=== PATIENT | female | born 1965 | race Caucasian/White ===

== ENCOUNTER 2018-02-13 22:59 | Emergency (ER) | payer OTHER, SELFPAY ==
[2018-02-13 23:09] VITALS: BP 143/90; PULSE 88; RESP 16; TEMP 36.6; O2SAT 98; BMI 32.5
--- NOTE | 2018-02-13 23:45 | ED.GENADULT ---
HPI - General Adult General Chief complaint: Diabetic Problem Stated complaint: thinks her blood sugar is to low Time Seen by Provider: 02/13/18 23:04 Source: patient Mode of arrival: ambulatory Limitations: no limitations History of Present Illness HPI narrative: 52-year-old female here for concerns of low blood sugar. Patient states that she takes 56 units of her long-acting insulin in the mornings and then 5 units of her short-acting insulin prior to each meal. She states that she has had concerns about low blood sugar. She states that earlier today she was at cardiac rehab where she ???zoned out??? and she states that they took her blood sugar there and it was in the mid 60s. She has not spoken with her primary doctor about this. Related Data Home Medications Medication Instructions Recorded Confirmed acetaminophen 650 mg PO Q4HP PRN #0 04/07/17 amiodarone 400 mg PO QDAY #0 11/15/17 aspirin 81 mg PO QDAY #0 11/15/17 atorvastatin [Lipitor] 10 mg PO HS #0 11/15/17 bisacodyl [Fleet Laxative] 5 mg PO QDAYP PRN #0 11/15/17 carvedilol [Coreg] 6.25 mg PO BID #0 11/15/17 furosemide 20 mg PO QDAY #0 11/15/17 insulin aspart U-100 [Novolog 5 unit SQ TIDAC #0 11/15/17 Flexpen U-100 Insulin] insulin glargine [Lantus Solostar 80 unit SQ QDAY #0 11/15/17 U-100 Insulin] lisinopril 10 mg PO BID #0 11/15/17 metformin [Glucophage] 250 mg PO BID #0 11/15/17 potassium chloride 2 cap PO QDAY #0 11/15/17 rosuvastatin 10 mg PO HS #0 11/15/17 spironolactone 12.5 mg PO QDAY #0 11/15/17 Review of Systems Constitutional Denies chills, Denies fever(s), Denies lethargy and Denies weakness Cardiovascular Denies chest pain, Denies irregular heart rhythm, Denies lightheadedness, Denies palpitations, Denies dyspnea, Denies dyspnea on exertion and Denies orthopnea Respiratory Denies cough, Denies dyspnea, Denies dyspnea on exertion and Denies wheezing Gastrointestinal Gastrointestinal: Denies abdominal pain, Denies change in bowel habits, Denies diarrhea, Denies nausea and Denies vomiting Genitourinary Denies dysuria Integumentary/Breasts Denies pruritus, Denies erythema, Denies rash and Denies wounds Neurologic Denies weakness Endocrine Denies palpitations Comments: Concern for low blood sugar Hematologic/Lymphatic Denies easy bruising Allergic/Immunologic Denies wheezing [facility] Social History Smoking Status: Never smoker Exam Initial Vital Signs Initial Vital Signs: Vital Signs Temperature 98 F 02/13/18 23:09 Pulse Rate 88 02/13/18 23:09 Respiratory Rate 16 02/13/18 23:09 Blood Pressure 143/90 H 02/13/18 23:09 Pulse Oximetry 98 02/13/18 23:09 Resp Effort & Inspection: normal respiratory effort and no respiratory distress Cardio Rate: regular rate Rhythm: regular rhythm Skin General: no rashes or lesions noted, No jaundice and No petechiae Neuro General: alert, oriented x3, gait normal and no focal motor deficits Speech: speech normal Motor: muscle tone normal throughout Sensory Exam: no sensory deficits noted Extrem General: full ROM, no clubbing, cyanosis or edema, no pedal edema and no calf tenderness Course Vital Signs - 8 hr 02/13/18 23:09 Temperature 98 F Pulse Rate 88 Respiratory Rate 16 Blood Pressure 143/90 H Pulse Oximetry 98 Medical Decision Making MDM Narrative Medical decision making narrative: Patient with normal blood sugar here in the emergency department. She has good records of her blood sugars over the past month. In general her blood sugars have been the lowest in the morning and the highest prior to her noon meal. On average all of her blood sugars throughout the day have been in the 90s and low 100s. She does have occasional morning blood sugars in the 60s and 70s but this is few and far between. Her blood sugars over the past month and general have been lower than they were last month. I feel after reviewing her daily blood sugars that she has not been hypoglycemic on a regular basis. Unsure as to the etiology of her low blood sugar at cardiac rehab earlier today. We did discuss her blood sugars and the fact that as time goes on there are may need to be changes and that a standard dose of the short-acting before her meals may need to be switched to a sliding scale. We did discuss that in the short term higher blood sugars are better than low blood sugars however good control of her blood sugar over long-term is better. She expressed understanding of this. Will hold on further workup for now. She was given return precautions. She was instructed that she needed to contact her primary doctor to discuss implementing a sliding scale for her meals. She expressed understanding and agreement with plan. Lab Data Lab results reviewed: Yes I reviewed the patient's lab results. Discharge Plan Departure Patient Disposition: Home, Self-Care Clinical Impression: Diabetes mellitus Discharge Date/Time: 02/13/18 23:55 Interventions: ED Discharge Assessment Last Done: 02/14/18 00:00 Instructions: The Importance of Counting Carbs If You Have Diabetes Activity Restrictions/Additional Instructions: Recommend that you make the adjustments to your insulin likely discussed. Keep your long acting insulin the way that it is. You can adjust her short-acting insulin to 3 units before each meal or keep it the way it is. Recommend that you talk with your primary doctor regarding this to discuss a sliding scale. Return to the emergency department for any new or worsening symptoms Prescriptions: No Action acetaminophen 325 MG tablet 650 mg PO Q4HP PRNQty: 0 RF: 0 lisinopril 10 MG tablet 10 mg PO BID Qty: 0 RF: 0 amiodarone 200 MG tablet 400 mg PO QDAY Qty: 0 RF: 0 rosuvastatin 10 MG tablet 10 mg PO HS Qty: 0 RF: 0 atorvastatin [Lipitor] 10 MG tablet 10 mg PO HS Qty: 0 RF: 0 spironolactone 25 MG tablet 12.5 mg PO QDAY Qty: 0 RF: 0 metformin [Glucophage] 500 MG tablet 250 mg PO BID Qty: 0 RF: 0 bisacodyl [Fleet Laxative] 5 MG tablet,delayed release (DR/EC) 5 mg PO QDAYP PRNQty: 0 RF: 0 carvedilol [Coreg] 6.25 MG tablet 6.25 mg PO BID Qty: 0 RF: 0 aspirin 81 MG tablet,chewable 81 mg PO QDAY Qty: 0 RF: 0 insulin aspart U-100 [Novolog Flexpen U-100 Insulin] 100 UNIT/1 ML insulin pen 5 unit SQ TIDAC Qty: 0 RF: 0 furosemide 20 MG tablet 20 mg PO QDAY Qty: 0 RF: 0 insulin glargine [Lantus Solostar U-100 Insulin] 100 UNIT/1 ML insulin pen 80 unit SQ QDAY Qty: 0 RF: 0 potassium chloride 10 MEQ capsule, extended release 2 cap PO QDAY Qty: 0 RF: 0
== END 2018-02-13 23:55 | disposition home or self-care (01) ==
PROVIDERS: Emergency Provider Emergency Medicine; Family Provider Family Medicine; PCP Family Medicine
DX: E11.9 Type 2 diabetes mellitus without complications (principal)
CPT/HCPCS: 82962; 99282

== ENCOUNTER 2020-04-25 19:42 | Emergency (ER) | payer SELFPAY ==
[2020-04-25 20:25] VITALS: BP 160/91; PULSE 78; RESP 18; TEMP 36.9; O2SAT 95; BMI 33.8
--- NOTE | 2020-04-25 20:36 | DI.RAD.S_ITS ---
PROCEDURE: XR TOE LT MIN 2V INDICATIONS: L 2nd toe ulcer r/o osteomyelitis TECHNIQUE: 3 views of the left 2nd toe(s) acquired. COMPARISON: None. FINDINGS: No destructive osseous lesion or periosteal reaction of the 2nd digit. No soft tissue gas. IMPRESSION: No plain radiographic evidence of osteomyelitis involving the 2nd digit. Dictated by: Iggy Rossi M.D. on 04/25/2020 at 20:58 Approved by: Iggy Rossi M.D. on 04/25/2020 at 20:59
[2020-04-25 21:27] LABS: RBC Urine None Seen (0-5/HPF)
--- NOTE | 2020-04-25 21:36 | ED.WOUNDLAC ---
HPI - Wound/Laceration General Chief Complaint: Wound/Laceration Stated Complaint: 2nd toe right foot sore that is getting bigger Time Seen by Provider: 04/25/20 20:20 Source: patient Mode of arrival: Ambulatory Limitations: no limitations History of Present Illness HPI narrative: 54-year-old female nonsmoker with history of hyperlipidemia, hypertension and diabetic neuropathy presents with her in the chief complaint of a small wound on the plantar surface of a toe on her left foot with some redness of her toe, worsening over the past few days if not weeks. She denies any significant pain or known injury. She denies any history of the same. She denies any fever or chills. She denies runny nose, sore throat or cough. She has no chest pain or shortness of breath. Additionally, she complains of some redness and irritated skin underneath her pannus which has been getting worse despite the use of a triple action antibiotic cream. Onset (ago): week(s) Extremity Location: Left: foot Related Data Home Medications Medication Instructions Recorded Confirmed acetaminophen 650 mg PO Q4HP PRN #0 04/07/17 amiodarone 400 mg PO QDAY #0 11/15/17 aspirin 81 mg PO QDAY #0 11/15/17 atorvastatin [Lipitor] 10 mg PO HS #0 11/15/17 bisacodyl [Fleet Laxative 5 mg PO QDAYP PRN #0 11/15/17 (bisacodyl)] carvedilol [Coreg] 6.25 mg PO BID #0 11/15/17 furosemide 20 mg PO QDAY #0 11/15/17 insulin aspart U-100 [Novolog 5 unit SQ TIDAC #0 11/15/17 Flexpen U-100 Insulin] insulin glargine [Lantus Solostar 80 unit SQ QDAY #0 11/15/17 U-100 Insulin] lisinopril 10 mg PO BID #0 11/15/17 metformin [Glucophage] 250 mg PO BID #0 11/15/17 potassium chloride 2 cap PO QDAY #0 11/15/17 rosuvastatin 10 mg PO HS #0 11/15/17 spironolactone 12.5 mg PO QDAY #0 11/15/17 Previous Rx's Medication Instructions Recorded amoxicillin-pot clavulanate 1 tab PO BID #20 tab 04/25/20 [Augmentin] ciprofloxacin HCl 500 mg PO Q12H #20 tab 04/25/20 nystatin 1 applictn TOP BID 10 Days #30 gram 04/25/20 sulfamethoxazole-trimethoprim 1 tab PO Q12H #20 tab 04/25/20 [Bactrim DS] Allergies Allergy/AdvReac Type Severity Reaction Status Date / Time No Known Drug Allergies Allergy Verified 04/25/20 20:30 Review of Systems Constitutional Constitutional: Denies chills, Denies fatigue, Denies fever(s), Denies frequent falls, Denies lethargy and Denies weakness Eyes Eyes: Denies change in vision, Denies eye discharge, Denies irritation and Denies loss of vision ENT Ears, Nose, Mouth, and Throat: Denies change in voice, Denies dizziness, Denies neck pain, Denies sore throat and Denies throat swelling Cardiovascular Cardiovascular: Denies chest pain, Denies irregular heart rhythm, Denies lightheadedness, Denies palpitations, Denies dyspnea, Denies dyspnea on exertion and Denies orthopnea Respiratory Respiratory: Denies cough, Denies dyspnea, Denies dyspnea on exertion and Denies wheezing Gastrointestinal Gastrointestinal: Denies abdominal pain, Denies change in bowel habits, Denies diarrhea, Denies nausea and Denies vomiting Musculoskeletal Musculoskeletal: Denies neck pain and Denies numbness Integumentary/Breasts Skin/Breast: Denies pruritus, Reports erythema, Denies rash, Reports skin pain, Reports skin swelling, Reports skin ulcer and Denies wounds Neurologic Neurologic: Denies behavioral changes, Denies confusion, Denies dizziness, Denies frequent falls, Denies loss of vision, Denies numbness and Denies weakness Psychiatric Psychiatric: Denies anxiety, Denies behavioral changes, Denies confusion, Denies depression, Denies homicidal ideation and Denies suicidal ideation Endocrine Endocrine: Denies fatigue, Denies flushing and Denies palpitations Hematologic/Lymphatic Hematologic/Lymphatic: Denies easy bruising Allergic/Immunologic Allergic/Immunologic: Denies urticaria, Denies throat swelling and Denies wheezing Patient History Social History Smoking Status: Never smoker Smoking Status: Never smoker alcohol intake frequency: 0-2 drinks per day Substance Use Type: does not use Exam Narrative Exam Narrative: GENERAL: [54] year old patient appears stated age. Morbidly obese Well-nourished, well-developed patient, in mild distress. HEAD: Atraumatic. Normocephalic. EYES: Pupils equal round and reactive. Extraocular motions intact. No scleral icterus. No injection or drainage. ENT: Nose without bleeding, purulent drainage. Throat without erythema, tonsillar hypertrophy or exudate. Airway patent. NECK: Trachea midline. Non tender CARDIOVASCULAR: Regular rate and rhythm without murmurs, gallops, or rubs. RESPIRATORY: Clear to auscultation. Breath sounds equal bilaterally. No wheezes, rales, or rhonchi. GASTROINTESTINAL: Abdomen soft, non-tender, nondistended. Pannus lifted and large area of of red, beefy and well demarcated skin irritation consistent with candidal infection. EXTREMITIES: No edema or joint tenderness. Small scabbed insensate ulcer on the plantar surface of 2nd toe of left foot. NO active drainage. No exposure of subq fat, muscle, tendon or bone. Toe is largely erythematous. No involvement of foot BACK: Nontender without deformity or crepitance. No flank tenderness. NEURO: AOx3. SKIN: Otherwise. No rash or erythema of visible areas Initial Vital Signs Initial Vital Signs: Vital Signs Temperature 98.4 F 04/25/20 20:25 Pulse Rate 78 04/25/20 20:25 Respiratory Rate 18 04/25/20 20:25 Blood Pressure 160/91 H 04/25/20 20:25 Pulse Oximetry 95 04/25/20 20:25 Course Orders Ordered: ED Orders 04/25/20 22:42 Blood Culture Stat 04/25/20 23:38 Wound Culture and Gram Stain Stat Wound Culture and Gram Stain Stat Discontinued Medications Nystatin (Nystatin) 1 applic TOP NOW ONE Stop: 04/25/20 23:22 Last Admin: 04/25/20 23:54 Dose: Not Given Documented by: CASEY Vital Signs Vital signs: Vital Signs - 8 hr 04/25/20 23:41 Pulse Rate 68 Blood Pressure 138/78 Pulse Oximetry 98 MDM - Wound/Laceration Lab Data Result diagrams: 04/25/20 20:15 Labs: Lab Results 04/25/20 04/25/20 04/25/20 Range/Units 20:15 20:15 20:15 WBC 6.7 (4.5-11.0) X10^3/uL RBC 4.93 (4.0-5.2) X10^6/uL Hgb 14.4 (12.0-16.0) g/dL Hct 44.0 (36-46) % MCV 89.3 (80-100) fL MCH 29.1 (26-34) PG MCHC 32.6 (30-36) % RDW 13.2 (11.6-14.8) % Plt Count 218 (150-400) X10^3/uL Neut % (Auto) 68.4 (50-75) % Lymph % (Auto) 20.2 L (25-40) % [place] % (Auto) 8.6 (3-14) % Eos % (Auto) 1.9 L (2-4) % Baso % (Auto) 0.9 (0-2) % Neut # (Auto) 4600 (4086-9957) /uL Lymph # (Auto) 1400 (8228-3481) /uL [place] # (Auto) 600 (0-900) /uL Eos # (Auto) 100 (0-450) /uL Baso # (Auto) 100 (0-100) /uL ESR 25 H (0-20) MM/HR Lactate 1.0 (0.7-2.1) mmol/L C-Reactive Protein 2.2 H (<1.0) mg/dL NT-Pro-B Natriuret Pep 406 H (<125) pg/mL Urine RBC (0-5/HPF) Urine WBC (0-5/HPF) Ur Squamous Epith Cells (0-5/HPF) Urine Bacteria (None) Ur Culture Indicated? 04/25/20 Range/Units 21:26 WBC (4.5-11.0) X10^3/uL RBC (4.0-5.2) X10^6/uL Hgb (12.0-16.0) g/dL Hct (36-46) % MCV (80-100) fL MCH (26-34) PG MCHC (30-36) % RDW (11.6-14.8) % Plt Count (150-400) X10^3/uL Neut % (Auto) (50-75) % Lymph % (Auto) (25-40) % [place] % (Auto) (3-14) % Eos % (Auto) (2-4) % Baso % (Auto) (0-2) % Neut # (Auto) (7183-6023) /uL Lymph # (Auto) (0608-0593) /uL [place] # (Auto) (0-900) /uL Eos # (Auto) (0-450) /uL Baso # (Auto) (0-100) /uL ESR (0-20) MM/HR Lactate (0.7-2.1) mmol/L C-Reactive Protein (<1.0) mg/dL NT-Pro-B Natriuret Pep (<125) pg/mL Urine RBC None seen (0-5/HPF) Urine WBC 5-10/hpf H (0-5/HPF) Ur Squamous Epith Cells 0-1 /hpf (0-5/HPF) Urine Bacteria Many (>30) H (None) Ur Culture Indicated? Specimen cultured Imaging Data Extremity x-ray #1: Radiologist's Impression: [address] [address] XRay Report Signed Patient: Kimmy Gray [facility]#: [id number] : 1965Acct:[id number] Age/Sex: 54 / FDate of Service: 04/25/20 Loc: ED Accession Number: [id number] Procedure: XR toe LT min 2V Ordering Provider: Vidhya Moraes PROCEDURE: XR TOE LT MIN 2V INDICATIONS: L 2nd toe ulcer r/o osteomyelitis TECHNIQUE: 3 views of the left 2nd toe(s) acquired. COMPARISON: None. FINDINGS: No destructive osseous lesion or periosteal reaction of the 2nd digit. No soft tissue gas. IMPRESSION: No plain radiographic evidence of osteomyelitis involving the 2nd digit. Dictated by: Iggy Rossi M.D. on 04/25/2020 at 20:58 Approved by: Iggy Rossi M.D. on 04/25/2020 at 20:59 MDM Narrative Medical decision making narrative: Patient shows no signs of sepsis and is very unlikely Discharge Plan Departure Patient Disposition: Home Clinical Impression: Candidal dermatitis Diabetic ulcer of toe Qualifiers: Diabetes mellitus type: type 2 Laterality: left Non-pressure ulcer stage: limited to breakdown of skin Qualified Code(s): E11.621 - Type 2 diabetes mellitus with foot ulcer Discharge Date/Time: 04/25/20 23:56 Instructions: Diabetic Foot Ulcer, Yeast Infection-Skin Activity Restrictions/Additional Instructions: *You have been diagnosed with [ diabetic foot ulcer, candidal infection ] *What to do: *Take medications as directed *Follow up with your primary care provider in 2-3 days, call for an appointment. Let them know you were seen in the Emergency Department and that we ask that you be seen in follow up *Return to ER if you should have any new, worsening or concerning symptoms Prescriptions: New amoxicillin-pot clavulanate [Augmentin] 875-125 mg tablet 1 tab PO BID Qty: 20 RF: 0 ciprofloxacin HCl 500 mg tablet 500 mg PO Q12H Qty: 20 RF: 0 sulfamethoxazole-trimethoprim [Bactrim DS] 800-160 mg tablet 1 tab PO Q12H Qty: 20 RF: 0 nystatin 100,000 unit/gram cream 1 applictn TOP BID 10 Days Qty: 30 RF: 0 No Action acetaminophen 325 MG tablet 650 mg PO Q4HP PRNQty: 0 RF: 0 lisinopril 10 MG tablet 10 mg PO BID Qty: 0 RF: 0 amiodarone 200 MG tablet 400 mg PO QDAY Qty: 0 RF: 0 rosuvastatin 10 MG tablet 10 mg PO HS Qty: 0 RF: 0 atorvastatin [Lipitor] 10 MG tablet 10 mg PO HS Qty: 0 RF: 0 spironolactone 25 MG tablet 12.5 mg PO QDAY Qty: 0 RF: 0 metformin [Glucophage] 500 MG tablet 250 mg PO BID Qty: 0 RF: 0 bisacodyl [Fleet Laxative (bisacodyl)] 5 MG tablet,delayed release (DR/EC) 5 mg PO QDAYP PRNQty: 0 RF: 0 carvedilol [Coreg] 6.25 MG tablet 6.25 mg PO BID Qty: 0 RF: 0 aspirin 81 MG tablet,chewable 81 mg PO QDAY Qty: 0 RF: 0 insulin aspart U-100 [Novolog Flexpen U-100 Insulin] 100 UNIT/1 ML insulin pen 5 unit SQ TIDAC Qty: 0 RF: 0 furosemide 20 MG tablet 20 mg PO QDAY Qty: 0 RF: 0 insulin glargine [Lantus Solostar U-100 Insulin] 100 UNIT/1 ML insulin pen 80 unit SQ QDAY Qty: 0 RF: 0 potassium chloride 10 MEQ capsule, extended release 2 cap PO QDAY Qty: 0 RF: 0 Referrals: Kevin Leon MD [Primary Care Provider] -
[2020-04-25 21:38] LABS: Squamous Epithelial Cell Urine 0-1 /HPF (0-5/HPF); WBC Urine 5-10/HPF (0-5/HPF)
[2020-04-25 21:39] LABS: Bacteria Urine Many (>30); Culture Indicated Urine Specimen Cultured
--- NOTE | 2020-04-25 22:21 | PC.NURSE ---
reports her daughter noticed her second toe on left foot had a wound on the bottom. Patient does not know how long it has been there. Patient states her diabetes has been uncontrolled for 2 years due to inability to pay for care/medications.
[2020-04-25 22:42] LABS: Add Manual Diff / Slide Review NO; Basophils Absolute Auto 100 /uL (0-100); Basophils Percent Auto 0.9 % (0-2); Eosinophils Absolute Auto 100 /uL (0-450); Eosinophils Percent Auto 1.9 % (2-4); Hemoglobin 14.4 g/dL (12.0-16.0); Lymphocytes Absolute Auto 1400 /uL (1100-4500); Lymphocytes Percent Auto 20.2 % (25-40); Mean Corpuscular HGB Conc 32.6 % (30-36); Mean Corpuscular Hemoglobin 29.1 PG (26-34); Mean Corpuscular Volume 89.3 fL (80-100); Monocytes Absolute Auto 600 /uL (0-900); Monocytes Percent Auto 8.6 % (3-14); Neutrophils Absolute Auto 4600 /uL (1500-7000); Neutrophils Percent Auto 68.4 % (50-75); Platelet Count 218 X10^3/uL (150-400); Red Blood Cell Count 4.93 X10^6/uL (4.0-5.2); Red Cell Distribution Width 13.2 % (11.6-14.8); White Blood Cell Count 6.7 X10^3/uL (4.5-11.0)
[2020-04-25 23:11] LABS: C-Reactive Protein Quant 2.2 mg/dL (<1.0); Erythrocyte Sedimentation Rate 25 MM/HR (0-20)
[2020-04-25 23:18] LABS: NT-proBNP (BNP-Adult 18+) 406 pg/mL (<125)
[2020-04-25 23:41] VITALS: BP 138/78; PULSE 68; O2SAT 98
== END 2020-04-25 23:56 | disposition home or self-care (01) ==
PROVIDERS: Emergency Provider Emergency Medicine; Family Provider Family Medicine; PCP Family Medicine
DX: E11.621 Type 2 diabetes mellitus with foot ulcer (principal); B37.2 Candidiasis of skin and nail; E78.5 Hyperlipidemia, unspecified; I10 Essential (primary) hypertension; E66.01 Morbid (severe) obesity due to excess calories
CPT/HCPCS: 36415; 73660; 81003; 81015; 82962; 83605; 83880; 85025; 85651; 86140; 87040; 87070; 87075; 87077; 87086; 87147; 87186; 87205; 99282; 99284

== ENCOUNTER 2020-07-20 23:02 | Emergency (ER) | payer SELFPAY ==
[2020-07-20 23:09] VITALS: BP 136/89; PULSE 123; RESP 15; TEMP 37; O2SAT 97; BMI 30.5
[2020-07-21] VITALS (32 sets, daily range): BP systolic 108–168; BP diastolic 62–94; PULSE 91–114; RESP 14–23; O2SAT 89–95
--- NOTE | 2020-07-21 00:31 | PC.NURSE ---
Pt's states that pt is forgetting basic things such as her pin number, bringing him cold cups of coffee, and sitting by the bathtub waiting for cold water when she knows their cold water doesn't work on their bathtub. Pt is A&Ox4 and speaking in full clear sentences. Pt also has a small round wound to the underside of her L 2nd toe.
--- NOTE | 2020-07-21 01:29 | DI.RAD.S_ITS ---
PROCEDURE: XR CHEST 1V INDICATIONS: dyspnea TECHNIQUE: One view of the chest was acquired. COMPARISON: [facility], , CHEST 1 VIEW, 11/10/2017, 19:30. FINDINGS: Surgical changes and devices: AICD is stable. Stable cholecystectomy clips. Lungs and pleura: Slight prominence of the interstitium. No pleural effusions or pneumothorax. Mediastinum: Mediastinal contours appear normal. Heart size is normal. Bones and chest wall: No suspicious bony lesions. Overlying soft tissues appear unremarkable. IMPRESSION: Slight prominence of the interstitium which could be due to pulmonary edema or atypical pneumonia. Dictated by: Emily Ramirez MD, PhD on 07/21/2020 at 8:13 Approved by: Emily Ramirez MD, PhD on 07/21/2020 at 8:14
--- NOTE | 2020-07-21 01:30 | ED_ITS ---
HPI - Altered Mental Status General Chief Complaint: Altered Mental Status Stated Complaint: shortness of breath, forgetfulness/left foot ulcer Time Seen by Provider: 07/21/20 00:47 Source: patient Mode of arrival: Ambulatory Limitations: no limitations History of Present Illness HPI narrative: About 3:00 p.m. today, the patient developed dyspnea. She was at home, walking. She was not exerting herself significantly. Her describes her as panting. Symptoms for events resolved, she is unsure how long time. Was involved. She has no chest discomfort, palpitations or dyspnea at this time. She has no recent orthopnea, she has no lower extremity edema. She denies headache or sore throat. She has no chest pain. She has no fever. She has a pacer in. She had no palpitations. She has been well recently, until this afternoon. Her added that she has moments of confusion. The patient kind last set office and she has been that way for years. She has no current visual changes or headache. She has no peripheral weakness or numbness. She does not use alcohol or drugs. The patient has been noncompliant with all medications due to the expense. I discussed the case with Dr. Horn, cardiology at [facility]. She provided added detail. The patient is previously arrived there following cardiac arrest. Evaluation revealed severe ischemic cardiomyopathy, with multiple vessel CAD. She was treated for an EF of approximately 15%. She is asymptomatic on arrival but has CAD with tachycardia implying noncompliance of the medications. She has hyperglycemia. CHF was treated Lasix. The patient remains clinically stable. Dr. Horn concurred the increased troponin does not necessarily indicate a non-STEMI. Given her history LV strain is likely. Transfer to [facility] was recommended. There are no beds available at this time, but multiple discharges are anticipated. Dr. Horn has asked that she be held here until a bed is available at [facility]. Related Data Home Medications Medication Instructions Recorded Confirmed acetaminophen 650 mg PO Q4HP PRN #0 04/07/17 amiodarone 400 mg PO QDAY #0 11/15/17 aspirin 81 mg PO QDAY #0 11/15/17 atorvastatin [Lipitor] 10 mg PO HS #0 11/15/17 bisacodyl [Fleet Laxative 5 mg PO QDAYP PRN #0 11/15/17 (bisacodyl)] carvedilol [Coreg] 6.25 mg PO BID #0 11/15/17 furosemide 20 mg PO QDAY #0 11/15/17 insulin aspart U-100 [Novolog 5 unit SQ TIDAC #0 11/15/17 Flexpen U-100 Insulin] insulin glargine [Lantus Solostar 80 unit SQ QDAY #0 11/15/17 U-100 Insulin] lisinopril 10 mg PO BID #0 11/15/17 metformin [Glucophage] 250 mg PO BID #0 11/15/17 potassium chloride 2 cap PO QDAY #0 11/15/17 rosuvastatin 10 mg PO HS #0 11/15/17 spironolactone 12.5 mg PO QDAY #0 11/15/17 Previous Rx's Medication Instructions Recorded amoxicillin-pot clavulanate 1 tab PO BID #20 tab 04/25/20 [Augmentin] ciprofloxacin HCl 500 mg PO Q12H #20 tab 04/25/20 sulfamethoxazole-trimethoprim 1 tab PO Q12H #20 tab 04/25/20 [Bactrim DS] Allergies Allergy/AdvReac Type Severity Reaction Status Date / Time No Known Drug Allergies Allergy Verified 04/25/20 20:30 Review of Systems Constitutional Constitutional: Denies chills, Denies fever(s), Reports lethargy and Denies weakness Eyes Eyes: Denies change in vision ENT Ears, Nose, Mouth, and Throat: Denies change in voice, Denies dizziness, Denies neck pain and Denies sore throat Cardiovascular Cardiovascular: Denies chest pain, Denies irregular heart rhythm, Denies lightheadedness, Denies palpitations and Reports dyspnea on exertion Respiratory Respiratory: Denies cough, Reports dyspnea on exertion and Denies wheezing Gastrointestinal Gastrointestinal: Denies abdominal pain, Reports change in bowel habits, Denies diarrhea, Denies nausea and Denies vomiting Musculoskeletal Musculoskeletal: Denies back pain and Denies neck pain Integumentary/Breasts Skin/Breast: Reports erythema (Ulcers on left 1st and 2nd toes.) and Denies rash Neurologic Neurologic: Denies dizziness and Denies weakness Endocrine Endocrine: Denies palpitations Allergic/Immunologic Allergic/Immunologic: Denies wheezing Patient History Medical History (Updated 07/21/20 @ 06:28 by Kevin Barry MD) Diabetes mellitus (Acute) 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 (Acute) Pacemaker (Acute) Social History Smoking Status: Never smoker Smoking Status: Never smoker alcohol intake frequency: 0-2 drinks per day Substance Use Type: does not use Exam Initial Vital Signs Initial Vital Signs: Vital Signs Temperature 98.6 F 07/20/20 23:09 Pulse Rate 123 H 07/20/20 23:09 Respiratory Rate 15 07/20/20 23:09 Blood Pressure 136/89 07/20/20 23:09 Pulse Oximetry 97 07/20/20 23:09 Const General: cooperative and well developed Nutritional Appearance: well nourished HENAL Head: normocephalic and atraumatic Mouth: oral mucosae normal Throat: posterior oropharynx normal Eyes General: appearance normal, both eyes and all related structures Eyelids: eyelids normal Conjunctivae: conjunctivae normal Sclera: sclerae normal Pupils: PERRL EOM: EOM intact bilaterally Neck Neck: No JVD Resp Effort & Inspection: normal respiratory effort and able to speak in complete sentences Auscultation: clear to auscultation bilaterally, no rales, no rhonchi and no wheezes Cardio Rate: regular rate Rhythm: regular rhythm Heart Sounds: no click, no gallops, no murmurs and no rubs Pulses: normal peripheral pulses GI Inspection: non-distended Palpation: soft, no hepatosplenomegaly, No guarding, No pulsatile mass and No tender Auscultation: normal bowel sounds Back/Spine/Pelvis Back: No back tenderness Skin General: no rashes or lesions noted, No jaundice and No petechiae Neuro General: patient alert, patient oriented x3, gait normal and no focal motor deficits Speech: speech normal Extrem General: full ROM, no clubbing, cyanosis or edema, no pedal edema and no calf tenderness Psych Mental Status: mental status grossly normal Speech and Movement: speech and movement normal Course Course Course Narrative: The severity of the patient's cardiac problems was revealed after consultation with Cardiology, Dr. Horn. Portion of patient's clinically stable, but she has been without her medications. Concern is with her cardiomyopathy has significant worsened, revealed by the tachycardia in the CHF. There are no beds currently available [facility], but I was reassured she would have beds at change of shift. Consultation will be sought with the incoming hospitalist on the next shift. Dr. Horn highly enco uraged patient awaiting a bed at [facility] versus transfer elsewhere. Orders Ordered: ED Orders 07/21/20 01:22 Acetaminophen Stat Complete Blood Count AUTO DIFF Stat Comprehensive Metabolic Panel Stat Ethanol (ETOH) Stat Lactate (Lactic Acid) Stat NT-proBNP (BNP-Adult 18+) Stat Partial Thromboplastin Time Stat Prothrombin Time INR Stat Salicylate Stat Thyroid Stimulating Hormone Stat Troponin & CK Cardiac Panel Stat 07/21/20 01:29 XR chest 1V Stat EKG-12 Lead Stat 07/21/20 01:36 Ammonia (NH3) Stat Blood Culture Stat 07/21/20 03:10 Urinalysis and Microscopic Stat Urine Culture Stat Urine Drug Screen, Rapid Stat 07/21/20 03:32 Troponin & CK Cardiac Panel Stat Discontinued Medications Aspirin (Aspirin Chew) 324 mg PO NOW ONE Stop: 07/21/20 02:26 Last Admin: 07/21/20 02:29 Dose: 324 mg Documented by: KATHRINE Furosemide (Lasix) 40 mg IV NOW ONE Stop: 07/21/20 03:27 Last Admin: 07/21/20 03:36 Dose: 40 mg Documented by: KATHRINE Sodium Chloride (Normal Saline 0.9%) 1,000 mls @ 150 mls/hr IV CONT ERIKA Last Infusion: 07/21/20 05:22 Dose: 0 mls/hr Documented by: Admin: 07/21/20 01:32 Dose: 150 mls/hr Documented by: KATHRINE Vital Signs Vital signs: Vital Signs - 8 hr 07/21/20 00:21 07/21/20 00:30 07/21/20 01:30 Pulse Rate 109 H 105 H 106 H Respiratory Rate 16 Blood Pressure 136/81 135/83 Pulse Oximetry 95 93 94 07/21/20 02:00 07/21/20 02:30 07/21/20 02:38 Pulse Rate 96 H 97 H 102 H Respiratory Rate 18 16 Blood Pressure 143/84 H 140/79 Pulse Oximetry 93 94 92 07/21/20 03:00 07/21/20 03:22 07/21/20 03:30 Pulse Rate 95 H 91 H 91 H Respiratory Rate Blood Pressure 123/77 119/74 124/74 Pulse Oximetry 92 93 94 07/21/20 04:00 07/21/20 04:30 07/21/20 05:00 Pulse Rate 92 H 99 H 98 H Respiratory Rate 20 Blood Pressure 148/80 H 108/68 121/71 Pulse Oximetry 94 92 92 07/21/20 05:25 07/21/20 05:30 07/21/20 06:00 Pulse Rate 107 H 97 H 92 H Respiratory Rate 18 16 14 Blood Pressure 134/80 114/62 115/73 Pulse Oximetry 94 92 92 07/21/20 06:30 07/21/20 07:00 Pulse Rate 94 H 96 H Respiratory Rate 18 21 Blood Pressure 117/75 118/76 Pulse Oximetry 91 93 MDM - Altered Mental Status Lab Data Result diagrams: 07/21/20 01:22 07/21/20 01:22 Labs: Lab Results 07/21/20 07/21/20 07/21/20 Range/Units 01:22 01:22 01:22 WBC 10.5 (4.5-11.0) X10^3/uL RBC 4.91 (4.0-5.2) X10^6/uL Hgb 14.3 (12.0-16.0) g/dL Hct 43.7 (36-46) % MCV 88.9 (80-100) fL MCH 29.1 (26-34) PG MCHC 32.7 (30-36) % RDW 12.9 (11.6-14.8) % Plt Count 214 (150-400) X10^3/uL Neut % (Auto) 78.9 H (50-75) % Lymph % (Auto) 11.7 L (25-40) % [place] % (Auto) 8.1 (3-14) % Eos % (Auto) 0.4 L (2-4) % Baso % (Auto) 0.9 (0-2) % Neut # (Auto) 8300 H (3721-2903) /uL Lymph # (Auto) 1200 (2000-7285) /uL [place] # (Auto) 800 (0-900) /uL Eos # (Auto) 0 (0-450) /uL Baso # (Auto) 100 (0-100) /uL PT 12.1 (10.1-12.7) SECONDS INR 1.0 (0.9-1.3) APTT 31 (26.4-36.2) SECONDS Sodium 138 (137-145) mmol/L Potassium 3.8 (3.4-5.1) mmol/L Chloride 102 (98-107) mmol/L Carbon Dioxide 27 (22-32) mmol/L BUN 18 H (7-17) mg/dL Creatinine 0.60 (0.52-1.04) mg/dL Estimated GFR > 60.0 (>60) mL/min BUN/Creatinine Ratio 30.0 H (6-22) Glucose 394 H (70-100) mg/dL Lactate (0.7-2.1) mmol/L Calcium 9.9 (8.4-10.2) mg/dL Total Bilirubin 0.7 (0.2-1.3) mg/dL AST 19 (14-36) IU/L ALT 20 (<35) IU/L Alkaline Phosphatase 163 H (38-126) U/L Ammonia (9-30) umol/L Total Creatine Kinase (30-135) U/L CK-MB (CK-2) CK-MB (CK-2) Rel Index Troponin I (0.01-0.034) ng/mL NT-Pro-B Natriuret Pep (<125) pg/mL Total Protein 8.0 (6.3-8.2) g/dL Albumin 4.1 (3.5-5.0) g/dL Globulin 3.9 (1.7-4.1) g/dL Albumin/Globulin Ratio 1.1 (1.0-2.8) TSH (0.47-4.68) uIU/mL Urine Color Urine Appearance Urine pH (4.5-8.0) Ur Specific [place] (1.000-1.035) Urine Protein (Negative) Urine Glucose (UA) (Negative) g/dL Urine Ketones (NEGATIVE) Urine Occult Blood (Negative) Urine Nitrate (Negative) Urine Bilirubin (NEGATIVE) Urine Urobilinogen (0.2) E.U./dL Ur Leukocyte Esterase (NEGATIVE) Urine RBC (0-5/HPF) Urine WBC (0-5/HPF) Ur Squamous Epith Cells (0-5/HPF) Urine Bacteria (None) Urine Yeast (None) Ur Culture Indicated? Salicylates < 1.0 (<20) mg/dL U Opiates 300ng/mL cut (Negative) Ur Oxycodone Screen (Negative) Urine Methadone Screen (Negative) Acetaminophen < 10 L (10-30) ug/mL Ur Barbiturates Screen (Negative) U Tricyclic Antidepress (Negative) Ur Phencyclidine Scrn (Negative) Ur Amphetamines Screen (Negative) U Methamphetamines Scrn (Negative) Ur MDMA Scrn (Ecstasy) (Negative) U Benzodiazepines Scrn (Negative) Urine Cocaine Screen (Negative) U Marijuana (THC) Screen (Negative) Ethyl Alcohol < 10 ( - 10) mg/dL 07/21/20 07/21/20 07/21/20 Range/Units 01:22 01:22 01:22 WBC (4.5-11.0) X10^3/uL RBC (4.0-5.2) X10^6/uL Hgb (12.0-16.0) g/dL Hct (36-46) % MCV (80-100) fL MCH (26-34) PG MCHC (30-36) % RDW (11.6-14.8) % Plt Count (150-400) X10^3/uL Neut % (Auto) (50-75) % Lymph % (Auto) (25-40) % [place] % (Auto) (3-14) % Eos % (Auto) (2-4) % Baso % (Auto) (0-2) % Neut # (Auto) (3401-5371) /uL Lymph # (Auto) (7248-5871) /uL [place] # (Auto) (0-900) /uL Eos # (Auto) (0-450) /uL Baso # (Auto) (0-100) /uL PT (10.1-12.7) SECONDS INR (0.9-1.3) APTT (26.4-36.2) SECONDS Sodium (137-145) mmol/L Potassium (3.4-5.1) mmol/L Chloride (98-107) mmol/L Carbon Dioxide (22-32) mmol/L BUN (7-17) mg/dL Creatinine (0.52-1.04) mg/dL Estimated GFR (>60) mL/min BUN/Creatinine Ratio (6-22) Glucose (70-100) mg/dL Lactate 1.4 (0.7-2.1) mmol/L Calcium (8.4-10.2) mg/dL Total Bilirubin (0.2-1.3) mg/dL AST (14-36) IU/L ALT (<35) IU/L Alkaline Phosphatase (38-126) U/L Ammonia (9-30) umol/L Total Creatine Kinase 40 (30-135) U/L CK-MB (CK-2) TNP CK-MB (CK-2) Rel Index TNP Troponin I 0.179 H* (0.01-0.034) ng/mL NT-Pro-B Natriuret Pep 1330 H (<125) pg/mL Total Protein (6.3-8.2) g/dL Albumin (3.5-5.0) g/dL Globulin (1.7-4.1) g/dL Albumin/Globulin Ratio (1.0-2.8) TSH 1.50 (0.47-4.68) uIU/mL Urine Color Urine Appearance Urine pH (4.5-8.0) Ur Specific [place] (1.000-1.035) Urine Protein (Negative) Urine Glucose (UA) (Negative) g/dL Urine Ketones (NEGATIVE) Urine Occult Blood (Negative) Urine Nitrate (Negative) Urine Bilirubin (NEGATIVE) Urine Urobilinogen (0.2) E.U./dL Ur Leukocyte Esterase (NEGATIVE) Urine RBC (0-5/HPF) Urine WBC (0-5/HPF) Ur Squamous Epith Cells (0-5/HPF) Urine Bacteria (None) Urine Yeast (None) Ur Culture Indicated? Salicylates (<20) mg/dL U Opiates 300ng/mL cut (Negative) Ur Oxycodone Screen (Negative) Urine Methadone Screen (Negative) Acetaminophen (10-30) ug/mL Ur Barbiturates Screen (Negative) U Tricyclic Antidepress (Negative) Ur Phencyclidine Scrn (Negative) Ur Amphetamines Screen (Negative) U Methamphetamines Scrn (Negative) Ur MDMA Scrn (Ecstasy) (Negative) U Benzodiazepines Scrn (Negative) Urine Cocaine Screen (Negative) U Marijuana (THC) Screen (Negative) Ethyl Alcohol ( - 10) mg/dL 07/21/20 07/21/20 07/21/20 Range/Units 01:36 03:10 03:10 WBC (4.5-11.0) X10^3/uL RBC (4.0-5.2) X10^6/uL Hgb (12.0-16.0) g/dL Hct (36-46) % MCV (80-100) fL MCH (26-34) PG MCHC (30-36) % RDW (11.6-14.8) % Plt Count (150-400) X10^3/uL Neut % (Auto) (50-75) % Lymph % (Auto) (25-40) % [place] % (Auto) (3-14) % Eos % (Auto) (2-4) % Baso % (Auto) (0-2) % Neut # (Auto) (2391-0697) /uL Lymph # (Auto) (4641-3428) /uL [place] # (Auto) (0-900) /uL Eos # (Auto) (0-450) /uL Baso # (Auto) (0-100) /uL PT (10.1-12.7) SECONDS INR (0.9-1.3) APTT (26.4-36.2) SECONDS Sodium (137-145) mmol/L Potassium (3.4-5.1) mmol/L Chloride (98-107) mmol/L Carbon Dioxide (22-32) mmol/L BUN (7-17) mg/dL Creatinine (0.52-1.04) mg/dL Estimated GFR (>60) mL/min BUN/Creatinine Ratio (6-22) Glucose (70-100) mg/dL Lactate (0.7-2.1) mmol/L Calcium (8.4-10.2) mg/dL Total Bilirubin (0.2-1.3) mg/dL AST (14-36) IU/L ALT (<35) IU/L Alkaline Phosphatase (38-126) U/L Ammonia < 9 L (9-30) umol/L Total Creatine Kinase (30-135) U/L CK-MB (CK-2) CK-MB (CK-2) Rel Index Troponin I (0.01-0.034) ng/mL NT-Pro-B Natriuret Pep (<125) pg/mL Total Protein (6.3-8.2) g/dL Albumin (3.5-5.0) g/dL Globulin (1.7-4.1) g/dL Albumin/Globulin Ratio (1.0-2.8) TSH (0.47-4.68) uIU/mL Urine Color Yellow Urine Appearance Clear Urine pH 5.0 (4.5-8.0) Ur Specific [place] 1.015 (1.000-1.035) Urine Protein Negative (Negative) Urine Glucose (UA) 2+ H (Negative) g/dL Urine Ketones 3+ H (NEGATIVE) Urine Occult Blood 1+ H (Negative) Urine Nitrate Positive H (Negative) Urine Bilirubin Negative (NEGATIVE) Urine Urobilinogen 0.2 (0.2) E.U./dL Ur Leukocyte Esterase Negative (NEGATIVE) Urine RBC 0-1/hpf (0-5/HPF) Urine WBC 5-10/hpf H (0-5/HPF) Ur Squamous Epith Cells 0-1 /hpf (0-5/HPF) Urine Bacteria Moderate (10-30) H (None) Urine Yeast 0-1/hpf (None) Ur Culture Indicated? Specimen cultured Salicylates (<20) mg/dL U Opiates 300ng/mL cut Negative (Negative) Ur Oxycodone Screen Negative (Negative) Urine Methadone Screen Negative (Negative) Acetaminophen (10-30) ug/mL Ur Barbiturates Screen Negative (Negative) U Tricyclic Antidepress Negative (Negative) Ur Phencyclidine Scrn Negative (Negative) Ur Amphetamines Screen Negative (Negative) U Methamphetamines Scrn Negative (Negative) Ur MDMA Scrn (Ecstasy) Negative (Negative) U Benzodiazepines Scrn Negative (Negative) Urine Cocaine Screen Negative (Negative) U Marijuana (THC) Screen Negative (Negative) Ethyl Alcohol ( - 10) mg/dL 07/21/20 Range/Units 03:32 WBC (4.5-11.0) X10^3/uL RBC (4.0-5.2) X10^6/uL Hgb (12.0-16.0) g/dL Hct (36-46) % MCV (80-100) fL MCH (26-34) PG MCHC (30-36) % RDW (11.6-14.8) % Plt Count (150-400) X10^3/uL Neut % (Auto) (50-75) % Lymph % (Auto) (25-40) % [place] % (Auto) (3-14) % Eos % (Auto) (2-4) % Baso % (Auto) (0-2) % Neut # (Auto) (2955-5432) /uL Lymph # (Auto) (5461-0492) /uL [place] # (Auto) (0-900) /uL Eos # (Auto) (0-450) /uL Baso # (Auto) (0-100) /uL PT (10.1-12.7) SECONDS INR (0.9-1.3) APTT (26.4-36.2) SECONDS Sodium (137-145) mmol/L Potassium (3.4-5.1) mmol/L Chloride (98-107) mmol/L Carbon Dioxide (22-32) mmol/L BUN (7-17) mg/dL Creatinine (0.52-1.04) mg/dL Estimated GFR (>60) mL/min BUN/Creatinine Ratio (6-22) Glucose (70-100) mg/dL Lactate (0.7-2.1) mmol/L Calcium (8.4-10.2) mg/dL Total Bilirubin (0.2-1.3) mg/dL AST (14-36) IU/L ALT (<35) IU/L Alkaline Phosphatase (38-126) U/L Ammonia (9-30) umol/L Total Creatine Kinase 40 (30-135) U/L CK-MB (CK-2) TNP CK-MB (CK-2) Rel Index TNP Troponin I 0.175 H* (0.01-0.034) ng/mL NT-Pro-B Natriuret Pep (<125) pg/mL Total Protein (6.3-8.2) g/dL Albumin (3.5-5.0) g/dL Globulin (1.7-4.1) g/dL Albumin/Globulin Ratio (1.0-2.8) TSH (0.47-4.68) uIU/mL Urine Color Urine Appearance Urine pH (4.5-8.0) Ur Specific [place] (1.000-1.035) Urine Protein (Negative) Urine Glucose (UA) (Negative) g/dL Urine Ketones (NEGATIVE) Urine Occult Blood (Negative) Urine Nitrate (Negative) Urine Bilirubin (NEGATIVE) Urine Urobilinogen (0.2) E.U./dL Ur Leukocyte Esterase (NEGATIVE) Urine RBC (0-5/HPF) Urine WBC (0-5/HPF) Ur Squamous Epith Cells (0-5/HPF) Urine Bacteria (None) Urine Yeast (None) Ur Culture Indicated? Salicylates (<20) mg/dL U Opiates 300ng/mL cut (Negative) Ur Oxycodone Screen (Negative) Urine Methadone Screen (Negative) Acetaminophen (10-30) ug/mL Ur Barbiturates Screen (Negative) U Tricyclic Antidepress (Negative) Ur Phencyclidine Scrn (Negative) Ur Amphetamines Screen (Negative) U Methamphetamines Scrn (Negative) Ur MDMA Scrn (Ecstasy) (Negative) U Benzodiazepines Scrn (Negative) Urine Cocaine Screen (Negative) U Marijuana (THC) Screen (Negative) Ethyl Alcohol ( - 10) mg/dL Imaging Data Chest x-ray: Radiologist's Impression: Radiology interpreted the x-ray findings consistent with interstitial pneumonia. Clinically, the patient has CHF ECG Data Attestation: I personally reviewed and interpreted this ECG as follows: (Sinus bradycardia rate 102 beats per minute. LBBB. No acute ST T wave changes. No ectopy.) Critical Care Time Critical Care Time Critical Care Time: Yes Total Critical Care Time: 70 Attestation: Care includes the initial evaluation the patient, review of medical records. Review of EKG, radiology and lab data. Clinical findings were discussed with the patient. Multiple phone calls occurred from myself in the consulting telecommunication lines repairer. The patient was then she accepted by the hospitalist at the receiving facility. Discharge Plan Departure Patient Disposition: [facility] Clinical Impression: Ischemic cardiomyopathy, Non-compliance Congestive heart failure Qualifiers: Heart failure type: unspecified Heart failure chronicity: acute on chronic Qualified Code(s): I50.9 - Heart failure, unspecified Diabetes mellitus with hyperglycemia Qualifiers: Diabetes mellitus type: type 2 Diabetes mellitus prison insulin use: unspecified adjunct faculty for medical terminology insulin use status Qualified Code(s): E11.65 - Type 2 diabetes mellitus with hyperglycemia Prescriptions: No Action acetaminophen 325 MG tablet 650 mg PO Q4HP PRNQty: 0 RF: 0 lisinopril 10 MG tablet 10 mg PO BID Qty: 0 RF: 0 amiodarone 200 MG tablet 400 mg PO QDAY Qty: 0 RF: 0 rosuvastatin 10 MG tablet 10 mg PO HS Qty: 0 RF: 0 atorvastatin [Lipitor] 10 MG tablet 10 mg PO HS Qty: 0 RF: 0 spironolactone 25 MG tablet 12.5 mg PO QDAY Qty: 0 RF: 0 metformin [Glucophage] 500 MG tablet 250 mg PO BID Qty: 0 RF: 0 bisacodyl [Fleet Laxative (bisacodyl)] 5 MG tablet,delayed release (DR/EC) 5 mg PO QDAYP PRNQty: 0 RF: 0 carvedilol [Coreg] 6.25 MG tablet 6.25 mg PO BID Qty: 0 RF: 0 aspirin 81 MG tablet,chewable 81 mg PO QDAY Qty: 0 RF: 0 insulin aspart U-100 [Novolog Flexpen U-100 Insulin] 100 UNIT/1 ML insulin pen 5 unit SQ TIDAC Qty: 0 RF: 0 furosemide 20 MG tablet 20 mg PO QDAY Qty: 0 RF: 0 insulin glargine [Lantus Solostar U-100 Insulin] 100 UNIT/1 ML insulin pen 80 unit SQ QDAY Qty: 0 RF: 0 potassium chloride 10 MEQ capsule, extended release 2 cap PO QDAY Qty: 0 RF: 0 amoxicillin-pot clavulanate [Augmentin] 875-125 mg tablet 1 tab PO BID Qty: 20 RF: 0 ciprofloxacin HCl 500 mg tablet 500 mg PO Q12H Qty: 20 RF: 0 sulfamethoxazole-trimethoprim [Bactrim DS] 800-160 mg tablet 1 tab PO Q12H Qty: 20 RF: 0 Referrals: Kevin Leon MD [Primary Care Provider] -
[2020-07-21] MEDS: SODIUM CHLORIDE 0.9% 1,000 ML 150 ML IV (01:32)
[2020-07-21 01:38] LABS: Add Manual Diff / Slide Review NO; Basophils Absolute Auto 100 /uL (0-100); Basophils Percent Auto 0.9 % (0-2); Eosinophils Absolute Auto 0 /uL (0-450); Eosinophils Percent Auto 0.4 % (2-4); Hematocrit 43.7 % (36-46); Hemoglobin 14.3 g/dL (12.0-16.0); Lymphocytes Absolute Auto 1200 /uL (1100-4500); Lymphocytes Percent Auto 11.7 % (25-40); Mean Corpuscular HGB Conc 32.7 % (30-36); Mean Corpuscular Hemoglobin 29.1 PG (26-34); Mean Corpuscular Volume 88.9 fL (80-100); Monocytes Absolute Auto 800 /uL (0-900); Monocytes Percent Auto 8.1 % (3-14); Neutrophils Absolute Auto 8300 /uL (1500-7000); Neutrophils Percent Auto 78.9 % (50-75); Platelet Count 214 X10^3/uL (150-400); Red Blood Cell Count 4.91 X10^6/uL (4.0-5.2); Red Cell Distribution Width 12.9 % (11.6-14.8); White Blood Cell Count 10.5 X10^3/uL (4.5-11.0)
[2020-07-21 01:40] LABS: Prothrombin Time 12.1 SECONDS (10.1-12.7)
[2020-07-21 01:43] LABS: PTT Partial Thromboplastin Tim 31 SECONDS (26.4-36.2)
[2020-07-21 01:47] LABS: Creatine Kinase 40 U/L (30-135)
[2020-07-21 01:49] LABS: Acetaminophen < 10 ug/mL (10-30); Alanine Aminotransferase 20 IU/L (<35); Albumin 4.1 g/dL (3.5-5.0); Albumin Globulin Ratio 1.1 (1.0-2.8); Alkaline Phosphatase 163 U/L (38-126); Aspartate Aminotransferase 19 IU/L (14-36); Bilirubin Total 0.7 mg/dL (0.2-1.3); Blood Urea Nitrogen 18 mg/dL (7-17); Calcium 9.9 mg/dL (8.4-10.2); Carbon Dioxide 27 mmol/L (22-32); Chloride 102 mmol/L (98-107); Estimated Glomerular Filt Rate > 60.0 mL/min (>60); Ethanol (ETOH) < 10 mg/dL; Globulin 3.9 g/dL (1.7-4.1); Glucose 394 mg/dL (70-100); HEMOLYSIS < 15 (0-50); Lactate (Lactic Acid) 1.4 mmol/L (0.7-2.1); Potassium 3.8 mmol/L (3.4-5.1); Salicylate < 1.0 mg/dL (<20); Sodium 138 mmol/L (137-145)
[2020-07-21 01:56] LABS: Ammonia (NH3) < 9 umol/L (9-30)
[2020-07-21 02:00] LABS: NT-proBNP (BNP-Adult 18+) 1330 pg/mL (<125)
[2020-07-21 02:22] LABS: Troponin I 0.179 ng/mL (0.01-0.034)
[2020-07-21] MEDS: ASPIRIN 81 MG CHEW TAB 324 MG PO (02:29)
[2020-07-21 03:28] LABS: Appearance Urine UA CLEAR; Bilirubin Urine UA NEGATIVE (NEGATIVE); Color Urine UA YELLOW; Glucose Urine UA 2+ g/dL (Negative); Ketones Urine UA 3+ (NEGATIVE); Leukocyte Esterase Urine UA NEGATIVE (NEGATIVE); Nitrite Urine UA POSITIVE (Negative); Occult Blood Urine UA 1+ (Negative); Protein Urine UA NEGATIVE (Negative); Specific Gravity Urine UA 1.015 (1.000-1.035); Urobilinogen Urine UA 0.2 E.U./dL (0.2)
[2020-07-21 03:29] LABS: Squamous Epithelial Cell Urine 0-1 /HPF (0-5/HPF); WBC Urine 5-10/HPF (0-5/HPF)
[2020-07-21 03:30] LABS: Bacteria Urine Moderate (10-30); Culture Indicated Urine Specimen Cultured; RBC Urine 0-1/HPF (0-5/HPF)
[2020-07-21 03:32] LABS: UR Morphine/Opiate cutoff 300 Negative (Negative); Ur Creatinine Normal (Normal); Ur Specific Gravity Normal (Normal); Urine Amphetamines Negative (Negative); Urine Barbiturates Negative (Negative); Urine Benzodiazepines Negative (Negative); Urine Cocaine Negative (Negative); Urine MDMA Negative (Negative); Urine Methadone Negative (Negative); Urine Methamphetamines Negative (Negative); Urine Oxycodone Negative (Negative); Urine Phencyclidine Negative (Negative); Urine Tetrahydrocannabinol Negative (Negative); Urine Tricyclic Antidepressant Negative (Negative); Urine pH Normal (Normal)
[2020-07-21] MEDS: FUROSEMIDE 40 MG/4 ML VIAL IV (03:36)
[2020-07-21 03:52] LABS: Creatine Kinase 40 U/L (30-135)
[2020-07-21 04:06] LABS: Troponin I 0.175 ng/mL (0.01-0.034)
--- NOTE | 2020-07-21 06:26 | PC.NURSE ---
pt would desat to 86% while sleeping. Pt placed on 2l via NC while sleeping
--- NOTE | 2020-07-21 08:09 | PC.NURSE ---
Per Nabila RN, patient is on 2LO2 NC while sleeping due to possible undiagnosed sleep apnea.
--- NOTE | 2020-07-21 10:52 | PC.NURSE ---
Patient given clothing.
[2020-07-21] MEDS: NYSTATIN CREAM 30 GM 1 APPLIC TOP (11:43)
[2020-07-21 11:56] LABS: COVID19 -Nasal RAPID Negative (Negative)
== END 2020-07-21 14:53 | disposition short-term general hospital (02) ==
PROVIDERS: Emergency Medicine; Emergency Provider Emergency Medicine; Family Provider Family Medicine; PCP Family Medicine
DX: I25.5 Ischemic cardiomyopathy (principal); R00.0 Tachycardia, unspecified; I50.9 Heart failure, unspecified; E11.65 Type 2 diabetes mellitus with hyperglycemia; Z95.0 Presence of cardiac pacemaker; E11.22 Type 2 diabetes mellitus with diabetic chronic kidney disease
CPT/HCPCS: 36415; 71045; 80053; 80305; 80320; 80329; 81001; 82140; 82550; 83605; 83880; 84443; 84484; 85025; 85610; 85730; 87040; 87077; 87086; 87186; 87635; 93005; 96361; 96374; 99285; G0480; J1940

== ENCOUNTER 2020-08-02 08:59 | Emergency (ER) | payer SELFPAY ==
[2020-08-02] VITALS (18 sets, daily range): BP systolic 128–145; BP diastolic 70–82; PULSE 67–80; TEMP 36.5; O2SAT 94–97; BMI 31.7
--- NOTE | 2020-08-02 09:41 | PC.NURSE ---
RECONCILER consult placed to facilitate assistance in obtaining medications due to noncompliance for insurance and financial reasons.
--- NOTE | 2020-08-02 10:26 | ED.LOWEXIN ---
HPI - Extremity Injury (Lower) General Chief Complaint: Extremity Injury, Lower Stated Complaint: hole in left foot big toe, bleeding Time Seen by Provider: 08/02/20 10:21 Source: patient and family Mode of arrival: Wheelchair Limitations: no limitations History of Present Illness HPI Narrative: This is a 54-year-old female who comes emergency department with a hole in her left big toe. Patient was transferred to [facility] for heart failure and cardiomyopathy on 07/21/2020. While there it was noted that she had a dark spot that was possibly necrotic on her toe and she was seen by Podiatry. Sounds like they did an incision and drainage of bedside and felt it was an infected blister. They are unclear if patient has any osteomyelitis. Patient was discharged home on several cardiac medications as well as an antifungal which they have not been able to fill. She has ischemic cardiomyopathy multi-vessel CAD as well as insulin-dependent diabetes. Patient and family state that her [id number] was caring for her and assisting her with her foot care but is not currently. She has not had any fevers, no chills, no chest pain or shortness of breath. She states she has not had any nausea or vomiting. No other GI or urinary symptoms. She noted her great toe is swollen she cannot tell me exactly how long it has been swollen for but it is larger than when she was discharged from the hospital and she has noted some redness of the toe which she feels is not streaking upper extremity or into her foot. She does have some neuropathy but does have moderate sensation. She does not improve she ate any increased pain at this time. Related Data Home Medications Medication Instructions Recorded Confirmed acetaminophen 650 mg PO Q4HP PRN #0 04/07/17 amiodarone 400 mg PO QDAY #0 11/15/17 aspirin 81 mg PO QDAY #0 11/15/17 atorvastatin [Lipitor] 10 mg PO HS #0 11/15/17 bisacodyl [Fleet Laxative 5 mg PO QDAYP PRN #0 11/15/17 (bisacodyl)] carvedilol [Coreg] 6.25 mg PO BID #0 11/15/17 furosemide 20 mg PO QDAY #0 11/15/17 insulin aspart U-100 [Novolog 5 unit SQ TIDAC #0 11/15/17 Flexpen U-100 Insulin] insulin glargine [Lantus Solostar 80 unit SQ QDAY #0 11/15/17 U-100 Insulin] lisinopril 10 mg PO BID #0 11/15/17 metformin [Glucophage] 250 mg PO BID #0 11/15/17 potassium chloride 2 cap PO QDAY #0 11/15/17 rosuvastatin 10 mg PO HS #0 11/15/17 spironolactone 12.5 mg PO QDAY #0 11/15/17 Previous Rx's Medication Instructions Recorded amoxicillin-pot clavulanate 1 tab PO BID #20 tab 04/25/20 [Augmentin] ciprofloxacin HCl 500 mg PO Q12H #20 tab 04/25/20 sulfamethoxazole-trimethoprim 1 tab PO Q12H #20 tab 04/25/20 [Bactrim DS] amoxicillin-pot clavulanate 1 tab PO Q12H #90 tab 08/02/20 [Augmentin] Allergies Allergy/AdvReac Type Severity Reaction Status Date / Time No Known Drug Allergies Allergy Verified 04/25/20 20:30 Review of Systems Review of Systems ROS Unobtainable: All systems reviewed & are unremarkable except as noted in HPI and below Patient History Medical History (Updated 08/02/20 @ 12:58 by Inga Kumari DO) Diabetes mellitus 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 Pacemaker Surgical History (Updated 08/02/20 @ 15:09 by Rajat Cruz DO) History of permanent cardiac pacemaker placement Family History (Updated 08/02/20 @ 15:10 by Rajat Cruz DO) Mother MRSA (methicillin resistant Staphylococcus aureus) Social History Smoking Status: Never smoker Smoking Status: Never smoker alcohol intake frequency: 0-2 drinks per day Substance Use Type: does not use Exam Narrative Exam Narrative: GENERAL: Alert and oriented x three, well-nourished female in mild distress. HEENT: Head normocephalic, atraumatic, EOMI, pupils reactive, face symmetric, moist mucous membranes NECK: Supple, full range of motion CARDIOVASCULAR: Regular rate and rhythm without murmurs, rubs or gallops. No swelling bilateral lower extremities. RESPIRATORY: Breath sounds equal bilaterally, no wheezes rales or rhonchi. ABDOMEN: Soft, nontender. Normoactive bowel sounds all 4 quadrants. No guarding or rebound, rigidity, no mass EXTREMITIES: Normal range of motion, no clubbing or edema. Neurovascularly intact NEUROLOGICAL: Cranial nerves II through XII grossly intact. Moving all extremities SKIN: Warm, dry, no petechiae, patient's left great toe has a ulceration in the center of the pad, there is small amount of bloody drainage. There is no foul odor or purulent discharge. The toe itself does appear more swollen in comparison to the right great toe. It is nontender to palpation. There is some very mild warmth. I do not appreciate any significant heat. And there is some erythema in comparison to the other foot. The other toes themselves do not appear to be involved nor does the foot. Cap refill is less than 2 seconds. Initial Vital Signs Initial Vital Signs: Vital Signs Pulse Rate 77 08/02/20 09:10 Blood Pressure 139/78 08/02/20 09:10 Pulse Oximetry 94 08/02/20 09:10 Course Orders Ordered: ED Orders 08/02/20 09:37 Consult to INDUSTRIAL ECONOMICS TEACHER - Product Manager Medical Device Stat 08/02/20 10:46 XR toe LT min 2V Stat 08/02/20 12:50 C-Reactive Protein Quant Stat Complete Blood Count AUTO DIFF Stat Comprehensive Metabolic Panel Stat Erythrocyte Sedimentation Rate Stat 08/02/20 13:08 Wound Culture and Gram Stain Stat 08/02/20 14:17 COVID19 Stat Discontinued Medications Vancomycin HCl/Dextrose (Vancomycin) 2,000 mg in 400 mls @ 200 mls/hr IV NOW ONE Stop: 08/02/20 14:56 Last Admin: 08/02/20 14:40 Dose: 200 mls/hr Documented by: EMELY Reevaluation(s) Time: 12:57 Vital Signs Vital signs: Vital Signs - 8 hr 08/02/20 09:10 08/02/20 09:20 08/02/20 09:30 Temperature 97.7 F Pulse Rate 77 72 Blood Pressure 139/78 135/77 Pulse Oximetry 94 95 08/02/20 10:00 08/02/20 10:30 08/02/20 11:00 Temperature Pulse Rate 67 73 73 Blood Pressure 128/70 145/82 H 132/78 Pulse Oximetry 94 97 94 08/02/20 11:30 08/02/20 12:00 08/02/20 12:30 Temperature Pulse Rate 67 79 73 Blood Pressure 134/75 136/81 Pulse Oximetry 94 94 95 08/02/20 12:37 08/02/20 13:00 08/02/20 13:30 Temperature Pulse Rate 75 80 80 Blood Pressure 142/76 H 134/76 Pulse Oximetry 96 95 95 08/02/20 14:00 Temperature Pulse Rate 75 Blood Pressure Pulse Oximetry 94 MDM - Extremity Injury (Lower) Lab Data Attestation: I reviewed the patient's lab results. Result diagrams: 08/02/20 12:50 08/02/20 12:50 Labs: Lab Results 08/02/20 08/02/20 08/02/20 Range/Units 12:50 12:50 14:17 WBC 10.5 (4.5-11.0) X10^3/uL RBC 5.25 H (4.0-5.2) X10^6/uL Hgb 15.4 (12.0-16.0) g/dL Hct 46.7 H (36-46) % MCV 89.0 (80-100) fL MCH 29.3 (26-34) PG MCHC 33.0 (30-36) % RDW 13.2 (11.6-14.8) % Plt Count 236 (150-400) X10^3/uL Neut % (Auto) 84.4 H (50-75) % Lymph % (Auto) 10.1 L (25-40) % [place] % (Auto) 3.7 (3-14) % Eos % (Auto) 1.0 L (2-4) % Baso % (Auto) 0.8 (0-2) % Neut # (Auto) 8900 H (0420-8598) /uL Lymph # (Auto) 1100 (8043-6802) /uL [place] # (Auto) 400 (0-900) /uL Eos # (Auto) 100 (0-450) /uL Baso # (Auto) 100 (0-100) /uL ESR 36 H (0-20) MM/HR Sodium 139 (137-145) mmol/L Potassium 4.3 (3.4-5.1) mmol/L Chloride 105 (98-107) mmol/L Carbon Dioxide 27 (22-32) mmol/L BUN 23 H (7-17) mg/dL Creatinine 0.56 (0.52-1.04) mg/dL Estimated GFR > 60.0 (>60) mL/min BUN/Creatinine Ratio 41.1 H (6-22) Glucose 307 H (70-100) mg/dL Calcium 9.9 (8.4-10.2) mg/dL Total Bilirubin 0.7 (0.2-1.3) mg/dL AST 25 (14-36) IU/L ALT 40 H (<35) IU/L Alkaline Phosphatase 196 H (38-126) U/L C-Reactive Protein 2.4 H (<1.0) mg/dL Total Protein 9.3 H (6.3-8.2) g/dL Albumin 4.5 (3.5-5.0) g/dL Globulin 4.8 H (1.7-4.1) g/dL Albumin/Globulin Ratio 0.9 L (1.0-2.8) COVID-19 PCR Negative (Negative) Imaging Data toe xray: Radiologist's Impression: [address] [id number] ReportSigned Patient: Kimmy Gray AMR#: [id number]: [id number]:[id number]/Sex: 54 / FDate of Service: 08/02/20Loc: EDAccession Number: [id number] Procedure: XR toe LT min 2V Ordering Provider: Inga Kumari D.O. PROCEDURE: XR TOE LT MIN 2V INDICATIONS: great toe infection vs. osteo TECHNIQUE: 3 views of the left toe(s) acquired. COMPARISON: [facility], CR, XR FOOT 3+ VIEWS LEFT, 07/21/2020, 17:27. [facility], CR, XR TOE LT MIN 2V, 04/25/2020, 20:33. FINDINGS: Bones: There is mild demineralization seen involving the distal aspect of the great toe, which is clearly progressed compared to the 04/25/2020 examination. There is partial visualization of the fracture along the base of the proximal phalanx of the 3rd toe. No additional fractures or dislocations can be seen. Age-appropriate bony degenerative changes are seen. Soft tissues: No suspicious soft tissue densities. IMPRESSION: Demineralization seen of the distal aspect of the distal phalanx of the great toe, which is highly suspicious for osteomyelitis. If it would be helpful for clinical management decision making, please consider a dedicated forefoot MRI (without and with contrast) for further evaluation (assuming that there is no contraindication). Partial visualization of this patient's known 3rd toe fracture again seen. Dictated by: Nacho Jaimes M.D. on 08/02/2020 at 10:03 Approved by: Nacho Jaimes M.D. on 08/02/2020 at 10:[address] [facility] Narrative Medical decision making narrative: Patient comes in with significant cardiac history, she was discharged from [facility] they have not been able to fill her home medications. The states that social Work was involved [facility] and it was felt that he may too much money to qualify for any assistance. Patient does not have a leukocytosis but does have elevated ESR and CRP, glucose is 307 and has new xray findings. Patient chart from [facility] notes that patient did not have any changes on her x-ray imaging while at [facility] and podiatry did see urine did not suspect osteomyelitis at that time. They could not perform an MRI secondary to pacemaker not allowing. Patient did not start oral antibiotics as outpatient. Plan for admission for osteomyelitis and IV antibiotics and further workup. Patient does not currently have insurance and after long discussion with the hospitalist who saw patient in the emergency department it was decided to discharge home secondary to patient's financial concerns. We will cover with augmentin as prescribed by podiatry, social work is involved and patient was set up with free antibiotics, also given options for [facility] which would be more financially helpful and prescription cards and that her regular medications are available at [place] $4 list. We did discuss at length return precautions, signs and symptoms and reasons for return. Discharge Plan Departure Patient Disposition: Home Clinical Impression: Osteomyelitis Instructions: DI for Osteomyelitis Activity Restrictions/Additional Instructions: As per your discussion with Dr. Cruz, continue with oral antibiotics as prescribed. It does appear that you likely have an infection in your toe called osteomyelitis or infection of the bone. Return to the ER for fevers if redness, swelling, increasing pain or worsening signs of infection in the toe is occurring, if you have any redness streaking up the leg, if you are having new chest pain, shortness of breath or other new or concerning symptoms. Prescriptions: New amoxicillin-pot clavulanate [Augmentin] 875-125 mg tablet 1 tab PO Q12H Qty: 90 RF: 0 No Action acetaminophen 325 MG tablet 650 mg PO Q4HP PRNQty: 0 RF: 0 lisinopril 10 MG tablet 10 mg PO BID Qty: 0 RF: 0 amiodarone 200 MG tablet 400 mg PO QDAY Qty: 0 RF: 0 rosuvastatin 10 MG tablet 10 mg PO HS Qty: 0 RF: 0 atorvastatin [Lipitor] 10 MG tablet 10 mg PO HS Qty: 0 RF: 0 spironolactone 25 MG tablet 12.5 mg PO QDAY Qty: 0 RF: 0 metformin [Glucophage] 500 MG tablet 250 mg PO BID Qty: 0 RF: 0 bisacodyl [Fleet Laxative (bisacodyl)] 5 MG tablet,delayed release (DR/EC) 5 mg PO QDAYP PRNQty: 0 RF: 0 carvedilol [Coreg] 6.25 MG tablet 6.25 mg PO BID Qty: 0 RF: 0 aspirin 81 MG tablet,chewable 81 mg PO QDAY Qty: 0 RF: 0 insulin aspart U-100 [Novolog Flexpen U-100 Insulin] 100 UNIT/1 ML insulin pen 5 unit SQ TIDAC Qty: 0 RF: 0 furosemide 20 MG tablet 20 mg PO QDAY Qty: 0 RF: 0 insulin glargine [Lantus Solostar U-100 Insulin] 100 UNIT/1 ML insulin pen 80 unit SQ QDAY Qty: 0 RF: 0 potassium chloride 10 MEQ capsule, extended release 2 cap PO QDAY Qty: 0 RF: 0 amoxicillin-pot clavulanate [Augmentin] 875-125 mg tablet 1 tab PO BID Qty: 20 RF: 0 ciprofloxacin HCl 500 mg tablet 500 mg PO Q12H Qty: 20 RF: 0 sulfamethoxazole-trimethoprim [Bactrim DS] 800-160 mg tablet 1 tab PO Q12H Qty: 20 RF: 0 Referrals: Donna Redman PA-C [Primary Care Provider] -
--- NOTE | 2020-08-02 10:46 | DI.RAD.S_ITS ---
PROCEDURE: XR TOE LT MIN 2V INDICATIONS: great toe infection vs. osteo TECHNIQUE: 3 views of the left toe(s) acquired. COMPARISON: [facility], CR, XR FOOT 3+ VIEWS LEFT, 07/21/2020, 17:27. [facility], CR, XR TOE LT MIN 2V, 04/25/2020, 20:33. FINDINGS: Bones: There is mild demineralization seen involving the distal aspect of the great toe, which is clearly progressed compared to the 04/25/2020 examination. There is partial visualization of the fracture along the base of the proximal phalanx of the 3rd toe. No additional fractures or dislocations can be seen. Age-appropriate bony degenerative changes are seen. Soft tissues: No suspicious soft tissue densities. IMPRESSION: Demineralization seen of the distal aspect of the distal phalanx of the great toe, which is highly suspicious for osteomyelitis. If it would be helpful for clinical management decision making, please consider a dedicated forefoot MRI (without and with contrast) for further evaluation (assuming that there is no contraindication). Partial visualization of this patient's known 3rd toe fracture again seen. Dictated by: Nacho Jaimes M.D. on 08/02/2020 at 10:03 Approved by: Nacho Jaimes M.D. on 08/02/2020 at 10:08
[2020-08-02 13:09] LABS: Add Manual Diff / Slide Review NO; Basophils Absolute Auto 100 /uL (0-100); Basophils Percent Auto 0.8 % (0-2); Eosinophils Absolute Auto 100 /uL (0-450); Hematocrit 46.7 % (36-46); Hemoglobin 15.4 g/dL (12.0-16.0); Lymphocytes Absolute Auto 1100 /uL (1100-4500); Lymphocytes Percent Auto 10.1 % (25-40); Mean Corpuscular Hemoglobin 29.3 PG (26-34); Monocytes Absolute Auto 400 /uL (0-900); Monocytes Percent Auto 3.7 % (3-14); Neutrophils Absolute Auto 8900 /uL (1500-7000); Neutrophils Percent Auto 84.4 % (50-75); Platelet Count 236 X10^3/uL (150-400); Red Blood Cell Count 5.25 X10^6/uL (4.0-5.2); Red Cell Distribution Width 13.2 % (11.6-14.8); White Blood Cell Count 10.5 X10^3/uL (4.5-11.0)
[2020-08-02 13:25] LABS: Alanine Aminotransferase 40 IU/L (<35); Albumin 4.5 g/dL (3.5-5.0); Albumin Globulin Ratio 0.9 (1.0-2.8); Alkaline Phosphatase 196 U/L (38-126); Aspartate Aminotransferase 25 IU/L (14-36); BUN Creatinine Ratio 41.1 (6-22); Bilirubin Total 0.7 mg/dL (0.2-1.3); Blood Urea Nitrogen 23 mg/dL (7-17); C-Reactive Protein Quant 2.4 mg/dL (<1.0); Calcium 9.9 mg/dL (8.4-10.2); Carbon Dioxide 27 mmol/L (22-32); Chloride 105 mmol/L (98-107); Estimated Glomerular Filt Rate > 60.0 mL/min (>60); Globulin 4.8 g/dL (1.7-4.1); Glucose 307 mg/dL (70-100); HEMOLYSIS 27 (0-50); Potassium 4.3 mmol/L (3.4-5.1); Sodium 139 mmol/L (137-145); Total Protein 9.3 g/dL (6.3-8.2)
[2020-08-02 13:32] LABS: Erythrocyte Sedimentation Rate 36 MM/HR (0-20)
[2020-08-02 14:37] LABS: COVID19 -Nasal RAPID Negative (Negative)
[2020-08-02] MEDS: VANCOMYCIN 2,000 MG/400 ML PIGGYBACK 200 MG IV (14:40)
--- NOTE | 2020-08-02 14:41 | PC.NURSE ---
Silvia Domínguez in ED to place midline IV. Completed. Patent. Charu started at this time and Dr Cruz in room for consult.
--- NOTE | 2020-08-02 14:56 | PC.NURSE ---
[place] power midline placed upper lt arm basilic vein. 20g 8cm.
--- NOTE | 2020-08-02 14:58 | P.CONS_ITS ---
History of Present Illness Consult details Date Patient Seen: 08/02/20 Time Patient Seen: 14:58 Chief complaint: hole in left foot big toe, bleeding Reason for consult: non-healing L toe ulceration Requesting provider: Inga Kumari Narrative: Kimmy Gray is a 54-year-old female with a past medical history of ischemic cardiomyopathy, heart failure with reduced ejection fraction, type 2 diabetes, hypertension, chronic atrial fibrillation status post pacemaker who was recently admitted to [facility] for a nonhealing left diabetic foot ulcer. According to the discharge paperwork she was seen by Podiatry who did feel that this was clinically osteomyelitis. She was discharged home with outpatient antibiotics, Augmentin, which the patient nor her did not cigar packer and picker. The patient has been taking care of her wound at home but there was some bleeding noted today for which they decided to seek care in the emergency room. The patient denies systemic symptoms including fever, chills, nausea, vomiting, chest pain, shortness of breath, palpitations. She denies worsening pain of her left foot. In the emergency room, the patient's vital signs were unremarkable, she was afebrile. CBC was unremarkable, ESR was 36, chemistries showed a glucose of 307, mildly elevated alk-phos, a CRP of 2.4, but were otherwise unremarkable. COVID-19 testing was negative. X-ray of her foot showed demineralization, consistent with possible osteomyelitis, however further evaluation with an MRI was recommended. Unfortunately, the patient does not currently have insurance. She was seen by Podiatry at [facility] couple weeks ago and recommended for outpatient Augmentin therapy given wound cultures that grew MSSA which she has not taken up to this time. Ideally, she would get 6 weeks of antibiotic therapy intravenously, however the patient her are currently unable to afford this given the lack of insurance. Risk benefit discussion was made with the patient and her , and they elected for a trial of outpatient oral antibiotic therapy of at least 6 weeks given her lack of systemic findings. She can continue her Augmentin as this will more than adequately cover MSSA. There are centers elsewhere that may be able to perform an MRI given her pacemaker, but this is currently unavailable at [facility]. Meds Home Medications and Allergies Home Medications Medication Instructions Recorded Confirmed Type acetaminophen 650 mg PO Q4HP PRN #0 04/07/17 History amiodarone 400 mg PO QDAY #0 11/15/17 History aspirin 81 mg PO QDAY #0 11/15/17 History atorvastatin [Lipitor] 10 mg PO HS #0 11/15/17 History bisacodyl [Fleet Laxative 5 mg PO QDAYP PRN #0 11/15/17 History (bisacodyl)] carvedilol [Coreg] 6.25 mg PO BID #0 11/15/17 History furosemide 20 mg PO QDAY #0 11/15/17 History insulin aspart U-100 [Novolog 5 unit SQ TIDAC #0 11/15/17 History Flexpen U-100 Insulin] insulin glargine [Lantus Solostar 80 unit SQ QDAY #0 11/15/17 History U-100 Insulin] lisinopril 10 mg PO BID #0 11/15/17 History metformin [Glucophage] 250 mg PO BID #0 11/15/17 History potassium chloride 2 cap PO QDAY #0 11/15/17 History rosuvastatin 10 mg PO HS #0 11/15/17 History spironolactone 12.5 mg PO QDAY #0 11/15/17 History amoxicillin-pot clavulanate 1 tab PO BID #20 tab 04/25/20 Rx [Augmentin] ciprofloxacin HCl 500 mg PO Q12H #20 tab 04/25/20 Rx sulfamethoxazole-trimethoprim 1 tab PO Q12H #20 tab 04/25/20 Rx [Bactrim DS] amoxicillin-pot clavulanate 1 tab PO Q12H #90 tab 08/02/20 Rx [Augmentin] Allergies Allergy/AdvReac Type Severity Reaction Status Date / Time No Known Drug Allergies Allergy Verified 04/25/20 20:30 Review of Systems Review of Systems Narrative: All other systems reviewed with the patient and are negative unless otherwise stated. Exam Vital Signs (past 8 hours): - 08/02/20 09:10 08/02/20 09:20 08/02/20 09:30 Temperature 97.7 F Pulse Rate 77 72 Blood Pressure 139/78 135/77 Pulse Oximetry 94 95 08/02/20 10:00 08/02/20 10:30 08/02/20 11:00 Temperature Pulse Rate 67 73 73 Blood Pressure 128/70 145/82 H 132/78 Pulse Oximetry 94 97 94 08/02/20 11:30 08/02/20 12:00 08/02/20 12:30 Temperature Pulse Rate 67 79 73 Blood Pressure 134/75 136/81 Pulse Oximetry 94 94 95 08/02/20 12:37 08/02/20 13:00 08/02/20 13:30 Temperature Pulse Rate 75 80 80 Blood Pressure 142/76 H 134/76 Pulse Oximetry 96 95 95 08/02/20 14:00 Temperature Pulse Rate 75 Blood Pressure Pulse Oximetry 94 Narrative Exam Narrative: Gen: obese female, BMI 31.7, in no acute distress. Pulm: Lungs CTA b/l CV: Irregularly irregular rhythm, normal rate, no m/r/g Abd: S NT ND Ext: L hallux plantar ulceration penetrating at least to the muscular layer, unable to determine if bone. No surrounding erythema, no tenderness, no evident induration on exam. No edema. Smaller lesion on the medial aspect of the 2nd toe as well. Objective Labs Result Diagrams: 08/02/20 12:50 08/02/20 12:50 Labs: Laboratory Results - last 24 hr 08/02/20 08/02/20 08/02/20 12:50 12:50 14:17 WBC 10.5 RBC 5.25 H Hgb 15.4 Hct 46.7 H MCV 89.0 MCH 29.3 MCHC 33.0 RDW 13.2 Plt Count 236 Neut % (Auto) 84.4 H Lymph % (Auto) 10.1 L [place] % (Auto) 3.7 Eos % (Auto) 1.0 L Baso % (Auto) 0.8 Neut # (Auto) 8900 H Lymph # (Auto) 1100 [place] # (Auto) 400 Eos # (Auto) 100 Baso # (Auto) 100 ESR 36 H Sodium 139 Potassium 4.3 Chloride 105 Carbon Dioxide 27 BUN 23 H Creatinine 0.56 Estimated GFR > 60.0 BUN/Creatinine Ratio 41.1 H Glucose 307 H Calcium 9.9 Total Bilirubin 0.7 AST 25 ALT 40 H Alkaline Phosphatase 196 H C-Reactive Protein 2.4 H Total Protein 9.3 H Albumin 4.5 Globulin 4.8 H Albumin/Globulin Ratio 0.9 L COVID-19 PCR Negative Assessment & Plan Assessment & Plan narrative: Kimmy Gray is a 54-year-old female with a past medical history of ischemic cardiomyopathy, heart failure with reduced ejection fraction, type 2 diabetes, hypertension, chronic atrial fibrillation status post pacemaker who was recently admitted to [facility] for a nonhealing left diabetic foot ulcer. 1. Left hallux and 2nd toe non-healing diabetic foot ulcer, acute. - Unfortunately, the patient does not currently have insurance. She was seen by Podiatry at [facility] couple weeks ago and recommended for outpatient Augmentin therapy given wound cultures that grew MSSA which she has not taken up to this time for unclear reasons. Ideally, she would get 6 weeks of antibiotic therapy intravenously, however the patient her are currently unable to afford this given the lack of insurance. Patient was given a few options for therapy including admission with initiation of IV antibiotics and attempt to set her up for outpatient therapy for presumed osteo, transfer to another facility which has MRI capability given her pacemaker for a more definitive diagnosis, or discharge home for a trial of outpatient antibiotic therapy. - Risk benefit discussion was made with the patient and her , and they e lected for a trial of outpatient oral antibiotic therapy of at least 6 weeks given her lack of systemic findings and concerns about inpatient cost. She can continue her Augmentin as this will more than adequately cover MSSA which was found at [facility]. There are outside facilities that may be able to perform an MRI given her pacemaker, but this is currently unavailable at [facility] which would be the ideal next step for evaluation of her foot, however the patient and did not think they would be able to afford that at this time. 2. DM, type 2, chronic - no medication changes are recommended, appears to have been discharged from [facility] on NPH, which is the cheapest insulin currently. 3. ischemic cardiomyopathy with chronic systolic heart failure - no medication changes are recommended. 4. Medication non-compliance Code: Full, surrogate decision maker is the patient's . Dispo: recommend discharge home with 6 weeks of augmentin with return precautions including fever, purulent drainage.
--- NOTE | 2020-08-02 15:25 | PC.NURSE ---
CHURCH SUPERVISOR followed up with patients financial situation inhibiting her from obtaining her medications. RX was written by Dr Mir for Augmentin and sent to [facility] to be covered under medical anna by the hospital. Pt declining admission due to financial reasons and plan of care discussed together with pt, pt's , dr forrest, and dr mir. Plan to DC home after Vanco infusion on PO ABX. resources including [facility] cards were given for all medications along with booklet with [facility] phone number for discounted follow up care. Pt receptive and agrees with plan of care.
--- NOTE | 2020-08-02 16:03 | CM.SWNOTE ---
PUMP ROOM OPERATOR Note: Reviewed chart. Received referral from ED staff to meet with patient and spouse/Javi re: d/c planning needs. Patient recently hospitalized at [facility] for approximately 1week. D/C instructions from [facility] reviewed. Patient and spouse report that they left [facility] last week and were unable to afford the medications that were prescribed. Patient needs po Augmentin for left foot infection. Patient also diabetic and has not taken insulin for 2+yrs. Patient and spouse report that they have applied for Medicaid but that patient did not qualify. Spouse works full-time at .. Offered patient and spouse community resources for outpatient f/u with medical clinics in [place] Patient and spouse report that they would prefer to come to [place] and see [facility] in agreement to cover cost of Augmentin for home use. Medical Relief Form completed and signed by CM/Switchboard And Control Room Operator Jeanne. DAVEY, ED provider, and hospitalist aware and in agreement that patient okay to return home with spouse. Resources provided and no additional needs identified. P: Home today. Patient instructed to meat pickler prescriptions at [facility] in [place] where they were originally sent by [facility] and po ABX paid for by I.. and with meat pickler at [place] pharmacy. RICHAR Richards
== END 2020-08-02 16:45 | disposition home or self-care (01) ==
PROVIDERS: Emergency Provider Emergency Medicine; Family Provider Family Medicine; PCP Physician Assistant Medical
DX: E11.69 Type 2 diabetes mellitus with other specified complication (principal); M86.9 Osteomyelitis, unspecified; Z95.0 Presence of cardiac pacemaker
CPT/HCPCS: 36415; 73660; 80053; 85025; 85651; 86140; 87070; 87075; 87077; 87147; 87186; 87205; 87635; 96365; 96366; 99282; 99284

== ENCOUNTER 2020-08-22 17:31 | Inpatient (IN) | payer SELFPAY ==
[2020-08-22 18:00] VITALS: BP 157/83; PULSE 83; RESP 18; TEMP 36.6; O2SAT 94; BMI 32.6
--- NOTE | 2020-08-22 18:11 | DI.CT.S_ITS ---
PROCEDURE: CT HEAD/BRAIN WO CON INDICATIONS: left leg weakness unknown time of onset TECHNIQUE: Noncontrast 4.5 mm thick angled axial sections acquired from the foramen magnum to the vertex, with coronal and sagittal reformats. For radiation dose reduction, the following was used: automated exposure control, adjustment of mA and/or kV according to patient size. COMPARISON: Merged With [facility], CT, CT HEAD WITHOUT CONTRAST, 07/26/2020, 9:06. FINDINGS: Image quality: Excellent. CSF spaces: Basal cisterns are patent. No extra-axial fluid collections. The ventricles are symmetric in size and shape. Brain: Old lacunar infarcts in the left basal ganglia and arreola radiata. No intracranial bleeds or masses. There is mild cerebral volume loss for age, with resultant ventricular and sulcal prominence. There are moderate periventricular and deep white matter chronic small vessel ischemic changes. There is intracranial internal carotid artery and vertebral artery atherosclerosis. Skull and face: Calvarium and visualized facial bones appear intact, without suspicious lesions. Sinuses: Visualized sinuses and mastoids are clear. IMPRESSION: 1. No acute intracranial abnormalities. 2. Old lacunar infarcts in the left basal ganglia and arreola radiata. 3. Cerebral volume loss and chronic microvascular ischemic changes. Dictated by: Neema Perez M.D. on 08/22/2020 at 19:25 Approved by: Neema Perez M.D. on 08/22/2020 at 19:28
--- NOTE | 2020-08-22 18:18 | ED.GENADULT ---
HPI - General Adult General Chief complaint: Diabetic Problem Stated complaint: Fuzzy headed/weak poss insulin related Time Seen by Provider: 08/22/20 17:51 Source: patient and family Mode of arrival: Family Vehicle Limitations: no limitations History of Present Illness HPI narrative: Patient is a 54-year-old female history of insulin-dependent diabetes, CHF, probable osteomyelitis tab but diabetic ulcers presenting today with fuzzy headedness. She apparently was admitted at [facility] in July for CHF. She was seen after that admission for osteomyelitis of her left great toe. Presenting today with what she calls fuzzy headedness which she has a difficult time describing. states that they were finally able to get a home glucometer yesterday and sugars have been greater than 500. He states that when she was admitted to [facility] last month that she also had elevated patient is to help get her diabetes more under control. At home today has been thought that she was off balance and he was worried that she may fall. He did not see any facial drooping he was able to understand her but sometime she speaks softly so he asked her to repeat herself but she has always had clear speech. She has no numbness or tingling. On exam she does have a left leg weakness. It is difficult to determine when this started. She states she got up this morning normal had breakfast and went to the bedroom. By lunchtime she said she was not feeling very well her meter a sandwich. Sometime after that she tried to walk to the bathroom and had a difficult time getting to the bathroom and even had some urinary incontinence could she could not get her pants down. She was able to walk back to the couch afterwards she felt like symptoms improved a little bit by 430 she definitely did not feel well and needed assistance getting to the car. She needed a wheelchair getting her in to the hospital. She does complain of some left blurry vision but no blackening or loss of vision. She denies any fever chills she does have a mild cough nonproductive. She is complaining of increased thirst and increased urination but denies any dysuria. Onset (ago): unknown Location: left and lower extremity Related Data Home Medications Medication Instructions Recorded Confirmed acetaminophen 650 mg PO Q4HP PRN #0 04/07/17 amiodarone 400 mg PO QDAY #0 11/15/17 aspirin 81 mg PO QDAY #0 11/15/17 atorvastatin [Lipitor] 10 mg PO HS #0 11/15/17 bisacodyl [Fleet Laxative 5 mg PO QDAYP PRN #0 11/15/17 (bisacodyl)] carvedilol [Coreg] 6.25 mg PO BID #0 11/15/17 furosemide 20 mg PO QDAY #0 11/15/17 insulin aspart U-100 [Novolog 5 unit SQ TIDAC #0 11/15/17 Flexpen U-100 Insulin] insulin glargine [Lantus Solostar 80 unit SQ QDAY #0 11/15/17 U-100 Insulin] lisinopril 10 mg PO BID #0 11/15/17 metformin [Glucophage] 250 mg PO BID #0 11/15/17 potassium chloride 2 cap PO QDAY #0 11/15/17 rosuvastatin 10 mg PO HS #0 11/15/17 spironolactone 12.5 mg PO QDAY #0 11/15/17 Previous Rx's Medication Instructions Recorded amoxicillin-pot clavulanate 1 tab PO BID #20 tab 04/25/20 [Augmentin] ciprofloxacin HCl 500 mg PO Q12H #20 tab 04/25/20 sulfamethoxazole-trimethoprim 1 tab PO Q12H #20 tab 04/25/20 [Bactrim DS] amoxicillin-pot clavulanate 1 tab PO Q12H #90 tab 08/02/20 [Augmentin] Allergies Allergy/AdvReac Type Severity Reaction Status Date / Time No Known Drug Allergies Allergy Verified 08/22/20 18:00 Review of Systems Review of Systems ROS Unobtainable: All systems reviewed & are unremarkable except as noted in HPI and below Constitutional Constitutional: Denies body ache(s), Denies chills, Denies difficulty sleeping, Denies excessive sweating and Denies frequent falls ENT Ears, Nose, Mouth, and Throat: Denies dizziness Cardiovascular Cardiovascular: Denies chest pain, Denies irregular heart rhythm, Denies lightheadedness, Denies palpitations, Denies dyspnea and Denies orthopnea Respiratory Respiratory: Reports cough, Denies pain with cough and Denies dyspnea Gastrointestinal Gastrointestinal: Denies abdominal pain, Denies change in bowel habits, Denies diarrhea, Denies nausea and Denies vomiting Genitourinary Genitourinary: Reports as per HPI Genitourinary: Reports as per HPI Musculoskeletal Musculoskeletal: Denies back pain, Denies myalgias and Denies numbness Integumentary/Breasts Skin/Breast: Reports as per HPI and Reports skin ulcer Neurologic Neurologic: Reports as per HPI, Denies behavioral changes, Denies confusion, Denies dizziness, Denies frequent falls and Denies numbness Psychiatric Psychiatric: Denies behavioral changes and Denies confusion Endocrine Endocrine: Denies excessive sweating and Denies palpitations Patient History Medical History Diabetes mellitus 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 Pacemaker Surgical History History of permanent cardiac pacemaker placement Family History Mother MRSA (methicillin resistant Staphylococcus aureus) Social History Smoking Status: Never smoker Smoking Status: Never smoker alcohol intake frequency: 0-2 drinks per day Substance Use Type: does not use Exam Initial Vital Signs Initial Vital Signs: Vital Signs Temperature 97.9 F 08/22/20 18:00 Pulse Rate 83 08/22/20 18:00 Respiratory Rate 18 08/22/20 18:00 Blood Pressure 157/83 H 08/22/20 18:00 Pulse Oximetry 94 08/22/20 18:00 GENERAL: Weak appearing female and in no acute distress. HEENT: Head atraumatic,EOMI, pupils reactive, face symmetric, moist mucous membranes CARDIOVASCULAR: Regular rate and rhythm without murmurs, rubs or gallops. RESPIRATORY: Breath sounds equal bilaterally, no wheezes rales or rhonchi. ABDOMEN: Soft, nontender. Normoactive bowel sounds all 4 quadrants. No guarding or rebound. EXTREMITIES: Normal range of motion, no clubbing or edema. Neurovascularly intact NEUROLOGICAL: Alert and oriented x4.Normal gait and speech. Unable to lift left leg off the gurney for old left leg sensation in bilateral lower extremities intact SKIN: Left great toe ulcer noted no gross pus drainage or surrounding erythema also on the 2nd toe as well no streaking appreciated Scores NIH Stroke Scale Level of Conciousness: Alert, keenly responsive Ask month/age: Answers one question correctly, intubated follow commands (States does not know age on a daily basis) Open/close eyes, close hand: Performs both tasks correctly Best gaze horizontal: Normal Visual tilley: No visual loss Facial palsy: Normal symetrical movement Left arm drift: No drift for full 10 sec Right arm drift: No drift for full 10 sec Left leg drift: No effort against gravity Right leg drift: No drift for full 5 sec Limb ataxia: Absent Sensory on face/arms/legs: Normal, no sensory loss Best language: No aphasia, normal Dysarthria: Normal Extinction or inattention: No abnormality Total NIH Stroke scale score: 4 Course Orders Ordered: ED Orders 08/22/20 17:53 EKG-12 Lead Stat 08/22/20 18:10 COVID19 Stat Complete Blood Count AUTO DIFF Stat Comprehensive Metabolic Panel Stat NT-proBNP (BNP-Adult 18+) Stat Partial Thromboplastin Time Stat Prothrombin Time INR Stat Troponin & CK Cardiac Panel Stat 08/22/20 18:11 CT head/brain wo con Stat Urine Drug Screen, Rapid Stat 08/22/20 19:37 CT angio head and neck Stat Acetaminophen (Acetaminophen 325 Mg Tablet) 650 mg PO Q6HR PRN PRN Reason: Fever/Mild Pain (1-3) Acetaminophen (Acetaminophen 650 Mg Supp) 650 mg [place] Q6HR PRN PRN Reason: Fever/Mild Pain (1-3) Aspirin (Aspirin Ec 81 Mg Tablet) 81 mg PO DAILY ERIKA Bisacodyl (Bisacodyl 10 Mg Supp) 10 mg [place] DAILY PRN PRN Reason: Constipation Clopidogrel Bisulfate (Clopidogrel 75 Mg Tablet) 75 mg PO DAILY ERIKA Dextrose (Dextrose 50 % In Water 25 Gm/50 Ml Syringe) 25 gm IV PRN PRN; Protocol PRN Reason: Hypoglycemia Enoxaparin Sodium (Enoxaparin 40 Mg/0.4 Ml Syringe) 40 mg SUBCUT DAILY ERIKA Sodium Chloride (Normal Saline 0.9%) 1,000 mls @ 75 mls/hr IV CONT ERIKA Insulin Aspart (Insulin Aspart 100 Unit/Ml Insuln Pen) 0 unit SUBCUT ACHS ERIKA; Protocol Insulin Glargine (Insulin Glargine 100 Unit/Ml 3ml Pen) 40 unit SUBCUT BEDTIME ERIKA Labetalol HCl (Labetalol 20 Mg/4 Ml Syringe) 10 mg IV Q4HR PRN PRN Reason: Hypertension Metoclopramide HCl (Metoclopramide 10 Mg/2 Ml Inj) 10 mg IV Q8HR PRN PRN Reason: Nausea And Vomiting Naloxone HCl (Naloxone 0.4 Mg/Ml Vial) 0.2 mg IV Q2MIN PRN PRN Reason: Opiate Reversal Discontinued Medications Aspirin (Aspirin 81 Mg Chew Tab) 324 mg PO NOW ONE Stop: 08/22/20 19:38 Last Admin: 08/22/20 19:41 Dose: 324 mg Documented by: PIPPA Sodium Chloride (Normal Saline 0.9%) 1,000 mls @ 150 mls/hr IV CONT ERIKA Last Admin: 08/22/20 18:55 Dose: 150 mls/hr Documented by: PIPPA Vital Signs Vital signs: Vital Signs - 8 hr 08/22/20 18:00 08/22/20 19:50 08/22/20 20:57 Temperature 97.9 F Pulse Rate 83 69 66 Respiratory Rate 18 18 14 Blood Pressure 157/83 H 166/82 H 178/91 H Pulse Oximetry 94 100 97 Medical Decision Making Lab Data Lab results reviewed: Yes I reviewed the patient's lab results. Result diagrams: 08/22/20 18:10 08/22/20 18:10 Labs: Lab Results 08/22/20 08/22/20 08/22/20 Range/Units 18:10 18:10 18:10 WBC 6.0 (4.5-11.0) X10^3/uL RBC 4.81 (4.0-5.2) X10^6/uL Hgb 14.1 (12.0-16.0) g/dL Hct 42.5 (36-46) % MCV 88.4 (80-100) fL MCH 29.3 (26-34) PG MCHC 33.1 (30-36) % RDW 13.2 (11.6-14.8) % Plt Count 217 (150-400) X10^3/uL Neut % (Auto) 62.1 (50-75) % Lymph % (Auto) 25.1 (25-40) % [place] % (Auto) 9.3 (3-14) % Eos % (Auto) 2.5 (2-4) % Baso % (Auto) 1.0 (0-2) % Neut # (Auto) 3700 (6111-4095) /uL Lymph # (Auto) 1500 (9260-8126) /uL [place] # (Auto) 600 (0-900) /uL Eos # (Auto) 200 (0-450) /uL Baso # (Auto) 100 (0-100) /uL PT 11.4 (10.1-12.7) SECONDS INR 1.0 (0.9-1.3) APTT 31 (26.4-36.2) SECONDS Sodium 135 L (137-145) mmol/L Potassium 4.1 (3.4-5.1) mmol/L Chloride 100 (98-107) mmol/L Carbon Dioxide 30 (22-32) mmol/L BUN 19 H (7-17) mg/dL Creatinine 0.60 (0.52-1.04) mg/dL Estimated GFR > 60.0 (>60) mL/min BUN/Creatinine Ratio 31.7 H (6-22) Glucose 446 H (70-100) mg/dL Calcium 9.5 (8.4-10.2) mg/dL Magnesium (1.6-2.3) mg/dL Total Bilirubin 0.4 (0.2-1.3) mg/dL AST 26 (14-36) IU/L ALT 28 (<35) IU/L Alkaline Phosphatase 181 H (38-126) U/L Total Creatine Kinase 35 (30-135) U/L CK-MB (CK-2) TNP CK-MB (CK-2) Rel Index TNP Troponin I < 0.012 (0.01-0.034) ng/mL NT-Pro-B Natriuret Pep (<125) pg/mL Total Protein 7.9 (6.3-8.2) g/dL Albumin 4.0 (3.5-5.0) g/dL Globulin 3.9 (1.7-4.1) g/dL Albumin/Globulin Ratio 1.0 (1.0-2.8) U Opiates 300ng/mL cut (Negative) Ur Oxycodone Screen (Negative) Urine Methadone Screen (Negative) Ur Barbiturates Screen (Negative) U Tricyclic Antidepress (Negative) Ur Phencyclidine Scrn (Negative) Ur Amphetamines Screen (Negative) U Methamphetamines Scrn (Negative) Ur MDMA Scrn (Ecstasy) (Negative) U Benzodiazepines Scrn (Negative) Urine Cocaine Screen (Negative) U Marijuana (THC) Screen (Negative) COVID-19 PCR (Negative) 08/22/20 08/22/20 08/22/20 Range/Units 18:10 18:10 18:10 WBC (4.5-11.0) X10^3/uL RBC (4.0-5.2) X10^6/uL Hgb (12.0-16.0) g/dL Hct (36-46) % MCV (80-100) fL MCH (26-34) PG MCHC (30-36) % RDW (11.6-14.8) % Plt Count (150-400) X10^3/uL Neut % (Auto) (50-75) % Lymph % (Auto) (25-40) % [place] % (Auto) (3-14) % Eos % (Auto) (2-4) % Baso % (Auto) (0-2) % Neut # (Auto) (0872-4983) /uL Lymph # (Auto) (5896-7790) /uL [place] # (Auto) (0-900) /uL Eos # (Auto) (0-450) /uL Baso # (Auto) (0-100) /uL PT (10.1-12.7) SECONDS INR (0.9-1.3) APTT (26.4-36.2) SECONDS Sodium (137-145) mmol/L Potassium (3.4-5.1) mmol/L Chloride (98-107) mmol/L Carbon Dioxide (22-32) mmol/L BUN (7-17) mg/dL Creatinine (0.52-1.04) mg/dL Estimated GFR (>60) mL/min BUN/Creatinine Ratio (6-22) Glucose (70-100) mg/dL Calcium (8.4-10.2) mg/dL Magnesium 1.8 (1.6-2.3) mg/dL Total Bilirubin (0.2-1.3) mg/dL AST (14-36) IU/L ALT (<35) IU/L Alkaline Phosphatase (38-126) U/L Total Creatine Kinase (30-135) U/L CK-MB (CK-2) CK-MB (CK-2) Rel Index Troponin I (0.01-0.034) ng/mL NT-Pro-B Natriuret Pep 327 H (<125) pg/mL Total Protein (6.3-8.2) g/dL Albumin (3.5-5.0) g/dL Globulin (1.7-4.1) g/dL Albumin/Globulin Ratio (1.0-2.8) U Opiates 300ng/mL cut (Negative) Ur Oxycodone Screen (Negative) Urine Methadone Screen (Negative) Ur Barbiturates Screen (Negative) U Tricyclic Antidepress (Negative) Ur Phencyclidine Scrn (Negative) Ur Amphetamines Screen (Negative) U Methamphetamines Scrn (Negative) Ur MDMA Scrn (Ecstasy) (Negative) U Benzodiazepines Scrn (Negative) Urine Cocaine Screen (Negative) U Marijuana (THC) Screen (Negative) COVID-19 PCR Negative (Negative) 08/22/20 Range/Units 18:43 WBC (4.5-11.0) X10^3/uL RBC (4.0-5.2) X10^6/uL Hgb (12.0-16.0) g/dL Hct (36-46) % MCV (80-100) fL MCH (26-34) PG MCHC (30-36) % RDW (11.6-14.8) % Plt Count (150-400) X10^3/uL Neut % (Auto) (50-75) % Lymph % (Auto) (25-40) % [place] % (Auto) (3-14) % Eos % (Auto) (2-4) % Baso % (Auto) (0-2) % Neut # (Auto) (5153-5216) /uL Lymph # (Auto) (2536-9290) /uL [place] # (Auto) (0-900) /uL Eos # (Auto) (0-450) /uL Baso # (Auto) (0-100) /uL PT (10.1-12.7) SECONDS INR (0.9-1.3) APTT (26.4-36.2) SECONDS Sodium (137-145) mmol/L Potassium (3.4-5.1) mmol/L Chloride (98-107) mmol/L Carbon Dioxide (22-32) mmol/L BUN (7-17) mg/dL Creatinine (0.52-1.04) mg/dL Estimated GFR (>60) mL/min BUN/Creatinine Ratio (6-22) Glucose (70-100) mg/dL Calcium (8.4-10.2) mg/dL Magnesium (1.6-2.3) mg/dL Total Bilirubin (0.2-1.3) mg/dL AST (14-36) IU/L ALT (<35) IU/L Alkaline Phosphatase (38-126) U/L Total Creatine Kinase (30-135) U/L CK-MB (CK-2) CK-MB (CK-2) Rel Index Troponin I (0.01-0.034) ng/mL NT-Pro-B Natriuret Pep (<125) pg/mL Total Protein (6.3-8.2) g/dL Albumin (3.5-5.0) g/dL Globulin (1.7-4.1) g/dL Albumin/Globulin Ratio (1.0-2.8) U Opiates 300ng/mL cut Negative (Negative) Ur Oxycodone Screen Negative (Negative) Urine Methadone Screen Negative (Negative) Ur Barbiturates Screen Negative (Negative) U Tricyclic Antidepress Negative (Negative) Ur Phencyclidine Scrn Negative (Negative) Ur Amphetamines Screen Negative (Negative) U Methamphetamines Scrn Negative (Negative) Ur MDMA Scrn (Ecstasy) Negative (Negative) U Benzodiazepines Scrn Negative (Negative) Urine Cocaine Screen Negative (Negative) U Marijuana (THC) Screen Negative (Negative) COVID-19 PCR (Negative) Point of Care Testing Glucose POC 289 Urine Dip Bedside Urine Glucose 1000 mg/dl Bedside Urine Bilirubin - Negative Bedside Urine Ketone - Negative Urine Specific [place] 1.005 Bedside Urine Occult Blood - Negative Bedside Urine pH 6.0 Bedside Urine Protein - Negative Bedside Urine Urobilinogen - Negative Bedside Urine Nitrite - Negative Bedside Urine Leukocytes - Negative Esterase Point of care testing: Point of Care Testing Glucose POC 289 Urine Dip Bedside Urine Glucose 1000 mg/dl Bedside Urine Bilirubin - Negative Bedside Urine Ketone - Negative Urine Specific [place] 1.005 Bedside Urine Occult Blood - Negative Bedside Urine pH 6.0 Bedside Urine Protein - Negative Bedside Urine Urobilinogen - Negative Bedside Urine Nitrite - Negative Bedside Urine Leukocytes - Negative Esterase Imaging Data CT scan - head: Radiologist's Impression: PROCEDURE: CT HEAD/BRAIN WO CON INDICATIONS: left leg weakness unknown time of onset TECHNIQUE: Noncontrast 4.5 mm thick angled axial sections acquired from the foramen magnum to the vertex, with coronal and sagittal reformats. For radiation dose reduction, the following was used: automated exposure control, adjustment of mA and/or kV according to patient size. COMPARISON: [facility], CT, CT HEAD WITHOUT CONTRAST, 07/26/2020, 9:06. FINDINGS: Image quality: Excellent. CSF spaces: Basal cisterns are patent. No extra-axial fluid collections. The ventricles are symmetric in size and shape. Brain: Old lacunar infarcts in the left basal ganglia and arreola radiata. No intracranial bleeds or masses. There is mild cerebral volume loss for age, with resultant ventricular and sulcal prominence. There are moderate periventricular and deep white matter chronic small vessel ischemic changes. There is intracranial internal carotid artery and vertebral artery atherosclerosis. Skull and face: Calvarium and visualized facial bones appear intact, without suspicious lesions. Sinuses: Visualized sinuses and mastoids are clear. IMPRESSION: 1. No acute intracranial abnormalities. 2. Old lacunar infarcts in the left basal ganglia and arreola radiata. 3. Cerebral volume loss and chronic microvascular ischemic changes. Dictated by: Neema Perez M.D. on 08/22/2020 at 19:25 Approved by: eNema Perez M.D. on 08/22/2020 at 19:28 CTA - brain/neck: Radiologist's Impression: PROCEDURE: CT ANGIO HEAD AND NECK INDICATIONS: left sided weakness TECHNIQUE: Pre-contrast 4.5 mm thick sections acquired from the foramen magnum to the vertex. After the administration of intravenous contrast, 1 mm thick sections acquired from the aortic arch through the [employer]. Post-contrast 4.5 mm thick sections then re-acquired from the foramen magnum to the vertex. 3-dimensional [id number] (MIP) and/or volume rendering reformats were acquired of the central intracranial vasculature and neck separately. COMPARISON: [facility], CR, XR CHEST 1V, 07/21/2020, 1:35. FINDINGS: Image quality: Excellent. BRAIN: CSF spaces: Ventricles are normal in size and shape. Basal cisterns are patent. No extra-axial fluid collections. Brain: No midline shift. No intracranial bleeds or masses. Rodriguez-white matter interface appears intact. Skull and face: Calvarium and facial bones appear intact, without suspicious lesions. Orbits appear normal. Sinuses: Sinuses and mastoids are clear. HEAD CT ANGIOGRAPHY: Anterior circulation: Intracranial internal carotid arteries are normal in size and flow. The flow within the paired anterior cerebral arteries is normal and symmetric. The flow within the middle cerebral arteries is normal and symmetric. The anterior communicating artery is seen. No aneurysms are seen. Posterior circulation: The right vertebral artery is small in caliber, likely congenital. Visualized portions of the vertebral arteries demonstrate normal caliber, and join to form a normal appearing basilar artery. There is severe calcification in the distal left vertebral artery. Flow within the posterior cerebral arteries is normal and symmetric. No aneurysms are seen. NECK CT ANGIOGRAPHY: Carotid system: The great vessels demonstrate a conventional anatomy as they arise from the aortic arch. The origins of the common carotid arteries appear patent. The common carotid arteries demonstrate normal caliber and courses. The bifurcation regions are both widely patent. The internal carotid arteries demonstrate normal calibers and courses. Posterior circulation: The vertebral arteries are suboptimally visualized because of intense enhancement of venous structures, partially obscure vertebral arteries. The more superior extracranial portions of both vertebral arteries also demonstrate normal courses and calibers. They join to form a normal appearing basilar artery. Soft tissues: Visualized neck soft tissues demonstrate no suspicious abnormalities. Multiple subcentimeter lung nodules are present in right lung. Bones: No suspicious bony lesions. Visualized cervical spine appears normally aligned. IMPRESSION: 1. No acute intracranial abnormalities. 2. No high-grade stenosis or occlusion in anterior circulations. 3. Dominant left vertebral artery with a densely calcified plaque at the skull base. No high-grade stenosis or occlusion in posterior circulations. 4. No high-grade stenosis or occlusion in cervical carotid arteries bilaterally. 5. The cervical vertebral arteries are subacute visualized. If clinically indicated, MRA may be helpful. 6. Multiple subcentimeter right lung nodules. Recommend nonurgent chest CT follow-up. 7. Left side arm injection. There multiple venous collaterals brightly opacified by intravenous contrast in the neck. The findings suggest the possibility of distal venous obstruction at level of superior vena cava. There is a cardiac pacemaker with multiple leads. Any quantitative measurements of stenosis were performed using NASCET criteria. Dictated by: Neema Perez M.D. on 08/22/2020 at 20:27 ECG Data Attestation: I personally reviewed and interpreted this ECG as follows: MDM Narrative Medical decision making narrative: The patient is having all left-sided weakness concerning for CVA. Time of onset is difficult to pinpoint and therefore is not a tPA candidate. She seems mildly confused not knowing her age however she tells me she does not know her age at baseline she got the year wrong as well thinking it was 2020. CTA does not show any large vessel occlusion. She does have a pacemaker not an MRI candidate. She is given aspirin Taras DAN accepts patient Discharge Plan Departure Patient Disposition: Admitted as Observation Clinical Impression: CVA (cerebral vascular accident) Admit Date/Time: 08/22/20 21:05 Admit Provider: Rajat Vargas
[2020-08-22 18:19] LABS: Add Manual Diff / Slide Review NO; Basophils Absolute Auto 100 /uL (0-100); Eosinophils Absolute Auto 200 /uL (0-450); Eosinophils Percent Auto 2.5 % (2-4); Hematocrit 42.5 % (36-46); Hemoglobin 14.1 g/dL (12.0-16.0); Lymphocytes Absolute Auto 1500 /uL (1100-4500); Lymphocytes Percent Auto 25.1 % (25-40); Mean Corpuscular HGB Conc 33.1 % (30-36); Mean Corpuscular Hemoglobin 29.3 PG (26-34); Mean Corpuscular Volume 88.4 fL (80-100); Monocytes Absolute Auto 600 /uL (0-900); Monocytes Percent Auto 9.3 % (3-14); Neutrophils Absolute Auto 3700 /uL (1500-7000); Neutrophils Percent Auto 62.1 % (50-75); Platelet Count 217 X10^3/uL (150-400); Red Blood Cell Count 4.81 X10^6/uL (4.0-5.2); Red Cell Distribution Width 13.2 % (11.6-14.8)
[2020-08-22 18:30] LABS: Prothrombin Time 11.4 SECONDS (10.1-12.7)
[2020-08-22 18:32] LABS: PTT Partial Thromboplastin Tim 31 SECONDS (26.4-36.2)
[2020-08-22 18:33] LABS: Alanine Aminotransferase 28 IU/L (<35); Alkaline Phosphatase 181 U/L (38-126); Aspartate Aminotransferase 26 IU/L (14-36); BUN Creatinine Ratio 31.7 (6-22); Bilirubin Total 0.4 mg/dL (0.2-1.3); Blood Urea Nitrogen 19 mg/dL (7-17); Calcium 9.5 mg/dL (8.4-10.2); Carbon Dioxide 30 mmol/L (22-32); Chloride 100 mmol/L (98-107); Creatine Kinase 35 U/L (30-135); Estimated Glomerular Filt Rate > 60.0 mL/min (>60); Globulin 3.9 g/dL (1.7-4.1); Glucose 446 mg/dL (70-100); HEMOLYSIS < 15 (0-50); Potassium 4.1 mmol/L (3.4-5.1); Sodium 135 mmol/L (137-145); Total Protein 7.9 g/dL (6.3-8.2)
[2020-08-22 18:36] LABS: COVID19 -Nasal RAPID Negative (Negative)
[2020-08-22 18:42] LABS: NT-proBNP (BNP-Adult 18+) 327 pg/mL (<125)
[2020-08-22 18:45] LABS: Troponin I < 0.012 ng/mL (0.01-0.034)
[2020-08-22] MEDS: SODIUM CHLORIDE 0.9% 1,000 ML 150 ML IV (18:55)
--- NOTE | 2020-08-22 19:37 | DI.CT.S_ITS ---
PROCEDURE: CT ANGIO HEAD AND NECK INDICATIONS: left sided weakness TECHNIQUE: Pre-contrast 4.5 mm thick sections acquired from the foramen magnum to the vertex. After the administration of intravenous contrast, 1 mm thick sections acquired from the aortic arch through the [place]. Post-contrast 4.5 mm thick sections then re-acquired from the foramen magnum to the vertex. 3-dimensional ldyazqp-vkuavssfl-zusslhfous (MIP) and/or volume rendering reformats were acquired of the central intracranial vasculature and neck separately. COMPARISON: [facility], CR, XR CHEST 1V, 07/21/2020, 1:35. FINDINGS: Image quality: Excellent. BRAIN: CSF spaces: Ventricles are normal in size and shape. Basal cisterns are patent. No extra-axial fluid collections. Brain: No midline shift. No intracranial bleeds or masses. Rodriguez-white matter interface appears intact. Skull and face: Calvarium and facial bones appear intact, without suspicious lesions. Orbits appear normal. Sinuses: Sinuses and mastoids are clear. HEAD CT ANGIOGRAPHY: Anterior circulation: Intracranial internal carotid arteries are normal in size and flow. The flow within the paired anterior cerebral arteries is normal and symmetric. The flow within the middle cerebral arteries is normal and symmetric. The anterior communicating artery is seen. No aneurysms are seen. Posterior circulation: The right vertebral artery is small in caliber, likely congenital. Visualized portions of the vertebral arteries demonstrate normal caliber, and join to form a normal appearing basilar artery. There is severe calcification in the distal left vertebral artery. Flow within the posterior cerebral arteries is normal and symmetric. No aneurysms are seen. NECK CT ANGIOGRAPHY: Carotid system: The great vessels demonstrate a conventional anatomy as they arise from the aortic arch. The origins of the common carotid arteries appear patent. The common carotid arteries demonstrate normal caliber and courses. The bifurcation regions are both widely patent. The internal carotid arteries demonstrate normal calibers and courses. Posterior circulation: The vertebral arteries are suboptimally visualized because of intense enhancement of venous structures, partially obscure vertebral arteries. The more superior extracranial portions of both vertebral arteries also demonstrate normal courses and calibers. They join to form a normal appearing basilar artery. Soft tissues: Visualized neck soft tissues demonstrate no suspicious abnormalities. Multiple subcentimeter lung nodules are present in right lung. Bones: No suspicious bony lesions. Visualized cervical spine appears normally aligned. IMPRESSION: 1. No acute intracranial abnormalities. 2. No high-grade stenosis or occlusion in anterior circulations. 3. Dominant left vertebral artery with a densely calcified plaque at the skull base. No high-grade stenosis or occlusion in posterior circulations. 4. No high-grade stenosis or occlusion in cervical carotid arteries bilaterally. 5. The cervical vertebral arteries are subacute visualized. If clinically indicated, MRA may be helpful. 6. Multiple subcentimeter right lung nodules. Recommend nonurgent chest CT follow-up. 7. Left side arm injection. There multiple venous collaterals brightly opacified by intravenous contrast in the neck. The findings suggest the possibility of distal venous obstruction at level of superior vena cava. There is a cardiac pacemaker with multiple leads. Any quantitative measurements of stenosis were performed using NASCET criteria. Dictated by: Neema Perez M.D. on 08/22/2020 at 20:27 Approved by: Neema Preez M.D. on 08/22/2020 at 20:44
[2020-08-22] MEDS: ASPIRIN 81 MG CHEW TAB 324 MG PO (19:41)
[2020-08-22 19:50] VITALS: BP 166/82; PULSE 69; RESP 18; O2SAT 100
[2020-08-22 20:57] VITALS: BP 178/91; PULSE 66; RESP 14; O2SAT 97
[2020-08-22 21:09] VITALS: BMI 32.1
--- NOTE | 2020-08-22 21:20 | P.HP_ITS ---
History of Present Illness History of Present Illness Date Patient Seen: 08/22/20 Time Patient Seen: 22:11 Chief complaint: Fuzzy headed/weak poss insulin related Narrative: Ms. Kimmy Gray is a 54-year-old female with a past medical history significant for history of CVA, history of ventricular fibrillation with implanted biventricular ICD, uncontrolled diabetes type 2 with left foot ulcer and neuropathy, hypertension, congestive heart failure and urinary incontinence presents to the ER with left leg weakness. Patient states that she was in her usual state health this morning. She checked her blood sugar between 730 and 8:00 a.m. found to be over 500 and took 10 units of insulin. Per the patient and her 's report she 1st began having left leg weakness approximately 12 to 12:30 p.m.. She recheck to blood sugars at 1:30 p.m. finding blood sugars remaining over 400 and administered another 10 units of insulin. She can checked her blood sugar about 4:30 p.m. blood sugars remaining high and she had an additional 10 units of insulin. At that time the patient attempted to ambulate to the bathroom but was unable to and required assistance due to left leg weakness. The patient denies complaints of headaches but reports feeling somewhat dizzy with a ?fuzzy? feeling in her head. She denies visual changes, difficulty chewing or swallowing. She reports no nausea, vomiting or diaphoresis. She has had no recent illnesses beyond her chronic left foot diabetic ulcer affecting her 2nd great toe with osteomyelitis and recently identified wound of the 1st great toe which underwent podiatry debridement when the patient was admitted at [facility] on 07/28/2020. Patient was subsequently seen at [facility] ER for re- evaluation of the wound and discharged with wound care and medication teaching for outpatient follow-up. The patient states she has been taking Augmentin twice daily. Patient has not not yet been seen for continuing care of the wound. The wound has been soaked with Epson salt daily. The patient denies systemic symptoms of fevers or chills, nasal congestion or sore throat. She denies complaints of chest pain or palpitations. She denies complaints shortness of breath though endorses a dry intermittent nonproductive cough. Denies complaints of epigastric or abdominal pain, nausea vomiting. She reports loose stools but no diarrhea or constipation and no melena or hematochezia. She describes diabetic neuropathy and reports altered sensation distal to the knee of the left leg. Upon arrival to the ER the patient is afebrile with temperature 97.9?, heart rate of 83, blood pressure 157/83, respirations of 18 saturating 96% on air. CT of the brain is obtained which finds of old lacunar infarct in the left basal ganglia and arreola radiata, mild volume loss for age, chronic small-vessel ischemic disease, intracranial and internal carotid atherosclerosis. A CT of the head and brain without contrast reveals no acute intracranial abnormalities and finds old lacunar infarcts in the left basal ganglia and arreola radiata, cerebral volume loss for age and chronic microvascular ischemic changes. CTA reveals no acute intracranial abnormalities, no high-grade stenosis or occlusion of the anterior circulation, dominant left vertebral artery with a densely calcified plaque the skull base, no high-grade stenosis or occlusion of the posterior circulations, no high-grade or occlusion cervical carotid arteries bilaterally. Multiple venous collaterals brightly opacified by intravenous contrast in the neck suggesting possibility of distal venous obstruction of the level of the superior vena cava. On laboratory analysis the patient has white count of 6.0, hemoglobin 14.1, hematocrit 42.5 and platelets of 217. PT is 11.4 with INR of 1.0 and a PTT of 31. Electrolytes are within normal range within BUN of 19 and creatinine 0.6. On liver functions total bilirubin is 0.4, AST 26, ALT 28 with an elevated alkaline phosphatase 181. Albumin is 4.0. Total CK is 35, troponin is less than 0.012. BNP is low at 324. Urinary drug screen is negative for significant findings. In the ER NIH is documented at 5. The patient is admitted to the hospitalist service for CVA. Patient History Medical History (Updated 08/23/20 @ 00:49 by NI Carrillo) 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 CVA (cerebral vascular accident) Diabetes mellitus History of ventricular fibrillation 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 Neuropathy Urinary incontinence Surgical History (Updated 08/23/20 @ 00:49 by NI Carrillo) History of colonoscopy History of permanent cardiac pacemaker placement Family & Social History Family History (Updated 08/23/20 @ 00:50 by NI Carrillo) Mother MRSA (methicillin resistant Staphylococcus aureus) Cardiovascular disease Stroke Myocardial infarction Father Cardiovascular disease Myocardial infarction Safety & Behavioral: Feels Safe in Current Yes Environment Been Physically Hurt or No Threatened By a Person Tobacco & Substance use: Smoking Status Never smoker alcohol intake frequency 0-2 drinks per day Substance Use Type does not use Meds Home Medications and Allergies Home Medications Medication Instructions Recorded Confirmed Type aspirin 81 mg PO QDAY #0 11/15/17 08/22/20 History furosemide 40 mg PO QDAY #0 11/15/17 08/22/20 History insulin aspart U-100 [Novolog 5 unit SQ TIDAC #0 11/15/17 08/22/20 History Flexpen U-100 Insulin] lisinopril 5 mg PO BID #0 11/15/17 08/22/20 History amoxicillin-pot clavulanate 1 tab PO Q12H #90 tab 08/02/20 08/22/20 Rx [Augmentin] metoprolol succinate 25 mg PO DAILY 08/22/20 08/22/20 History Allergies Allergy/AdvReac Type Severity Reaction Status Date / Time No Known Drug Allergies Allergy Verified 08/22/20 18:00 Review of Systems Review of Systems ROS: Yes All systems reviewed with the patient and are negative except as otherwise documented Exam Vital Signs (past 8 hours): - 08/22/20 18:00 08/22/20 19:50 08/22/20 20:57 Temperature 97.9 F Pulse Rate 83 69 66 Respiratory Rate 18 18 14 Blood Pressure 157/83 H 166/82 H 178/91 H Pulse Oximetry 94 100 97 Oxygen Delivery Method Room Air Narrative Exam Narrative: GENERAL APPEARANCE: well developed, well nourished, in no acute distress. HEENT: Slight left facial droop, symmetrical smile, PERRLA, conjunctiva clear, EOMs intact without nystagmus, no sinus tenderness to percussion, no rhinorrhea, mucous membranes are dry and pink without lesions or exudate. NECK/THYROID: neck supple, no JVD, no carotid bruit, no thyromegaly, trachea midline. LYMPH NODES: no cervical or supraclavicular lymphadenopathy. SKIN: [place], warm and dry, red rash bilateral groin under pannus, Y shaped wound plantar surface left great toe dry without drainage with yellowed skin margins, diabetic ulcer 2nd toe nondraining, no evidence of cellulitis HEART: regular rate and rhythm, S1-S2, no murmur, no rubs or gallops, brisk capillary refill, Trace edema LUNGS: clear to auscultation bilaterally, no coarseness crackles or wheezing, no cough present CHEST: Symmetrical movement, no accessory muscle use, good tidal volume. ABDOMEN: Soft, Protuberant with large pannus, no abdominal tenderness, no organomegaly, no flank or suprapubic tenderness, active bowel tones. EXTREMITIES: moves all extremities, strength is 5/5 and symmetrical, no deformities or joint effusions. NEUROLOGIC: AAO to person and place, confused as to date and time, impaired recall, Slight left facial droop, no ptosis drift of left arm, flaccidity left leg ataxia of left arm and left leg and asymmetric diminished sensation left lower leg, hearing grossly normal to speech. PSYCH: cooperative, appropriate with stable behavior Objective Labs Result Diagrams: 08/22/20 18:10 08/22/20 18:10 Labs: Laboratory Results - last 24 hr 08/22/20 08/22/20 08/22/20 18:10 18:10 18:10 WBC 6.0 RBC 4.81 Hgb 14.1 Hct 42.5 MCV 88.4 MCH 29.3 MCHC 33.1 RDW 13.2 Plt Count 217 Neut % (Auto) 62.1 Lymph % (Auto) 25.1 [place] % (Auto) 9.3 Eos % (Auto) 2.5 Baso % (Auto) 1.0 Neut # (Auto) 3700 Lymph # (Auto) 1500 [place] # (Auto) 600 Eos # (Auto) 200 Baso # (Auto) 100 PT 11.4 INR 1.0 APTT 31 Sodium 135 L Potassium 4.1 Chloride 100 Carbon Dioxide 30 BUN 19 H Creatinine 0.60 Estimated GFR > 60.0 BUN/Creatinine Ratio 31.7 H Glucose 446 H Calcium 9.5 Total Bilirubin 0.4 AST 26 ALT 28 Alkaline Phosphatase 181 H Total Creatine Kinase 35 CK-MB (CK-2) TNP CK-MB (CK-2) Rel Index TNP Troponin I < 0.012 NT-Pro-B Natriuret Pep Total Protein 7.9 Albumin 4.0 Globulin 3.9 Albumin/Globulin Ratio 1.0 COVID-19 PCR 08/22/20 08/22/20 18:10 18:10 WBC RBC Hgb Hct MCV MCH MCHC RDW Plt Count Neut % (Auto) Lymph % (Auto) [place] % (Auto) Eos % (Auto) Baso % (Auto) Neut # (Auto) Lymph # (Auto) [place] # (Auto) Eos # (Auto) Baso # (Auto) PT INR APTT Sodium Potassium Chloride Carbon Dioxide BUN Creatinine Estimated GFR BUN/Creatinine Ratio Glucose Calcium Total Bilirubin AST ALT Alkaline Phosphatase Total Creatine Kinase CK-MB (CK-2) CK-MB (CK-2) Rel Index Troponin I NT-Pro-B Natriuret Pep 327 H Total Protein Albumin Globulin Albumin/Globulin Ratio COVID-19 PCR Negative Assessment & Plan Assessment & Plan narrative: This is a 54-year-old female patient with a prior history of CVA, uncontrolled diabetes, hypertension and congestive heart failure who presents to the ER with left leg weakness in the setting of uncontrolled diabetes. 1. Stroke, acute, present on admission, active. -last known well was approximately noon today with the patient again dosing weakness in the left leg that became progressive to the point where she was unable to ambulate to the bathroom by 4:30 p.m. -at the time of evaluation the patient has an NIH score of 8 with subtle left facial droop, drift left arm but not to bed, left leg no movement against gravity, ataxia 2 limbs and diminished sensation left lower leg. -CT finds an old lacunar infarct in left basal ganglia and arreola radiata, CT a finds no acute intracranial abnormalities, no high-grade stenosis or occlusions and anterior circulations, dominant left vertebral artery with densely calcified plaque in the skull base without stenosis in the posterior circulations no high-grade stenosis or occlusion in the cervical carotid arteries. -patient is not a candidate for tPA, spoke with Dr. [facility] patient is not a candidate for interventional procedure. -patient is unable to undergo MRI related to implanted biventricular AICD. -patient has been on aspirin 81 mg daily which is continued, will add Plavix 75 mg daily. -will out permissive hypertension, ordered labetalol 10 mg IV for sustained systolic blood pressure greater than 220 or diastolic greater than 110. -echocardiogram ordered -requested PT OT and ST to consult evaluate and treat. 2. Diabetes type 2, uncontrolled with hyperglycemia, chronic, present on admission, active. -patient reports elevated blood sugars throughout the day waking with a blood sugar over 500 she administered 10 units insulin and recheck at 1:30 p.m., still greater than 400 administered another 10 units of insulin, still elevated at 4:30 p.m. administered another 10 units of insulin. Blood sugars on admission labs show serum glucose of 446 without evidence of acidosis, serum CO is 30 in anion gap is 5. -patient is prescribed prandial NovoLog insulin at 5 units with meals, she has been prescribed Lantus 80 mg daily which she is not taking due to cost. -ordered Lantus 40 mg at bedtime. Will titrate up as indicated. -ordered fingerstick blood sugars every 6 hours while NPO then a.c. and hs with coverage of medium scale correctional insulin. -patient has complications of neuropathy, unknown status of retinopathy, no evidence of nephropathy with a creatinine of 0.6 and EGFR greater than 60. -ADAPTED PHYSICAL EDUCATION SPECIALIST consulted requesting assistance with community resources and medications. 3. Left great toe and 2nd toe non-healing diabetic foot ulcers, chronic, present on admission, stable -diabetic ulcer plantar surface of the great toe debrided by Podiatry during admission to [facility] on 07/28 2020. -chronic diabetic ulcer of the 2nd toe with osteomyelitis of the distal phalanx. -patient reports she has been taking Augmentin twice daily as prescribed for MSSA infection, will continue current dosing. -patient has not been followed for wound care and has been soaking her foot daily with Epson salt. -mild redness extending along the left great toe without swelling or warmth, no pain in the presence of neuropathy. -requested ADAPTED PHYSICAL EDUCATION SPECIALIST consult for community resources, patient is under the care of Donna Redman and will need to establish follow-up and referrals. 4. History of chronic systolic heart failure, stable -patient denies shortness of breath has intermittent nonproductive cough. No complaints of chest pain. -lungs are clear to ox notation and no peripheral edema noted. -will allow for permissive hypertension in setting of acute stroke, will hold Lasix for the next 24 hours. -will monitor electrolytes. -echocardiogram is ordered for evaluation in setting of stroke noted above. 5. Hypertension, chronic, present on admission, stable. -patient with elevated blood pressure 157/83 upon arrival to the ER remaining at elevated at 160/92 on admission to the inpatient unit. -will of for permissive hypertension in the setting of acute stroke and will hold routine antihypertensive medications. -order labetalol 10 mg IV every 4 hours as needed for sustained systolic blood pressure greater than 220 or diastolic blood pressure greater than 110. 6. Medical treatment nonadherence. -patient has not been able to afford medications and as such diabetes is uncontrolled with severely elevated glucose contributing to current stroke. -per patient report she has not received referral for follow-up with her diabetic foot ulcer. -cost issues are a significant barrier to care and management of chronic conditions. -ADAPTED PHYSICAL EDUCATION SPECIALIST consult is requested for assistance with community resources. VTE prophylaxis: Enoxaparin IV fluid: Saline lock Diet: NPO pending speech evaluation Code status: Full Code, surrogate decision maker is the patient's . The patient is admitted to the hospital due to the severity of her presenting s ymptoms and risk for complications and adverse events. The patient is admitted as observation with expected length of stay to be less than 2 midnights.scoric Scores GCS Clifford coma scale eye opening: Spontaneous Oswaldo coma scale verbal response: Confused Oswaldo coma scale motor response: Obey commands Oswaldo coma scale total score: 14 NIHSS Level of Conciousness: Alert, keenly responsive Ask month/age: Answers both questions correctly. Open/close eyes, close hand: Performs both tasks correctly Best gaze horizontal: Normal Visual tilley: No visual loss Facial palsy: Minor paralysis, flattened nasolabial fold, asymmetry on smiling Left arm drift: Drifts down, not to bed Right arm drift: No drift for full 10 sec Left leg drift: No effort against gravity Right leg drift: No drift for full 5 sec Limb ataxia: Present in two limbs Sensory on face/arms/legs: Mild to moderate sensory loss, can tell touch (Diabetic neuropathy asymmetrical paresthesia left leg) Best language: No aphasia, normal Dysarthria: Normal Extinction or inattention: No abnormality Total NIH Stroke scale score: 8
[2020-08-22 21:36] LABS: UR Morphine/Opiate cutoff 300 Negative (Negative); Ur Creatinine 20 (Normal); Ur Specific Gravity 1.015 (Normal); Urine Amphetamines Negative (Negative); Urine Barbiturates Negative (Negative); Urine Benzodiazepines Negative (Negative); Urine Cocaine Negative (Negative); Urine MDMA Negative (Negative); Urine Methadone Negative (Negative); Urine Methamphetamines Negative (Negative); Urine Oxycodone Negative (Negative); Urine Phencyclidine Negative (Negative); Urine Tetrahydrocannabinol Negative (Negative); Urine Tricyclic Antidepressant Negative (Negative); Urine pH 5 (Normal)
[2020-08-22 21:40] VITALS: BP 153/92; PULSE 70; RESP 19; TEMP 36.7; O2SAT 95
[2020-08-22 21:55] VITALS: O2SAT 96
--- NOTE | 2020-08-22 21:56 | DI.ECHO.S_ITS ---
[place] +---------+ Hospital +---------+ : : [address] : : : : [id number] : : : : Phone: [phone] Echocardiogram Report + + :Name: RAMIN LINDSEY Study Date: 08/23/2020 Height: 67 in : :[facility] Weight: 208 lb : : Gender: Female BSA: 2.1 m2 : :: 1965 Age: 54 yrs BP: 152/89 mmHg: :Reason For Study: CVA : :Ordering Physician: KASEY, : :COLTON DAN Performed By: Jenny Melissa : :Referring: COLTON PARKS : + + Interpretation Summary This was a technically difficult study (in terms of ruling out apical thrombus). As a result [place] echocontrast was used. Normal sinus rhythm. The left ventricle is mildly dilated. Left ventricular systolic function is mildly reduced. The ejection fraction is estimated to be 45+/- 5%. Left ventricular systolic function is unchanged from prior study 07/22/2020. There is mild global hypokinesis with a significant dyssynchronous contraction pattern due to the paced rhythm and akinesis and thinning of the distal septum, distal anterior wall and apex. No apical thrombus is present. The left atrium is mildly dilated. Otherwise normal chamber sizes. No evidence of PFO based on agitated saline study. Compared to prior study 07/22/2020 no changes have occurred. No source of embolism found. Procedure: A two-dimensional transthoracic echocardiogram with color flow and Doppler was performed in limited views only. Comparison is made with the echocardiogram of 07/22/2020. A saline contrast injection was performed to assess for cardiac shunting. The injection was performed through an intravenous line in the left arm. A contrast injection of Definity was performed to improve assessment for apical thrombus. Contrast was injected into an intravenous site in the left arm. The patient was in sinus rhythm with heart rates between 75-90 bpm during the exam. Left Ventricle: The left ventricle is mildly dilated. There is mild concentric left ventricular hypertrophy. There is no thrombus. Left ventricular ejection fraction is estimated to be 45 +/- 5%. Right Ventricle: The right ventricle is normal in size and function. Atria: The left atrial size is normal. Right atrial size is normal. Injection of contrast documented no interatrial shunt. There is no Doppler evidence for an interatrial shunt. Pericardium/ Pleura There is no pericardial effusion. There is no pleural effusion. MMode/2D Measurements & Calculations LVIDd: 4.9 cm LA A2 area: 20.7 cm2 LVIDs: 3.8 cm LA A4 area: 18.8 cm2 FS: 22.2 % LA length (vol): 5.0 cm IVSd: 1.2 cm LA vol: 65.7 ml LVPWd: 1.2 cm LA vol index: 31.9 ml/m2 LV ruiz. diameter/BSA (cm/m^2): 2.4 LV sys. diameter/BSA (cm/m^2): 1.9 RA long axis: 4.8 cm RVD1 (basal): 2.8 cm RA area: 12.7 cm2 TAPSE: 1.9 cm RA vol: 28.5 ml RA : 13.9 ml/m2 Electronically signed by: Kisha Horn M.D. on Reading Physician:08/23/2020 04:10 PM
[2020-08-22 22:19] LABS: Magnesium 1.8 mg/dL (1.6-2.3)
[2020-08-22 22:58] LABS: Hemoglobin A1C% w Est Avg Glu 13.7 % (4.0-6.0)
--- NOTE | 2020-08-22 23:53 | PC.NURSE ---
Evening Shift Note- Patient arrived to room via stretcher from ER at. Admission questions done and skin check completed. Oriented patient to bed and bed controls, room, lights, phone, menu, bathroom, and call cameron/tv remote. Javi is in room as patients support person. will be staying the night. Wound noted to left great toe, pictures taken and wopund wrapped with gauze. Yeasty red rash noted to groin. Safety measures in place. Bed alarm activated. Call cameron and phone within reach. Will continue to monitor.
[2020-08-22 23:56] VITALS: BP 160/92; PULSE 71; RESP 16; TEMP 36.1; O2SAT 96
[2020-08-23] VITALS (9 sets, daily range): BP systolic 116–155; BP diastolic 74–98; PULSE 65–109; RESP 16–20; TEMP 36.1–36.6; O2SAT 89–99
[2020-08-23] MEDS: INSULIN GLARGINE 100 UNIT/ML 3ML PEN 40 UNIT SUBCUT ×3 (00:47→20:57)
[2020-08-23] MEDS: AMOXICILLIN/CLAV 875/125 MG 1 TAB PO ×2 (01:07→16:08)
[2020-08-23] MEDS: SODIUM CHLORIDE 0.9% 1,000 ML 150 ML IV ×3 (01:08→12:44)
[2020-08-23] MEDS: NYSTATIN POWDER 15GM 1 APPLIC TOP ×3 (01:08→20:58)
[2020-08-23] MEDS: SODIUM CHLORIDE 0.9% 500 ML 1000 ML IV (01:09)
--- NOTE | 2020-08-23 01:27 | PC.NURSE ---
Addendum entered by Hair Blair R.N. 08/23/20 02:22: Pt reported feeling, fuzzy headed. Reports she felt this way prior to coming to the ED. also reports pt's speech seems a bit slurred. NIH sentences/words done and this RN heard a slight slur in pt's speech. Reported to GLEN Vargas who ordered a repeat CT. Original Note: NIH increased from 5 (in ED) to 10 here on the floor. GLEN Vargas notified, orders for NS bolus received. Increase in L arm and L Leg movement - pt unable to hold leg/arm against gravity, falls to bed immediately, flattened nasal/labial fold
--- NOTE | 2020-08-23 02:05 | DI.CT.S_ITS ---
PROCEDURE: CT HEAD/BRAIN WO CON INDICATIONS: Extending stroke TECHNIQUE: Noncontrast 4.5 mm thick angled axial sections acquired from the foramen magnum to the vertex, with coronal and sagittal reformats. For radiation dose reduction, the following was used: automated exposure control, adjustment of mA and/or kV according to patient size. COMPARISON: [facility], CT, CT HEAD WITHOUT CONTRAST, 07/26/2020, 9:06. FINDINGS: Image quality: Excellent. CSF spaces: Basal cisterns are patent. No extra-axial fluid collections. The ventricles are symmetric in size and shape. Brain: No intracranial bleeds or masses. There is cerebral volume loss for age, with resultant ventricular and sulcal prominence. There are periventricular and deep white matter chronic small vessel ischemic changes. Chronic lacunar infarct involving the left basal ganglia, left caudate body and left arreola radiata is stable. There is intracranial internal carotid artery and vertebral artery atherosclerosis. Skull and face: Calvarium and visualized facial bones appear intact, without suspicious lesions. Sinuses: Visualized sinuses and mastoids are clear. IMPRESSION: No acute intracranial disease process. Dictated by: Emily Ramirez MD, PhD on 08/23/2020 at 7:28 Approved by: Emily Ramirez MD, PhD on 08/23/2020 at 7:30
[2020-08-23 05:38] LABS: Add Manual Diff / Slide Review NO; Basophils Absolute Auto 0 /uL (0-100); Basophils Percent Auto 0.9 % (0-2); Eosinophils Absolute Auto 200 /uL (0-450); Eosinophils Percent Auto 3.8 % (2-4); Hematocrit 40.1 % (36-46); Hemoglobin 13.2 g/dL (12.0-16.0); Lymphocytes Absolute Auto 1300 /uL (1100-4500); Lymphocytes Percent Auto 26.1 % (25-40); Mean Corpuscular Volume 87.8 fL (80-100); Monocytes Absolute Auto 500 /uL (0-900); Neutrophils Absolute Auto 2900 /uL (1500-7000); Neutrophils Percent Auto 59.2 % (50-75); Platelet Count 195 X10^3/uL (150-400); Red Blood Cell Count 4.57 X10^6/uL (4.0-5.2); Red Cell Distribution Width 13.2 % (11.6-14.8)
[2020-08-23 05:56] LABS: Alanine Aminotransferase 24 IU/L (<35); Albumin 3.5 g/dL (3.5-5.0); Albumin Globulin Ratio 0.9 (1.0-2.8); Alkaline Phosphatase 122 U/L (38-126); Aspartate Aminotransferase 23 IU/L (14-36); BUN Creatinine Ratio 30.4 (6-22); Bilirubin Total 0.5 mg/dL (0.2-1.3); Blood Urea Nitrogen 14 mg/dL (7-17); Calcium 8.9 mg/dL (8.4-10.2); Carbon Dioxide 31 mmol/L (22-32); Chloride 105 mmol/L (98-107); Cholesterol 147 mg/dL (140-199); Estimated Glomerular Filt Rate > 60.0 mL/min (>60); Globulin 3.7 g/dL (1.7-4.1); Glucose 256 mg/dL (70-100); HDL Cholesterol 33 mg/dL (40-60); HEMOLYSIS 24 (0-50); LDL Cholesterol Calculated 90 mg/dL (<100); Potassium 3.7 mmol/L (3.4-5.1); Sodium 138 mmol/L (137-145); Total Protein 7.2 g/dL (6.3-8.2); Triglycerides 120 mg/dL (35-150)
[2020-08-23 06:03] LABS: NT-proBNP (BNP-Adult 18+) 568 pg/mL (<125)
[2020-08-23 06:29] LABS: Thyroid Stimulating Hormone 1.43 uIU/mL (0.47-4.68)
[2020-08-23] MEDS: INSULIN ASPART 100 UNIT/ML INSULN PEN SUBCUT ×4 (09:53→20:56)
[2020-08-23] MEDS: CLOPIDOGREL 75 MG TABLET PO (09:54)
[2020-08-23] MEDS: ENOXAPARIN 40 MG/0.4 ML SYRINGE SUBCUT (09:54)
[2020-08-23] MEDS: ASPIRIN 81 MG CHEW TAB PO (09:54)
--- NOTE | 2020-08-23 12:25 | PT.IIE ---
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 Difficulty finding words. Hearing WNL. Mobility and Gait IND for all mobility and gait without AD at baseline. Prior to cadiac arrest 2 years ago, pt was able to amb 1-2 miles. After cardiac arrest, pt was limited to ~100 yds. Activities of Daily Living and IADL's IND for all ADLs and IADLs at baseline. Social History Household Members spouse,children Living Arrangements Mobile home Number of Floors (Floors) One Floor Number of Stairs To Enter/Railing? 3 VERNA with B railing that can be reached at the same time. Home Environment Standard Height Toilet,Tub/ Shower Home Equipment Straight Cane,Shower Seat without Backrest,Hand Held Shower,Lift Recliner,Grab Bars Near Toilet Employment Status Unknown Additional Social History Comment Pt lives with spouse and yougest son who will be available to assist. Spouse works at night from 5pm. Mother and daughter also live closeby who can assist if needed. M2 PT-IP Current Condition Start: 08/23/20 08:44 Freq: NEEDED Status: Active Protocol: Document 08/23/20 12:22 DE (Rec: 08/23/20 13:34 DE [id number]) Physical Therapy Current Condition Current Condition Evaluation Date 08/23/20 Treatment Diagnosis CVA; L side hemiplegia; Difficulty in walking. Onset Date 08/22/20 M3 PT-IP Subjective Start: 08/23/20 08:44 Freq: NEEDED Status: Active Protocol: Document 08/23/20 12:22 DE (Rec: 08/23/20 13:34 DE [id number]) Subjective Physical Therapy Visit Type Type Initial Evaluation Visit Start Time 10:22 Visit Stop Time 11:21 Total Visit Minutes 59 Notes SPT Dandy led session under direct supervision of PT Antonella. Number of SITE PLANNER Visits 0 Physical Therapy Visit Comments Patient Comments Pt is agreeable to do PT. M4 PT-IP Mobility and Gait Start: 08/23/20 08:44 Freq: NEEDED Status: Active Protocol: Document 08/23/20 12:22 DE (Rec: 08/23/20 13:34 DE [id number]) PT-Bed Mobility Assessment Supine to Sit Supine to Sit Total Assistance,2 Person Assistance,Head of Bed Elevated PT-Transfer Assessment Transfers Transfer Destination Chair Transfer Technique Squat Pivot Transfer Ability Level of Assist Total Assistance,2 Person Assistance Comments Mobility Comments Pt was inclined in bed upon arrival. Spouse was at bedside . Pt was unable to move her LUE and LLE. Pt required 2P total assist and elevated HOB to complete supine to sit at R EOB. One person guided the hips and legs while the other person supported the trunk. Pt demonstrated poor sitting balance lean to the L side, requiring 1P max assist from the L side in order to keep pt upright. Pt was also very kyphotic. After participating in assessment, pt requested to transfer to the chair. Pt required 3P total assist squat pivot transfer to the chair that was on the R side of pt. One person supported from the front. Second person supported at the hips. Third person supported from the L side for safety. Pt was reclined in the chair with pillows supporting the back, L side, and R side. Call light placed within reach. Spouse remained in the room. Gait Assessment Comments Gait Comments Not assessed. Stair Climbing Assessment Comments Stair Climbing Comments Not assessed. PT-Balance Assessment Sitting Balance and Reactions Static Sitting Balance Ability Poor Dynamic Sitting Balance Ability Poor M5 PT-IP Objective Assessments Start: 08/23/20 08:44 Freq: NEEDED Status: Active Protocol: Document 08/23/20 12:22 DE (Rec: 08/23/20 13:34 DE [id number]) Orientation Orientation/Cognition Level of Alertness Lethargic Orientation Name,Age,Birthday,Month,Date, Year,Day of Week,Place, Situation Language Function Ability Garbled Speech,Word Finding Difficulties Safety Awareness Understands Safety Issues Memory Description No Deficits Noted Comments Pt also demonstrates slow speech. Gross Range of Motion Upper Extremity ROM Assessment Bilaterally Impaired Impairments R shoulder flexion ~120 deg. Lower Extremity ROM Assessment Bilaterally Impaired Strength Upper Extremity Strength Assessment Bilaterally Impaired Lower Extremity Strength Assessment Bilaterally Impaired Comments Strength Comments Flaccid on LUE and LLE. 4-/5 on RUE and RLE. Coordination Assessment Gross Coordination Gross Coordination WNL Assessment Finger to Nose Test Normal Performance Pronation/Supination Test Normal Performance Heel on Cai Test Moderate Impairment Coordination Comments Heel on cai test likely limited d/t lack of ROM and strength. Pt is unable to perform on L side. Sensation Assessment Sensation Gross Sensation Left UE Impaired,Left LE Impaired Light Touch Absent Comments Sensation Comments Sensation absent on LLE. Some sensation noted on the lateral aspect above the L knee. Muscle Tone Muscle Tone WNL No Comments Muscle Tone Comments Flaccid on LUE and LLE. Other Assessments Other Other Assessments Slight L facial droop. No visual deficits observed. Negative clonus. Negative Tang. M6 PT-IP Treatment Start: 08/23/20 08:44 Freq: NEEDED Status: Active Protocol: Document 08/23/20 12:22 DE (Rec: 08/23/20 13:34 NC [id number]) Physical Therapy Treatment Education Education Provided Safety Other Treatments Other Treatment Performed Provided pt education on protecting the L shoulder by supporting with the RUE, environment setup to facilitate L side movement, safety, plan of care, and role of PT. M7 PT-IP Assessment and Plan Start: 08/23/20 08:44 Freq: NEEDED Status: Active Protocol: Document 08/23/20 12:22 DE (Rec: 08/23/20 13:34 NC [id number]) PT Summary Assessment and Plan Potential Rehabilitation Potential Poor Status of Condition at Evaluation Unstable Summary Impairments Pain,ROM,Strength,Balance, Coordination,Sensation,Tone, Cognition,Bed Mobility, Transfers,Gait,Activity Tolerance Assessment Summary Kimmy is a 54 yo female who was admitted to the hospital for L sided weakness and fuzzy headed symptom with hx of ventricular fib wiht implanted biventricular ICD, uncontrolled DM-2, L foot diabetic ulcer and neuropathy, HTN, CHF, and urinary incontinence. At baseline, pt was IND with all mobility and amb without AD. Prior to cardiac arrest, pt was able to amb 1-2 miles. After cardiac arrest, pt had difficulty amb more than 100 yds. On evaluation, pt is flaccid on LUE and LLE, requiring 1P max assist for sitting balance and 2-3P max assist for supine to sit and squat transfer to chair. Pt is not safe for d/c home at this time. Pt will need 24/7 assistance and subacute therapy. PT recommends SNF or acute rehab. However, d/t her current non- insured circumstance, PT will focus on d/c planning for home including teaching safe bed mobility and transfer techniques, recommending home equipment, and providing CG training. Goals Bed Mobility Goal Minimal Assistance Transfer Goal Minimal Assistance Gait Goal Minimal Assistance Gait Distance 5 Other Goals Pt will perform 3 steps up and down with B railing. Days to Meet Goals 10 Frequency of Treatment Frequency Of Treatment Twice a Day Treatment Plan Physical Therapy Treatment Plan Bed Mobility Training,Transfer Training,Gait Training, Therapeutic Exercise,Balance Retraining,Post Op Education, Discharge Planning,Hot or Cold Pack,Neuromuscular Re-ed, Coordination Retraining Recommendations To Nursing Amount of Assist Needed Mechanical Lift Discharge Recommendations PT Discharge Recommendations Home with 24/7 Assist,Home Health,SNF Rehab,Acute Rehab Other Discharge Recommendations Sitting balance Equipment Needed for Home Before W/C, BSC, hospital bed, bed Discharge rails, slide board, master esthetician, ramp. Transportation Needs at Discharge Wheelchair/Cabulance,Stretcher /Ambulance Treatment was provided by Dandy Goodwin, CHELI and supervised by Antonella Pinzon, PT. I personally reviewed this note and agree with its contents.
--- NOTE | 2020-08-23 12:31 | ST.OPIE ---
Visit Care Team Role Provider Type Donna Redman PA-C Primary Care Provider Non-Staff Specialty: Medical Address: [facility] [address], [place], [address] Email: Kevin Leon MD Family Provider Physician Specialty: Family Practice Address: [address] [place] [address], [facility] [place], [address] Email: [email or web address] Carly Oneal DO Emergency Provider Physician Specialty: Emergency Medicine Address: [address] [place] [address], [id number] Email: [email or web address] [email or web address] Admit Provider Physician Attending Provider Specialty: Internal Medicine Address: [address] [place] [address], [facility] Email: [email or web address] Speech-Language Pathology 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 Kimmy Gray is a 54- year-old female with a past medical history significant for history of CVA , history of ventricular fibrillation with implanted biventricular ICD, uncontrolled diabetes type 2 with left foot ulcer and neuropathy, hypertension, congestive heart failure and urinary incontinence presents to the ER with left leg weakness. CT of the brain noted old lacunar infarct in the left basal ganglia and arreola radiata, mild volume loss for age, chronic small-vessel ischemic disease, intracranial and internal carotid atherosclerosis. Upon admission to acute care, pt reported feeling, fuzzy headed. Reports she felt this way prior to coming to the ED. also reports pt's speech seems a bit slurred. NIH sentences/words done and this RN heard a slight slur in pt's speech. NIH increased from 5 (in ED) to 10 here on the floor. Increase in L arm and L Leg movement - pt unable to hold leg/arm against gravity, falls to bed immediately, flattened nasal/labial fold Subjective Patient Report Pt up in her bed. Pt awake and oriented x4. Mental Status Alert,Responsive,Cooperative Assessment Oral Motor Examination Completed Yes Results left side facial droop left side velum lower than right side mild weakness left side tongue , lips with puffed cheeks diadochokineses slow but accurate missing teeth, denitition adequate but decayed Informal Assessment Receptive Language Normal Yes: appeared to be WFL Expressive Language Normal Yes: appeared to be WFL Pragmatic Language Normal Yes Speech Normal No: Dysarthric Speech Impairment(s) Imprecise articulation,Slow speech rate,Hyponasality Cognition Normal Yes: appeared to be WFL Findings/Results Language Function Within functional limits Cognitive Function Within functional limits Findings pt presented with mild dysarthria secondary to left orofacial weakness. OME indicated structures on the left to be weak. ROM and and accuracy was WFL. Diadochokineses was slow but accurate. Speech is slightly slurred but intelligible. No s/sx aphasia. Cognitive Communication Deficits Self-awareness of Cognitive- Predictive awareness (able to Communication Deficits predict problem; impact of impairments) Impact on Functioning Activity Limits/Particip.Rest. Mild: Interpersonal Interactions Prognosis Prognosis Good Based on Comorbidities Plan of Care Speech-Language Treatment Yes Frequency while inpatient 1x/day; continued ST after d/c Patient/Caregiver Education Described results of evaluation,Patient expressed understanding of evaluation, Patient expressed agreement with goals and treatment plans ,Family/caregivers expressed understanding of evaluation, Family/caregivers expressed agreement with goals and treatment plan Short Term Goals Pt will understand and practice OM exercises for increasing strength of left side facial structures. Discharge Recommendations Outpatient therapy UPHOLSTERY REPAIRER Clinical Swallow Evaluation Start: 08/23/20 10:18 Freq: Status: Active Protocol: Document 08/23/20 11:27 LNK (Rec: 08/23/20 11:34 LNK [email or web address]) Clinical Swallow Evaluation Session Time Visit Start Time 09:10 Visit Stop Time 09:30 Total Visit Minutes 20 Setting Assessment Location Acute Care Visit Type Note Type Initial evaluation Next Note Type Next Note Type Treatment Note Patient Information Identification Type Name,ID Card Reported by Patient Current Diet Nothing by mouth Baseline Feeding Method Needs some assistance Objective Assessment Mental Status Alert,Responsive Oral Integrity WFL Dentition Missing teeth,Decay Lip Function Mild impairment Observation of Lips at Rest Left sided weakness/Drooping Pucker Reduced range of motion, Reduced strength,Left sided weakness/drooping Lip Retraction Reduced range of motion Alternating Pucker/Lip Retraction Reduced range of motion Tongue Function Mild impairment Tongue Protrusion Within normal limits Tongue Retraction Within normal limits Tongue Lateralization Reduced strength Hard/Soft Palate Function Mild impairment Observations of Hard/Soft Palate Lower on the left side Nasality Hyponasal Food and Liquid Trials Position During Assessment Slightly reclined Liquids Trialed Thin Solids Trialed Puree,Mechanical Soft,Regular Administration Type Cup single sip,Self-feeding, Needs some assistance, Dependent feeding Oral Impairment Mildly impaired Pharyngeal Impairment Within normal limits Findings Swallowing Function Oral phase dysphagia Severity of Swallow Impairment Mildly impaired Prognosis Good Based on Cognitive status,Comorbidities Comments RIsk for pocketing left side - > potential aspiration risk Recommendations Instrumental Assessment No Frequency f/u for diet advance as indicated Recommended Solids Mechanical Soft Recommended Liquids Thin Safety Precautions/Swallowing 1 to 1 distant supervision, Recommendations Remain upright (90 degrees) during all oral intake,Upright position at least 30 minutes after meals,Small bites and sips when eating,Strict oral care after intake,Check for pocketing Medication Recommendations As Tolerated Education Patient/Caregiver Education Described results of evaluation,Patient expressed understanding of evaluation, Patient expressed agreement with goals & treatment plans, Family/caregivers expressed understanding of evaluation, Family/caregivers expressed agreement with goals & treatment plans Goals Long-term Goals Pt will safely tolerate the least restrictive diet without s/sx aspiration to meet nutrition and hydration needs.
--- NOTE | 2020-08-23 13:27 | PM.PN.1 ---
Subjective Subjective Date Patient Seen: 08/23/20 Time Patient Seen: 13:28 Interval history: Ms. Kimmy Gray is a 54-year-old female with a past medical history significant for history of CVA, history of ventricular fibrillation with implanted biventricular ICD, uncontrolled diabetes type 2 with left foot ulcer and neuropathy, hypertension, congestive heart failure of unknown type and urinary incontinence who is admitted with an acute CVA. Head CTs have been negative thus far, and we are unable to obtain an MRI given her biventricular ICD however she has almost no motor function on the L arm or leg and sensory deficits as well. She did pass a speech eval, has some L sided weakness of her facial muscles but cleared for mechanical soft diet. Exam Vital Signs (past 8 hours): - 08/23/20 08:30 Temperature 97.8 F Pulse Rate 72 Respiratory Rate 16 Blood Pressure 155/94 H Pulse Oximetry 97 Oxygen Delivery Method Room Air Oxygen Flow Rate 0 Narrative Exam Narrative: GENERAL APPEARANCE: well developed, well nourished, in no acute distress. HEENT: no facial droop, symmetrical smile, PERRLA, conjunctiva clear, EOMs intact without nystagmus, no sinus tenderness to percussion, no rhinorrhea, mucous membranes are dry and pink without lesions or exudate. NECK/THYROID: neck supple, no JVD, no carotid bruit, no thyromegaly, trachea midline. LYMPH NODES: no cervical or supraclavicular lymphadenopathy. SKIN: [place], warm and dry, red rash bilateral groin under pannus, Y shaped wound plantar surface left great toe dry without drainage with yellowed skin margins, diabetic ulcer 2nd toe nondraining, no evidence of cellulitis HEART: regular rate and rhythm, S1-S2, no murmur, no rubs or gallops, brisk capillary refill, Trace edema LUNGS: clear to auscultation bilaterally, no coarseness crackles or wheezing, no cough present CHEST: Symmetrical movement, no accessory muscle use, good tidal volume. ABDOMEN: Soft, Protuberant with large pannus, no abdominal tenderness, no organomegaly, no flank or suprapubic tenderness, active bowel tones. EXTREMITIES: Left hemiparesis. NEUROLOGIC: alert, no facial droop, no ptosis. , Left sided hemiparesis. Diminished sensation left lower leg and left upper extremity, hearing grossly normal to speech. PSYCH: cooperative, appropriate with stable behavior Objective Labs Result Diagrams: 08/23/20 05:05 08/23/20 05:05 Labs: Laboratory Results - last 24 hr 08/22/20 08/22/20 08/22/20 18:10 18:10 18:10 WBC 6.0 RBC 4.81 Hgb 14.1 Hct 42.5 MCV 88.4 MCH 29.3 MCHC 33.1 RDW 13.2 Plt Count 217 Neut % (Auto) 62.1 Lymph % (Auto) 25.1 [place] % (Auto) 9.3 Eos % (Auto) 2.5 Baso % (Auto) 1.0 Neut # (Auto) 3700 Lymph # (Auto) 1500 [place] # (Auto) 600 Eos # (Auto) 200 Baso # (Auto) 100 PT 11.4 INR 1.0 APTT 31 Sodium 135 L Potassium 4.1 Chloride 100 Carbon Dioxide 30 BUN 19 H Creatinine 0.60 Estimated GFR > 60.0 BUN/Creatinine Ratio 31.7 H Glucose 446 H Hemoglobin A1c Calcium 9.5 Magnesium Total Bilirubin 0.4 AST 26 ALT 28 Alkaline Phosphatase 181 H Total Creatine Kinase 35 CK-MB (CK-2) TNP CK-MB (CK-2) Rel Index TNP Troponin I < 0.012 NT-Pro-B Natriuret Pep Total Protein 7.9 Albumin 4.0 Globulin 3.9 Albumin/Globulin Ratio 1.0 Triglycerides Cholesterol LDL Cholesterol, Calc HDL Cholesterol TSH U Opiates 300ng/mL cut Ur Oxycodone Screen Urine Methadone Screen Ur Barbiturates Screen U Tricyclic Antidepress Ur Phencyclidine Scrn Ur Amphetamines Screen U Methamphetamines Scrn Ur MDMA Scrn (Ecstasy) U Benzodiazepines Scrn Urine Cocaine Screen U Marijuana (THC) Screen COVID-19 PCR 08/22/20 08/22/20 08/22/20 18:10 18:10 18:10 WBC RBC Hgb Hct MCV MCH MCHC RDW Plt Count Neut % (Auto) Lymph % (Auto) [place] % (Auto) Eos % (Auto) Baso % (Auto) Neut # (Auto) Lymph # (Auto) [place] # (Auto) Eos # (Auto) Baso # (Auto) PT INR APTT Sodium Potassium Chloride Carbon Dioxide BUN Creatinine Estimated GFR BUN/Creatinine Ratio Glucose Hemoglobin A1c Calcium Magnesium 1.8 Total Bilirubin AST ALT Alkaline Phosphatase Total Creatine Kinase CK-MB (CK-2) CK-MB (CK-2) Rel Index Troponin I NT-Pro-B Natriuret Pep 327 H Total Protein Albumin Globulin Albumin/Globulin Ratio Triglycerides Cholesterol LDL Cholesterol, Calc HDL Cholesterol TSH U Opiates 300ng/mL cut Ur Oxycodone Screen Urine Methadone Screen Ur Barbiturates Screen U Tricyclic Antidepress Ur Phencyclidine Scrn Ur Amphetamines Screen U Methamphetamines Scrn Ur MDMA Scrn (Ecstasy) U Benzodiazepines Scrn Urine Cocaine Screen U Marijuana (THC) Screen COVID-19 PCR Negative 08/22/20 08/22/20 08/23/20 18:10 18:43 05:05 WBC 5.0 RBC 4.57 Hgb 13.2 Hct 40.1 MCV 87.8 MCH 29.0 MCHC 33.0 RDW 13.2 Plt Count 195 Neut % (Auto) 59.2 Lymph % (Auto) 26.1 [place] % (Auto) 10.0 Eos % (Auto) 3.8 Baso % (Auto) 0.9 Neut # (Auto) 2900 Lymph # (Auto) 1300 [place] # (Auto) 500 Eos # (Auto) 200 Baso # (Auto) 0 PT INR APTT Sodium Potassium Chloride Carbon Dioxide BUN Creatinine Estimated GFR BUN/Creatinine Ratio Glucose Hemoglobin A1c 13.7 H Calcium Magnesium Total Bilirubin AST ALT Alkaline Phosphatase Total Creatine Kinase CK-MB (CK-2) CK-MB (CK-2) Rel Index Troponin I NT-Pro-B Natriuret Pep Total Protein Albumin Globulin Albumin/Globulin Ratio Triglycerides Cholesterol LDL Cholesterol, Calc HDL Cholesterol TSH U Opiates 300ng/mL cut Negative Ur Oxycodone Screen Negative Urine Methadone Screen Negative Ur Barbiturates Screen Negative U Tricyclic Antidepress Negative Ur Phencyclidine Scrn Negative Ur Amphetamines Screen Negative U Methamphetamines Scrn Negative Ur MDMA Scrn (Ecstasy) Negative U Benzodiazepines Scrn Negative Urine Cocaine Screen Negative U Marijuana (THC) Screen Negative COVID-19 PCR 08/23/20 08/23/20 05:05 05:05 WBC RBC Hgb Hct MCV MCH MCHC RDW Plt Count Neut % (Auto) Lymph % (Auto) [place] % (Auto) Eos % (Auto) Baso % (Auto) Neut # (Auto) Lymph # (Auto) [place] # (Auto) Eos # (Auto) Baso # (Auto) PT INR APTT Sodium 138 Potassium 3.7 Chloride 105 Carbon Dioxide 31 BUN 14 Creatinine 0.46 L Estimated GFR > 60.0 BUN/Creatinine Ratio 30.4 H Glucose 256 H D Hemoglobin A1c Calcium 8.9 Magnesium Total Bilirubin 0.5 AST 23 ALT 24 Alkaline Phosphatase 122 D Total Creatine Kinase CK-MB (CK-2) CK-MB (CK-2) Rel Index Troponin I NT-Pro-B Natriuret Pep 568 H Total Protein 7.2 Albumin 3.5 Globulin 3.7 Albumin/Globulin Ratio 0.9 L Triglycerides 120 Cholesterol 147 LDL Cholesterol, Calc 90 HDL Cholesterol 33 L TSH 1.43 U Opiates 300ng/mL cut Ur Oxycodone Screen Urine Methadone Screen Ur Barbiturates Screen U Tricyclic Antidepress Ur Phencyclidine Scrn Ur Amphetamines Screen U Methamphetamines Scrn Ur MDMA Scrn (Ecstasy) U Benzodiazepines Scrn Urine Cocaine Screen U Marijuana (THC) Screen COVID-19 PCR PFSH Medical History 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 CVA (cerebral vascular accident) Diabetes mellitus History of ventricular fibrillation 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 Neuropathy Urinary incontinence Surgical History History of colonoscopy History of permanent cardiac pacemaker placement Family History Mother MRSA (methicillin resistant Staphylococcus aureus) Cardiovascular disease Stroke Myocardial infarction Father Cardiovascular disease Myocardial infarction Social History household members: spouse and children Smoking Status: Never smoker alcohol intake: former Assessment & Plan Assessment & Plan narrative: This is a 54-year-old female patient with a prior history of CVA, uncontrolled diabetes, hypertension and congestive heart failure who is admitted with an acute CVA. 1. CVA, acute, present on admission, active. -last known well was approximately noon day of admission with the patient noting weakness in the left leg that became progressive to the point where she was unable to ambulate to the bathroom by 4:30 p.m. -at the time of admission the patient has an NIH score of 8 with subtle left facial droop, drift left arm but not to bed, left leg no movement against gravity, ataxia 2 limbs and diminished sensation left lower leg. Progressed overnight to NIH of 10, now facial droop improved but with L hemiparesis and L sensory deficits. -CT finds an old lacunar infarct in left basal ganglia and arreola radiata, CT a finds no acute intracranial abnormalities, no high-grade stenosis or occlusions and anterior circulations, dominant left vertebral artery with densely calcified plaque in the skull base without stenosis in the posterior circulations no high-grade stenosis or occlusion in the cervical carotid arteries. Repeat CT head no hemorrhagic conversion. -patient is not a candidate for tPA, spoke with Dr. England tele neuro confirming patient is not a candidate for interventional procedure. -patient is unable to undergo MRI related to implanted biventricular AICD. -patient has been on aspirin 81 mg daily which is continued, have added Plavix 75 mg daily which she would ideally take x3 weeks, limited by her lack of insurance. -allow for permissive hypertension, ordered labetalol 10 mg IV for sustained systolic blood pressure greater than 220 or diastolic greater than 110. Will resume home medications starting tonight. -echocardiogram recently done at [facility], awaiting report. Limited study with bubble study pending. -continue PT/OT/speech. 2. Diabetes type 2, uncontrolled with hyperglycemia, chronic, present on admission, active. -patient reports elevated blood sugars throughout the day waking with a blood sugar over 500 she administered 10 units insulin and recheck at 1:30 p.m., still greater than 400 administered another 10 units of insulin, still elevated at 4:30 p.m. administered another 10 units of insulin. Blood sugars on admission labs show serum glucose of 446 without evidence of acidosis, serum CO is 30 in anion gap is 5. -patient is prescribed prandial NovoLog insulin at 5 units with meals, she has been prescribed Lantus 80 mg daily which she was able to obtain from the pharmacy tech customer service. -ordered Lantus 40 mg BID. Will titrate up as indicated. -ordered fingerstick blood sugars every 6 hours while NPO then a.c. and hs with coverage of medium scale correctional insulin. -patient has complications of neuropathy, unknown status of retinopathy, no evidence of nephropathy with a creatinine of 0.6 and EGFR greater than 60. -[employer] consulted requesting assistance with community resources and medications. -A1c is 13.4% 3. Left great toe and 2nd toe non-healing diabetic foot ulcers, chronic, present on admission, stable -diabetic ulcer plantar surface of the great toe debrided by Podiatry during admission to [facility] on 07/28 2020. -chronic diabetic ulcer of the 2nd toe with possible but uncomfirmed osteomyelitis of the distal phalanx. -patient reports she has been taking Augmentin twice daily as prescribed for MSSA infection, will continue current dosing. -patient has not been followed for wound care and has been soaking her foot daily with Epson salt. -mild redness extending along the left great toe without swelling or warmth, no pain in the presence of neuropathy. 4. History of chronic systolic heart failure, stable -patient denies shortness of breath has intermittent nonproductive cough. No complaints of chest pain. -lungs are clear to ox notation and no peripheral edema noted. -will allow for permissive hypertension in setting of acute stroke, will hold Lasix for the next 24 hours. -will monitor electrolytes. -echocardiogram is ordered for evaluation in setting of stroke noted above. 5. Hypertension, chronic, present on admission, stable. -patient with elevated blood pressure 157/83 upon arrival to the ER remaining at elevated at 160/92 on admission to the inpatient unit. -will of for permissive hypertension in the setting of acute stroke and will hold routine antihypertensive medications today and plan to resume dosing tonight with coreg followed by her usual medications starting tomorrow. -order labetalol 10 mg IV every 4 hours as needed for sustained systolic blood pressure greater than 220 or diastolic blood pressure greater than 110. 6. Medical treatment nonadherence. -patient has not been able to afford medications due to lack of insurance and as such diabetes is uncontrolled with severely elevated glucose contributing to current stroke. -cost issues are a significant barrier to care and management of chronic conditions. -[employer] consult is requested for assistance with community resources. Dispo: inpatient status, given lack of insurance likely discharge home tomorrow though once insurance resumes highly recommend rehab services. DVT: Lovenox daily COVID-19 COVID-19 status: Negative Quality VTE Deep Vein Thrombosis/Pulmonary Embolism Present on Admission: No
--- NOTE | 2020-08-23 15:29 | OT.IP.EVAL ---
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 Difficulty finding words. Hearing WNL. Mobility and Gait IND for all mobility and gait without AD at baseline. Prior to cardiac arrest 2 years ago, pt was able to amb 1-2 miles. After cardiac arrest, pt was limited to ~100 yds. Activities of Daily Living and IADL's IND for all ADLs and IADLs at baseline. Pt able to take her medications and pay her bills. Social History Household Members spouse,children Living Arrangements Mobile home Number of Floors (Floors) One Floor Number of Stairs To Enter/Railing? 3 VERNA with B railing that can be reached at the same time. Home Environment Standard Height Toilet,Tub/ Shower Home Equipment Straight Cane,Shower Seat without Backrest,Hand Held Shower,Lift Recliner,Grab Bars Near Toilet Additional Social History Comment Pt lives with spouse and youngest son who will be available to assist. Spouse works at night from 5pm. Mother and daughter also live closeby who can assist if needed. M2 OT-IP Current Condition Start: 08/23/20 16:10 Freq: Status: Active Protocol: Document 08/23/20 14:27 [facility] (Rec: 08/23/20 16:37 [facility] [id number]) Occupational Therapy Current Condition Current Condition Evaluation Date 08/23/20 Treatment Diagnosis CVA, LUE and LLE weakness. Diagnosis Onset Date 08/22/20 M3 OT- IP Subjective and Pain Start: 08/23/20 16:10 Freq: Status: Active Protocol: Document 08/23/20 14:27 [facility] (Rec: 08/23/20 16:37 [facility] [id number]) OT- Subjective Occupational Therapy Visit Type Type Initial Evaluation Visit Start Time 14:27 Visit Stop Time 15:29 Total Visit Minutes 62 Occupational Therapy Visit Comments Patient Comments Pt in bed but agreeable to get up for therapy. PT also present and PT student as pt needing extensive assist for mobility needs. Notified nursing pt would benefit form the [facility] bed to assist to help turn pt and for bed blackmon placement ease and safety. Patient/Caregiver Goals To go better. OT Pain Assessment Pain When Pain Assessed At Rest Pain Present Pain Present Denied Pain M4 OT- IP ADL's Start: 08/23/20 16:10 Freq: Status: Active Protocol: Document 08/23/20 14:27 [facility] (Rec: 08/23/20 16:37 [facility] [id number]) OT [id number] Comments OT Self-Feeding Comments Not at meal time, per ELECTRO MECHANICAL TECHNICIAN pt is on mechanical soft and thin liquid diet. OT ADL-Grooming Comments OT Grooming Comments Not performed at this time. OT ADL-Oral Care Comments Oral Care Comments Not performed at this time. OT ADL-Dressing General Eval Lower Body Dressing Ability Total Assistance OT ADL-Toileting General Evaluation Toileting Ability Total Assistance Areas Needing Assistance Perform Perineal Hygiene Comments OT Toileting Comments Use of bed blackmon at this time. A drop arm commode was suggested for pt at home, however at this time bed blackmon in more appropriate due to decreased static sitting balance. OT ADL-Bathing Comments OT Bathing Comments At this time sponge bath in bed would be more appropriate. Suggested to a tub bench may be helpful at home when pt able to improve with her sitting balance. M5 OT- IP IADL's Start: 08/23/20 16:10 Freq: Status: Active Protocol: Document 08/23/20 14:27 [facility] (Rec: 08/23/20 16:37 [facility] [id number]) OT-Instrumental Activities of Daily Living Deficits IADL Deficits Identified Deficits Home Safety Awareness Ability to Problem Solve Emergency Unable to Problem Solve Situations Home Safety Comments Pt needing increased time and cues to solve safety situations at home. Per agrees that she is not thinking as well as prior to the CVA. Pt's states pt was a [facility] in July on this year and he felt she had a CVA then but the hospital did not think that she did. Since July , pt's states pt is more forgetful, irritable, and more unsteady on her feet. Medication Management Medication Management Comments At this time pt will need assist for all needs. Money Management Money Management Comments At this time pt will need assist for all needs. Meal Preparation Meal Preparation Comments At this time pt will need assist for all needs. Finish Mixer Finish Mixer Comments At this time pt will need assist for all needs. M6 OT- IP Functional Cognition Start: 08/23/20 16:10 Freq: Status: Active Protocol: Document 08/23/20 14:27 [facility] (Rec: 08/23/20 16:37 [facility] [id number]) Cognitive Factors Limiting Selfcare Function Cognitive Ability Level of Alertness Alert Patient Orientation Name Attention Span Ability Capable of Focused Attention, Capable of Sustained Attention Ability to Follow Commands Able to Follow One Step Commands with Increased Time, Able to Follow One Step Commands with Repetition Problem Solving Ability Unable to Identify Errors, Needs Assist to Identify Solutions Cognitive Comments Cognitive Assessment Comments Pt able to follow single step commands. Pt having trouble with problem solving , getting the words out, doing two digit math calculations, and needing increased time to answer questions. OT- Vision and Hearing OT- Hearing Assessment OT- Hearing Assessment WFL OT- Vision Assessment Visual Acuity Glasses All The Time Vision Assessment Comments Pt's states pt wears prescription glasses but does not have them with her. M7 OT- IP Mobility and Balance Start: 08/23/20 16:10 Freq: Status: Active Protocol: Document 08/23/20 14:27 [facility] (Rec: 08/23/20 16:37 [facility] [id number]) OT- Bed Mobility Assessment Rolling Type of Rolling Roll to Right Level of Assistance Total Assistance,2 Person Assistance Supine to Sit Supine to Sit Assist Total Assistance,2 Person Assistance Sit to Supine Sit to Supine Assist Total Assistance,2 Person Assistance Scooting Scooting to Edge of Bed Maximum Assistance,2 Person Assistance OT-Transfer Assessment Comments Mobility Comments Pt able to help move her right leg to the edge of the bed otherwise dependent x2 to help get her from supine to sit. MAX A x1 for sitting balance as pt tends to lean to the left and posterior. Pt needing MAX A x 3 to help scoot up a little higher in the bed. OT- Gait Assessment Comments Gait Ability Comments Not at this time. OT- Balance Assessment Sitting Balance and Reactions Static Sitting Balance Ability Poor Dynamic Sitting Balance Ability Poor M8 OT- IP Objective Assessments Start: 08/23/20 16:10 Freq: Status: Active Protocol: Document 08/23/20 14:27 [facility] (Rec: 08/23/20 16:37 [facility] [id number]) OT Gross Range of Motion Upper Extremity Range of Motion Assessment Left Impaired OT Strength Comments Strength Comments RUE 4/5, LUE 1/5 at shoulder, triceps OT-Muscle Tone Assessment Muscle Tone WNL No Comments Muscle Tone Comments Hypotonicity throughout the arm. However noted as pt yawned, note increased tone throughout her arm. OT Sensation Assessment Comments Summary Comments Decreased sensation through the arm, more so at her elbow as not able to tell light touch there. M9 OT- IP Assessment and Plan Start: 08/23/20 16:10 Freq: Status: Active Protocol: Document 08/23/20 14:27 [facility] (Rec: 08/23/20 16:37 [facility] [id number]) OT Summary Assessment and Plan Potential Rehabilitation Potential Fair Analytic Complexity at Evaluation Moderate Summary OT Impairments Range of Motion,Strength, Balance,Coordination,Sensation ,Tone,Functional Cognition, Functional Mobility,Self- Feeding,Grooming,Dressing, Toileting,Bathing,Toilet Transfers,Shower Transfers, Activity Tolerance Progress Towards Goals Slow Progress due to Medical Issues,Slow Progress due to Activity Tolerance,Slow Progress due to Cognition Assessment Summary Pt MOD complexity. Pt here due to CVA with left sided weakness and needing 3 person assist for bed mobility needs at this time and extensive assist for ADl's. Pt would benefit from skilled rehab however due to pt has lack of insurance, pt's family to take her home. and son to come in for caregiver training tomorrow at 3pm. Pt' s already given a list of possible equipment needs- hospital bed, drop arm bsc, wc with adjustable swing away arms and legs, ramp, bed blackmon,sliding board, tub bench, and darlene lift. Goals Self-Feeding Goal Independent Grooming Goal Independent Dressing Goal Moderate Assistance Toileting Goal Moderate Assistance Bathing Goal Moderate Assistance Toilet Transfer Goal Moderate Assistance Shower Transfer Goal Moderate Assistance Patient/Caregiver Education Goal Caregiver Independent Assisting Patient Days to Meet Goals 15 Frequency of Treatment Frequency Of Treatment Twice a Day Treatment Plan OT Treatment Plan ADL Training,Functional Cognition Training,Functional Mobility,Patient/Family Education,Discharge Planning Other Treatment Recommendations and Next caregiver training with pt's Treatment Focus and son Discharge Recommendations OT Discharge Recommendations Home with 24/ Assist,Home Health,SNF Rehab Other Discharge Recommendations Recommend SNF, however due to current non-insurance, pt's family looking to take her home. Home Equipment Needs Darlene lift, wc with swing away arm and leg rests, bsc with drop arm, bed blackmon, hospital bed, tub bench, sliding board Transportation Needs at Discharge Stretcher/Ambulance
--- NOTE | 2020-08-23 16:06 | CM.DANOTE ---
DCP/Assessment: Reviewed chart. Patient is a 54yr old female admitted to [facility] with CVA. PCP listed is 1)Donna Redman. No payor source indicated at this time. Met with patient and spouse/Javi at bedside explained CM team role. Patient admitted and diagnosed with CVA. Currently patient requiring max assist with left sided deficit. GROUP HOME WORKER spoke with therapy and they are aware that patient without insurance. Therapy plans to do care giving training tomorrow with spouse and son. Spouse provided with places to borrow and rent DME for home use. P: Anticipate home when medically stable. Patient and family will need caregiver training prior to discharge. RICHAR Richards Discharge Planning/Care Management CM Discharge Assessment Start: 08/23/20 15:56 Freq: Status: Active Protocol: Document 08/23/20 15:56 KJS (Rec: 08/23/20 16:05 KJS [id number]) Discharge Planning Assessment Assigned Decal Transferrer RICHAR Richards Contact Information Amaury Gray (spouse) # [phone] Advance Directives? No Advance Directives on File No History Provided By Patient,Significant Other, Medical Record Prior Living Arrangements Mobile home Household Members spouse,children Type of transporation used prior to Relies on Others admit Independent with ADL's Yes: Prior to stroke Is patient alert and oriented? Yes Needs Assistance With Bathing,Eating,Grooming,Meal Prep,Toileting,Managing Medications,Home Chores / Shopping Caregiver for Another No Comment Patient is currently self pay . Barriers to Discharge Yes Discharge Plan Home Transportation Arrangement Family to provide transport. Additional Comment Patient currently self pay' per spouse patient will have insurance on September 17, 2020. Whiteboard Updated in Patient Room with Yes name and ext. # of Decal Transferrer Review Status In Process Next Review Type Continued Stay Review Document 08/23/20 16:06 KJS (Rec: 08/23/20 16:06 KJS [id number]) Discharge Planning Assessment Assigned Decal Transferrer RICHAR Richards Contact Information Amaury Gray (spouse) # Advance Directives? No Advance Directives on File No History Provided By Patient,Significant Other, Medical Record Prior Living Arrangements Mobile home Household Members spouse,children Type of transporation used prior to Relies on Others admit Independent with ADL's Yes: Prior to stroke Is patient alert and oriented? Yes Needs Assistance With Bathing,Eating,Grooming,Meal Prep,Toileting,Managing Medications,Home Chores / Shopping Caregiver for Another No Comment Patient is currently self pay . Barriers to Discharge Yes Discharge Plan Home Transportation Arrangement Family to provide transport. Additional Comment Patient currently self pay' per spouse patient will have insurance on September 17, 2020. Whiteboard Updated in Patient Room with Yes name and ext. # of Decal Transferrer Review Status In Process Next Review Type Continued Stay Review
[2020-08-23] MEDS: FUROSEMIDE 20 MG TABLET 40 MG PO (16:08)
--- NOTE | 2020-08-23 16:29 | PT.IPTN ---
Current Diagnoses Cerebral infarction, unspecified (08/22/20) Physical Therapy Treatment Note M2 PT-IP Current Condition Start: 08/23/20 08:44 Freq: NEEDED Status: Active Protocol: Document 08/23/20 12:22 DE (Rec: 08/23/20 13:34 DE [id number]) Physical Therapy Current Condition Current Condition Evaluation Date 08/23/20 Treatment Diagnosis CVA; L side hemiplegia; Difficulty in walking. Onset Date 08/22/20 M3 PT-IP Subjective Start: 08/23/20 08:44 Freq: NEEDED Status: Active Protocol: Document 08/23/20 16:11 DE (Rec: 08/23/20 16:27 DE [id number]) Subjective Physical Therapy Visit Type Type Treatment Note Visit Start Time 14:22 Visit Stop Time 14:39 Total Visit Minutes 17 Notes PT Antonella, OT Argelia, and SPT Dandy co-tx. Spouse was present at bedside throughout the session. Number of IT SOFTWARE DEVELOPER Visits 0 Physical Therapy Visit Comments Patient Comments Pt is agreeable to do PT. M4 PT-IP Mobility and Gait Start: 08/23/20 08:44 Freq: NEEDED Status: Active Protocol: Document 08/23/20 16:11 DE (Rec: 08/23/20 16:27 DE [id number]) PT-Bed Mobility Assessment Supine to Sit Supine to Sit Total Assistance,2 Person Assistance,Head of Bed Elevated Scooting Scooting Up and Down in Bed Maximum Assistance PT-Transfer Assessment Comments Mobility Comments Pt was asleep in bed upon arrival. Pt required 2P total assist and elevated HOB to complete supine to sit at R EOB. One person guided the hips and legs while the other person supported the trunk. Pt had difficulty with trunk control in sitting. Cues were provided to sit up straight without leaning. One therapist supported her L hand on the bed. Pt then required 2P max assist for scooting up in bed in sitting. Cues were provided to use her R hand on bed rail . Pt then required 2P total assistance to complete sit to supine. OT and spouse remained in the room. Gait Assessment Comments Gait Comments Not assessed. Stair Climbing Assessment Comments Stair Climbing Comments Not assessed. PT-Balance Assessment Sitting Balance and Reactions Static Sitting Balance Ability Poor Dynamic Sitting Balance Ability Poor M5 PT-IP Objective Assessments Start: 08/23/20 08:44 Freq: NEEDED Status: Active Protocol: Document 08/23/20 12:22 DE (Rec: 08/23/20 13:34 DE [id number]) Orientation Orientation/Cognition Level of Alertness Lethargic Orientation Name,Age,Birthday,Month,Date, Year,Day of Week,Place, Situation Language Function Ability Garbled Speech,Word Finding Difficulties Safety Awareness Understands Safety Issues Memory Description No Deficits Noted Comments Pt also demonstrates slow speech. Gross Range of Motion Upper Extremity ROM Assessment Bilaterally Impaired Impairments R shoulder flexion ~120 deg. Lower Extremity ROM Assessment Bilaterally Impaired Strength Upper Extremity Strength Assessment Bilaterally Impaired Lower Extremity Strength Assessment Bilaterally Impaired Comments Strength Comments Flaccid on LUE and LLE. 4-/5 on RUE and RLE. Coordination Assessment Gross Coordination Gross Coordination WNL Assessment Finger to Nose Test Normal Performance Pronation/Supination Test Normal Performance Heel on Cai Test Moderate Impairment Coordination Comments Heel on cai test likely limited d/t lack of ROM and strength. Pt is unable to perform on L side. Sensation Assessment Sensation Gross Sensation Left UE Impaired,Left LE Impaired Light Touch Absent Comments Sensation Comments Sensation absent on LLE. Some sensation noted on the lateral aspect above the L knee. Muscle Tone Muscle Tone WNL No Comments Muscle Tone Comments Flaccid on LUE and LLE. Other Assessments Other Other Assessments Slight L facial droop. No visual deficits observed. Negative clonus. Negative Tang. M6 PT-IP Treatment Start: 08/23/20 08:44 Freq: NEEDED Status: Active Protocol: Document 08/23/20 16:11 DE (Rec: 08/23/20 16:27 IL [id number]) Physical Therapy Treatment Education Education Provided Safety Other Treatments Other Treatment Performed Provided pt education on protecting the L shoulder by supporting with the RUE, environment setup to facilitate L side movement, safety, plan of care, and role of PT. M7 PT-IP Assessment and Plan Start: 08/23/20 08:44 Freq: NEEDED Status: Active Protocol: Document 08/23/20 16:11 DE (Rec: 08/23/20 16:27 IL [id number]) PT Summary Assessment and Plan Potential Rehabilitation Potential Poor Status of Condition at Evaluation Unstable Summary Impairments Pain,ROM,Strength,Balance, Coordination,Sensation,Tone, Cognition,Bed Mobility, Transfers,Gait,Activity Tolerance Assessment Summary Pt was very lethargic as she was asleep upon arrival. At EOB, pt demonstrated improved trunk control in sitting from AM session. Pt still requires 2P total assist for supine <> sit and is unable to attempt standing d/t weakness and fatigue. CG training is scheduled for tomorrow at 1500 with spouse and son. PT will continue to provide treatment and training to plan for d/c home. Goals Bed Mobility Goal Minimal Assistance Transfer Goal Minimal Assistance Gait Goal Minimal Assistance Gait Distance 5 Other Goals Pt will perform 3 steps up and down with B railing. Days to Meet Goals 10 Frequency of Treatment Frequency Of Treatment Twice a Day Treatment Plan Physical Therapy Treatment Plan Bed Mobility Training,Transfer Training,Gait Training, Therapeutic Exercise,Balance Retraining,Post Op Education, Discharge Planning,Hot or Cold Pack,Neuromuscular Re-ed, Coordination Retraining Recommendations To Nursing Amount of Assist Needed Mechanical Lift Discharge Recommendations PT Discharge Recommendations Home with 24/7 Assist,Home Health,SNF Rehab,Acute Rehab Other Discharge Recommendations Sitting balance Equipment Needed for Home Before W/C, BSC, hospital bed, bed Discharge rails, slide board, italian tutor, ramp. Transportation Needs at Discharge Wheelchair/Cabulance,Stretcher /Ambulance Treatment was provided by Dandy Goodwin, SPT and supervised by Antonella Pinzon, PT. I personally reviewed this note and agree with its contents.
[2020-08-23] MEDS: METOPROLOL IR 25 MG TABLET PO (19:32)
[2020-08-23 20:20] LABS: BUN Creatinine Ratio 21.2 (6-22); Blood Urea Nitrogen 11 mg/dL (7-17); Calcium 9.3 mg/dL (8.4-10.2); Carbon Dioxide 30 mmol/L (22-32); Chloride 105 mmol/L (98-107); Estimated Glomerular Filt Rate > 60.0 mL/min (>60); Glucose 269 mg/dL (70-100); HEMOLYSIS 17 (0-50); Magnesium 1.8 mg/dL (1.6-2.3); Potassium 3.5 mmol/L (3.4-5.1); Sodium 140 mmol/L (137-145)
[2020-08-23 20:32] LABS: Troponin I 0.017 ng/mL (0.01-0.034)
[2020-08-23] MEDS: lisinopriL 10 MG TABLET 5 MG PO (20:53)
[2020-08-23] MEDS: ATORVASTATIN 20 MG TABLET 40 MG PO (20:54)
[2020-08-23] MEDS: POTASSIUM CHLORIDE 20 MEQ TAB 40 MEQ PO (21:56)
[2020-08-24] VITALS (9 sets, daily range): BP systolic 83–121; BP diastolic 62–91; PULSE 79–120; RESP 15–20; TEMP 36.2–36.8; O2SAT 93–98
[2020-08-24] MEDS: AMOXICILLIN/CLAV 875/125 MG 1 TAB PO ×2 (00:49→14:17)
--- NOTE | 2020-08-24 02:01 | PC.NURSE ---
Addendum entered by Hair Blair R.N. 08/24/20 06:41: Pt's reported pt seemed disoriented. Assessed pt and found her to be A&Ox4 but very exhausted. Explained to that it is common to be a bit disoriented after waking while in the hospital. Assessed pt again while was not in room, she remains A&Ox4. Told pt that she should be able to get more rest now that she has a Shepard. Addendum entered by Hair Blair R.N. 08/24/20 05:25: Pt was on bedpan frequently most of shift. Only producing small amounts of urine - bladder scan showed a post void residual of 418 mL. Order rec'd from GLEN Grajeda for a Shepard. Addendum entered by Hair Blair R.N. 08/24/20 03:08: lab called to report an erroneous value in critical troponin. Correct value is .062. Info relayed to GLEN Grajeda w/orders to hold ordered heparin drip for now. Heparin drip had not been started. Original Note: Critical Troponin reported at 0.333 Reported to GLEN Grajeda. Stat EKG ordered. Vitals taken
[2020-08-24 03:11] LABS: Troponin I 0.062 ng/mL (0.01-0.034)
[2020-08-24 06:38] LABS: Blood Urea Nitrogen 16 mg/dL (7-17); Calcium 9.7 mg/dL (8.4-10.2); Carbon Dioxide 25 mmol/L (22-32); Chloride 109 mmol/L (98-107); Estimated Glomerular Filt Rate > 60.0 mL/min (>60); Glucose 249 mg/dL (70-100); HEMOLYSIS < 15 (0-50); Potassium 3.9 mmol/L (3.4-5.1); Sodium 140 mmol/L (137-145)
[2020-08-24 06:49] LABS: Troponin I 0.067 ng/mL (0.01-0.034)
[2020-08-24 07:08] LABS: Add Manual Diff / Slide Review NO; Basophils Absolute Auto 100 /uL (0-100); Basophils Percent Auto 0.5 % (0-2); Eosinophils Absolute Auto 100 /uL (0-450); Eosinophils Percent Auto 0.6 % (2-4); Hematocrit 48.3 % (36-46); Hemoglobin 15.9 g/dL (12.0-16.0); Lymphocytes Absolute Auto 1700 /uL (1100-4500); Lymphocytes Percent Auto 16.3 % (25-40); Mean Corpuscular HGB Conc 32.9 % (30-36); Mean Corpuscular Volume 88.2 fL (80-100); Monocytes Absolute Auto 700 /uL (0-900); Monocytes Percent Auto 6.5 % (3-14); Neutrophils Absolute Auto 7700 /uL (1500-7000); Neutrophils Percent Auto 76.1 % (50-75); Platelet Count 264 X10^3/uL (150-400); Red Blood Cell Count 5.48 X10^6/uL (4.0-5.2); Red Cell Distribution Width 13.3 % (11.6-14.8); White Blood Cell Count 10.1 X10^3/uL (4.5-11.0)
[2020-08-24 07:10] LABS: Magnesium 1.8 mg/dL (1.6-2.3)
[2020-08-24] MEDS: METOPROLOL ER 25 MG TABLET PO ×2 (08:20→12:03)
[2020-08-24] MEDS: ENOXAPARIN 40 MG/0.4 ML SYRINGE SUBCUT (08:21)
[2020-08-24] MEDS: ASPIRIN 81 MG CHEW TAB PO (08:21)
[2020-08-24] MEDS: FUROSEMIDE 20 MG TABLET 40 MG PO (08:21)
[2020-08-24] MEDS: lisinopriL 10 MG TABLET 5 MG PO (08:21)
[2020-08-24] MEDS: CLOPIDOGREL 75 MG TABLET PO (08:21)
[2020-08-24] MEDS: NYSTATIN POWDER 15GM 1 APPLIC TOP ×2 (08:22→20:55)
[2020-08-24] MEDS: INSULIN ASPART 100 UNIT/ML INSULN PEN SUBCUT ×4 (08:23→20:55)
[2020-08-24] MEDS: INSULIN GLARGINE 100 UNIT/ML 3ML PEN 40 UNIT SUBCUT ×2 (08:24→20:53)
--- NOTE | 2020-08-24 10:25 | DIET.PN ---
Dietary Progress Note Assessment: 54y F admitted for acute CVA and uncontrolled DM2 secondary to medication non-adherence (non-insured) referred to nutrition for same. Pt has complications r/t her uncontrolled DM2 (A1c 13.7, admit BG 447) including Left great toe and 2nd toe non-healing diabetic foot ulcers not following c Wound Care, neuropathy, HTN. Pt prescribed 5U novoloc c meals and 80U lantus daily but not taking as cannot afford secondary to no insurance. Pt very high risk for worsening of foot ulcers and other complications without adequate BG control without the use of insulin. HT: 170.1cm WT: 93kg BMI: 32.1 Labs: A1c 13.7 H, admit BG 447 H, HDL 33 L Azam: 21 Nutrition Diagnosis: altered nutrition related laboratory values r/t medication non-adherence aeb pt admitted c uncontrolled DM2 stating doesn't take insulin because uninsured, several non-healing diabetic foot ulcers not followed by Wound Care, admit BG 447 H, A1c 13.7 H. Interventions: 1. Recc ONS Akash bid to support foot ulcers. Diet Order: CCD2 EER: Strict 30g CHO per meal
--- NOTE | 2020-08-24 10:48 | PC.NURSE ---
Addendum entered by Maura Arias R.N. 08/24/20 15:13: Patient put out 175cc of urine, passed on to Amber DAVEY, she is going to mention this to . Original Note: Assess- Patient is Alert and orientedx3 but forgetful at times. She has various issues with her skin. She has a ulcer to her l.big toe, dressing in place. She has redness under her folds and nystatin powder is being applied. Patient is unable to lift her left arm or leg leg. When she smiles it is asymmetrical on the left side of her face. She forgets words when speaking and does have some aphagia. Her memory is good but she does have some periods of forgetfulness. Her NIH stroke scale is 13. Patient incontinent of stool in her bed, she has a mustafa catheter that is putting out yellow urine. Patient does forget that she has the catheter in and will call at times to void, gently reminded of catheter. She is sleeping now, blood sugar this morning 208.
--- NOTE | 2020-08-24 11:21 | ST.IPTN ---
Visit Care Team Role Provider Type Donna Redman PA-C Primary Care Provider Non-Staff Address: [address] [place] [address] [address], [place], [address] Kevin Leon MD Family Provider Physician Address: [address] [place] [address], [address], [place], [address] Carly Oneal DO Emergency Provider Physician Address: [address] [place] [address], [address] NI Carrillo Admit Provider Physician Attending Provider Address: [address] [place] [address], [address] ARTS AND HUMANITIES COUNCIL DIRECTOR Treatment Note ARTS AND HUMANITIES COUNCIL DIRECTOR Treatment Note Start: 08/23/20 10:18 Freq: Status: Active Protocol: Document 08/24/20 10:57 SRINIVASAN (Rec: 08/24/20 11:19 SRINIVASAN [id number]) Speech Pathology Treatment Note Session Time Visit Start Time 10:20 Visit Stop Time 10:40 Total Visit Minutes 20 Setting Treatment Setting Acute Care Visit Type Note Type Treatment Note Next Note Type Next Note Type Treatment Note General Information General Information Per MD report: Ms. Kimmy Gray is a 54-year-old female with a past medical history significant for history of CVA, history of ventricular fibrillation with implanted biventricular ICD, uncontrolled diabetes type 2 with left foot ulcer and neuropathy, hypertension, congestive heart failure of unknown type and urinary incontinence who is admitted with an acute CVA. Head CTs have been negative thus far, and we are unable to obtain an MRI given her biventricular ICD however she has almost no motor function on the L arm or leg and sensory deficits as well. She did pass a speech eval, has some L sided weakness of her facial muscles but cleared for mechanical soft diet. Subjective Identification Type Name,ID Card Observations/Patient Presentation The pt was sleeping upon ARTS AND HUMANITIES COUNCIL DIRECTOR arrival, aroused to voice. Upon request she independently raised the HOB to upright position. She was awake and alert but lethargic throughout the session. She reported having oral difficulty eating scrambled eggs for breakfast. No c/o coughing or choking. She felt her speech was okay and stated she felt others understood her sufficiently for her to communicate her wants, needs and questions. Chief Complaint(s) Speech,Swallowing Patient Knowledge/Awareness of ARTS AND HUMANITIES COUNCIL DIRECTOR Role Good in Treatment Objective Short Term Goals Pt will understand and practice OM exercises for increasing stregth of left side facial structures to improve speech articulation and swallow safety. Brake Linings Coater Goals Pt will safely tolerate the least restrictive diet without s/sx aspiration to meet nutrition and hydration needs. Pt will demonstrate speech intelligibility sufficient to express wants/needs and participate in medical decision making. Treatment Activities Dysphagia: The pt attempted to eat a piece of diced honeydew melon that was on her breakfast tray. She reported and exhibited difficulty chewing it. She swallowed piecemeal x3 with coughing present x2. She spat out the rest of the melon from her mouth. She adequately chewed softer diced peaches without difficulty and swallowed without coughing or other overt s/sx of aspiration. She stated chewing the peaches was much easier for her. The pt also consumed dry soda cracker with slowed oral prep and swallow, washing it down with thin liquid. No overt s/sx of coughing observed with cracker or thin liquid, either together or in isolation. With all trials, minimal oral residue and no pocketing was observed. The pt showed good lingual strength and coordination to perform sweep of left buccal cavity to manage residue. Education was provided orally and in writing RE oral and pharyngeal dysphagia; aspiration s/sx, risks and precautions; and training was provided RE head turn to the left, should she experience coughing with intake when she returns home. The pt performed this strategy with thin liquid and verbalized the strategy prior to the ARTS AND HUMANITIES COUNCIL DIRECTOR leaving, demonstrating understanding and recall. Dysarthria: The pt was minimally conversant secondary to lethargy. Speech was 100% intelligible though articulation was mildly imprecise. Language was appropriate in limited conversation, and the pt responded appropriately to all of the clinician's instructions and comments. Education was provided orally and in writing RE dysarthria symptoms and strategies/ exercises for clear speech. The pt verbalized understanding. The pt exhibited increased sleepiness , and the session was discontinued. Assessment Patient Response to Treatment Good Rehab Potential Good Impairments Identified Dysarthria,Dysphagia,Speech Intelligibility Progress Towards Goals Slow Progress Assessment of Overall Progress Unchanged Assessment of Improvement The pt continues with mild oropharyngeal dysphagia and mild dysarthria secondary to weakness of oral musculature. She did exhibit cough x2 with regular texture. Recommend continuing with mechanical soft texture and thin liquids; meds as tolerated. Training of oral motor exercises was not performed today, as the pt was very sleepy. Will continue to follow during hospital stay for such training for home practice. Reviewed with Patient Goals,Progress Being Made,Home Exercise Program Patient/Caregiver Understanding Good Plan Comment 1x/day over hospital stay Therapeutic Contents Client Education, Intelligibility,Swallowing/ Feeding Provided Patient/Caregiver Instruction Home Exercise Program,Plan of Care,Questions/Concerns Therapy Recommendations Continue with Current Program Comment SNF, HH or outpatient therapy after hospital d/c
--- NOTE | 2020-08-24 11:48 | PM.PN.1 ---
Subjective Subjective Date Patient Seen: 08/24/20 Time Patient Seen: 11:49 Interval history: Ms. Kimmy Gray is a 54-year-old female with a past medical history significant for history of CVA, history of ventricular fibrillation with implanted biventricular ICD, uncontrolled diabetes type 2 with left foot ulcer and neuropathy, hypertension, congestive heart failure of unknown type and urinary incontinence who is admitted with an acute CVA. Overnight she had episodes of tachycardia with a rate into the 150s occasionally. Appeared to be a sinus tachycardia. Troponin was checked which was mildly elevated. Cardiology was consulted overnight. The patient feels palpitations but no chest pain or shortness of breath. She denies nausea, vomiting, or diaphoresis as well. The patient reportedly has a known LAD lesion per cardiology which cannot be fixed. If patient develops further chest pain or worsening troponins would start heparin infusion but as of now her slight troponin elevation is likely in the setting of tachycardia and known CAD. Cardiology recommended further continued medical management. Her beta-kevin was increased today from 25 mg to 50 mg a day. Exam Vital Signs (past 8 hours): - 08/24/20 04:00 08/24/20 08:46 08/24/20 08:55 Temperature 97.4 F L 97.2 F L Pulse Rate 105 H 114 H 110 H Respiratory Rate 16 15 16 Blood Pressure 114/91 H 121/81 Pulse Oximetry 95 96 93 Oxygen Delivery Method Room Air Oxygen Flow Rate 0 Narrative Exam Narrative: GENERAL APPEARANCE: well developed, well nourished, in no acute distress. HEENT: no facial droop, symmetrical smile, PERRLA, conjunctiva clear, EOMs intact without nystagmus, no sinus tenderness to percussion, no rhinorrhea, mucous membranes are dry and pink without lesions or exudate. NECK/THYROID: neck supple, no JVD, no carotid bruit, no thyromegaly, trachea midline. LYMPH NODES: no cervical or supraclavicular lymphadenopathy. SKIN: [place], warm and dry, red rash bilateral groin under pannus, Y shaped wound plantar surface left great toe dry without drainage with yellowed skin margins, diabetic ulcer 2nd toe nondraining, no evidence of cellulitis HEART: regular rate and rhythm, S1-S2, no murmur, no rubs or gallops, brisk capillary refill, Trace edema LUNGS: clear to auscultation bilaterally, no coarseness crackles or wheezing, no cough present CHEST: Symmetrical movement, no accessory muscle use, good tidal volume. ABDOMEN: Soft, Protuberant with large pannus, no abdominal tenderness, no organomegaly, no flank or suprapubic tenderness, active bowel tones. EXTREMITIES: Left hemiparesis. NEUROLOGIC: alert, now again with mild facial asymmetry on smiling, no ptosis. , Left sided hemiparesis. Diminished sensation left lower leg and left upper extremity, hearing grossly normal to speech. PSYCH: cooperative, appropriate with stable behavior Objective Labs Result Diagrams: 08/24/20 05:50 08/24/20 05:50 Labs: Laboratory Results - last 24 hr 08/23/20 08/23/20 08/24/20 20:02 20:02 01:15 WBC RBC Hgb Hct MCV MCH MCHC RDW Plt Count Neut % (Auto) Lymph % (Auto) [place] % (Auto) Eos % (Auto) Baso % (Auto) Neut # (Auto) Lymph # (Auto) [place] # (Auto) Eos # (Auto) Baso # (Auto) Sodium 140 Potassium 3.5 Chloride 105 Carbon Dioxide 30 BUN 11 Creatinine 0.52 Estimated GFR > 60.0 BUN/Creatinine Ratio 21.2 Glucose 269 H Calcium 9.3 Magnesium 1.8 Troponin I 0.017 0.062 H 08/24/20 08/24/20 08/24/20 05:50 05:50 05:50 WBC 10.1 D RBC 5.48 H Hgb 15.9 Hct 48.3 H MCV 88.2 MCH 29.0 MCHC 32.9 RDW 13.3 Plt Count 264 Neut % (Auto) 76.1 H Lymph % (Auto) 16.3 L [place] % (Auto) 6.5 Eos % (Auto) 0.6 L Baso % (Auto) 0.5 Neut # (Auto) 7700 H Lymph # (Auto) 1700 [place] # (Auto) 700 Eos # (Auto) 100 Baso # (Auto) 100 Sodium 140 Potassium 3.9 Chloride 109 H Carbon Dioxide 25 BUN 16 Creatinine 0.50 L Estimated GFR > 60.0 BUN/Creatinine Ratio 32.0 H Glucose 249 H Calcium 9.7 Magnesium Troponin I 0.067 H 08/24/20 05:50 WBC RBC Hgb Hct MCV MCH MCHC RDW Plt Count Neut % (Auto) Lymph % (Auto) [place] % (Auto) Eos % (Auto) Baso % (Auto) Neut # (Auto) Lymph # (Auto) [place] # (Auto) Eos # (Auto) Baso # (Auto) Sodium Potassium Chloride Carbon Dioxide BUN Creatinine Estimated GFR BUN/Creatinine Ratio Glucose Calcium Magnesium 1.8 Troponin I [facility] Medical History 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 CVA (cerebral vascular accident) Diabetes mellitus History of ventricular fibrillation 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 Neuropathy Urinary incontinence Surgical History History of colonoscopy History of permanent cardiac pacemaker placement Family History Mother MRSA (methicillin resistant Staphylococcus aureus) Cardiovascular disease Stroke Myocardial infarction Father Cardiovascular disease Myocardial infarction Social History household members: spouse and children Smoking Status: Never smoker alcohol intake: former Assessment & Plan Assessment & Plan narrative: This is a 54-year-old female patient with a prior history of CVA, uncontrolled diabetes, hypertension and congestive heart failure who is admitted with an acute CVA. 1. CVA, acute, present on admission, active. -last known well was approximately noon day of admission with the patient noting weakness in the left leg that became progressive to the point where she was unable to ambulate to the bathroom by 4:30 p.m. -at the time of admission the patient has an NIH score of 8 with subtle left facial droop, drift left arm but not to bed, left leg no movement against gravity, ataxia 2 limbs and diminished sensation left lower leg. Progressed overnight to NIH of 10, now facial droop improved but with L hemiparesis and L sensory deficits. -CT finds an old lacunar infarct in left basal ganglia and arreola radiata, CT a finds no acute intracranial abnormalities, no high-grade stenosis or occlusions and anterior circulations, dominant left vertebral artery with densely calcified plaque in the skull base without stenosis in the posterior circulations no high-grade stenosis or occlusion in the cervical carotid arteries. Repeat CT head no hemorrhagic conversion. -patient is not a candidate for tPA, spoke with Dr. Engalnd tele neuro confirming patient is not a candidate for interventional procedure. -patient is unable to undergo MRI related to implanted biventricular AICD. -patient has been on aspirin 81 mg daily which is continued, have added Plavix 75 mg daily which she would ideally take x3 weeks, limited by her lack of insurance. -allow for permissive hypertension, ordered labetalol 10 mg IV for sustained systolic blood pressure greater than 220 or diastolic greater than 110. Will resume home medications starting tonight. -echocardiogram recently done at [facility], EF 40-45% with no significant valvular pathologies. Limited study again noted EF of 45%, no evidence of PFO. -continue PT/OT/speech. 2. Diabetes type 2, uncontrolled with hyperglycemia, chronic, present on admission, active. -patient reports elevated blood sugars throughout the day waking with a blood sugar over 500 she administered 10 units insulin and recheck at 1:30 p.m., still greater than 400 administered another 10 units of insulin, still elevated at 4:30 p.m. administered another 10 units of insulin. Blood sugars on admission labs show serum glucose of 446 without evidence of acidosis, serum CO is 30 in anion gap is 5. -patient is prescribed prandial NovoLog insulin at 5 units with meals, she has been prescribed Lantus 80 mg daily which she was able to obtain from the residential substance abuse counselor. -ordered Lantus 40 mg BID. Will titrate up as indicated. -ordered fingerstick blood sugars every 6 hours while NPO then a.c. and hs with coverage of medium scale correctional insulin. -patient has complications of neuropathy, unknown status of retinopathy, no evidence of nephropathy with a creatinine of 0.6 and EGFR greater than 60. -PEDIATRIC LPN consulted requesting assistance with community resources and medications. -A1c is 13.4% 3. Left great toe and 2nd toe non-healing diabetic foot ulcers, chronic, present on admission, stable -diabetic ulcer plantar surface of the great toe debrided by Podiatry during admission to [facility] on 07/28 2020. -chronic diabetic ulcer of the 2nd toe with possible but uncomfirmed osteomyelitis of the distal phalanx. -patient reports she has been taking Augmentin twice daily as prescribed for MSSA infection, will continue current dosing. -patient has not been followed for wound care and has been soaking her foot daily with Epson salt. -mild redness extending along the left great toe without swelling or warmth, no pain in the presence of neuropathy. 4. ischemic cardiomyopathy, chronic systolic heart failure, stable -patient denies shortness of breath has intermittent nonproductive cough. No complaints of chest pain but intermittently tachycardic with an SVT. Will increase to 50 mg of metoprolol daily. -will monitor electrolytes. -TTE as noted above. -patient has known LAD lesion which cannot be fixed per cardiology. Continue medial management. 5. Hypertension, chronic, present on admission, stable. -patient with elevated blood pressure 157/83 upon arrival to the ER remaining at elevated at 160/92 on admission to the inpatient unit. -have increased home metoprolol as noted above. 6. Medical treatment nonadherence. -patient has not been able to afford medications due to lack of insurance and as such diabetes is uncontrolled with severely elevated glucose contributing to current stroke. -cost issues are a significant barrier to care and management of chronic conditions. -PEDIATRIC LPN consult is requested for assistance with community resources. 7. Elevated troponin - likely in the setting of tachycardia. Currently 0.067 will continue to follow. Dispo: inpatient status, given lack of insurance likely discharge home tomorrow though once insurance resumes highly recommend rehab services. DVT: Lovenox daily Quality VTE Deep Vein Thrombosis/Pulmonary Embolism Present on Admission: No
--- NOTE | 2020-08-24 12:32 | OT.IP.TRT ---
Current Diagnoses Cerebral infarction, unspecified (08/22/20) Occupational Therapy Treatment Note M2 OT-IP Current Condition Start: 08/23/20 16:10 Freq: Status: Active Protocol: Document 08/23/20 14:27 [facility] (Rec: 08/23/20 16:37 [facility] [id number]) Occupational Therapy Current Condition Current Condition Evaluation Date 08/23/20 Treatment Diagnosis CVA, LUE and LLE weakness. Diagnosis Onset Date 08/22/20 M3 OT- IP Subjective and Pain Start: 08/23/20 16:10 Freq: Status: Active Protocol: Document 08/24/20 14:16 [facility] (Rec: 08/24/20 14:34 [facility] [id number]) OT- Subjective Occupational Therapy Visit Type Type Treatment Note Visit Start Time 11:36 Visit Stop Time 12:32 Total Visit Minutes 51 Notes Pt seen [id number] and 1155- 1232. Occupational Therapy Visit Comments Patient Comments Pt agreed to get up. Patient/Caregiver Goals TO get better. OT Pain Assessment Pain When Pain Assessed At Rest Pain Present Pain Present Denied Pain M4 OT- IP ADL's Start: 08/23/20 16:10 Freq: Status: Active Protocol: Document 08/24/20 14:16 [facility] (Rec: 08/24/20 14:34 [facility] [id number]) OT [id number] General Evaluation Self-Feeding Ability Standby Assistance Areas Needing Assistance Cutting Food,Opening Containers Comments OT Self-Feeding Comments Assist for set-up and assist to have items close to her. Pt able to use right hand to self feed herself. Pt also able to use her tongue to be sure food not pocketing in the left side of her mouth. OT ADL-Grooming General Evaluation Grooming Ability Standby Assistance Areas Needing Assistance Retrieving/Set-up of Grooming Items OT ADL-Oral Care Comments Oral Care Comments Not performed at this time. OT ADL-Dressing General Eval Lower Body Dressing Ability Total Assistance OT ADL-Toileting General Evaluation Toileting Ability Total Assistance Areas Needing Assistance Manage Clothing,Perform Perineal Hygiene Comments OT Toileting Comments Shepard in place, pt needing to be changed as had a bowel movement but did not realize that she had gone and brief needing to be changed. OT ADL-Bathing Comments OT Bathing Comments Sponge bath is more appropriate. M5 OT- IP IADL's Start: 12/07/20 16:10 Freq: Status: Active Protocol: Document 08/23/20 14:27 [facility] (Rec: 08/23/20 16:37 [facility] [id number]) OT-Instrumental Activities of Daily Living Deficits IADL Deficits Identified Deficits Home Safety Awareness Ability to Problem Solve Emergency Unable to Problem Solve Situations Home Safety Comments Pt needing increased time and cues to solve safety situations at home. Per agrees that she is not thinking as well as prior to the CVA. Pt's states pt was a [facility] and he felt she had a CVA then but the hospital did not say so. Since July , pt's states pt is more forgetful, irritable, and more unstady on her feet. Medication Management Medication Management Comments At this time pt will need assist for all needs. Money Management Money Management Comments At this time pt will need assist for all needs. Meal Preparation Meal Preparation Comments At this time pt will need assist for all needs. Sales Audit Clerk Sales Audit Clerk Comments At this time pt will need assist for all needs. M6 OT- IP Functional Cognition Start: 08/23/20 16:10 Freq: Status: Active Protocol: Document 08/24/20 14:16 [facility] (Rec: 08/24/20 14:34 [facility] [id number]) Cognitive Factors Limiting Selfcare Function Cognitive Ability Level of Alertness Alert Patient Orientation Name Attention Span Ability Capable of Focused Attention, Capable of Sustained Attention Ability to Follow Commands Able to Follow One Step Commands with Increased Time, Able to Follow One Step Commands with Repetition Problem Solving Ability Unable to Identify Errors, Needs Assist to Identify Solutions Cognitive Comments Cognitive Assessment Comments Pt not able to tell that she has to be changed after having a bowel movement and decreased awareness of her midline while sitting. Pt able to follow commands for mobility and ADl needs appropriately. M7 OT- IP Mobility and Balance Start: 08/23/20 16:10 Freq: Status: Active Protocol: Document 08/24/20 14:16 [facility] (Rec: 08/24/20 14:34 [facility] [id number]) OT- Bed Mobility Assessment Rolling Level of Assistance Maximum Assistance,Total Assistance,1 Person Assistance ,Bedrails Supine to Sit Supine to Sit Assist Total Assistance,2 Person Assistance OT-Transfer Assessment Transfers Transfer Ability Maximum Assistance,2 Person Assistance Technique Transfer Destination Bed,Chair Transfer Technique Squat Pivot Devices Transfer Assistive Devices Gait Belt Comments Mobility Comments Pt able to assist a little to roll to her left side and then needing total assist to get from sidelying to sitting. MAX A X 2 squat pivot transfer to the right to the recliner. OT- Gait Assessment Comments Gait Ability Comments Not at this time. OT- Balance Assessment Sitting Balance and Reactions Static Sitting Balance Ability Poor Dynamic Sitting Balance Ability Poor Comments Other Balance Tests/Deviations/Treatment Pt heavily leans to the left, : and posterior tilt and poor control on her trunk muscle to assist to sit to midline. Pt trying to use her right hand to help to sit upright. M8 OT- IP Objective Assessments Start: 08/23/20 16:10 Freq: Status: Active Protocol: Document 08/24/20 14:16 [facility] (Rec: 08/24/20 14:34 [facility] [id number]) OT Strength Comments Strength Comments RUE 4/5, LUE 1/5 at shoulder, triceps OT- Coordination Assessment Comments Coordination Comments Assist to help open items on the lunch tray. OT-Muscle Tone Assessment Comments Muscle Tone Comments Hypotonicity throughout left arm. OT Sensation Assessment Comments Summary Comments Today pt not able to tell light touch on the left arm except a little on her shoulder. Edema Edema Comments MOD swelling in left hand. Educated to be sure to have left arm up on pillows. M9 OT- IP Assessment and Plan Start: 08/23/20 16:10 Freq: Status: Active Protocol: Document 08/24/20 14:16 [facility] (Rec: 08/24/20 14:34 [facility] [id number]) OT Summary Assessment and Plan Potential Rehabilitation Potential Poor Analytic Complexity at Evaluation Moderate Summary OT Impairments Range of Motion,Strength, Balance,Coordination,Sensation ,Tone,Functional Cognition, Functional Mobility,Self- Feeding,Grooming,Dressing, Toileting,Bathing,Toilet Transfers,Shower Transfers, Activity Tolerance Progress Towards Goals Slow Progress due to Medical Issues,Slow Progress due to Activity Tolerance,Slow Progress due to Cognition Assessment Summary Pt still needing extensive assist 2-3 persons for transfers at this time. Pt's family to come in this afternoon for caregiver training. Pt would benefit from skilled rehab, home health a t least but due to current lack of insurance , pt 's family looking to take her home. Goals Self-Feeding Goal Independent Grooming Goal Independent Dressing Goal Moderate Assistance Toileting Goal Moderate Assistance Bathing Goal Moderate Assistance Toilet Transfer Goal Moderate Assistance Shower Transfer Goal Moderate Assistance Patient/Caregiver Education Goal Caregiver Independent Assisting Patient Days to Meet Goals 14 Frequency of Treatment Frequency Of Treatment Twice a Day Treatment Plan OT Treatment Plan ADL Training,Functional Cognition Training,Functional Mobility,Patient/Family Education,Discharge Planning Other Treatment Recommendations and Next caregiver training with pt's Treatment Focus and son Discharge Recommendations OT Discharge Recommendations Home with 09/04 Assist,Home Health,SNF Rehab Other Discharge Recommendations Recommend SNF, however due to current non-insurance, pt's family looking to take her home. Home Equipment Needs Radha lift, wc with swing away arm and leg rests, bsc with drop arm, bed blackmon, hospital bed, tub bench, sliding board Transportation Needs at Discharge Stretcher/Ambulance
--- NOTE | 2020-08-24 13:05 | PT.IPTN ---
Current Diagnoses Cerebral infarction, unspecified (08/22/20) Physical Therapy Treatment Note M2 PT-IP Current Condition Start: 08/23/20 08:44 Freq: NEEDED Status: Active Protocol: Document 08/23/20 12:22 DE (Rec: 08/23/20 13:34 DE [id number]) Physical Therapy Current Condition Current Condition Evaluation Date 08/23/20 Treatment Diagnosis CVA; L side hemiplegia; Difficulty in walking. Onset Date 08/22/20 M3 PT-IP Subjective Start: 08/23/20 08:44 Freq: NEEDED Status: Active Protocol: Document 08/24/20 13:04 AW (Rec: 08/24/20 13:16 AW [id number]) Subjective Physical Therapy Visit Type Visit Start Time 10:33 Visit Stop Time 12:24 Total Visit Minutes 51 Notes PT Antonella, OT Argelia, and SPT Dandy co-tx. Number of MANUFACTURING MAINTENANCE MECHANIC Visits 0 Physical Therapy Visit Comments Patient Comments Pt affect is flat at this encounter but she is willing to participate with therapies. M4 PT-IP Mobility and Gait Start: 08/23/20 08:44 Freq: NEEDED Status: Active Protocol: Document 08/24/20 13:04 AW (Rec: 08/24/20 13:16 AW [id number]) PT-Bed Mobility Assessment Rolling Type of Rolling Bilateral Level of Assist Maximal Assistance Supine to Sit Supine to Sit Total Assistance,2 Person Assistance Scooting Scooting to Edge of Bed Dependent PT-Transfer Assessment Transfers Transfer Destination Chair Transfer Technique Squat Pivot Transfer Ability Level of Assist Maximum Assistance,2 Person Assistance Comments Mobility Comments Pt was lying in the bed with fecal incontinence noted as PT and OT arrived. Pt required max assist to roll to her left side and total assist to roll to her right side for pericare and change of briefs. Since family has not yet secured a hospital bed, PT OT and SPT agreed to attempt bed mobility with flat bed. Pt mirian to her left side with mas assist and required max 2PA to sit up on the EOB. Pt continues to exhibit poor trunk control with uncorrected left lateral and posterior lean. Pt is able to hold her head up in response to cues but can not hold position longer than 10 seconds without assist. PT provided max assist for pt to shift toward foot of bed in preparation for transfer to the chair set up at 110 degrees to her right side. PT provided max assist for squat pivot transfer to the chair as SPT pivoted pt's hips and OT supported pt's hemiplegic arm. Pt was positioned with multiple pillows on her left side to counteract leftward lean. Pt required total assist to shift her hips toward the left side of the chair. Pt was upright with lunch tray in front as PT and SPT left the room. OT remained. Gait Assessment Comments Gait Comments Pt unable. Stair Climbing Assessment Comments Stair Climbing Comments Pt unable. PT-Balance Assessment Sitting Balance and Reactions Static Sitting Balance Ability Poor Dynamic Sitting Balance Ability Poor M5 PT-IP Objective Assessments Start: 08/23/20 08:44 Freq: NEEDED Status: Active Protocol: Document 08/23/20 12:22 DE (Rec: 08/23/20 13:34 DE [id number]) Orientation Orientation/Cognition Level of Alertness Lethargic Orientation Name,Age,Birthday,Month,Date, Year,Day of Week,Place, Situation Language Function Ability Garbled Speech,Word Finding Difficulties Safety Awareness Understands Safety Issues Memory Description No Deficits Noted Comments Pt also demonstrates slow speech. Gross Range of Motion Upper Extremity ROM Assessment Bilaterally Impaired Impairments R shoulder flexion ~120 deg. Lower Extremity ROM Assessment Bilaterally Impaired Strength Upper Extremity Strength Assessment Bilaterally Impaired Lower Extremity Strength Assessment Bilaterally Impaired Comments Strength Comments Flaccid on LUE and LLE. 4-/5 on RUE and RLE. Coordination Assessment Gross Coordination Gross Coordination WNL Assessment Finger to Nose Test Normal Performance Pronation/Supination Test Normal Performance Heel on Mckee Test Moderate Impairment Coordination Comments Heel on mckee test likely limited d/t lack of ROM and strength. Pt is unable to perform on L side. Sensation Assessment Sensation Gross Sensation Left UE Impaired,Left LE Impaired Light Touch Absent Comments Sensation Comments Sensation absent on LLE. Some sensation noted on the lateral aspect above the L knee. Muscle Tone Muscle Tone WNL No Comments Muscle Tone Comments Flaccid on LUE and LLE. Other Assessments Other Other Assessments Slight L facial droop. No visual deficits observed. Negative clonus. Negative Tang. M6 PT-IP Treatment Start: 08/23/20 08:44 Freq: NEEDED Status: Active Protocol: Document 08/24/20 13:04 AW (Rec: 08/24/20 13:16 AW [id number]) Physical Therapy Treatment Education Education Provided Safety Other Treatments Other Treatment Performed Continued to discuss equipment needs for home. Pt's spouse and son will be present at PM session for caregiver training . M7 PT-IP Assessment and Plan Start: 08/23/20 08:44 Freq: NEEDED Status: Active Protocol: Document 08/24/20 13:04 AW (Rec: 08/24/20 13:16 AW [id number]) PT Summary Assessment and Plan Potential Rehabilitation Potential Poor Status of Condition at Evaluation Evolving Summary Impairments Pain,ROM,Strength,Balance, Coordination,Sensation,Tone, Cognition,Bed Mobility, Transfers,Gait,Activity Tolerance Progress Towards Goals Slow Progress due to Medical Issues,Slow Progress due to Activity Tolerance,Slow Progress - Other Assessment Summary Pt's affect is more flat at this encounter. She was minimally able to increase her participation in squat pivot transfer to bedside chair. Pt will have major equipment needs at home. PT and OT will meet with family at PM session to review equipment needs and to conduct caregiver training . Goals Bed Mobility Goal Minimal Assistance Transfer Goal Minimal Assistance Gait Goal Minimal Assistance Gait Distance 5 Other Goals Pt will perform 3 steps up and down with B railing. Days to Meet Goals 10 Frequency of Treatment Frequency Of Treatment Twice a Day Treatment Plan Physical Therapy Treatment Plan Bed Mobility Training,Transfer Training,Gait Training, Therapeutic Exercise,Balance Retraining,Post Op Education, Discharge Planning,Hot or Cold Pack,Neuromuscular Re-ed, Coordination Retraining Other Recommendations and Next Treatment CGT Focus Recommendations To Nursing Amount of Assist Needed 2 Person Assist,PT/OT Assist Only Discharge Recommendations PT Discharge Recommendations Home with 24/ Assist,Home Health,SNF Rehab,Acute Rehab Other Discharge Recommendations Sitting balance, transfers, CGT Equipment Needed for Home Before W/C, BSC, hospital bed, bed Discharge rails, slide board, steam plant operator, ramp. Transportation Needs at Discharge Wheelchair/Cabulance,Stretcher /Ambulance
[2020-08-24 14:58] LABS: Troponin I 0.049 ng/mL (0.01-0.034)
--- NOTE | 2020-08-24 16:55 | OT.IP.TRT ---
Current Diagnoses Cerebral infarction, unspecified (08/22/20) Occupational Therapy Treatment Note M2 OT-IP Current Condition Start: 08/23/20 16:10 Freq: Status: Active Protocol: Document 08/23/20 14:27 [facility] (Rec: 08/23/20 16:37 [facility] [id number]) Occupational Therapy Current Condition Current Condition Evaluation Date 08/23/20 Treatment Diagnosis CVA, LUE and LLE weakness. Diagnosis Onset Date 08/22/20 M3 OT- IP Subjective and Pain Start: 08/23/20 16:10 Freq: Status: Active Protocol: Document 08/24/20 16:22 [facility] (Rec: 08/24/20 18:51 [facility] [id number]) OT- Subjective Occupational Therapy Visit Type Type Treatment Note Visit Start Time 16:22 Visit Stop Time 16:55 Total Visit Minutes 33 Occupational Therapy Visit Comments Patient Comments Pt's and son present for caregiver training in addition to PT, PT student and OT. Patient/Caregiver Goals TO get better. OT Pain Assessment Pain When Pain Assessed At Rest Pain Present Pain Present Denied Pain M4 OT- IP ADL's Start: 08/23/20 16:10 Freq: Status: Active Protocol: Document 08/24/20 16:22 [facility] (Rec: 08/24/20 18:51 [facility] [id number]) OT [id number] Comments OT Self-Feeding Comments NOt at meal time. OT ADL-Grooming Comments OT Grooming Comments Not performed at this time. OT ADL-Oral Care Comments Oral Care Comments Not performed at this time. OT ADL-Dressing General Eval Lower Body Dressing Ability Total Assistance OT ADL-Toileting Comments OT Toileting Comments Pt requires total assist x2. OT ADL-Bathing Comments OT Bathing Comments Sponge bath is more appropriate. M6 OT- IP Functional Cognition Start: 08/23/20 16:10 Freq: Status: Active Protocol: Document 08/24/20 16:22 [facility] (Rec: 08/24/20 18:51 [facility] [id number]) Cognitive Factors Limiting Selfcare Function Cognitive Ability Level of Alertness Alert Patient Orientation Name Attention Span Ability Capable of Focused Attention, Capable of Sustained Attention Ability to Follow Commands Able to Follow One Step Commands with Increased Time, Able to Follow One Step Commands with Repetition Cognitive Comments Cognitive Assessment Comments pt appears more animated when her son and were in for caregiver training. M7 OT- IP Mobility and Balance Start: 08/23/20 16:10 Freq: Status: Active Protocol: Document 08/24/20 16:22 [facility] (Rec: 08/24/20 18:51 [facility] [id number]) OT- Bed Mobility Assessment Supine to Sit Supine to Sit Assist Total Assistance,2 Person Assistance OT-Transfer Assessment Transfers Transfer Ability Maximum Assistance,Total Assistance,2 Person Assistance Technique Transfer Destination Bed,Wheelchair Transfer Technique Squat Pivot Devices Transfer Assistive Devices Gait Belt Comments Mobility Comments Pt's and son able to do bed mobility with pt with total assist x2. They were educated on use of green pad to assist and also to be sure to do proper body mechanics while trying to assist the pt. As on now, the family is not able to get a hospital bed and therefore educated at this time will be beneficial to get closer to the pt by getting on the bed or placing a knee on the bed to better assist pt with needs. In addition would be beneficial to get a bed rail for the bed. Pt's and son wanting to observe the transfers today and pt getting tired therefore MAX A X2 to total assist x2 squat pivot. Swing away armrest would be beneficial as pt has a hard time to stand,balance, and heavily leans and is mostly dependent for transfer needs. Pt's family states looking into trying to get a wc, ramp, and darlene lift. OT- Gait Assessment Comments Gait Ability Comments Not at this time. OT- Balance Assessment Sitting Balance and Reactions Static Sitting Balance Ability Poor Dynamic Sitting Balance Ability Poor Comments Other Balance Tests/Deviations/Treatment Pt continues to have decreased : midline and trunk control and needing max a to help sit upright. Pt's family aware if not able to get a hospital bed to be sure to turn pt often side to side and have her right arm and heels of the bed to prevent from skin breakdown. Educated on use of pads, folded sheets to assist to help roll the pt. In addition to be careful of folded sheets,items in the bed to help prevent from skin breakdown. M8 OT- IP Objective Assessments Start: 08/23/20 16:10 Freq: Status: Active Protocol: Document 08/24/20 16:22 [facility] (Rec: 08/24/20 18:51 [facility] [id number]) OT Gross Range of Motion Upper Extremity Range of Motion Assessment Left Impaired OT Strength Comments Strength Comments RUE 4/5, LUE 1/5 at triceps OT-Muscle Tone Assessment Comments Muscle Tone Comments Hypotonicity throughout left arm. M9 OT- IP Assessment and Plan Start: 08/23/20 16:10 Freq: Status: Active Protocol: Document 08/24/20 16:22 [facility] (Rec: 08/24/20 18:51 [facility] [id number]) OT Summary Assessment and Plan Potential Rehabilitation Potential Fair Analytic Complexity at Evaluation Moderate Summary OT Impairments Range of Motion,Strength, Balance,Coordination,Sensation ,Tone,Functional Cognition, Functional Mobility,Self- Feeding,Grooming,Dressing, Toileting,Bathing,Toilet Transfers,Shower Transfers, Activity Tolerance Progress Towards Goals Slow Progress due to Medical Issues,Slow Progress due to Activity Tolerance,Slow Progress due to Cognition Assessment Summary Pt's family in for caregiver training and initiated education of gait belt and bed mobility. Pt too tired and to continue training more tomorrow regarding transfers. Pt's family still looking into getting equipment needs for the pt. Pt would benefit from skilled rehab but pt is without insurance and therefore family looking to take her home. A order for a sling was gotten therefore to help hodl pt;s left arm during mobility needs. Goals Self-Feeding Goal Independent Grooming Goal Independent Dressing Goal Moderate Assistance Toileting Goal Moderate Assistance Bathing Goal Moderate Assistance Toilet Transfer Goal Moderate Assistance Shower Transfer Goal Moderate Assistance Patient/Caregiver Education Goal Caregiver Independent Assisting Patient Days to Meet Goals 13 Frequency of Treatment Frequency Of Treatment Twice a Day Treatment Plan OT Treatment Plan ADL Training,Functional Cognition Training,Functional Mobility,Patient/Family Education,Discharge Planning Other Treatment Recommendations and Next caregiver training with pt's Treatment Focus and son Discharge Recommendations OT Discharge Recommendations Home with 24 Assist,Home Health,SNF Rehab Other Discharge Recommendations Recommend SNF, however due to current non-insurance, pt's family looking to take her home. Home Equipment Needs Darlene lift, wc with swing away arm and leg rests, bsc with drop arm, bed blackmon, hospital bed, tub bench, sliding board Transportation Needs at Discharge Wheelchair/Cabulance,Stretcher /Ambulance
--- NOTE | 2020-08-24 17:18 | PT.IPTN ---
Current Diagnoses Cerebral infarction, unspecified (08/22/20) Physical Therapy Treatment Note M2 PT-IP Current Condition Start: 08/23/20 08:44 Freq: NEEDED Status: Active Protocol: Document 08/23/20 12:22 DE (Rec: 08/23/20 13:34 DE [id number]) Physical Therapy Current Condition Current Condition Evaluation Date 08/23/20 Treatment Diagnosis CVA; L side hemiplegia; Difficulty in walking. Onset Date 08/22/20 M3 PT-IP Subjective Start: 08/23/20 08:44 Freq: NEEDED Status: Active Protocol: Document 08/24/20 17:02 AW (Rec: 08/24/20 17:18 AW [id number]) Subjective Physical Therapy Visit Type Type Treatment Note Visit Start Time 16:22 Visit Stop Time 16:55 Total Visit Minutes 33 Notes PT Antonella, OT Argelia, and SPT Dandy co-tx. Pt's spouse and son participated in caregiver training. Physical Therapy Visit Comments Patient Comments Pt is more animated at this visit with her spouse and son in the room. M4 PT-IP Mobility and Gait Start: 08/23/20 08:44 Freq: NEEDED Status: Active Protocol: Document 08/24/20 17:02 AW (Rec: 08/24/20 17:18 AW [id number]) PT-Bed Mobility Assessment Rolling Type of Rolling Bilateral Level of Assist Maximal Assistance Supine to Sit Supine to Sit Total Assistance,2 Person Assistance Scooting Scooting to Edge of Bed Dependent Scooting Up and Down in Bed Maximum Assistance PT-Transfer Assessment Transfers Transfer Destination Wheelchair Transfer Technique Squat Pivot Transfer Ability Level of Assist Maximum Assistance,2 Person Assistance Comments Mobility Comments Pt lying in the bed visiting with spouse and son as PT OT and SPT arrived. PT and OT demonstrated bed mobility with log roll to the right side and total assist sidelying to sit. Therapy assisted pt back to supine total assist. Pt's family then provided total assist for supine to sit accomplished by using dorothy to pull pt into sitting with the second person supporting the pt from the back. Pt reported feeling secure. PT OT and SPT then set up the wheelchair on pt's right side. She was able to scoot her hips toward the right with max 2PA. PT and OT then provided max assist for squat pivot transfer to the w/ c. Pt reported feeling fatigued and requested PT and OT help her back to bed. Squat pivot transfer required total assist with difficulty clearing the hips over the arm of the w/c (no drop arm chairs were available). Pt required max assist to roll side to side for placement of brief which pt's spouse and son observed. Pt was left with family in the room. Gait Assessment Comments Gait Comments Not at this time. Stair Climbing Assessment Comments Stair Climbing Comments Pt unable. PT-Balance Assessment Sitting Balance and Reactions Static Sitting Balance Ability Poor Dynamic Sitting Balance Ability Poor Standing Balance and Reactions Static Standing Balance Ability Poor M5 PT-IP Objective Assessments Start: 08/23/20 08:44 Freq: NEEDED Status: Active Protocol: Document 08/23/20 12:22 DE (Rec: 08/23/20 13:34 DE [id number]) Orientation Orientation/Cognition Level of Alertness Lethargic Orientation Name,Age,Birthday,Month,Date, Year,Day of Week,Place, Situation Language Function Ability Garbled Speech,Word Finding Difficulties Safety Awareness Understands Safety Issues Memory Description No Deficits Noted Comments Pt also demonstrates slow speech. Gross Range of Motion Upper Extremity ROM Assessment Bilaterally Impaired Impairments R shoulder flexion ~120 deg. Lower Extremity ROM Assessment Bilaterally Impaired Strength Upper Extremity Strength Assessment Bilaterally Impaired Lower Extremity Strength Assessment Bilaterally Impaired Comments Strength Comments Flaccid on LUE and LLE. 4-/5 on RUE and RLE. Coordination Assessment Gross Coordination Gross Coordination WNL Assessment Finger to Nose Test Normal Performance Pronation/Supination Test Normal Performance Heel on Mckee Test Moderate Impairment Coordination Comments Heel on mckee test likely limited d/t lack of ROM and strength. Pt is unable to perform on L side. Sensation Assessment Sensation Gross Sensation Left UE Impaired,Left LE Impaired Light Touch Absent Comments Sensation Comments Sensation absent on LLE. Some sensation noted on the lateral aspect above the L knee. Muscle Tone Muscle Tone WNL No Comments Muscle Tone Comments Flaccid on LUE and LLE. Other Assessments Other Other Assessments Slight L facial droop. No visual deficits observed. Negative clonus. Negative Tang. M6 PT-IP Treatment Start: 08/23/20 08:44 Freq: NEEDED Status: Active Protocol: Document 08/24/20 17:02 AW (Rec: 08/24/20 17:18 AW [id number]) Physical Therapy Treatment Education Education Provided Safety Other Treatments Other Treatment Performed Provided training for pt's spouse and son on bed mobility and transfer techniques. They participated in bed mobility (supine <> sit x 1) and agreed to come back tomorrow at 1400 for further training. M7 PT-IP Assessment and Plan Start: 08/23/20 08:44 Freq: NEEDED Status: Active Protocol: Document 08/24/20 17:02 AW (Rec: 08/24/20 17:18 AW [id number]) PT Summary Assessment and Plan Potential Rehabilitation Potential Poor Status of Condition at Evaluation Evolving Summary Impairments Pain,ROM,Strength,Balance, Coordination,Sensation,Tone, Cognition,Bed Mobility, Transfers,Gait,Activity Tolerance Progress Towards Goals Slow Progress due to Medical Issues,Slow Progress due to Activity Tolerance,Slow Progress - Other Assessment Summary Pt does best with transfers to her right side but continues to require max to total assist x 2 for squat pivot transfers . Pt's family may have located a w/c ramp and bedrails but they are not installed. They have not acquired any other equipment at this time. Spouse and son agree to return tomorrow at 1400 for continued training. Family were attentive to training. Son works in a care facility and is familiar with use of a gait belt and with basic bed mobility. Pt will require 2- person assist for all mobility at home due to poor trunk control and dense left hemiplegia. She would benefit from subacute rehab. Goals Bed Mobility Goal Minimal Assistance Transfer Goal Minimal Assistance Gait Goal Minimal Assistance Gait Distance 5 Other Goals Pt will perform 3 steps up and down with B railing. Days to Meet Goals 10 Frequency of Treatment Frequency Of Treatment Twice a Day Treatment Plan Physical Therapy Treatment Plan Bed Mobility Training,Transfer Training,Gait Training, Therapeutic Exercise,Balance Retraining,Post Op Education, Discharge Planning,Hot or Cold Pack,Neuromuscular Re-ed, Coordination Retraining Other Recommendations and Next Treatment AM transfers and education; PM Focus caregiver training Recommendations To Nursing Amount of Assist Needed Mechanical Lift Discharge Recommendations PT Discharge Recommendations Home with 24/7 Assist,Home Health,SNF Rehab,Acute Rehab Equipment Needed for Home Before W/C, BSC, hospital bed, bed Discharge rails, slide board, construction carpenters helper, ramp. Transportation Needs at Discharge Wheelchair/Cabulance,Stretcher /Ambulance
--- NOTE | 2020-08-24 17:21 | CM.DANOTE ---
DCP continued: Reviewed chart. Met with patient and spouse this AM. Both aware that discharge most likely will be within the next 24-48hrs. Therapy provided spouse with list of DME that would be helpful at home. Spouse encouraged to either go to or call loan closets and obtain equipment. Spouse reports I will. Met alone with patient this afternoon, she reports that she believes that she will have the needed support at home? Patient also report that they have nothing? Patient in agreement for CM team to call painting contractor Zak Falcon, for assistance and available resources in [place] Zak came by at 3:00pm today when caregiver training was supposed to happen and Zak reports that patient's spouse stuck in [facility]? Zak reports he can be available via cell phone tomorrow if needed. CM/Meat Selector Destiny Benedict aware of above. Family will need caregiver training prior to d/c. It would also be helpful for them to borrow needed DME. P: Home when stable. A.P.S. referral might be appropriate, if needed resources are not obtained prior to d/c. RICHAR Richards
[2020-08-24] MEDS: ATORVASTATIN 20 MG TABLET 40 MG PO (20:57)
--- NOTE | 2020-08-24 22:26 | PC.NURSE ---
Addendum entered by Amber Honeycutt R.N. 08/24/20 22:54: low urine output for alvin shift, provider aware Original Note: low urine output. pt had 175cc out for day shift, Dr. Cruz aware. At the end of evening shift she had 150cc out.
[2020-08-25] VITALS: BP 99/66; PULSE 95; RESP 14; TEMP 36.1; O2SAT 95
[2020-08-25] MEDS: AMOXICILLIN/CLAV 875/125 MG 1 TAB PO (00:19)
[2020-08-25 04:00] VITALS: BP 117/80; PULSE 99; RESP 18; TEMP 36.3; O2SAT 95
--- NOTE | 2020-08-25 06:31 | PC.NURSE ---
Urine output from indwelling mustafa catheter is 75mL and tea colored for NOC shift. NI Pittman was notified in person at 0600. No new orders.
[2020-08-25 08:00] VITALS: BP 106/74; PULSE 94; RESP 15; TEMP 36.2; O2SAT 95
[2020-08-25 08:48] LABS: BUN Creatinine Ratio 52.5 (6-22); Blood Urea Nitrogen 31 mg/dL (7-17); Calcium 9.3 mg/dL (8.4-10.2); Carbon Dioxide 24 mmol/L (22-32); Chloride 108 mmol/L (98-107); Estimated Glomerular Filt Rate > 60.0 mL/min (>60); Glucose 253 mg/dL (70-100); HEMOLYSIS 26 (0-50); Magnesium 1.8 mg/dL (1.6-2.3); Potassium 3.7 mmol/L (3.4-5.1); Sodium 139 mmol/L (137-145)
[2020-08-25] MEDS: INSULIN ASPART 100 UNIT/ML INSULN PEN SUBCUT ×2 (08:59→12:47)
[2020-08-25] MEDS: INSULIN GLARGINE 100 UNIT/ML 3ML PEN 40 UNIT SUBCUT (08:59)
[2020-08-25] MEDS: ASPIRIN 81 MG CHEW TAB PO (09:03)
[2020-08-25] MEDS: METOPROLOL ER 25 MG TABLET 50 MG PO (09:03)
[2020-08-25] MEDS: CLOPIDOGREL 75 MG TABLET PO (09:03)
[2020-08-25] MEDS: FUROSEMIDE 20 MG TABLET 40 MG PO (09:03)
[2020-08-25] MEDS: ENOXAPARIN 40 MG/0.4 ML SYRINGE SUBCUT (09:07)
[2020-08-25] MEDS: lisinopriL 10 MG TABLET 5 MG PO (09:07)
[2020-08-25] MEDS: NYSTATIN POWDER 15GM 1 APPLIC TOP (09:07)
[2020-08-25] MEDS: SODIUM CHLORIDE 0.9% FLUSH 10 ML IV (09:08)
[2020-08-25 10:07] LABS: Campylobacter Not Detected (Not Detect)
[2020-08-25 10:08] LABS: Adenovirus F 40/41 Not Detected (Not Detect); Astrovirus Not Detected (Not Detect); Clostridium difficile toxin AB Detected (Not Detect); Cryptosporidium Not Detected (Not Detect); Cyclospora cayetanensis Not Detected (Not Detect); Entamoeba histolytica Not Detected (Not Detect); Enteroaggregative E.coli Not Detected (Not Detect); Enteropathogenic E.coli Not Detected (Not Detect); Enterotoxigenic E.coli It/st Not Detected (Not Detect); Giardia lamblia Not Detected (Not Detect); Norovirus GI/GII Not Detected (Not Detect); Plesiomonsa shigelloides Not Detected (Not Detect); Rotavirus A Not Detected (Not Detect); Salmonella Not Detected (Not Detect); Sapovirus Not Detected (Not Detect); Shiga-like toxin-prod E.coli Not Detected (Not Detect); Shigella/Enteroinvasive E.coli Not Detected (Not Detect); Vibrio Not Detected (Not Detect); Vibrio cholerae Not Detected (Not Detect); Yersinia enterocolitica Not Detected (Not Detect)
[2020-08-25] MEDS: VANCOMYCIN 125 MG CAPSULE PO (10:23)
--- NOTE | 2020-08-25 11:23 | CM.DPNOTE ---
Addendum entered by RICHAR Psoada 08/25/20 15:22: Update: Patient is C diff + although remains medically stable for DC. Dr Cruz has recommended po Vanco, po Flagyl as a b/u plan since it will be less expensive. ROMA Hernandez has assisted and printed Rx discount coupons from [employer] for the following: metronidazole 500 mg 42 tablets for $16.53 at [facility] metronidazole 500 mg 42 tablets for $14.30 at Rx for Flagyl (metronidazole) has been e-faxed to [facility] vancomycin 125mg 40 capsules for $105.10 at vancomycin 125mg 40 capsules for $119.96 at [facility] Out of pocket cost for po vanco is approx $818.16 Discussed Rx out of pocket cost earlier today w/spouse Javi and he responded I have $10 in my pocket. Javi asked about [facility] loan[facility] a w/c out and I will bring it back later learned that was unable to loan wheelchairs. Placed call to talent acquisition manager [facility] [employer] who has provided an emergency w/c to lend to get patient home, needs to be returned to [facility] by [phone], Javi has Zak's number from a prior visit. Javi here now to take patient home. This [employer] MACHINE OPERATOR will review Rx discount cards and provide. Javi can choose po vanco vs flagyl as outpatient po abx course, po flagyl is less expensive. JW Original Note: DCP Cont Reviewed chart. Placed call to spouse Javi this morning, he has the day off today, as does his son. Encouraged Javi to assume patient will be discharged today, as that was the plan set forth yesterday. Javi states he was unable to get to [employer] yesterday before it closed (to obtain DME). Suggested [employer] Sunday or other DME lending closet in [place]. Spouse Javi plans to be here at 1100 w/his son to continue cg training (this began last night per therapy notes). P: Home w/family assist is expected for this 54 yo, who has suffered a CVA, with no insurance which limits available resources Following closely to assist in coordination of this DCP JOCELYNE
--- NOTE | 2020-08-25 11:32 | ST.IPTN ---
Visit Care Team Role Provider Type Donna Redman PA-C Primary Care Provider Non-Staff Address: [address] [place] [address] [address], [place], [address] Kevin Leon MD Family Provider Physician Address: [address] [place] [address], [address], [place], [address] Carly Oneal DO Emergency Provider Physician Address: [address] [place] [address], [address] NI Carrillo Admit Provider Physician Attending Provider Address: [address] [place] [address], [id number] SOURCE INSPECTOR Treatment Note SOURCE INSPECTOR Treatment Note Start: 08/23/20 10:18 Freq: Status: Active Protocol: Document 08/25/20 11:27 LNK (Rec: 08/25/20 11:32 LNK [id number]) Speech Pathology Treatment Note Session Time Visit Start Time 10:40 Visit Stop Time 10:55 Total Visit Minutes 15 Setting Treatment Setting Acute Care Visit Type Note Type Treatment Note Next Note Type Next Note Type Treatment Note General Information General Information Per MD report: Ms. Kimmy Gray is a 54-year-old female with a past medical history significant for history of CVA, history of ventricular fibrillation with implanted biventricular ICD, uncontrolled diabetes type 2 with left foot ulcer and neuropathy, hypertension, congestive heart failure of unknown type and urinary incontinence who is admitted with an acute CVA. Head CTs have been negative thus far, and we are unable to obtain an MRI given her biventricular ICD however she has almost no motor function on the L arm or leg and sensory deficits as well. She did pass a speech eval, has some L sided weakness of her facial muscles but cleared for mechanical soft diet. Subjective Identification Type Name,ID Card Observations/Patient Presentation The pt was sleeping upon SOURCE INSPECTOR arrival, aroused to voice. Chief Complaint(s) Speech,Swallowing Patient Knowledge/Awareness of SOURCE INSPECTOR Role Good in Treatment Objective Short Term Goals Pt will understand and practice OM exercises for increasing stregth of left side facial structures to improve speech articulation and swallow safety. Tool And Production Planner Goals Pt will safely tolerate the least restrictive diet without s/sx aspiration to meet nutrition and hydration needs. Pt will demonstrate speech intelligibility sufficient to express wants/needs and participate in medical decision making. Treatment Activities The pt reported that she was not hungry. Discussion with nursing noted pt currently has c-diff. Pt is reported to safely tolerate current diet. Communication is WFL and pt is able to express her needs. Will discharge at this time. Assessment Patient Response to Treatment Good Rehab Potential Good Impairments Identified Dysarthria,Dysphagia,Speech Intelligibility Progress Towards Goals Slow Progress Assessment of Overall Progress Unchanged Assessment of Improvement The pt continues with mild oropharyngeal dysphagia and mild dysarthria secondary to weakness of oral musculature. Recommend continuing with mechanical soft and thin liquids; meds as tolerated. Training of oral motor exercises was not performed today, as the pt was very sleepy. Reviewed with Patient Goals,Progress Being Made,Home Exercise Program Patient/Caregiver Understanding Good Plan Comment 1x/day over hospital stay Frequency of Treatment No Further Therapy Therapeutic Contents Client Education, Intelligibility,Swallowing/ Feeding Provided Patient/Caregiver Instruction Plan of Care,Questions/ Concerns Therapy Recommendations Discharge from Speech Therapy Comment SNF, or outpatient therapy after hospital d/c
--- NOTE | 2020-08-25 11:39 | PC.NURSE ---
Addendum entered by Maura Arias R.N. 08/25/20 14:56: Patient incontinent of another stool, her r.labia is swollen and bottom red from bowel movements. We applied barrier cream to her bottom and she is now fast asleep. Also, patient started on oral vancomycin. Original Note: Assess: Patient has had no change with her l.arm and l.leg being flaccid, she is unable to lift these extremities up and she cannot grasp items with her l.hand. She is able to use her r.side. She has l.sided facial droop, vision wnl. Patient has some aphagia. Speech therapist just into see patient and she will be on the same diet of dysphagia, ms with thin liquids. Her blood sugar this morning was 214, insulin given. Patient is tired but arouses easily. His family is in the room now and they are doing group care worker training. Patient was incontinent of a soft, watery bowel movement. Sent a sample to lab, they called and patient has c.diff. Placed on enteric precautions. Family is aware to gown up.
[2020-08-25 12:00] VITALS: BP 87/38; PULSE 92; RESP 16; TEMP 36.4; O2SAT 93
--- NOTE | 2020-08-25 12:02 | OT.IP.TRT ---
Current Diagnoses Cerebral infarction, unspecified (08/22/20) Occupational Therapy Treatment Note M2 OT-IP Current Condition Start: 08/23/20 16:10 Freq: Status: Active Protocol: Document 08/23/20 14:27 [facility] (Rec: 08/23/20 16:37 [facility] [id number]) Occupational Therapy Current Condition Current Condition Evaluation Date 08/23/20 Treatment Diagnosis CVA, LUE and LLE weakness. Diagnosis Onset Date 08/22/20 M3 OT- IP Subjective and Pain Start: 08/23/20 16:10 Freq: Status: Active Protocol: Document 08/25/20 11:10 [facility] (Rec: 08/25/20 14:26 [facility] [id number]) OT- Subjective Occupational Therapy Visit Type Type Treatment Note Visit Start Time 11:10 Visit Stop Time 12:03 Total Visit Minutes 53 Occupational Therapy Visit Comments Patient Comments Pt's , son, Pt, PT student and OT all present for caregiver training. Patient/Caregiver Goals To go home. OT Pain Assessment Pain When Pain Assessed At Rest Pain Present Pain Present Denied Pain M4 OT- IP ADL's Start: 08/23/20 16:10 Freq: Status: Active Protocol: Document 08/25/20 11:10 [facility] (Rec: 08/25/20 14:26 [facility] [id number]) OT [id number] Comments OT Self-Feeding Comments NOt at meal time. OT ADL-Grooming Comments OT Grooming Comments Not performed at this time. OT ADL-Dressing General Eval Lower Body Dressing Ability Total Assistance.Family aware best for pt to wear gown and get dressing in bed. OT ADL-Toileting Comments OT Toileting Comments Educated pt's on use of bed blackmon versus just change of brief in bed. Pt's states getting a BSC but unsure if it will be a drop arm one or not. OT ADL-Bathing Comments OT Bathing Comments Sponge bath is more appropriate. M5 OT- IP IADL's Start: 08/23/20 16:10 Freq: Status: Active Protocol: Document 08/23/20 14:27 [facility] (Rec: 08/23/20 16:37 [facility] [id number]) OT-Instrumental Activities of Daily Living Deficits IADL Deficits Identified Deficits Home Safety Awareness Ability to Problem Solve Emergency Unable to Problem Solve Situations Home Safety Comments Pt needing increased time and cues to solve safety situations at home. Per agrees that she is not thinking as well as prior to the CVA. Pt's states pt was a [facility] and he felt she had a CVA then but the hospital did not say so. Since July , pt's states pt is more forgetful, irritable, and more unstady on her feet. Medication Management Medication Management Comments At this time pt will need assist for all needs. Money Management Money Management Comments At this time pt will need assist for all needs. Meal Preparation Meal Preparation Comments At this time pt will need assist for all needs. Mobility Engineer Mobility Engineer Comments At this time pt will need assist for all needs. M6 OT- IP Functional Cognition Start: 08/23/20 16:10 Freq: Status: Active Protocol: Document 08/25/20 11:10 [facility] (Rec: 08/25/20 14:26 [facility] [id number]) Cognitive Factors Limiting Selfcare Function Cognitive Ability Level of Alertness Alert Patient Orientation Name Attention Span Ability Capable of Focused Attention, Capable of Sustained Attention Ability to Follow Commands Able to Follow One Step Commands with Increased Time, Able to Follow One Step Commands with Repetition Cognitive Comments Cognitive Assessment Comments Pt able to follow commands for caregiver training. M7 OT- IP Mobility and Balance Start: 08/23/20 16:10 Freq: Status: Active Protocol: Document 08/25/20 11:10 [facility] (Rec: 08/25/20 14:26 [facility] [id number]) OT- Bed Mobility Assessment Rolling Level of Assistance Total Assistance,2 Person Assistance Supine to Sit Supine to Sit Assist Total Assistance,2 Person Assistance OT-Transfer Assessment Transfers Transfer Ability Maximum Assistance,Total Assistance,2 Person Assistance Technique Transfer Destination Bed,Chair,Wheelchair Transfer Technique Squat Pivot Devices Transfer Assistive Devices Gait Belt Comments Mobility Comments Able to educate pt's son and regarding transfer from bed to wc, and wc to recliner. Educated further on making sure to have appropriate foot placement for right and left foot, educated on how to veena/doff the sling for left arm, positioning for left side of her body in bed, and to try to have proper body mechanics when moving the pt. Educated to have multiple people assist for getting pt into the car and house. Best option at this time is to have the pt sit behind the speedboat driver's seat on the left side and also have someone sit with her in the car. OT- Gait Assessment Comments Gait Ability Comments Not at this time. OT- Balance Assessment Sitting Balance and Reactions Static Sitting Balance Ability Poor Dynamic Sitting Balance Ability Poor Comments Other Balance Tests/Deviations/Treatment Pt continues to have poor : trunk control and family aware that one person always has to be there to assist with her balance. M8 OT- IP Objective Assessments Start: 08/23/20 16:10 Freq: Status: Active Protocol: Document 08/25/20 11:10 [facility] (Rec: 08/25/20 14:26 [facility] [id number]) OT Gross Range of Motion Upper Extremity Range of Motion Assessment Left Impaired OT Strength Comments Strength Comments RUE 4/5, LUE 1/5 at triceps M9 OT- IP Assessment and Plan Start: 08/23/20 16:10 Freq: Status: Active Protocol: Document 08/25/20 11:10 [facility] (Rec: 08/25/20 14:26 [facility] [id number]) OT Summary Assessment and Plan Potential Rehabilitation Potential Fair Analytic Complexity at Evaluation Moderate Summary OT Impairments Range of Motion,Strength, Balance,Coordination,Sensation ,Tone,Functional Cognition, Functional Mobility,Self- Feeding,Grooming,Dressing, Toileting,Bathing,Toilet Transfers,Shower Transfers, Activity Tolerance Progress Towards Goals Progressing Toward Goals,Slow Progress due to Medical Issues ,Slow Progress due to Activity Tolerance,Slow Progress due to Cognition Assessment Summary Pt's and son present for caregiver training . Both states good understand for mobility needs. Pt's able to get BSC, bed rail, pillows and sheets, wedges, and ramp. They states have a wc in line but not certain yet . Goals Self-Feeding Goal Independent Grooming Goal Independent Dressing Goal Moderate Assistance Toileting Goal Moderate Assistance Bathing Goal Moderate Assistance Toilet Transfer Goal Moderate Assistance Shower Transfer Goal Moderate Assistance Patient/Caregiver Education Goal Caregiver Independent Assisting Patient Days to Meet Goals 12 Frequency of Treatment Frequency Of Treatment Twice a Day Treatment Plan OT Treatment Plan ADL Training,Functional Cognition Training,Functional Mobility,Patient/Family Education,Discharge Planning Other Treatment Recommendations and Next caregiver training with pt's Treatment Focus and son Discharge Recommendations OT Discharge Recommendations Home with 24/7 Assist,Home Health,SNF Rehab Other Discharge Recommendations Recommend SNF, however due to current non-insurance, pt's family looking to take her home. Home Equipment Needs Radha lift, wc with swing away arm and leg rests, bsc with drop arm, bed blackmon, hospital bed, tub bench, sliding board Transportation Needs at Discharge Wheelchair/Cabulance,Stretcher /Ambulance
--- NOTE | 2020-08-25 12:51 | PT.IPTN ---
Current Diagnoses Cerebral infarction, unspecified (08/22/20) Physical Therapy Treatment Note M2 PT-IP Current Condition Start: 08/23/20 08:44 Freq: NEEDED Status: Active Protocol: Document 08/23/20 12:22 DE (Rec: 08/23/20 13:34 DE [id number]) Physical Therapy Current Condition Current Condition Evaluation Date 08/23/20 Treatment Diagnosis CVA; L side hemiplegia; Difficulty in walking. Onset Date 08/22/20 M3 PT-IP Subjective Start: 08/23/20 08:44 Freq: NEEDED Status: Active Protocol: Document 08/25/20 12:26 HH (Rec: 08/25/20 12:51 HH [id number]) Subjective Physical Therapy Visit Type Type Treatment Note Visit Start Time 11:16 Visit Stop Time 12:00 Total Visit Minutes 44 Notes PT Rafael Colin, OT Argelia and SPT Dandy Co-tx. Pt's son and spouse attended CG training session Number of ACCOUNTING TECHNICIAN Visits 0 Physical Therapy Visit Comments Patient Comments Pt is agreeable to mobilize with PT and family. M4 PT-IP Mobility and Gait Start: 08/23/20 08:44 Freq: NEEDED Status: Active Protocol: Document 08/25/20 12:26 HH (Rec: 08/25/20 12:51 HH [id number]) PT-Bed Mobility Assessment Rolling Type of Rolling Bilateral Level of Assist Maximal Assistance Supine to Sit Supine to Sit Total Assistance,2 Person Assistance Scooting Scooting to Edge of Bed Dependent Scooting Up and Down in Bed Maximum Assistance PT-Transfer Assessment Transfers Transfer Destination Bed,Chair,Wheelchair Transfer Technique Squat Pivot Transfer Ability Level of Assist Maximum Assistance,2 Person Assistance Comments Mobility Comments Pt lying in the bed visiting with spouse and son as PT OT and SPT arrived. Pt showed no change in muscle tone (flaccid ) for both LLE and LUE. Son and spouse assisted pt to complete log roll to R side with use of bed pad, and pt's trunk (max A x 2), followed by max A x2 from sidelying to sit. Pt needed constant max A for sitting upright. This PT and OT then positioned a WC (L armrest was removed ) on pt' s R side. A max A x 2 squat pivot transfer to R side was demonstrated to family by this PT and OT. (Pt had her arm reached to R W/C armrest during transfer). Positioned her chair on L side of the EOB for 2nd demonstration and same technique and maxA x2 were used. Pt did report fatigue after but willing to do 2 more transfers with family. Handoff pt to family. Son was in front of pt and spouse was at the back. They were able to complete squat pivot transfer to WC on R side safely for pt but did need cues for pt's foot positioning and bodymechanics. They also transferred pt again to chair on pt's R side for 2nd time safely. They both demonstrated adequate strength and good understanding for safe transfer technique. Pt was then rested in chair with legs elevated and pillows underneath both LUE and LLE to prevent pressure injury and maintain proper body alignment . Call light placed within reach. Both son and spouse stay with pt. Gait Assessment Comments Gait Comments Pt unable. Stair Climbing Assessment Comments Stair Climbing Comments Pt unable. PT-Balance Assessment Sitting Balance and Reactions Static Sitting Balance Ability Poor Dynamic Sitting Balance Ability Poor Standing Balance and Reactions Static Standing Balance Ability Poor M5 PT-IP Objective Assessments Start: 08/23/20 08:44 Freq: NEEDED Status: Active Protocol: Document 08/23/20 12:22 DE (Rec: 08/23/20 13:34 DE [id number]) Orientation Orientation/Cognition Level of Alertness Lethargic Orientation Name,Age,Birthday,Month,Date, Year,Day of Week,Place, Situation Language Function Ability Garbled Speech,Word Finding Difficulties Safety Awareness Understands Safety Issues Memory Description No Deficits Noted Comments Pt also demonstrates slow speech. Gross Range of Motion Upper Extremity ROM Assessment Bilaterally Impaired Impairments R shoulder flexion ~120 deg. Lower Extremity ROM Assessment Bilaterally Impaired Strength Upper Extremity Strength Assessment Bilaterally Impaired Lower Extremity Strength Assessment Bilaterally Impaired Comments Strength Comments Flaccid on LUE and LLE. 4-/5 on RUE and RLE. Coordination Assessment Gross Coordination Gross Coordination WNL Assessment Finger to Nose Test Normal Performance Pronation/Supination Test Normal Performance Heel on Mckee Test Moderate Impairment Coordination Comments Heel on mckee test likely limited d/t lack of ROM and strength. Pt is unable to perform on L side. Sensation Assessment Sensation Gross Sensation Left UE Impaired,Left LE Impaired Light Touch Absent Comments Sensation Comments Sensation absent on LLE. Some sensation noted on the lateral aspect above the L knee. Muscle Tone Muscle Tone WNL No Comments Muscle Tone Comments Flaccid on LUE and LLE. Other Assessments Other Other Assessments Slight L facial droop. No visual deficits observed. Negative clonus. Negative Tang. M6 PT-IP Treatment Start: 08/23/20 08:44 Freq: NEEDED Status: Active Protocol: Document 08/24/20 17:02 AW (Rec: 08/24/20 17:18 AW [id number]) Physical Therapy Treatment Education Education Provided Safety Other Treatments Other Treatment Performed Provided training for pt's spouse and son on bed mobility and transfer techniques. They participated in bed mobility (supine <> sit x 1) and agreed to come back tomorrow at 1400 for further training. M7 PT-IP Assessment and Plan Start: 08/23/20 08:44 Freq: NEEDED Status: Active Protocol: Document 08/25/20 12:26 HH (Rec: 08/25/20 12:51 HH [id number]) PT Summary Assessment and Plan Potential Rehabilitation Potential Poor Status of Condition at Evaluation Evolving Summary Impairments Pain,ROM,Strength,Balance, Coordination,Sensation,Tone, Cognition,Bed Mobility, Transfers,Gait,Activity Tolerance Progress Towards Goals Slow Progress due to Medical Issues,Slow Progress due to Activity Tolerance,Slow Progress - Other Assessment Summary pt was dx with c-diff today. Pt cont to show no change in muscle tone ( flaccid) and strength today. She did complete 2 squat pivot transfers with PT and OT for CG training and another 2 times with son and spouse. Pt needed max A x 2 but son and spouse demonstrated good understanding and safe transfer techniques at this point. They have also acquired pillows, bed rail, wedges, BSC, possible ramp and possible W/C. However, d/t her current non-insured circumstance, D/C home is the only option at this point and pt's family demonstrated their ability to provide pt care. Recommended them to acquire drop arm WC, sliding board, hospital bed if possible. Goals Bed Mobility Goal Minimal Assistance Transfer Goal Minimal Assistance Gait Goal Minimal Assistance Gait Distance 5 Other Goals Pt will perform 3 steps up and down with B railing. Days to Meet Goals 10 Frequency of Treatment Frequency Of Treatment Twice a Day Treatment Plan Physical Therapy Treatment Plan Bed Mobility Training,Transfer Training,Gait Training, Therapeutic Exercise,Balance Retraining,Post Op Education, Discharge Planning,Hot or Cold Pack,Neuromuscular Re-ed, Coordination Retraining Other Recommendations and Next Treatment AM transfers and education; PM Focus caregiver training Recommendations To Nursing Amount of Assist Needed Mechanical Lift Discharge Recommendations PT Discharge Recommendations Home with 24/ Assist,Home Health,SNF Rehab,Acute Rehab Equipment Needed for Home Before drop arm W/C, BSC, hospital Discharge bed, bed rails, slide board, automatic teller machine servicer, ramp. Transportation Needs at Discharge Wheelchair/Cabulance,Stretcher /Ambulance
--- NOTE | 2020-08-25 18:29 | PC.NURSE ---
transferred pt to the wheelchair, but pt had another incontinent stool. we put her back to bed and changed her. discharge teaching done. instructions regarding her meds given to spouse. pt's son helped transfer the patient from wheelchair to car. pt was sent with a wheelchair.
--- NOTE | 2020-08-25 18:57 | P.DS_ITS ---
History of Present Illness History of Present Illness Date Patient Seen: 08/25/20 Time Patient Seen: 10:45 Chief complaint: Fuzzy headed/weak poss insulin related Narrative: As per NI Carrillo: Ms. Kimmy Gray is a 54-year-old female with a past medical history significant for history of CVA, history of ventricular fibrillation with implanted biventricular ICD, uncontrolled diabetes type 2 with left foot ulcer and neuropathy, hypertension, congestive heart failure and urinary incontinence presents to the ER with left leg weakness. Patient states that she was in her usual state health this morning. She checked her blood sugar between 730 and 8:00 a.m. found to be over 500 and took 10 units of insulin. Per the patient and her 's report she 1st began having left leg weakness approximately 12 to 12:30 p.m.. She recheck to blood sugars at 1:30 p.m. finding blood sugars remaining over 400 and administered another 10 units of insulin. She can checked her blood sugar about 4:30 p.m. blood sugars remaining high and she had an additional 10 units of insulin. At that time the patient attempted to ambulate to the bathroom but was unable to and required assistance due to left leg weakness. The patient denies complaints of headaches but reports feeling somewhat dizzy with a ?fuzzy? feeling in her head. She denies visual changes, difficulty chewing or swallowing. She reports no nausea, vomiting or diaphoresis. She has had no recent illnesses beyond her chronic left foot diabetic ulcer affecting her 2nd great toe with osteomyelitis and recently identified wound of the 1st great toe which underwent podiatry debridement when the patient was admitted at [facility] on 07/28/2020. Patient was subsequently seen at [facility] ER for re-evaluation of the wound and discharged with wound care and medication teaching for outpatient follow-up. The patient states she has been taking Augmentin twice daily. Patient has not not yet been seen for continuing care of the wound. The wound has been soaked with Epson salt daily. The patient denies systemic symptoms of fevers or chills, nasal congestion or sore throat. She denies complaints of chest pain or palpitations. She denies complaints shortness of breath though endorses a dry intermittent nonproductive cough. Denies complaints of epigastric or abdominal pain, nausea vomiting. She reports loose stools but no diarrhea or constipation and no melena or hematochezia. She describes diabetic neuropathy and reports a ltered sensation distal to the knee of the left leg. Upon arrival to the ER the patient is afebrile with temperature 97.9?, heart rate of 83, blood pressure 157/83, respirations of 18 saturating 96% on air. CT of the brain is obtained which finds of old lacunar infarct in the left basal ganglia and arreola radiata, mild volume loss for age, chronic small-vessel ischemic disease, intracranial and internal carotid atherosclerosis. A CT of the head and brain without contrast reveals no acute intracranial abnormalities and finds old lacunar infarcts in the left basal ganglia and arreola radiata, cerebral volume loss for age and chronic microvascular ischemic changes. CTA reveals no acute intracranial abnormalities, no high-grade stenosis or occlusion of the anterior circulation, dominant left vertebral artery with a densely calcified plaque the skull base, no high-grade stenosis or occlusion of the posterior circulations, no high-grade or occlusion cervical carotid arteries bilaterally. Multiple venous collaterals brightly opacified by intravenous contrast in the neck suggesting possibility of distal venous obstruction of the level of the superior vena cava. On laboratory analysis the patient has white count of 6.0, hemoglobin 14.1, hematocrit 42.5 and platelets of 217. PT is 11.4 with INR of 1.0 and a PTT of 31. Electrolytes are within normal range within BUN of 19 and creatinine 0.6. On liver functions total bilirubin is 0.4, AST 26, ALT 28 with an elevated alkaline phosphatase 181. Albumin is 4.0. Total CK is 35, troponin is less than 0.012. BNP is low at 324. Urinary drug screen is negative for significant findings. In the ER NIH is documented at 5. The patient is admitted to the hospitalist service for CVA. Discharge Providers Provider Date of admission: 08/22/20 21:05 Discharge Date: 08/25/20 Primary care physician: Donna Redman PA-C Consults: 08/22/20 21:53 Consult to Dietitian, Adult Routine Comment: Reason For Exam: Uncontrolled diabetes, CVA Consult to Occupational Therapy Evaluate & Treat Comment: CVA, left leg weakness Physician Instructions: Evaluate and treat 08/22/20 21:54 Consult to Discharge Planning Routine Comment: Consult to Physical Therapy Evaluate & Treat Comment: Physician Instructions: Evaluate and Treat Consult to Speech Therapy Evaluate & Treat Comment: CVA Physician Instructions: Evaluate and treat 08/22/20 23:54 Consult to COMMUNICATION TECHNICIAN - Security Investigator Routine Comment: Needs med resources for uncontrolled diabetes, CVA COMMUNICATION TECHNICIAN Consult: Community Health Res Need 08/24/20 15:07 Consult to Physical Therapy Evaluate & Treat Comment: Please provide with arm sling for L side Physician Instructions: Evaluate and Treat Discharge provider: Rajat Cruz DO Summary Hospital Course Discharge Diagnosis: Please see hospital course by problem Hospital Course: This is a 54-year-old female patient with a prior history of CVA, uncontrolled diabetes, hypertension and congestive heart failure who was admitted with an acute CVA. Her course was complicated by onset of diarrhea secondary to C. difficile. She had been on chronic antibiotic therapy prior to admission with presumed possible osteomyelitis. Unofrtunately, patient was uninsured, pending insurance effective at the beginning of next year, which limited ideal therapies including discharge to half-way or acute rehab after her CVA. 1. CVA, acute, present on admission, active. -last known well was approximately noon day of admission with the patient noting weakness in the left leg that became progressive to the point where she was unable to ambulate to the bathroom by 4:30 p.m.. -at the time of admission the patient has an NIH score of 8 with subtle left facial droop, drift left arm but not to bed, left leg no movement against gravity, ataxia 2 limbs and diminished sensation left lower leg. Progressed overnight to NIH of 10, now facial droop improved but with persistent L hemiparesis and L sensory deficits. -CT finds an old lacunar infarct in left basal ganglia and arreola radiata, CT a finds no acute intracranial abnormalities, no high-grade stenosis or occlusions and anterior circulations, dominant left vertebral artery with densely calcified plaque in the skull base without stenosis in the posterior circulations no high- grade stenosis or occlusion in the cervical carotid arteries. Repeat CT head no hemorrhagic conversion. -patient was not a candidate for tPA, spoke with Dr. England tele neuro confirming patient is not a candidate for interventional procedure. -patient was unable to undergo MRI related to implanted biventricular AICD. -patient has been on aspirin 81 mg daily which is continued, have added Plavix 75 mg daily which she would ideally take x3 weeks, limited by her lack of insurance. -allowed for permissive hypertension initially, then resumed home blood pressure medications. -echocardiogram recently done at [facility], EF 40-45% with no significant valvular pathologies. Limited study this admission again noted EF of 45%, no evidence of PFO. -continued PT/OT/speech, recommend continuing as outpatient if able. 2. Diabetes type 2, uncontrolled with hyperglycemia, chronic, present on admission, active. -patient was continued on basal bolus insulin while admitted. no current changes recommended as patient lacks available resources to adequately treat her diabetes currently. They received some insulin assistance as an outpatient from the upholstery sewer. -A1c is 13.4% 3. Left great toe and 2nd toe non-healing diabetic foot ulcers, chronic, present on admission, stable -diabetic ulcer plantar surface of the great toe debrided by Podiatry during admission to [facility] on 07/28 2020. -chronic diabetic ulcer of the 2nd toe with possible but uncomfirmed osteomyelitis of the distal phalanx. -patient reports she has been taking Augmentin twice daily as prescribed for MSSA infection,. Cultures done recently now showing MRSA, have changed from augmentin to doxycycline to cover for MRSA. Again now x6 weeks for presumed osteomyelitis. -patient has not been followed for wound care and has been soaking her foot daily with Epson salt. 4. ischemic cardiomyopathy, chronic systolic heart failure, stable -Patient had notable episodes of SVT during admission, no atrial fibrillation but predominant sinus tachycardia on telemetry. Beta kevin was increased to 50 mg daily from 25 on admission. 5. Hypertension, chronic, present on admission, stable. -have increased home metoprolol as noted above. 6. Medical treatment nonadherence. -patient has not been able to afford medications due to lack of insurance and as such diabetes is uncontrolled with severely elevated glucose contributing to current stroke. -cost issues are a significant barrier to care and management of chronic conditions. -COMMUNICATION TECHNICIAN consult appreciated. 7. Elevated troponin - likely in the setting of above tachycardia. No chest pain during admission. EKG did not show evidence of ischemia. Ultimately tropinin downtrended quickly. 8. C. difficile colitis, acute, not present on admission - on day of discharge, patient had 4-5 loose bowel movements. C. difficile testing positive. Likely due to chronic antibiotic therapy. Recommended outpatient oral vancomycin as the bowel movements were minimal and no evidence of leukocytosis or renal dysfunction. Family could not afford oral vancomycin, elected for treatment with flagyl instead given cost concerns. Time Spent with Patient Time spent: Greater than 30 minutes Exam Vital Signs (past 8 hours): - 08/25/20 12:00 Temperature 97.5 F L Pulse Rate 92 H Respiratory Rate 16 Blood Pressure 87/38 L Pulse Oximetry 93 Oxygen Delivery Method Room Air Oxygen Flow Rate 0 Narrative Exam Narrative: GENERAL APPEARANCE: well developed, well nourished, in no acute distress. HEENT: no facial droop, symmetrical smile, PERRLA, conjunctiva clear, EOMs intact without nystagmus, no sinus tenderness to percussion, no rhinorrhea, mucous membranes are dry and pink without lesions or exudate. NECK/THYROID: neck supple, no JVD, no carotid bruit, no thyromegaly, trachea midline. LYMPH NODES: no cervical or supraclavicular lymphadenopathy. SKIN: [place], warm and dry, red rash bilateral groin under pannus, Y shaped wound plantar surface left great toe dry without drainage with yellowed skin margins, diabetic ulcer 2nd toe nondraining, no evidence of cellulitis HEART: regular rate and rhythm, S1-S2, no murmur, no rubs or gallops, brisk capillary refill, Trace edema LUNGS: clear to auscultation bilaterally, no coarseness crackles or wheezing, no cough present CHEST: Symmetrical movement, no accessory muscle use, good tidal volume. ABDOMEN: Soft, Protuberant with large pannus, no abdominal tenderness, no organomegaly, no flank or suprapubic tenderness, active bowel tones. EXTREMITIES: Left hemiparesis. NEUROLOGIC: alert, now again with mild facial asymmetry on smiling, no ptosis. , Left sided hemiparesis. Diminished sensation left lower leg and left upper extremity, hearing grossly normal to speech. PSYCH: cooperative, appropriate with stable behavior Objective Labs Result Diagrams: 08/24/20 05:50 08/25/20 08:15 Labs: Laboratory Results - last 24 hr 08/25/20 08/25/20 08:00 08:15 Sodium 139 Potassium 3.7 Chloride 108 H Carbon Dioxide 24 BUN 31 H Creatinine 0.59 Estimated GFR > 60.0 BUN/Creatinine Ratio 52.5 H Glucose 253 H Calcium 9.3 Magnesium 1.8 Stl C. cayetanensis PCR Not detected Stool Rotavirus (PCR) Not detected Stool Adenovirus (PCR) Not detected Stool Astrovirus (PCR) Not detected Stool Cryptosporidium PCR Not detected Stl E.coli Shiga Tox PCR Not detected St Sh/Enteroin Ecoli PCR Not detected Stool E coli O157 PCR Not Reportable Stl Enterotoxigenic E PCR Not detected Stool EPEC (PCR) Not detected Stl E. histolytica PCR Not detected Stool Giardia Lamblia PCR Not detected Stool Sapovirus (PCR) Not detected Stl P. shigelloides PCR Not detected St Y.enterocolitica PCR Not detected Stool Vibrio (PCR) Not detected Stl Vibrio cholerae PCR Not detected Stl Enteroaggr Ecoli PCR Not detected Stl Norovirus GI/GII PCR Not detected Campylobacter (PCR) Not detected C. difficile Tox (PCR) Detected H Salmonella (PCR) Not detected PFSH Medical History 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 CVA (cerebral vascular accident) Diabetes mellitus History of ventricular fibrillation 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 Neuropathy Urinary incontinence Surgical History History of colonoscopy History of permanent cardiac pacemaker placement Family History Mother MRSA (methicillin resistant Staphylococcus aureus) Cardiovascular disease Stroke Myocardial infarction Father Cardiovascular disease Myocardial infarction Social History household members: spouse and children Smoking Status: Never smoker alcohol intake: former Discharge Plan Discharge Plan Patient Disposition: Home Provider Discharge Comment: You were admitted to the hospital with a stroke. You also had mild C. difficile infection. Please follow up with a primary care provider once you have insurance established so that you can get rehabilitation services and medications. lowest cost / generic medications were prescribed when possible. Discharge orders & Medications Prescriptions: New atorvastatin 40 mg tablet 40 mg PO BEDTIME 30 Days Qty: 30 RF: 0 clopidogrel 75 mg Tablet 75 mg PO DAILY 30 Days Qty: 30 RF: 0 doxycycline hyclate 100 mg Tablet 100 mg PO BID 42 Days Qty: 84 RF: 0 metoprolol succinate 50 mg tablet extended release 24 hr 50 mg PO DAILY 30 Days Qty: 30 RF: 0 metronidazole 500 mg tablet 500 mg PO Q8H 14 Days Qty: 42 RF: 0 Continued lisinopril 10 MG tablet 5 mg PO BID Qty: 0 RF: 0 aspirin 81 MG tablet,chewable 81 mg PO QDAY Qty: 0 RF: 0 furosemide 20 MG tablet 40 mg PO QDAY Qty: 0 RF: 0 Discontinued insulin aspart U-100 [Novolog Flexpen U-100 Insulin] 100 UNIT/1 ML insulin pen 5 unit SQ TIDAC Qty: 0 RF: 0 amoxicillin-pot clavulanate [Augmentin] 875-125 mg tablet 1 tab PO Q12H Qty: 90 RF: 0 metoprolol succinate 25 mg tablet extended release 24 hr 25 mg PO DAILY RF: 0 Follow up/Referrals: Donna Redman PA-C [Primary Care Provider] - Diet/Activity/Treatments Diet: Diet as Tolerated, Carb-consistent/Diabetic and Low-sodium Activity: As tolerated with support. Visit Report/Discharge Packet Instructions: Progress in Stroke Prevention, DI for Antibiotic -- associated Colitis -- C difficile, DI for Methicillin-Resistant Staph Infection (MRSA) Discharge Data Primary Care Provider: Donna Redman Quality VTE Deep Vein Thrombosis/Pulmonary Embolism Present on Admission: No
--- NOTE | 2020-08-27 12:40 | CM.DPNOTE ---
Care team has concerns about pt. and son (who might be 18) being able to adequately care for her complex needs. I spoke to Colten at [facility] about these concerns and he screened her for vulnerable adult report. [facility] intake numbers [id number] and [id number]. I was clear that I didn't think the /son would intentionally harm the patient. The concern is that her complicated health issues are more than they can handle and that is what puts her at risk.
--- NOTE | 2020-08-27 14:51 | CM.SWNOTE ---
Post-D/C follow up note CM cap and hat production supervisor calls FISHING ROD MECHANIC and provides overview of patient stay and concerns re: insurance, post d/c care for patient. CM cap and hat production supervisor brings up [employer], a care giving payment program in [place], and asks if FISHING ROD MECHANIC can research this and follow up with patient and . FISHING ROD MECHANIC briefly reviews chart and calls patient. Patient did not answer and does not have VM set up. FISHING ROD MECHANIC calls patient?s Javi. Javi and patient discuss at length current financial situation for patient, patient?s current care needs, and insurance. Javi reports that he has an insurance policy in place through [employer] that will cover patient starting 09/17/20, but will not cover ED/inpt stay retroactively. Javi reports that he attempted to get insurance through Medicaid, but was told that he was over income. Javi earns $3040/month, and his patient does not work. Javi discusses that patient has applied for disability previously, but that some of the paperwork was filled out incorrectly. Javi reports he does not know what is currently needed to complete the application. FISHING ROD MECHANIC explains that there is a possibility of Medicaid coverage for patient through some other programs such as [employer], but that FISHING ROD MECHANIC will need to confirm this with a customer response representative from [facility]. Javi discusses concerns with overdue that he recently found out about. Javi reports that prior to a previous cardiac concern, patient managed the finances, but has been ?forgetful? since. Javi reports he is just becoming aware of many bills that have not been paid. FISHING ROD MECHANIC asks Javi if he can reach out to [facility] to discuss potential insurance options and [facility] to inquire about energy assistance. Javi provides consent for FISHING ROD MECHANIC to discuss case with both parties. FISHING ROD MECHANIC informs Javi he will follow up with Javi later in regardless of connection with other agencies. FISHING ROD MECHANIC leaves voicemail for Joselin Hi at [facility] Aging and Disability Resources requesting call back. FISHING ROD MECHANIC reviews information on website for energy assistance and will provide this information to Javi during call back. PL: FISHING ROD MECHANIC will review case with [facility] to explore options for Medicaid and follow up with Javi later in day. RICHAR Toribio
--- NOTE | 2020-08-27 15:38 | CM.SWNOTE ---
Post-D/C follow up note UPDATE Joselin Hi at [facility] returns MAINTENANCE INSPECTOR call. MAINTENANCE INSPECTOR explains patient situation and asks if ABD is a possibility to get patient connected to Medicaid. Joselin explains that this is a possibility and explains that patient may qualify for [employer]- which will enroll her in Medicaid- if she has no income, even if her has his current level of income. Joselin states she is unsure if this will cover the most recent hospital stay, but that the bills from recent stay can be used in consideration of spend downs as applicable. Joselin explains it is most efficient for patients to call directly and complete application over the phone and instructs MAINTENANCE INSPECTOR to provide patient with to complete [employer]ULAY application. MAINTENANCE INSPECTOR calls Javi. Javi puts phone on speaker and MAINTENANCE INSPECTOR speaks to both Javi and patient. MAINTENANCE INSPECTOR reviews conversation regarding insurance with patient and Javi, and provides phone number for Aging and disability. Javi and patient inform MAINTENANCE INSPECTOR that they will contact Aging and Disability today. MAINTENANCE INSPECTOR discusses energy assistance with family. MAINTENANCE INSPECTOR informs patient and Javi that, per the website, [facility] and [facility] are not taking an regular appointments. MAINTENANCE INSPECTOR explains that the agency managing the scheduling for this sometimes is willing to meet with households on an emergent basis to for energy assistance, and encouraged patients to advocate for their needs as they felt comfortable. MAINTENANCE INSPECTOR gave patient and Javi phone number for [facility] Energy Assistance . MAINTENANCE INSPECTOR asks if family is familiar with [facility] program at [facility], and Javi states he is and is planning on picking up an application early following week. MAINTENANCE INSPECTOR asks if there is any other support that MAINTENANCE INSPECTOR can offer family at this time and family states that there are no other questions at this time. MAINTENANCE INSPECTOR gives family [phone] and offers to answer any other questions/provide additional support as needed. Pl: Patient and Javi to reach out to [facility] for support in accessing Medicaid and [employer]ULAY for patient. RICHAR Toribio
== END 2020-08-25 17:12 | disposition home or self-care (01) | DRG 64 ==
LOC: ED 21:02 → AC 08-23 10:46
PROVIDERS: Internal Medicine; Admitting Provider Nurse Practitioner Adult Health; Emergency Provider Emergency Medicine; Family Provider Family Medicine; PCP Physician Assistant Medical; Visit Provider Nurse Practitioner Adult Health
DX: I63.9 Cerebral infarction, unspecified (principal); I49.01 Ventricular fibrillation; I50.22 Chronic systolic (congestive) heart failure; G81.94 Hemiplegia, unspecified affecting left nondominant side; A04.72 Enterocolitis due to Clostridium difficile, not specified as recurrent; I11.0 Hypertensive heart disease with heart failure; E11.621 Type 2 diabetes mellitus with foot ulcer; L97.529 Non-pressure chronic ulcer of other part of left foot with unspecified severity; E11.65 Type 2 diabetes mellitus with hyperglycemia; I25.5 Ischemic cardiomyopathy; Z91.120 Patient's intentional underdosing of medication regimen due to financial hardship; Z20.828 Contact with and (suspected) exposure to other viral communicable diseases; R29.708 NIHSS score 8; Z95.810 Presence of automatic (implantable) cardiac defibrillator; Z79.4 Long term (current) use of insulin
CPT/HCPCS: 36415; 70450; 70496; 70498; 80048; 80053; 80061; 80305; 81003; 82550; 82962; 83036; 83735; 83880; 84443; 84484; 85025; 85610; 85730; 87507; 87635; 92507; 92522; 92526; 92610; 93005; 93010; 93307; 94762; 97163; 97166; 97530; 97535; 99284; J1650; Q9957; Q9967

== ENCOUNTER 2020-08-29 23:25 | Emergency (ER) | payer SELFPAY ==
[2020-08-29 23:39] VITALS: BP 120/78; PULSE 89; RESP 18; TEMP 36.7; O2SAT 95
--- NOTE | 2020-08-29 23:47 | ED.AMS ---
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 Both and son have been working very hard to transfer her and get her to the commode frequently. They are clearly over worked. states that she was difficult to arouse deceiving to swallow her nightly meds. She usually can swallow a relatively quickly however took 10 minutes and order for her to become more awake and able to swallow medication. He checked her sugar and noted it was over 400. Her hemoglobin A1c is greater than 13. He is unsure how many times to get it he said they were only instructed 10 units but unknown the frequency. He was worried because her sugar has been elevated and she was unarousable brought her to the ER for evaluation. He states that he is supposed to call heber tomorrow to help get patient set up with insurance and then possibly rehab or home health. Related Data Home Medications Medication Instructions Recorded Confirmed aspirin 81 mg PO QDAY #0 11/15/17 08/22/20 furosemide 40 mg PO QDAY #0 11/15/17 08/22/20 lisinopril 5 mg PO BID #0 11/15/17 08/22/20 Previous Rx's Medication Instructions Recorded atorvastatin 40 mg PO BEDTIME 30 Days #30 tab 08/25/20 clopidogrel 75 mg PO DAILY 30 Days #30 tab 08/25/20 doxycycline hyclate 100 mg PO BID 42 Days #84 tab 08/25/20 metoprolol succinate 50 mg PO DAILY 30 Days #30 tab 08/25/20 metronidazole 500 mg PO Q8H 14 Days #42 tab 08/25/20 Allergies Allergy/AdvReac Type Severity Reaction Status Date / Time No Known Drug Allergies Allergy Verified 08/22/20 18:00 Review of Systems Review of Systems ROS Unobtainable: All systems reviewed & are unremarkable except as noted in HPI and below Constitutional Constitutional: Denies chills, Denies fever(s), Denies lethargy and Reports weakness ENT Ears, Nose, Mouth, and Throat: Denies change in voice, Denies neck pain and Denies sore throat Cardiovascular Cardiovascular: Denies chest pain, Denies irregular heart rhythm, Denies lightheadedness, Denies palpitations and Denies orthopnea Gastrointestinal Gastrointestinal: Denies abdominal pain, Denies change in bowel habits, Denies diarrhea, Denies nausea and Denies vomiting Musculoskeletal Musculoskeletal: Denies neck pain Integumentary/Breasts Skin/Breast: Denies pruritus, Denies erythema, Denies rash and Denies wounds Neurologic Neurologic: Reports as per HPI, Reports localized weakness and Reports weakness Endocrine Endocrine: Denies palpitations 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 CVA (cerebral vascular accident) Diabetes mellitus History of ventricular fibrillation 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 Neuropathy Urinary incontinence Surgical History History of colonoscopy History of permanent cardiac pacemaker placement Family History Mother MRSA (methicillin resistant Staphylococcus aureus) Cardiovascular disease Stroke Myocardial infarction Father Cardiovascular disease Myocardial infarction Social History household members: spouse and children Smoking Status: Never smoker alcohol intake: former Smoking Status: Never smoker alcohol intake frequency: 0-2 drinks per day Substance Use Type: does not use Exam Initial Vital Signs Initial Vital Signs: Vital Signs Temperature 98.1 F 08/29/20 23:39 Pulse Rate 89 08/29/20 23:39 Respiratory Rate 18 08/29/20 23:39 Blood Pressure 120/78 08/29/20 23:39 Pulse Oximetry 95 08/29/20 23:39 GENERAL: Overweight female and in no acute distress. HEENT: Head atraumatic,EOMI, pupils reactive, face symmetric, moist mucous membranes CARDIOVASCULAR: Regular rate and rhythm without murmurs, rubs or gallops. RESPIRATORY: Breath sounds equal bilaterally, no wheezes rales or rhonchi. ABDOMEN: Soft, nontender. Normoactive bowel sounds all 4 quadrants. No guarding or rebound. EXTREMITIES: Normal range of motion, no clubbing or edema. Neurovascularly intact NEUROLOGICAL: Alert of significant left arm and left leg deficit. Able to follow commands and answer questions SKIN: Warm, dry, no laceration, no petechiae, no rashes or lesions. Course Orders Ordered: ED Orders 08/29/20 23:48 CT head/brain wo con Stat 08/29/20 23:50 Complete Blood Count AUTO DIFF Stat Comprehensive Metabolic Panel Stat Troponin & CK Cardiac Panel Stat Discontinued Medications Sodium Chloride (Normal Saline 0.9%) 1,000 mls @ 150 mls/hr IV CONT ERIKA Last Infusion: 08/30/20 02:05 Dose: 0 mls/hr Documented by: Admin: 08/29/20 23:54 Dose: 150 mls/hr Documented by: HEATHER Insulin Human Regular (Insulin Regular 100 Unit/Ml 3 Ml Vial) 10 unit SUBCUT NOW ONE Stop: 08/30/20 01:03 Last Admin: 08/30/20 01:05 Dose: 10 unit Documented by: HEATHER Cosigned by: CHUCKIE Vital Signs Vital signs: Vital Signs - 8 hr 08/29/20 23:39 08/30/20 00:00 08/30/20 02:00 Temperature 98.1 F Pulse Rate 89 85 69 Respiratory Rate 18 15 Blood Pressure 120/78 123/73 129/78 Pulse Oximetry 95 95 95 MDM - Altered Mental Status Lab Data Attestation: I reviewed the patient's lab results. Result diagrams: 08/29/20 23:50 08/29/20 23:50 Labs: Lab Results 08/29/20 08/29/20 08/29/20 Range/Units 23:50 23:50 23:50 WBC 7.2 (4.5-11.0) X10^3/uL RBC 5.07 (4.0-5.2) X10^6/uL Hgb 14.7 (12.0-16.0) g/dL Hct 45.2 (36-46) % MCV 89.2 (80-100) fL MCH 29.0 (26-34) PG MCHC 32.5 (30-36) % RDW 13.3 (11.6-14.8) % Plt Count 246 (150-400) X10^3/uL Neut % (Auto) 64.8 (50-75) % Lymph % (Auto) 22.6 L (25-40) % [place] % (Auto) 9.1 (3-14) % Eos % (Auto) 2.7 (2-4) % Baso % (Auto) 0.8 (0-2) % Neut # (Auto) 4700 (4207-1115) /uL Lymph # (Auto) 1600 (1393-0894) /uL [place] # (Auto) 700 (0-900) /uL Eos # (Auto) 200 (0-450) /uL Baso # (Auto) 100 (0-100) /uL Sodium 134 L (137-145) mmol/L Potassium 4.1 (3.4-5.1) mmol/L Chloride 102 (98-107) mmol/L Carbon Dioxide 27 (22-32) mmol/L BUN 23 H (7-17) mg/dL Creatinine 0.61 (0.52-1.04) mg/dL Estimated GFR > 60.0 (>60) mL/min BUN/Creatinine Ratio 37.7 H (6-22) Glucose 419 H D (70-100) mg/dL Calcium 9.3 (8.4-10.2) mg/dL Total Bilirubin 0.5 (0.2-1.3) mg/dL AST 35 (14-36) IU/L ALT 34 (<35) IU/L Alkaline Phosphatase 153 H (38-126) U/L Total Creatine Kinase 48 (30-135) U/L CK-MB (CK-2) TNP CK-MB (CK-2) Rel Index TNP Troponin I < 0.012 (0.01-0.034) ng/mL Total Protein 7.4 (6.3-8.2) g/dL Albumin 3.6 (3.5-5.0) g/dL Globulin 3.8 (1.7-4.1) g/dL Albumin/Globulin Ratio 0.9 L (1.0-2.8) Point of Care Testing Glucose POC [address] scan - head: Radiologist's Impression: Preliminary report subacute appearing right lacunar infarct at the posterior external capsule extending into the centrum semiovale ECG Data Attestation: I personally reviewed and interpreted this ECG as follows: Prior ECG tracings: available for review Interpretation: Rate 78 p.r. interval [address] changes MDM Narrative Medical decision making narrative: Records have been reviewed her insulin regimen was not changed due to inability to pay for medication. Social work has been highly involved in the case. Unfortunately at this time the only option is for her to return home. It is very obvious that they do need significant help at home and likely even a rehab facility. Her glucose is noted to be elevated but no anion gap for sign of acidosis. She is an extremely poor controlled diabetic without proper means of controlling it at this time. She is awake alert and appropriate. I have discussed at length with both patient and they understand and agree to return home. He is quite nervous about hyperglycemia because his father of complications from diabetes. CT shows subacute stroke which is consistent with her diagnosis from 1 week ago Discharge Plan Departure Patient Disposition: Home Clinical Impression: Diabetes mellitus Instructions: DI for Diabetes Type 2 Activity Restrictions/Additional Instructions: *You have been diagnosed with diabetes *What to do: Once you get insurance you will need more medication to help control your diabetes *Continue to take medications as directed Humulin 5 units 3 times a day before meals Check glucose before meals *Follow up with your primary care provider in 2-3 days *Return to ER if you should have increasing weakness, confusion, persistent vomiting or any new, worsening or concerning symptoms Prescriptions: No Action lisinopril 10 MG tablet 5 mg PO BID Qty: 0 RF: 0 aspirin 81 MG tablet,chewable 81 mg PO QDAY Qty: 0 RF: 0 furosemide 20 MG tablet 40 mg PO QDAY Qty: 0 RF: 0 atorvastatin 40 mg tablet 40 mg PO BEDTIME 30 Days Qty: 30 RF: 0 clopidogrel 75 mg Tablet 75 mg PO DAILY 30 Days Qty: 30 RF: 0 doxycycline hyclate 100 mg Tablet 100 mg PO BID 42 Days Qty: 84 RF: 0 metoprolol succinate 50 mg tablet extended release 24 hr 50 mg PO DAILY 30 Days Qty: 30 RF: 0 metronidazole 500 mg tablet 500 mg PO Q8H 14 Days Qty: 42 RF: 0 Referrals: Donna Redman PA-C [Primary Care Provider] - Stand Alone Forms: Work Release Note
--- NOTE | 2020-08-29 23:48 | DI.CT.S_ITS ---
PROCEDURE: CT HEAD/BRAIN WO CON INDICATIONS: altered mental status, recent cva TECHNIQUE: Noncontrast 4.5 mm thick angled axial sections acquired from the foramen magnum to the vertex, with coronal and sagittal reformats. For radiation dose reduction, the following was used: automated exposure control, adjustment of mA and/or kV according to patient size. COMPARISON: None. FINDINGS: Image quality: Excellent. CSF spaces: Basal cisterns are patent. No extra-axial fluid collections. The ventricles are symmetric in size and shape. Brain: No intracranial bleeds or masses. There is cerebral volume loss for age, with resultant ventricular and sulcal prominence. There are periventricular and deep white matter chronic small vessel ischemic changes. Chronic lacunar infarct involving the left globus pallidus, left arreola radiata and left caudate body. Hypodensity involving the left globus pallidus, left internal capsule and left arreola radiata concerning for subacute infarct. There is intracranial internal carotid artery atherosclerosis. Skull and face: Calvarium and visualized facial bones appear intact, without suspicious lesions. Sinuses: Visualized sinuses and mastoids are clear. IMPRESSION: 1. Probable subacute infarct involving the right globus pallidus, right internal capsule and right arreola radiata. 2. Chronic infarct involving the left globus pallidus, left arreola radiata and left caudate body.. Three. No intracranial hemorrhage. Dictated by: Emily Ramirez MD, PhD on 08/30/2020 at 7:36 Approved by: Emily Ramirez MD, PhD on 08/30/2020 at 7:39
[2020-08-29] MEDS: SODIUM CHLORIDE 0.9% 1,000 ML 150 ML IV (23:54)
[2020-08-30] VITALS: BP 123/73; PULSE 85; O2SAT 95
[2020-08-30 00:15] LABS: Add Manual Diff / Slide Review NO; Basophils Absolute Auto 100 /uL (0-100); Basophils Percent Auto 0.8 % (0-2); Eosinophils Absolute Auto 200 /uL (0-450); Eosinophils Percent Auto 2.7 % (2-4); Hematocrit 45.2 % (36-46); Hemoglobin 14.7 g/dL (12.0-16.0); Lymphocytes Absolute Auto 1600 /uL (1100-4500); Lymphocytes Percent Auto 22.6 % (25-40); Mean Corpuscular HGB Conc 32.5 % (30-36); Mean Corpuscular Volume 89.2 fL (80-100); Monocytes Absolute Auto 700 /uL (0-900); Monocytes Percent Auto 9.1 % (3-14); Neutrophils Absolute Auto 4700 /uL (1500-7000); Neutrophils Percent Auto 64.8 % (50-75); Platelet Count 246 X10^3/uL (150-400); Red Blood Cell Count 5.07 X10^6/uL (4.0-5.2); Red Cell Distribution Width 13.3 % (11.6-14.8); White Blood Cell Count 7.2 X10^3/uL (4.5-11.0)
[2020-08-30 00:18] LABS: Alanine Aminotransferase 34 IU/L (<35); Albumin 3.6 g/dL (3.5-5.0); Albumin Globulin Ratio 0.9 (1.0-2.8); Alkaline Phosphatase 153 U/L (38-126); Aspartate Aminotransferase 35 IU/L (14-36); BUN Creatinine Ratio 37.7 (6-22); Bilirubin Total 0.5 mg/dL (0.2-1.3); Blood Urea Nitrogen 23 mg/dL (7-17); Calcium 9.3 mg/dL (8.4-10.2); Carbon Dioxide 27 mmol/L (22-32); Chloride 102 mmol/L (98-107); Estimated Glomerular Filt Rate > 60.0 mL/min (>60); Globulin 3.8 g/dL (1.7-4.1); Glucose 419 mg/dL (70-100); HEMOLYSIS 17 (0-50); Potassium 4.1 mmol/L (3.4-5.1); Sodium 134 mmol/L (137-145); Total Protein 7.4 g/dL (6.3-8.2)
[2020-08-30 00:35] LABS: Creatine Kinase 48 U/L (30-135)
[2020-08-30 00:48] LABS: Troponin I < 0.012 ng/mL (0.01-0.034)
[2020-08-30] MEDS: INSULIN REGULAR 100 UNIT/ML 3 ML VIAL 10 UNIT SUBCUT (01:05)
[2020-08-30 02:00] VITALS: BP 129/78; PULSE 69; RESP 15; O2SAT 95
== END 2020-08-30 02:00 | disposition home or self-care (01) ==
PROVIDERS: Emergency Provider Emergency Medicine; Family Provider Family Medicine; PCP Physician Assistant Medical
DX: E11.65 Type 2 diabetes mellitus with hyperglycemia (principal); R53.1 Weakness; Z86.73 Personal history of transient ischemic attack (TIA), and cerebral infarction without residual deficits; I10 Essential (primary) hypertension; E66.3 Overweight; Z95.0 Presence of cardiac pacemaker
CPT/HCPCS: 36415; 70450; 80053; 82550; 82962; 84484; 85025; 93005; 93010; 96360; 96361; 96372; 99284

== ENCOUNTER 2020-09-17 21:22 | Emergency (ER) | payer SELFPAY ==
[2020-09-17] VITALS (12 sets, daily range): BP systolic 87–121; BP diastolic 57–77; PULSE 96–106; RESP 12–23; TEMP 36.7; O2SAT 85–100
--- NOTE | 2020-09-17 22:05 | PC.NURSE ---
IV attempt x3 unsuccessful
--- NOTE | 2020-09-17 22:11 | DI.RAD.S_ITS ---
PROCEDURE: XR FOOT LT MIN 3V INDICATIONS: cellulitis great toe eval for osteo TECHNIQUE: 3 views of the foot were acquired. COMPARISON: [facility], , FOOT 3V RIGHT, 04/23/2015, 19:42. FINDINGS: Bones: No fractures or dislocations. No suspicious bony lesions. Well-defined plantar calcaneal enthesophyte is seen. No bony erosive changes are seen. Soft tissues: No tibiotalar joint effusion. Achilles tendon appears normal. IMPRESSION: No acute left foot fracture or dislocation. No radiographic evidence of osteomyelitis. Dictated by: Crow Roche M.D. on 09/18/2020 at 8:07 Approved by: Crow Roche M.D. on 09/18/2020 at 8:08
--- NOTE | 2020-09-17 22:12 | DI.US.S_ITS ---
PROCEDURE: US PERIPH VENOUS LOW EXTREM LT INDICATIONS: EDEMA TECHNIQUE: Real-time imaging, as well as color and pulse Doppler interrogation, were performed of the lower extremity deep veins from the inguinal ligament to the popliteal fossa. COMPARISON: None. FINDINGS: There is filling defects seen in visualized portion of common femoral vein, superficial femoral vein, and popliteal vein with absence of flow and poor compressibility. IMPRESSION: Finding is suggestive of extensive venous thrombosis in visualized left lower extremity veins. Dictated by: Crow Roche M.D. on 09/18/2020 at 8:08 Approved by: Crow Roche M.D. on 09/18/2020 at 8:09
--- NOTE | 2020-09-17 22:16 | ED.LOWEXIN ---
HPI - Extremity Injury (Lower) General Chief Complaint: Extremity Injury, Lower Stated Complaint: toes are purple right leg Time Seen by Provider: 09/17/20 21:58 Source: patient and family Mode of arrival: Wheelchair Limitations: no limitations History of Present Illness HPI Narrative: Patient is a 54-year-old female. One month ago had a CVA that secondary to a undetermined onset did not receive tPA. Has residual left-sided deficits to the point where she cannot move her left arm and left leg. Is also only insulin-dependent diabetic. Has a chronic left great toe wound. Is on oral antibiotics. Arrives to the emergency department with her for evaluation of blue/purple toes on her left foot. This is despite the stated complaint of purple right leg it is the left side that has the symptoms. Patient's states that he just noticed it today. Patient states that she does have very limited sensation in her left foot. He denies any trauma. She is taking her medications. She is not on anticoagulation. Is on dual anti-platelet therapy of aspirin and Plavix after her stroke. Also has a history of CHF and is on Lasix. Had an echocardiogram done at the time of her stroke which showed an ejection fraction of 45%. Related Data Home Medications Medication Instructions Recorded Confirmed aspirin 81 mg PO QDAY #0 11/15/17 08/22/20 furosemide 40 mg PO QDAY #0 11/15/17 08/22/20 lisinopril 5 mg PO BID #0 11/15/17 08/22/20 Previous Rx's Medication Instructions Recorded atorvastatin 40 mg PO BEDTIME 30 Days #30 tab 08/25/20 clopidogrel 75 mg PO DAILY 30 Days #30 tab 08/25/20 doxycycline hyclate 100 mg PO BID 42 Days #84 tab 08/25/20 metoprolol succinate 50 mg PO DAILY 30 Days #30 tab 08/25/20 Allergies Allergy/AdvReac Type Severity Reaction Status Date / Time No Known Drug Allergies Allergy Verified 08/22/20 18:00 Review of Systems Constitutional Constitutional: Denies fatigue, Denies fever(s) and Denies headache(s) Eyes Eyes: Denies change in vision ENT Ears, Nose, Mouth, and Throat: Denies headache(s) and Denies sore throat Cardiovascular Cardiovascular: Denies chest pain and Denies dyspnea Respiratory Respiratory: Denies dyspnea Gastrointestinal Gastrointestinal: Denies abdominal pain, Denies change in bowel habits, Denies nausea and Denies vomiting Genitourinary Genitourinary: Denies dysuria Genitourinary: Denies dysuria Musculoskeletal Musculoskeletal: Denies arthralgias, Denies back pain and Denies myalgias Integumentary/Breasts Comments: Blue/purple left foot Neurologic Neurologic: Denies confusion and Denies headache(s) Comments: Left-sided weakness. 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 CVA (cerebral vascular accident) Diabetes mellitus History of ventricular fibrillation 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 Neuropathy Urinary incontinence Surgical History History of colonoscopy History of permanent cardiac pacemaker placement Family History Mother MRSA (methicillin resistant Staphylococcus aureus) Cardiovascular disease Stroke Myocardial infarction Father Cardiovascular disease Myocardial infarction Social History household members: spouse and children Smoking Status: Never smoker alcohol intake: former Smoking Status: Never smoker alcohol intake frequency: 0-2 drinks per day Substance Use Type: does not use Exam Initial Vital Signs Initial Vital Signs: Vital Signs Blood Pressure 99/74 09/17/20 21:36 Pulse Oximetry 100 09/17/20 21:36 Const General: cooperative and comfortable Limitations: mental status not altered [facility] Head: normal to inspection and normocephalic Eyes General: appearance normal, both eyes and all related structures Resp Effort & Inspection: normal respiratory effort Auscultation: clear to auscultation bilaterally Cardio Rate: regular rate Rhythm: regular rhythm Other: Dorsalis pedis pulse heard with Doppler. Posterior tibial pulse heard with Doppler on the left. GI Inspection: non-distended Palpation: soft and No tender Skin Other: Patient with cool feet. Left does seem to be somewhat cooler compared to the right. Does have blue toes with very slow capillary refill involving the left great toe and 2nd toe. There is a irregular ulceration on the bottom of the left great toe. No surrounding erythema however this could be masked by the blue color. Also has a firm calcification on the bottom of the left 2nd toe. No surrounding erythema. Neuro General: patient alert, patient awake and patient oriented x3 Cognition: normal cognition Speech: speech normal Other: Decreased sensation left lower extremity. No change in baseline neurologic status left arm and left leg. Extrem Other: Slow cap refill left lower extremity. Psych Appearance: grossly normal and well kempt Scores GCS Oswaldo coma scale eye opening: Spontaneous [place] coma scale verbal response: Orientated [place] coma scale motor response: Obey commands [place] coma scale total score: 15 Course Orders Ordered: ED Orders 09/17/20 22:11 XR foot LT min 3V Stat 09/17/20 22:12 US periph venous low extrem lt Stat 09/17/20 22:36 Basic Metabolic Panel Stat C-Reactive Protein Quant Stat Complete Blood Count AUTO DIFF Stat Erythrocyte Sedimentation Rate Stat Lactate (Lactic Acid) Stat NT-proBNP (BNP-Adult 18+) Stat Partial Thromboplastin Time Stat Procalcitonin Stat Prothrombin Time INR Stat Troponin & CK Cardiac Panel Stat 09/17/20 23:00 Blood Culture Stat 09/17/20 23:30 EKG-12 Lead Stat 09/17/20 23:41 CT angio chest PE protocol Stat 09/18/20 00:26 COVID19 Stat 09/18/20 01:00 Urinalysis and Microscopic Stat Urine Culture Stat Heparin Sodium/Dextrose (Heparin Drip) 25,000 unit in 500 mls @ 24 mls/hr IV CONT ERIKA; Protocol Last Admin: 09/18/20 00:49 Dose: 1,200 units/hr, 24 mls/hr Documented by: CARSON Sodium Chloride (Normal Saline 0.9%) 1,000 mls @ 125 mls/hr IV CONT ERIKA Last Admin: 09/18/20 01:36 Dose: 125 mls/hr Documented by: MIAIEDLE Discontinued Medications Heparin Sodium (Porcine) (Heparin 5,000 Unit/Ml Vial) 7,000 unit 80 unit/kg (7000 unit) IV NOW ONE Stop: 09/18/20 00:34 Last Admin: 09/18/20 00:49 Dose: 7,000 unit Documented by: CARSON Vital Signs Vital signs: Vital Signs - 8 hr 09/17/20 21:36 09/17/20 21:37 09/17/20 21:57 Temperature Pulse Rate 106 H 105 H Respiratory Rate 20 Blood Pressure 99/74 121/77 100/72 Pulse Oximetry 100 85 L 94 09/17/20 22:00 09/17/20 22:01 09/17/20 22:30 Temperature 98.0 F Pulse Rate 104 H 105 H Respiratory Rate 20 22 Blood Pressure 99/74 100/72 Pulse Oximetry 94 91 09/17/20 23:00 09/17/20 23:11 09/17/20 23:15 Temperature Pulse Rate 101 H 100 H 98 H Respiratory Rate 23 15 13 Blood Pressure 92/68 91/62 Pulse Oximetry 90 L 89 L 09/17/20 23:17 09/17/20 23:30 09/17/20 23:34 Temperature Pulse Rate 99 H 96 H 96 H Respiratory Rate 15 15 12 Blood Pressure 91/62 87/57 L 97/65 Pulse Oximetry 90 L 89 L 91 09/18/20 00:13 09/18/20 00:34 09/18/20 01:00 Temperature Pulse Rate 101 H 93 H 100 H Respiratory Rate 18 20 17 Blood Pressure 132/81 106/69 Pulse Oximetry 94 97 99 09/18/20 01:02 09/18/20 01:15 09/18/20 01:30 Temperature Pulse Rate 101 H 97 H 93 H Respiratory Rate 17 16 15 Blood Pressure 79/56 L 98/66 95/66 Pulse Oximetry 100 98 100 09/18/20 01:45 09/18/20 02:00 09/18/20 02:15 Temperature Pulse Rate 90 86 85 Respiratory Rate 15 14 14 Blood Pressure 96/59 L 78/55 L 99/57 L Pulse Oximetry 100 100 99 09/18/20 02:30 09/18/20 02:45 09/18/20 03:00 Temperature Pulse Rate 85 84 85 Respiratory Rate 15 13 14 Blood Pressure 100/61 97/61 92/60 Pulse Oximetry 98 100 99 09/18/20 03:15 09/18/20 03:30 Temperature Pulse Rate 83 87 Respiratory Rate 12 16 Blood Pressure 94/59 L 117/73 Pulse Oximetry 97 100 MDM - Extremity Injury (Lower) Medical Records Attestation: I reviewed the patient's medical records. Lab Data Attestation: I reviewed the patient's lab results. Result diagrams: 09/17/20 22:36 09/17/20 22:36 Labs: Lab Results 09/17/20 09/17/20 09/17/20 Range/Units 22:36 22:36 22:36 WBC 10.5 (4.5-11.0) X10^3/uL RBC 5.12 (4.0-5.2) X10^6/uL Hgb 15.4 (12.0-16.0) g/dL Hct 44.6 (36-46) % MCV 87.1 (80-100) fL MCH 30.1 (26-34) PG MCHC 34.5 (30-36) % RDW 13.6 (11.6-14.8) % Plt Count 108 L (150-400) X10^3/uL Neut % (Auto) 78.4 H (50-75) % Lymph % (Auto) 13.3 L (25-40) % [place] % (Auto) 6.9 (3-14) % Eos % (Auto) 0.9 L (2-4) % Baso % (Auto) 0.5 (0-2) % Neut # (Auto) 8200 H (1788-9309) /uL Lymph # (Auto) 1400 (2259-1129) /uL [place] # (Auto) 700 (0-900) /uL Eos # (Auto) 100 (0-450) /uL Baso # (Auto) 100 (0-100) /uL ESR 11 (0-20) MM/HR PT 13.8 H (10.1-12.7) SECONDS INR 1.2 (0.9-1.3) APTT 31 (26.4-36.2) SECONDS Sodium 135 L (137-145) mmol/L Potassium 3.2 L (3.4-5.1) mmol/L Chloride 103 (98-107) mmol/L Carbon Dioxide 25 (22-32) mmol/L BUN 22 H (7-17) mg/dL Creatinine 0.54 (0.52-1.04) mg/dL Estimated GFR > 60.0 (>60) mL/min BUN/Creatinine Ratio 40.7 H (6-22) Glucose 224 H (70-100) mg/dL Lactate (0.7-2.1) mmol/L Calcium 9.1 (8.4-10.2) mg/dL Total Creatine Kinase (30-135) U/L CK-MB (CK-2) CK-MB (CK-2) Rel Index Troponin I (0.01-0.034) ng/mL C-Reactive Protein (<1.0) mg/dL NT-Pro-B Natriuret Pep (<125) pg/mL Procalcitonin (<0.5) ng/mL Urine Color Urine Appearance Urine pH (4.5-8.0) Ur Specific [place] (1.000-1.035) Urine Protein (Negative) Urine Glucose (UA) (Negative) g/dL Urine Ketones (NEGATIVE) Urine Occult Blood (Negative) Urine Nitrate (Negative) Urine Bilirubin (NEGATIVE) Urine Urobilinogen (0.2) E.U./dL Ur Leukocyte Esterase (NEGATIVE) Urine RBC (0-5/HPF) Urine WBC (0-5/HPF) Ur Squamous Epith Cells (0-5/HPF) Urine Bacteria (None) Urine Yeast (None) Ur Culture Indicated? SARS-CoV-2 (PCR) (Negative) 09/17/20 09/17/20 09/17/20 Range/Units 22:36 22:36 22:36 WBC (4.5-11.0) X10^3/uL RBC (4.0-5.2) X10^6/uL Hgb (12.0-16.0) g/dL Hct (36-46) % MCV (80-100) fL MCH (26-34) PG MCHC (30-36) % RDW (11.6-14.8) % Plt Count (150-400) X10^3/uL Neut % (Auto) (50-75) % Lymph % (Auto) (25-40) % [place] % (Auto) (3-14) % Eos % (Auto) (2-4) % Baso % (Auto) (0-2) % Neut # (Auto) (1749-6160) /uL Lymph # (Auto) (7589-4672) /uL [place] # (Auto) (0-900) /uL Eos # (Auto) (0-450) /uL Baso # (Auto) (0-100) /uL ESR (0-20) MM/HR PT (10.1-12.7) SECONDS INR (0.9-1.3) APTT (26.4-36.2) SECONDS Sodium (137-145) mmol/L Potassium (3.4-5.1) mmol/L Chloride (98-107) mmol/L Carbon Dioxide (22-32) mmol/L BUN (7-17) mg/dL Creatinine (0.52-1.04) mg/dL Estimated GFR (>60) mL/min BUN/Creatinine Ratio (6-22) Glucose (70-100) mg/dL Lactate 2.1 (0.7-2.1) mmol/L Calcium (8.4-10.2) mg/dL Total Creatine Kinase (30-135) U/L CK-MB (CK-2) CK-MB (CK-2) Rel Index Troponin I (0.01-0.034) ng/mL C-Reactive Protein 1.2 H (<1.0) mg/dL NT-Pro-B Natriuret Pep (<125) pg/mL Procalcitonin < 0.05 (<0.5) ng/mL Urine Color Urine Appearance Urine pH (4.5-8.0) Ur Specific [place] (1.000-1.035) Urine Protein (Negative) Urine Glucose (UA) (Negative) g/dL Urine Ketones (NEGATIVE) Urine Occult Blood (Negative) Urine Nitrate (Negative) Urine Bilirubin (NEGATIVE) Urine Urobilinogen (0.2) E.U./dL Ur Leukocyte Esterase (NEGATIVE) Urine RBC (0-5/HPF) Urine WBC (0-5/HPF) Ur Squamous Epith Cells (0-5/HPF) Urine Bacteria (None) Urine Yeast (None) Ur Culture Indicated? SARS-CoV-2 (PCR) (Negative) 09/17/20 09/18/20 09/18/20 Range/Units 22:36 00:26 01:00 WBC (4.5-11.0) X10^3/uL RBC (4.0-5.2) X10^6/uL Hgb (12.0-16.0) g/dL Hct (36-46) % MCV (80-100) fL MCH (26-34) PG MCHC (30-36) % RDW (11.6-14.8) % Plt Count (150-400) X10^3/uL Neut % (Auto) (50-75) % Lymph % (Auto) (25-40) % [place] % (Auto) (3-14) % Eos % (Auto) (2-4) % Baso % (Auto) (0-2) % Neut # (Auto) (7727-6342) /uL Lymph # (Auto) (0957-1101) /uL [place] # (Auto) (0-900) /uL Eos # (Auto) (0-450) /uL Baso # (Auto) (0-100) /uL ESR (0-20) MM/HR PT (10.1-12.7) SECONDS INR (0.9-1.3) APTT (26.4-36.2) SECONDS Sodium (137-145) mmol/L Potassium (3.4-5.1) mmol/L Chloride (98-107) mmol/L Carbon Dioxide (22-32) mmol/L BUN (7-17) mg/dL Creatinine (0.52-1.04) mg/dL Estimated GFR (>60) mL/min BUN/Creatinine Ratio (6-22) Glucose (70-100) mg/dL Lactate (0.7-2.1) mmol/L Calcium (8.4-10.2) mg/dL Total Creatine Kinase 40 (30-135) U/L CK-MB (CK-2) TNP CK-MB (CK-2) Rel Index TNP Troponin I 0.050 H (0.01-0.034) ng/mL C-Reactive Protein (<1.0) mg/dL NT-Pro-B Natriuret Pep 1490 H (<125) pg/mL Procalcitonin (<0.5) ng/mL Urine Color Yellow Urine Appearance Cloudy Urine pH 5.5 (4.5-8.0) Ur Specific [place] 1.015 (1.000-1.035) Urine Protein Trace H (Negative) Urine Glucose (UA) Trace H (Negative) g/dL Urine Ketones Negative (NEGATIVE) Urine Occult Blood 2+ H (Negative) Urine Nitrate Negative (Negative) Urine Bilirubin Negative (NEGATIVE) Urine Urobilinogen 0.2 (0.2) E.U./dL Ur Leukocyte Esterase 2+ H (NEGATIVE) Urine RBC 5-10/hpf H (0-5/HPF) Urine WBC >100/hpf H (0-5/HPF) Ur Squamous Epith Cells 1-5 /hpf (0-5/HPF) Urine Bacteria Few (2-10) H (None) Urine Yeast >100/hpf (None) Ur Culture Indicated? Specimen cultured SARS-CoV-2 (PCR) Negative (Negative) 09/18/20 Range/Units 01:08 WBC (4.5-11.0) X10^3/uL RBC (4.0-5.2) X10^6/uL Hgb (12.0-16.0) g/dL Hct (36-46) % MCV (80-100) fL MCH (26-34) PG MCHC (30-36) % RDW (11.6-14.8) % Plt Count (150-400) X10^3/uL Neut % (Auto) (50-75) % Lymph % (Auto) (25-40) % [place] % (Auto) (3-14) % Eos % (Auto) (2-4) % Baso % (Auto) (0-2) % Neut # (Auto) (1036-5854) /uL Lymph # (Auto) (7151-6180) /uL [place] # (Auto) (0-900) /uL Eos # (Auto) (0-450) /uL Baso # (Auto) (0-100) /uL ESR (0-20) MM/HR PT (10.1-12.7) SECONDS INR (0.9-1.3) APTT (26.4-36.2) SECONDS Sodium (137-145) mmol/L Potassium (3.4-5.1) mmol/L Chloride (98-107) mmol/L Carbon Dioxide (22-32) mmol/L BUN (7-17) mg/dL Creatinine (0.52-1.04) mg/dL Estimated GFR (>60) mL/min BUN/Creatinine Ratio (6-22) Glucose (70-100) mg/dL Lactate 1.8 (0.7-2.1) mmol/L Calcium (8.4-10.2) mg/dL Total Creatine Kinase (30-135) U/L CK-MB (CK-2) CK-MB (CK-2) Rel Index Troponin I (0.01-0.034) ng/mL C-Reactive Protein (<1.0) mg/dL NT-Pro-B Natriuret Pep (<125) pg/mL Procalcitonin (<0.5) ng/mL Urine Color Urine Appearance Urine pH (4.5-8.0) Ur Specific [place] (1.000-1.035) Urine Protein (Negative) Urine Glucose (UA) (Negative) g/dL Urine Ketones (NEGATIVE) Urine Occult Blood (Negative) Urine Nitrate (Negative) Urine Bilirubin (NEGATIVE) Urine Urobilinogen (0.2) E.U./dL Ur Leukocyte Esterase (NEGATIVE) Urine RBC (0-5/HPF) Urine WBC (0-5/HPF) Ur Squamous Epith Cells (0-5/HPF) Urine Bacteria (None) Urine Yeast (None) Ur Culture Indicated? SARS-CoV-2 (PCR) (Negative) Imaging Data US - DVT: Radiologist's Impression: Prominent DVT is seen in the left lower extremity Foot x-ray: Radiologist's Impression: No definite osteomyelitis CT scan - chest: Radiologist's Impression: Extensive pulmonary emboli bilaterally. ECG Data Attestation: I personally reviewed and interpreted this ECG as follows: Prior ECG tracings: available for review Interpretation: Sinus rhythm Ventricular rate of 97 Left axis deviation QRS 158 milliseconds MDM Narrative Medical decision making narrative: Initial concern upon arrival was arterial blood flow to the left lower extremity however was able to Doppler a DP and PT pulse. These were marked with a skin marker. She does have cold left foot however it does seem very similar in temperature to her right foot. The ulceration on the bottom of her left big toe is somewhat of a concern for an infection however given the fact that the color is more Blue rather than red and also it is more cool rather than warmth was more concerned about a vascular issue. A left lower extremity DVT ultrasound was obtained and was positive. Patient is not anti coagulated. Patient denied any chest pain or shortness of breath however during the time that she was here specially when she was sleeping she did desaturate into the 80s requiring oxygen. Patient's blood pressure was also a systolic of the 90s. CT scan of her chest shows extensive bilateral pulmonary emboli. Patient was started on heparin. Her BNP and troponin also slightly elevated. There is no read shows given on the CT report about ventricular size however it does report no significant enlargement of the right heart. The CT scan also concerning for a thrombus or mass in the right atrium. 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 Initially discuss the case with Dr. Cullen cardiology at [facility] who stated that they did not have the capability of performing catheter directed tPA at his facility. He recommended contacting [facility]. I then discussed the case with Dr. Alfred photographic process worker at [facility] who stated that she did not feel that the patient necessarily warranted catheter directed tPA given our current information. I am unfortunately unable to obtain a echocardiogram at this hour at my facility. She recommended contacting ICU at [place]. I discussed the case with Dr. Locke photographic process worker at [facility] who initially thought that he would be able to accept the patient however he did talk with his subspecialist and stated that if the patient were to decompensate they would be unable to provide catheter directed tPA and also would be unable to provide IVC filter which she could potentially need given the continued clot in her left leg. I then re-contacted Dr. Alfred who accepted the patient in transfer. I did discuss the findings with the patient in her who is at bedside. Patient is full code. Patient's blood pressure is have routinely been in the 90 systolic with a map in the 70s. While the patient was awake her systolic blood pressure was 117. She did have some hypotensive episodes. I feel we should hold on IV tPA for right now. Will transfer the patient by air given the distance. Patient is currently stable for transfer. Critical Care Time Critical Care Time Critical Care Time: Yes Total Critical Care Time: 45 Attestation: The high probability of a clinically significant, sudden or life threatening deterioration of the cardiovascular, respiratory system(s) required my full and direct attention, intervention and personal management. The aggregate critical care time was 45 minutes. This time is in addition to time spent performing reported procedures but includes the following: [X] Data Review and interpretation [X] Patient assessment and monitoring of vital signs [X] Documentation [X] Medication orders and management Discharge Plan Departure Patient Disposition: [facility] Clinical Impression: Pulmonary embolism, DVT of leg (deep venous thrombosis), Hypoxia Prescriptions: No Action lisinopril 10 MG tablet 5 mg PO BID Qty: 0 RF: 0 aspirin 81 MG tablet,chewable 81 mg PO QDAY Qty: 0 RF: 0 furosemide 20 MG tablet 40 mg PO QDAY Qty: 0 RF: 0 atorvastatin 40 mg tablet 40 mg PO BEDTIME 30 Days Qty: 30 RF: 0 clopidogrel 75 mg Tablet 75 mg PO DAILY 30 Days Qty: 30 RF: 0 doxycycline hyclate 100 mg Tablet 100 mg PO BID 42 Days Qty: 84 RF: 0 metoprolol succinate 50 mg tablet extended release 24 hr 50 mg PO DAILY 30 Days Qty: 30 RF: 0 Referrals: Donna Redman PA-C [Primary Care Provider] -
[2020-09-17 22:59] LABS: INR 1.2 (0.9-1.3); Prothrombin Time 13.8 SECONDS (10.1-12.7)
[2020-09-17 23:01] LABS: PTT Partial Thromboplastin Tim 31 SECONDS (26.4-36.2)
[2020-09-17 23:03] LABS: Add Manual Diff / Slide Review NO; Basophils Absolute Auto 100 /uL (0-100); Basophils Percent Auto 0.5 % (0-2); Eosinophils Absolute Auto 100 /uL (0-450); Eosinophils Percent Auto 0.9 % (2-4); Hematocrit 44.6 % (36-46); Hemoglobin 15.4 g/dL (12.0-16.0); Lymphocytes Absolute Auto 1400 /uL (1100-4500); Lymphocytes Percent Auto 13.3 % (25-40); Mean Corpuscular HGB Conc 34.5 % (30-36); Mean Corpuscular Hemoglobin 30.1 PG (26-34); Mean Corpuscular Volume 87.1 fL (80-100); Monocytes Absolute Auto 700 /uL (0-900); Monocytes Percent Auto 6.9 % (3-14); Neutrophils Absolute Auto 8200 /uL (1500-7000); Neutrophils Percent Auto 78.4 % (50-75); Platelet Count 108 X10^3/uL (150-400); Red Blood Cell Count 5.12 X10^6/uL (4.0-5.2); Red Cell Distribution Width 13.6 % (11.6-14.8); White Blood Cell Count 10.5 X10^3/uL (4.5-11.0)
[2020-09-17 23:06] LABS: Lactate (Lactic Acid) 2.1 mmol/L (0.7-2.1)
[2020-09-17 23:14] LABS: C-Reactive Protein Quant 1.2 mg/dL (<1.0)
[2020-09-17 23:20] LABS: BUN Creatinine Ratio 40.7 (6-22); Blood Urea Nitrogen 22 mg/dL (7-17); Calcium 9.1 mg/dL (8.4-10.2); Carbon Dioxide 25 mmol/L (22-32); Chloride 103 mmol/L (98-107); Estimated Glomerular Filt Rate > 60.0 mL/min (>60); Glucose 224 mg/dL (70-100); HEMOLYSIS 18 (0-50); Potassium 3.2 mmol/L (3.4-5.1); Sodium 135 mmol/L (137-145)
[2020-09-17 23:25] LABS: Procalcitonin < 0.05 ng/mL (<0.5)
[2020-09-17 23:27] LABS: Erythrocyte Sedimentation Rate 11 MM/HR (0-20)
--- NOTE | 2020-09-17 23:41 | DI.CT.S_ITS ---
PROCEDURE: CT ANGIO CHEST PE PROTOCOL INDICATIONS: known LEFT DVT and hypoxia TECHNIQUE: After the administration of intravenous contrast, 2 mm thick sections acquired from the pulmonary apices to the posterior costophrenic angles. 3-dimensional maximum intensity projection (MIP) coronal and sagittal reformats were then acquired through the thorax. For radiation dose reduction, the following was used: automated exposure control, adjustment of mA and/or kV according to patient size. COMPARISON: [facility], CT, KIDNEY/ URETER/BLADDER, 12/22/2011, 16:22. [facility], US, US PERIPH VENOUS LOW EXTREM LT, 09/17/2020, 22:42. [facility], CT, CT ANGIO AORTA RUNOFF, 07/24/2020, 15:18. FINDINGS: Image quality: Excellent. Pulmonary arteries: There is extensive amount of pulmonary emboli seen, including a saddle embolism across the may bifurcation of the pulmonary arteries. Proximal emboli can be seen within the right main pulmonary artery and within the left main pulmonary artery. Smaller pulmonary emboli can be seen involving all 5 lobes of the lung. Lungs and pleura: Several ovoid pulmonary nodules can be seen within the right lower lobe and within the right middle lobe, which measure up to 6 mm. Dependent atelectasis can be seen. No pleural effusions or pneumothorax. Central and peripheral airways are patent. Mediastinum: An AICD is seen. Heart size is normal, without pericardial effusion. No mediastinal or hilar adenopathy. Thoracic aorta is normal in caliber and enhancement. Esophagus is normal in caliber, without hiatal hernia. Bones and chest wall: No suspicious bony lesions. Ribs and thoracic spine appear intact throughout. Age-appropriate bony degenerative changes are seen. Thyroid gland demonstrates no significant abnormality. No axillary or supraclavicular adenopathy. Abdomen: Cholecystectomy clips are seen. A 2.4 cm left adrenal nodule is seen, which is similar to 2012. The visualized portions of the upper abdominal structures are otherwise unremarkable for imaging technique. IMPRESSION: Extensive pulmonary emboli can be seen, including a saddle embolism and proximal pulmonary emboli within the right main and left main pulmonary arteries. Several right-sided pulmonary nodules are seen that measure up to 6 mm. Please consider a dedicated noncontrast chest CT in 3-6 months for further evaluation. Incidental note is made of: AICD Left adrenal nodule, which is similar to 2012 and likely benign Cholecystectomy Note: No significant discrepancy from the preliminary report. Dictated by: Nacho Jaimes M.D. on 09/18/2020 at 8:37 Approved by: Nacho Jaimes M.D. on 09/18/2020 at 8:47
[2020-09-17 23:54] LABS: Creatine Kinase 40 U/L (30-135)
[2020-09-18] VITALS (16 sets, daily range): BP systolic 78–132; BP diastolic 55–81; PULSE 83–101; RESP 12–22; O2SAT 94–100
[2020-09-18 00:07] LABS: NT-proBNP (BNP-Adult 18+) 1490 pg/mL (<125)
[2020-09-18 00:47] LABS: COVID19 -Nasal RAPID Negative (Negative)
[2020-09-18] MEDS: HEPARIN DRIP 25,000 UNIT/500 ML IV.SOLN 24 UNIT IV (00:49)
[2020-09-18] MEDS: HEPARIN 5,000 UNIT/ML VIAL 7000 UNIT IV (00:49)
[2020-09-18 00:53] LABS: Reflexed Lactate in 2 Hours Y
[2020-09-18 01:17] LABS: Bilirubin Urine UA NEGATIVE (NEGATIVE); Color Urine UA YELLOW; Glucose Urine UA TRACE g/dL (Negative); Ketones Urine UA NEGATIVE (NEGATIVE); Leukocyte Esterase Urine UA 2+ (NEGATIVE); Nitrite Urine UA NEGATIVE (Negative); Occult Blood Urine UA 2+ (Negative); Protein Urine UA TRACE (Negative); Specific Gravity Urine UA 1.015 (1.000-1.035); Urobilinogen Urine UA 0.2 E.U./dL (0.2)
[2020-09-18 01:20] LABS: Appearance Urine UA Cloudy; pH Urine UA 5.5 (4.5-8.0)
[2020-09-18 01:26] LABS: Lactate 2HR (Lactic Acid Rflx) 1.8 mmol/L (0.7-2.1)
[2020-09-18 01:33] LABS: RBC Urine 5-10/HPF (0-5/HPF)
[2020-09-18 01:34] LABS: Bacteria Urine Few (2-10); Culture Indicated Urine Specimen Cultured; Squamous Epithelial Cell Urine 1-5 /HPF (0-5/HPF); WBC Urine >100/HPF (0-5/HPF)
[2020-09-18] MEDS: SODIUM CHLORIDE 0.9% 1,000 ML 125 ML IV (01:36)
[2020-09-18] MEDS: ONDANSETRON 4 MG/2 ML INJ IV (04:41)
--- NOTE | 2020-09-18 04:49 | PC.NURSE ---
Provider ordered TPA to be given in route to [facility] if patient codes.TPA sent with [facility]
== END 2020-09-18 04:57 | disposition short-term general hospital (02) ==
PROVIDERS: Emergency Provider Emergency Medicine; Family Provider Family Medicine; PCP Physician Assistant Medical
DX: I82.402 Acute embolism and thrombosis of unspecified deep veins of left lower extremity (principal); I26.92 Saddle embolus of pulmonary artery without acute cor pulmonale; I69.354 Hemiplegia and hemiparesis following cerebral infarction affecting left non-dominant side; I11.0 Hypertensive heart disease with heart failure; I50.9 Heart failure, unspecified; E11.621 Type 2 diabetes mellitus with foot ulcer; L97.529 Non-pressure chronic ulcer of other part of left foot with unspecified severity; Z95.810 Presence of automatic (implantable) cardiac defibrillator; R09.02 Hypoxemia; Z20.822 Contact with and (suspected) exposure to COVID-19
CPT/HCPCS: 36415; 71275; 73630; 80048; 81001; 82550; 83605; 83880; 84145; 84484; 85025; 85610; 85651; 85730; 86140; 87040; 87077; 87086; 87186; 87635; 93005; 93971; 96365; 96366; 96375; 99285; 99291; J1644; J2405; Q9967

== ENCOUNTER 2021-03-15 22:20 | Emergency (ER) | payer SELFPAY ==
--- NOTE | 2021-03-15 22:34 | DI.CT.S_ITS ---
PROCEDURE: CT HEAD/BRAIN WO CON INDICATIONS: Altered mental status and slurred speech TECHNIQUE: Noncontrast 4.5 mm thick angled axial sections acquired from the foramen magnum to the vertex, with coronal and sagittal reformats. For radiation dose reduction, the following was used: automated exposure control, adjustment of mA and/or kV according to patient size. COMPARISON: None. FINDINGS: Image quality: Excellent. CSF spaces: Basal cisterns are patent. No extra-axial fluid collections. The ventricles are symmetric in size and shape. Brain: No intracranial bleeds or masses. Chronic bilateral basal ganglia lacunar infarcts. There is cerebral volume loss for age, with resultant ventricular and sulcal prominence. There are periventricular and deep white matter chronic small vessel ischemic changes. There is intracranial internal carotid artery and vertebral artery atherosclerosis. Skull and face: Calvarium and visualized facial bones appear intact, without suspicious lesions. Sinuses: Polypoid mucosal thickening in the right maxillary sinus. The mastoids are clear. IMPRESSION: No acute intracranial disease process. Dictated by: Emily Ramirez MD, PhD on 03/16/2021 at 7:00 Approved by: Emily Ramirez MD, PhD on 03/16/2021 at 7:02
[2021-03-15 22:35] VITALS: BP 120/69; PULSE 61; RESP 15; O2SAT 93
--- NOTE | 2021-03-15 22:35 | ED_ITS ---
HPI - General Adult General Chief complaint: Neuro Symptoms/Deficit Stated complaint: thinks possible stroke Time Seen by Provider: 03/15/21 22:21 History of Present Illness HPI narrative: 55-year-old female who is known to myself. She has had history of DVT and pulmonary embolism. She is on anticoagulation. She has had a stroke in the past and has left-sided residual deficit. She is here with her for evaluation of a possible stroke. Per the patient in her 's report this evening she was at her normal state health when she was being helped going to the restroom and had some point during this event became altered. There was no problems with breathing. There is no shaking episodes. The patient has never had a seizure in the past. She did not fall. Did not hit her head but did going to slump over on the toilet. Unsure exactly how long the symptoms lasted but by the time she arrived here in the emergency department she was almost back to normal although her states that she was talking ?child like ?patient states she feels fine. Related Data Home Medications Medication Instructions Recorded Confirmed aspirin 81 mg chewable tablet 81 mg PO QDAY #0 11/15/17 08/22/20 furosemide 20 mg tablet 40 mg PO QDAY #0 11/15/17 08/22/20 lisinopril 10 mg tablet 5 mg PO BID #0 11/15/17 08/22/20 Previous Rx's Medication Instructions Recorded nitrofurantoin 100 mg PO Q12H 5 Days #10 cap 03/16/21 monohydrate/macrocrystals 100 mg capsule (Macrobid) Allergies Allergy/AdvReac Type Severity Reaction Status Date / Time No Known Drug Allergies Allergy Verified 03/15/21 22:37 Review of Systems Constitutional Constitutional: Denies fever(s) and Denies headache(s) Eyes Eyes: Denies change in vision ENT Ears, Nose, Mouth, and Throat: Denies headache(s) Cardiovascular Cardiovascular: Denies chest pain and Denies dyspnea Respiratory Respiratory: Denies dyspnea Gastrointestinal Gastrointestinal: Denies abdominal pain, Denies nausea and Denies vomiting Genitourinary Genitourinary: Reports system reviewed and no additional complaints, except as documented Musculoskeletal Musculoskeletal: Reports system reviewed and no additional complaints, except as documented Integumentary/Breasts Skin/Breast: Reports system reviewed and no additional complaints, except as documented Neurologic Neurologic: Reports abnormal speech, Reports behavioral changes, Reports confusion and Denies headache(s) Psychiatric Psychiatric: Reports behavioral changes and Reports confusion Endocrine Endocrine: Reports system reviewed and no additional complaints, except as documented Hematologic/Lymphatic On Anticoagulants: Yes Allergic/Immunologic Allergic/Immunologic: Reports system reviewed and no additional complaints, except as documented 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 CVA (cerebral vascular accident) Diabetes mellitus History of ventricular fibrillation 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 Neuropathy Urinary incontinence Surgical History History of colonoscopy History of permanent cardiac pacemaker placement Family History Mother MRSA (methicillin resistant Staphylococcus aureus) Cardiovascular disease Stroke Myocardial infarction Father Cardiovascular disease Myocardial infarction Social History household members: spouse and children Smoking Status: Never smoker alcohol intake: former Smoking Status: Never smoker alcohol intake frequency: 0-2 drinks per day Substance Use Type: does not use Exam Initial Vital Signs Initial Vital Signs: Vital Signs Pulse Rate 61 03/15/21 22:35 Respiratory Rate 15 03/15/21 22:35 Blood Pressure 120/69 03/15/21 22:35 Pulse Oximetry 93 03/15/21 22:35 Const General: cooperative and comfortable HENMT Head: normal to inspection and normocephalic Eyes General: appearance normal, both eyes and all related structures Resp Effort & Inspection: normal respiratory effort Auscultation: clear to auscultation bilaterally Cardio Rate: regular rate Rhythm: regular rhythm GI Inspection: normal to inspection Skin General: no rashes or lesions noted Neuro General: patient alert, patient awake and patient oriented x3 Other: Patient does have left-sided deficits from prior stroke that are unchanged. Full range of motion of right upper lower extremities and no new neurologic issues in these extremities. Extrem General: capillary refill normal Psych Appearance: grossly normal and well kempt Scores GCS Oswaldo coma scale eye opening: Spontaneous Rohwer coma scale verbal response: Orientated Oswaldo coma scale motor response: Obey commands Oswaldo coma scale total score: 15 Course Orders Ordered: ED Orders 03/15/21 22:34 CT head/brain wo con Stat EKG-12 Lead Stat 03/15/21 22:40 Complete Blood Count AUTO DIFF Stat Comprehensive Metabolic Panel Stat Ethanol (ETOH) Stat Lipase Stat Partial Thromboplastin Time Stat Prothrombin Time INR Stat 03/15/21 23:21 Urine Culture Stat Urine Microscopic Stat Discontinued Medications Sodium Chloride (Normal Saline 0.9%) 1,000 mls @ 125 mls/hr IV CONT ERIKA Last Infusion: 03/16/21 00:34 Dose: 0 mls/hr Documented by: Admin: 03/15/21 22:51 Dose: 125 mls/hr Documented by: GORAN Nitrofurantoin Macrocrystals (Nitrofurantoin Er 100 Mg Capsule) 100 mg PO NOW ONE Stop: 03/16/21 00:04 Last Admin: 03/16/21 00:08 Dose: 100 mg Documented by: GORAN Vital Signs Vital signs: Vital Signs - 8 hr 03/15/21 22:35 03/15/21 22:37 03/15/21 22:39 Temperature 97.8 F Pulse Rate 61 62 Respiratory Rate 15 20 Blood Pressure 120/69 120/69 Pulse Oximetry 93 93 03/15/21 22:50 03/15/21 23:00 03/16/21 00:00 Temperature Pulse Rate 60 61 60 Respiratory Rate 18 15 20 Blood Pressure 110/63 103/61 121/70 Pulse Oximetry 94 92 97 Medical Decision Making Medical Records Medical records reviewed: Yes I reviewed the patient's medical records. Lab Data Lab results reviewed: Yes I reviewed the patient's lab results. Result diagrams: 03/15/21 22:40 03/15/21 22:40 Labs: Lab Results 03/15/21 03/15/21 03/15/21 Range/Units 22:40 22:40 22:40 WBC 6.0 (4.5-11.0) X10^3/uL RBC 4.52 (4.0-5.2) X10^6/uL Hgb 13.0 (12.0-16.0) g/dL Hct 39.4 (36-46) % MCV 87.3 (80-100) fL MCH 28.7 (26-34) PG MCHC 32.9 (30-36) % RDW 13.4 (11.6-14.8) % Plt Count 228 (150-400) X10^3/uL Neut % (Auto) 72.3 (50-75) % Lymph % (Auto) 17.5 L (25-40) % [place] % (Auto) 6.4 (3-14) % Eos % (Auto) 2.9 (2-4) % Baso % (Auto) 0.9 (0-2) % Neut # (Auto) 4400 (2007-5469) /uL Lymph # (Auto) 1100 (3893-5318) /uL [place] # (Auto) 400 (0-900) /uL Eos # (Auto) 200 (0-450) /uL Baso # (Auto) 100 (0-100) /uL PT 12.3 (10.1-12.7) SECONDS INR 1.1 (0.9-1.3) APTT 33 (26.4-36.2) SECONDS Sodium 139 (137-145) mmol/L Potassium 3.9 (3.4-5.1) mmol/L Chloride 106 (98-107) mmol/L Carbon Dioxide 24 (22-32) mmol/L BUN 20 H (7-17) mg/dL Creatinine 0.53 (0.52-1.04) mg/dL Estimated GFR > 60.0 (>60) mL/min BUN/Creatinine Ratio 37.7 H (6-22) Glucose 229 H (70-100) mg/dL Calcium 9.7 (8.4-10.2) mg/dL Total Bilirubin 0.4 (0.2-1.3) mg/dL AST 19 (14-36) IU/L ALT 16 (<35) IU/L Alkaline Phosphatase 96 (38-126) U/L Total Protein 7.3 (6.3-8.2) g/dL Albumin 3.7 (3.5-5.0) g/dL Globulin 3.6 (1.7-4.1) g/dL Albumin/Globulin Ratio 1.0 (1.0-2.8) Lipase 20 L (23-300) U/L Urine RBC (0-5/HPF) Urine WBC (0-5/HPF) Ur Squamous Epith Cells (0-5/HPF) Urine Bacteria (None) Ur Culture Indicated? Ethyl Alcohol < 10 ( - 10) mg/dL 03/15/21 Range/Units 23:21 WBC (4.5-11.0) X10^3/uL RBC (4.0-5.2) X10^6/uL Hgb (12.0-16.0) g/dL Hct (36-46) % MCV (80-100) fL MCH (26-34) PG MCHC (30-36) % RDW (11.6-14.8) % Plt Count (150-400) X10^3/uL Neut % (Auto) (50-75) % Lymph % (Auto) (25-40) % [place] % (Auto) (3-14) % Eos % (Auto) (2-4) % Baso % (Auto) (0-2) % Neut # (Auto) (5704-6632) /uL Lymph # (Auto) (5514-7333) /uL [place] # (Auto) (0-900) /uL Eos # (Auto) (0-450) /uL Baso # (Auto) (0-100) /uL PT (10.1-12.7) SECONDS INR (0.9-1.3) APTT (26.4-36.2) SECONDS Sodium (137-145) mmol/L Potassium (3.4-5.1) mmol/L Chloride (98-107) mmol/L Carbon Dioxide (22-32) mmol/L BUN (7-17) mg/dL Creatinine (0.52-1.04) mg/dL Estimated GFR (>60) mL/min BUN/Creatinine Ratio (6-22) Glucose (70-100) mg/dL Calcium (8.4-10.2) mg/dL Total Bilirubin (0.2-1.3) mg/dL AST (14-36) IU/L ALT (<35) IU/L Alkaline Phosphatase (38-126) U/L Total Protein (6.3-8.2) g/dL Albumin (3.5-5.0) g/dL Globulin (1.7-4.1) g/dL Albumin/Globulin Ratio (1.0-2.8) Lipase (23-300) U/L Urine RBC None seen (0-5/HPF) Urine WBC 30-100/hpf H (0-5/HPF) Ur Squamous Epith Cells 1-5 /hpf (0-5/HPF) Urine Bacteria Many (>30) H (None) Ur Culture Indicated? Specimen cultured Ethyl Alcohol ( - 10) mg/dL Point of Care Testing Glucose POC 213 Urine Dip Bedside Urine Glucose Negative Bedside Urine Bilirubin - Negative Bedside Urine Ketone - Negative Urine Specific [place] 1.015 Bedside Urine Occult Blood +/- Bedside Urine pH 6.0 Bedside Urine Protein - Negative Bedside Urine Urobilinogen - Negative Bedside Urine Nitrite + Positive Bedside Urine Leukocytes ++ 125 Esterase Point of care testing: Point of Care Testing Glucose POC 213 Urine Dip Bedside Urine Glucose Negative Bedside Urine Bilirubin - Negative Bedside Urine Ketone - Negative Urine Specific [place] 1.015 Bedside Urine Occult Blood +/- Bedside Urine pH 6.0 Bedside Urine Protein - Negative Bedside Urine Urobilinogen - Negative Bedside Urine Nitrite + Positive Bedside Urine Leukocytes ++ [address] scan - head: Radiologist's Impression: No acute intracranial bleed Chronic changes Nonspecific mild right maxillary sinus disease ECG Data Attestation: I personally reviewed and interpreted this ECG as follows: Interpretation: Paced rhythm Rate is 62 MDM Narrative Medical decision making narrative: Patient does not have a focal neurologic exam. She is not a candidate for tPA given her current use of anticoagulation. I do not feel that the symptoms around the emergency department today was a CVA. Field is unlikely seizure given the presentation as well. It does some more like it was a vagal reaction although we cannot be 100% sure this. Her labs are unremarkable. I did discuss this with both the patient and her . I feel that we can hold on further workup for now. She was given return precautions and follow-up instructions. Patient expressed understanding and agreement. Discharge Plan Departure Patient Disposition: Home Clinical Impression: UTI (urinary tract infection), Syncope Instructions: DI for Urinary Tract Infection (UTI) Activity Restrictions/Additional Instructions: Your workup here in the emergency department was positive for what appears to be urinary tract infection. You were given your 1st dose of antibiotics here in th e emergency department we sent a prescription to [facility] in [place]. There was a urine culture pending at the time of your discharge we will contact you if we need to change any antibiotics. Continue the rest of your medications as directed. Return to the emergency department for any new or worsening symptoms Prescriptions: New nitrofurantoin monohyd/m-cryst [Macrobid] 100 mg capsule 100 mg PO Q12H 5 Days Qty: 10 RF: 0 No Action lisinopril 10 MG tablet 5 mg PO BID Qty: 0 RF: 0 aspirin 81 MG tablet,chewable 81 mg PO QDAY Qty: 0 RF: 0 furosemide 20 MG tablet 40 mg PO QDAY Qty: 0 RF: 0 Referrals: Donna Redman PA-C [Primary Care Provider] -
[2021-03-15 22:37] VITALS: BP 120/69; PULSE 62; RESP 20; O2SAT 93; BMI 29.6
[2021-03-15 22:39] VITALS: TEMP 36.6
[2021-03-15 22:48] LABS: Add Manual Diff / Slide Review NO; Basophils Absolute Auto 100 /uL (0-100); Basophils Percent Auto 0.9 % (0-2); Eosinophils Absolute Auto 200 /uL (0-450); Eosinophils Percent Auto 2.9 % (2-4); Hematocrit 39.4 % (36-46); Lymphocytes Absolute Auto 1100 /uL (1100-4500); Lymphocytes Percent Auto 17.5 % (25-40); Mean Corpuscular HGB Conc 32.9 % (30-36); Mean Corpuscular Hemoglobin 28.7 PG (26-34); Mean Corpuscular Volume 87.3 fL (80-100); Monocytes Absolute Auto 400 /uL (0-900); Monocytes Percent Auto 6.4 % (3-14); Neutrophils Absolute Auto 4400 /uL (1500-7000); Neutrophils Percent Auto 72.3 % (50-75); Platelet Count 228 X10^3/uL (150-400); Red Blood Cell Count 4.52 X10^6/uL (4.0-5.2); Red Cell Distribution Width 13.4 % (11.6-14.8)
[2021-03-15 22:50] VITALS: BP 110/63; PULSE 60; RESP 18; O2SAT 94
[2021-03-15] MEDS: SODIUM CHLORIDE 0.9% 1,000 ML 125 ML IV (22:51)
[2021-03-15 22:55] LABS: INR 1.1 (0.9-1.3); Prothrombin Time 12.3 SECONDS (10.1-12.7)
[2021-03-15 22:58] LABS: PTT Partial Thromboplastin Tim 33 SECONDS (26.4-36.2)
[2021-03-15 23:00] VITALS: BP 103/61; PULSE 61; RESP 15; O2SAT 92
[2021-03-15 23:00] LABS: Alanine Aminotransferase 16 IU/L (<35); Albumin 3.7 g/dL (3.5-5.0); Alkaline Phosphatase 96 U/L (38-126); Aspartate Aminotransferase 19 IU/L (14-36); BUN Creatinine Ratio 37.7 (6-22); Bilirubin Total 0.4 mg/dL (0.2-1.3); Blood Urea Nitrogen 20 mg/dL (7-17); Calcium 9.7 mg/dL (8.4-10.2); Carbon Dioxide 24 mmol/L (22-32); Chloride 106 mmol/L (98-107); Estimated Glomerular Filt Rate > 60.0 mL/min (>60); Ethanol (ETOH) < 10 mg/dL; Globulin 3.6 g/dL (1.7-4.1); Glucose 229 mg/dL (70-100); HEMOLYSIS < 15 (0-50); Lipase 20 U/L (23-300); Potassium 3.9 mmol/L (3.4-5.1); Sodium 139 mmol/L (137-145); Total Protein 7.3 g/dL (6.3-8.2)
--- NOTE | 2021-03-15 23:07 | PC.NURSE ---
Pt has history of stroke, left sided upper/lower extremity without movement at baseline. Per , pt is back to baseline upon arrival to ED. States she is talking more child-like right now though. Speech is clear.
[2021-03-15 23:31] LABS: RBC Urine None Seen (0-5/HPF)
[2021-03-15 23:37] LABS: Bacteria Urine Many (>30); Culture Indicated Urine Specimen Cultured; Squamous Epithelial Cell Urine 1-5 /HPF (0-5/HPF); WBC Urine 30-100/HPF (0-5/HPF)
[2021-03-16] VITALS: BP 121/70; PULSE 60; RESP 20; O2SAT 97
[2021-03-16] MEDS: NITROFURANTOIN ER 100 MG CAPSULE PO (00:08)
== END 2021-03-16 00:37 | disposition home or self-care (01) ==
PROVIDERS: Emergency Provider Emergency Medicine; Family Provider Family Medicine; PCP Physician Assistant Medical
DX: R55 Syncope and collapse (principal); N39.0 Urinary tract infection, site not specified
CPT/HCPCS: 36415; 70450; 80053; 80320; 81003; 81015; 82962; 83690; 85025; 85610; 85730; 87077; 87086; 87186; 93005; 96360; 96361; 99284; 99285

== ENCOUNTER 2021-04-25 16:51 | Emergency (ER) | payer SELFPAY ==
[2021-04-25] VITALS (8 sets, daily range): BP systolic 150–160; BP diastolic 83–100; PULSE 85–94; RESP 18; O2SAT 94–97
--- NOTE | 2021-04-25 16:55 | DI.RAD.S_ITS ---
PROCEDURE: XR CHEST 1V INDICATIONS: chest pain TECHNIQUE: One view of the chest was acquired. COMPARISON: [facility], CT, CT ANGIO CHEST PE PROTOCOL, 09/17/2020, 23:46. [facility], CR, XR CHEST 1V, 07/21/2020, 1:35. FINDINGS: Surgical changes and devices: Left pacemaker. Lungs and pleura: Mild bilateral hazy airspace opacity. No pleural effusions or pneumothorax. Mediastinum: Mediastinal contours appear normal. Heart size is normal. Bones and chest wall: No suspicious bony lesions. Overlying soft tissues appear unremarkable. IMPRESSION: Mild bibasilar hazy opacity. This could be due to infectious/inflammatory etiology, atelectasis, or pulmonary vasculature engorgement. Dictated by: Kb Rincon M.D. on 04/25/2021 at 18:36 Approved by: Kb Rincon M.D. on 04/25/2021 at 18:38
[2021-04-25 17:34] LABS: Add Manual Diff / Slide Review NO; Basophils Absolute Auto 100 /uL (0-100); Basophils Percent Auto 1.4 % (0-2); Eosinophils Absolute Auto 200 /uL (0-450); Eosinophils Percent Auto 3.3 % (2-4); Hematocrit 41.7 % (36-46); Hemoglobin 13.8 g/dL (12.0-16.0); Lymphocytes Absolute Auto 1500 /uL (1100-4500); Lymphocytes Percent Auto 28.2 % (25-40); Mean Corpuscular Hemoglobin 28.7 PG (26-34); Mean Corpuscular Volume 86.9 fL (80-100); Monocytes Absolute Auto 400 /uL (0-900); Monocytes Percent Auto 7.3 % (3-14); Neutrophils Absolute Auto 3200 /uL (1500-7000); Neutrophils Percent Auto 59.8 % (50-75); Platelet Count 206 X10^3/uL (150-400); Red Cell Distribution Width 13.8 % (11.6-14.8); White Blood Cell Count 5.4 X10^3/uL (4.5-11.0)
[2021-04-25 17:40] LABS: Alanine Aminotransferase 23 IU/L (<35); Albumin Globulin Ratio 1.1 (1.0-2.8); Alkaline Phosphatase 105 U/L (38-126); Aspartate Aminotransferase 25 IU/L (14-36); BUN Creatinine Ratio 15.8 (6-22); Bilirubin Total 0.4 mg/dL (0.2-1.3); Blood Urea Nitrogen 9 mg/dL (7-17); Calcium 9.4 mg/dL (8.4-10.2); Carbon Dioxide 25 mmol/L (22-32); Chloride 106 mmol/L (98-107); Creatine Kinase 32 U/L (30-135); Estimated Glomerular Filt Rate > 60.0 mL/min (>60); Globulin 3.5 g/dL (1.7-4.1); Glucose 164 mg/dL (70-100); HEMOLYSIS 42 (0-50); Lipase 73 U/L (23-300); Potassium 4.2 mmol/L (3.4-5.1); Sodium 141 mmol/L (137-145); Total Protein 7.5 g/dL (6.3-8.2)
[2021-04-25 17:52] LABS: Troponin I < 0.012 ng/mL (0.01-0.034)
--- NOTE | 2021-04-25 19:19 | PC.NURSE ---
2 person assist to restroom
--- NOTE | 2021-04-25 21:31 | ED_ITS ---
HPI - Chest Pain General Chief Complaint: Chest Pain Stated Complaint: CHEST PAIN Time Seen by Provider: 04/25/21 21:11 Source: patient Mode of arrival: Wheelchair Limitations: no limitations History of Present Illness HPI narrative: 55-year-old female nonsmoker with history of diabetes, pacemaker, hypertension, presents with her in the chief complaint of an episode of left-sided chest pain that started while at rest prior to arrival. She states the last about 30 minutes prior to going away and was not associated with other symptoms such as dizziness, weakness or lightheadedness. She has had no trouble breathing, nausea, vomiting or diarrhea. She states it started while at rest and seemed to be improved when she pushed on her left side of chest with her right hand. She denies other symptoms such as fever chills though she has been a bit tired for the past week or so. Related Data Home Medications Medication Instructions Recorded Confirmed aspirin 81 mg chewable tablet 81 mg PO QDAY #0 11/15/17 08/22/20 furosemide 20 mg tablet 40 mg PO QDAY #0 11/15/17 08/22/20 lisinopril 10 mg tablet 5 mg PO BID #0 11/15/17 08/22/20 Allergies Allergy/AdvReac Type Severity Reaction Status Date / Time No Known Drug Allergies Allergy Verified 03/15/21 22:37 Review of Systems Review of Systems Narrative: GENERAL: Denies chills, fatigue, malaise, fever, sweats. HEENT: Denies sinus pain, ear pain, sore throat, difficulty swallowing, dizziness. RESPIRATORY: Denies dyspnea, cough, wheezing, hemoptysis, sputum. CARDIOVASCULAR: See HPI GASTROINTESTINAL: Denies nausea, vomiting, abdominal pain, diarrhea, constipation, melena. : Denies dysuria, frequency, incontinence, hematuria, urinary retention. MUSCULOSKELETAL: denies weakness, joint pain, or bony pain SKIN: Denies rash, skin lesions, or other NEUROLOGIC: Denies weakness, headache, numbness, change in speech, confusion, seizures, incoordination. PSYCHIATRIC: No concerning psychosocial issues. 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 2 diabetes diamond itus Neuropathy Urinary incontinence Surgical History History of colonoscopy History of permanent cardiac pacemaker placement Family History Mother MRSA (methicillin resistant Staphylococcus aureus) Cardiovascular disease Stroke Myocardial infarction Father Cardiovascular disease Myocardial infarction Social History household members: spouse and children Smoking Status: Never smoker alcohol intake: former Smoking Status: Never smoker alcohol intake frequency: 0-2 drinks per day Substance Use Type: does not use Exam Narrative Exam Narrative: GENERAL: [55] year old patient appears stated age. Well-d eveloped patient, in mild distress. HEAD: Atraumatic. Normocephalic. EYES: Pupils equal round and reactive. Extraocular motions intact. No scleral icterus. No injection or drainage. ENT: Nose without bleeding, purulent drainage. Throat without erythema, tonsillar hypertrophy or exudate. Airway patent. NECK: Trachea midline. Non tender CARDIOVASCULAR: Regular rate and rhythm without murmurs, gallops, or rubs. RESPIRATORY: Clear to auscultation. Breath sounds equal bilaterally. No wheezes, rales, or rhonchi. GASTROINTESTINAL: Abdomen soft, non-tender, nondistended. EXTREMITIES: No edema or joint tenderness. BACK: Nontender without deformity or crepitance. No flank tenderness. NEURO: AOx3. SKIN: No rash or erythema of visible areas Initial Vital Signs Initial Vital Signs: Vital Signs Pulse Rate 91 H 04/25/21 21:10 Respiratory Rate 18 04/25/21 21:10 Blood Pressure 155/95 H 04/25/21 21:10 Pulse Oximetry 95 04/25/21 21:10 Course Orders Ordered: ED Orders 04/25/21 22:20 Troponin I Stat Vital Signs Vital signs: Vital Signs - 8 hr 04/25/21 21:10 04/25/21 21:11 04/25/21 21:30 Pulse Rate 91 H 91 H 89 Respiratory Rate 18 Blood Pressure 155/95 H 155/95 H Pulse Oximetry 95 94 95 04/25/21 22:00 04/25/21 22:20 04/25/21 22:30 Pulse Rate 93 H 90 92 H Respiratory Rate Blood Pressure 152/92 H 160/100 H Pulse Oximetry 97 95 97 04/25/21 23:00 04/25/21 23:30 Pulse Rate 94 H 85 Respiratory Rate Blood Pressure 155/95 H 150/83 H Pulse Oximetry 96 97 MDM - Chest Pain Lab Data Result diagrams: 04/25/21 17:15 04/25/21 17:15 Labs: Lab Results 04/25/21 04/25/21 04/25/21 Range/Units 17:15 17:15 22:20 WBC 5.4 (4.5-11.0) X10^3/uL RBC 4.80 (4.0-5.2) X10^6/uL Hgb 13.8 (12.0-16.0) g/dL Hct 41.7 (36-46) % MCV 86.9 (80-100) fL MCH 28.7 (26-34) PG MCHC 33.0 (30-36) % RDW 13.8 (11.6-14.8) % Plt Count 206 (150-400) X10^3/uL Neut % (Auto) 59.8 (50-75) % Lymph % (Auto) 28.2 (25-40) % [place] % (Auto) 7.3 (3-14) % Eos % (Auto) 3.3 (2-4) % Baso % (Auto) 1.4 (0-2) % Neut # (Auto) 3200 (4886-9868) /uL Lymph # (Auto) 1500 (7199-3618) /uL [place] # (Auto) 400 (0-900) /uL Eos # (Auto) 200 (0-450) /uL Baso # (Auto) 100 (0-100) /uL Sodium 141 (137-145) mmol/L Potassium 4.2 (3.4-5.1) mmol/L Chloride 106 (98-107) mmol/L Carbon Dioxide 25 (22-32) mmol/L BUN 9 (7-17) mg/dL Creatinine 0.57 (0.52-1.04) mg/dL Estimated GFR > 60.0 (>60) mL/min BUN/Creatinine Ratio 15.8 (6-22) Glucose 164 H (70-100) mg/dL Calcium 9.4 (8.4-10.2) mg/dL Total Bilirubin 0.4 (0.2-1.3) mg/dL AST 25 (14-36) IU/L ALT 23 (<35) IU/L Alkaline Phosphatase 105 (38-126) U/L Total Creatine Kinase 32 (30-135) U/L CK-MB (CK-2) TNP CK-MB (CK-2) Rel Index TNP Troponin I < 0.012 0.013 (0.01-0.034) ng/mL Total Protein 7.5 (6.3-8.2) g/dL Albumin 4.0 (3.5-5.0) g/dL Globulin 3.5 (1.7-4.1) g/dL Albumin/Globulin Ratio 1.1 (1.0-2.8) Lipase 73 (23-300) U/L Imaging Data Chest x-ray: Radiologist's Impression: Kimmy Gray Abraham 55 F [address] [id number] ReportSigned Patient: Kimmy Gray AMR#: [id number]: 1965Acct:[id number]/Sex: 55 / FDate of Service: 04/25/21Loc: EDAccession Number: [id number] Procedure: XR chest 1V Ordering Provider: Hector Oneill D.O. PROCEDURE: XR CHEST 1V INDICATIONS: chest pain TECHNIQUE: One view of the chest was acquired. COMPARISON: [facility], CT, CT ANGIO CHEST PE PROTOCOL, 09/17/2020, 23:46. [facility], CR, XR CHEST 1V, 07/21/2020, 1:35. FINDINGS: Surgical changes and devices: Left pacemaker. Lungs and pleura: Mild bilateral hazy airspace opacity. No pleural effusions or pneumothorax. Mediastinum: Mediastinal contours appear normal. Heart size is normal. Bones and chest wall: No suspicious bony lesions. Overlying soft tissues appear unremarkable. IMPRESSION: Mild bibasilar hazy opacity. This could be due to infectious/inflammatory etiology, atelectasis, or pulmonary vasculature engorgement. Dictated by: Kb Rincon M.D. on 04/25/2021 at 18:36 ECG Data Interpretation: Atrial sensed, ventricular paced rhythm, rate 89, no significant abnormalities consistent with elements seen in Sgarbossa's criteria MDM Narrative Medical decision making narrative: Multiple causes of chest pain considered including [place], PE, pneumothorax, pneumonia, aortic dissection, and pleurisy. Patient reports no radiation, no diaphoresis, no provocation with exertion, and no vomiting Patient's symptoms improved over duration of stay with above-stated therapies. Findings and discharge diagnosis discussed with patient/family followed by verbalization of understanding Return precautions discussed with patient/family whom verbalize understanding. Discharge Plan Departure Patient Disposition: Home Clinical Impression: Atypical chest pain Instructions: DI for Atypical Chest Pain Activity Restrictions/Additional Instructions: *You have been diagnosed with [atypical chest pain. Physical exam and labs as well as EKG are very reassuring today] *What to do: *Please continue to take your regular medications as directed. [ ] New medication prescriptions sent to your pharmacy: [ ] [ ] New medication written as a paper prescription [x ] No new medications given *Please follow up with your primary care provider in 2-3 days, call for an appointment. Let them know you were seen in the Emergency Department and that we ask that you be seen in follow up. We will electronically transmit a record of today's note if your PCP is in our system *If you do not have a primary care provider please contact the [facility] Resource line at [phone]. They will ask some questions about your medical history and help get you set up with a doctor in the community. *Return to Emergency Department if you should have any new, worsening or concerning symptoms, such as [fever greater than 101 F, shaking chills, worsening pain, persistent vomiting or other bothersome symptoms] Prescriptions: No Action lisinopril 10 MG tablet 5 mg PO BID Qty: 0 RF: 0 aspirin 81 MG tablet,chewable 81 mg PO QDAY Qty: 0 RF: 0 furosemide 20 MG tablet 40 mg PO QDAY Qty: 0 RF: 0 Referrals: Donna Redman PA-C [Primary Care Provider] -
[2021-04-25 22:52] LABS: Troponin I 0.013 ng/mL (0.01-0.034)
== END 2021-04-25 23:48 | disposition home or self-care (01) ==
PROVIDERS: Emergency Medicine; Emergency Provider Emergency Medicine; Family Provider Family Medicine; PCP Physician Assistant Medical
DX: R07.89 Other chest pain (principal)
CPT/HCPCS: 36415; 71045; 80053; 82550; 83690; 84484; 85025; 93005; 99283; 99284

== ENCOUNTER 2021-05-09 19:03 | Emergency (ER) | payer SELFPAY ==
[2021-05-09] VITALS (13 sets, daily range): BP systolic 102–161; BP diastolic 67–88; PULSE 76–91; RESP 15–22; TEMP 36.9; O2SAT 96–99
[2021-05-09] MEDS: SODIUM CHLORIDE 0.9% 1,000 ML 150 ML IV (19:57)
[2021-05-09 20:02] LABS: Add Manual Diff / Slide Review NO; Basophils Absolute Auto 0 /uL (0-100); Basophils Percent Auto 0.8 % (0-2); Eosinophils Absolute Auto 100 /uL (0-450); Eosinophils Percent Auto 2.4 % (2-4); Hematocrit 43.1 % (36-46); Hemoglobin 14.2 g/dL (12.0-16.0); Lymphocytes Absolute Auto 1300 /uL (1100-4500); Lymphocytes Percent Auto 21.6 % (25-40); Mean Corpuscular HGB Conc 32.9 % (30-36); Mean Corpuscular Hemoglobin 28.6 PG (26-34); Mean Corpuscular Volume 87.1 fL (80-100); Monocytes Absolute Auto 700 /uL (0-900); Neutrophils Absolute Auto 3800 /uL (1500-7000); Neutrophils Percent Auto 64.2 % (50-75); Platelet Count 200 X10^3/uL (150-400); Red Blood Cell Count 4.95 X10^6/uL (4.0-5.2); Red Cell Distribution Width 13.9 % (11.6-14.8)
[2021-05-09 20:04] LABS: RBC Urine None Seen (0-5/HPF)
[2021-05-09 20:05] LABS: Appearance Urine UA CLEAR; Bilirubin Urine UA NEGATIVE (NEGATIVE); Color Urine UA YELLOW; Glucose Urine UA TRACE g/dL (Negative); Ketones Urine UA NEGATIVE (NEGATIVE); Leukocyte Esterase Urine UA 1+ (NEGATIVE); Nitrite Urine UA POSITIVE (Negative); Occult Blood Urine UA NEGATIVE (Negative); Protein Urine UA NEGATIVE (Negative); Specific Gravity Urine UA <=1.005 (1.000-1.035); Urobilinogen Urine UA 0.2 E.U./dL (0.2)
[2021-05-09 20:11] LABS: Alanine Aminotransferase 15 IU/L (<35); Albumin 4.2 g/dL (3.5-5.0); Albumin Globulin Ratio 1.1 (1.0-2.8); Alkaline Phosphatase 96 U/L (38-126); Aspartate Aminotransferase 19 IU/L (14-36); Bilirubin Total 0.6 mg/dL (0.2-1.3); Blood Urea Nitrogen 27 mg/dL (7-17); Calcium 9.8 mg/dL (8.4-10.2); Carbon Dioxide 25 mmol/L (22-32); Chloride 103 mmol/L (98-107); Creatine Kinase 28 U/L (30-135); Estimated Glomerular Filt Rate > 60.0 mL/min (>60); Globulin 3.7 g/dL (1.7-4.1); Glucose 233 mg/dL (70-100); HEMOLYSIS 31 (0-50); Potassium 3.8 mmol/L (3.4-5.1); Sodium 137 mmol/L (137-145); Total Protein 7.9 g/dL (6.3-8.2)
[2021-05-09 20:23] LABS: Troponin I < 0.012 ng/mL (0.01-0.034)
--- NOTE | 2021-05-09 20:28 | DI.CT.S_ITS ---
PROCEDURE: CT ANGIO HEAD AND NECK INDICATIONS: Syncope TECHNIQUE: Pre-contrast 4.5 mm thick sections acquired from the foramen magnum to the vertex. After the administration of intravenous contrast, 1 mm thick sections acquired from the aortic arch through the [place]. Post-contrast 4.5 mm thick sections then re-acquired from the foramen magnum to the vertex. 3-dimensional dbasmdi-twckcrgfr-zvabtvvqiv (MIP) and/or volume rendering reformats were acquired of the central intracranial vasculature and neck separately. COMPARISON: [facility], CT, CT ANGIO HEAD AND NECK, 08/22/2020, 19:37. FINDINGS: Image quality: Excellent. BRAIN: CSF spaces: Ventricles are normal in size and shape. Basal cisterns are patent. No extra-axial fluid collections. Brain: No midline shift. No intracranial bleeds or masses. The left centrum semiovale demonstrates asymmetric hypodensity compared to the right. There is a remote lacunar infarct in the left basal ganglia. Rodriguez-white matter interface appears intact. Skull and face: Calvarium and facial bones appear intact, without suspicious lesions. Orbits appear normal. Sinuses: Sinuses and mastoids are clear. HEAD CT ANGIOGRAPHY: Anterior circulation: Intracranial internal carotid arteries have severe atherosclerotic disease causing moderate to severe stenosis bilaterally. The flow within the paired anterior cerebral arteries is normal and symmetric. The flow within the middle cerebral arteries is normal and symmetric. The anterior communicating artery is seen. No aneurysms are seen. Posterior circulation: The left vertebral artery is dominant with a diminutive right vertebral artery. The intracranial portion of the left vertebral artery has atherosclerotic disease causing moderate to severe stenosis which appears similar to the prior CT on 08/22/2020. The basilar artery and vertebral arteries are patent. NECK CT ANGIOGRAPHY: Carotid system: The great vessels demonstrate a conventional anatomy as they arise from the aortic arch. The origins of the common carotid arteries appear patent. The common carotid arteries demonstrate normal caliber and courses. The bifurcation regions are both widely patent. The internal carotid arteries demonstrate normal calibers and courses. Posterior circulation: The origins of the vertebral arteries both appear widely patent. The more superior extracranial portions of both vertebral arteries also demonstrate normal courses and calibers. They join to form a normal appearing basilar artery. Soft tissues: Visualized neck soft tissues demonstrate no suspicious abnormalities. Bones: No suspicious bony lesions. Visualized cervical spine appears normally aligned. IMPRESSION: 1. No acute intracranial abnormality. 2. Patent cervical carotid arteries and cervical portions of the vertebral arteries. 3. The intracranial vertebral artery on the left is dominant with heavy atherosclerotic disease causing moderate to severe stenosis, unchanged. The right vertebral artery is non dominant. 4. The intracranial internal carotid arteries have heavy atherosclerotic plaque causing moderate to severe stenosis. 5. As described above in #3 and #4, both intracranial internal carotid arteries and the left vertebral artery have atherosclerotic disease and the right vertebral artery is non dominant. Therefore intracranial flow is likely chronically restricted, however no acute thrombus is identified. 6. Remote lacunar infarct in the left basal ganglia. 7. Hypodensity in the left centrum semiovale, can not exclude acute ischemia. Any quantitative measurements of stenosis were performed using NASCET criteria. Dictated by: Emmett Teran M.D. on 05/09/2021 at 21:34 Approved by: Emmett Teran M.D. on 05/09/2021 at 21:53
--- NOTE | 2021-05-09 20:30 | DI.CT.S_ITS ---
PROCEDURE: CT HEAD/BRAIN WO CON INDICATIONS: Syncope TECHNIQUE: Noncontrast 4.5 mm thick angled axial sections acquired from the foramen magnum to the vertex, with coronal and sagittal reformats. For radiation dose reduction, the following was used: automated exposure control, adjustment of mA and/or kV according to patient size. COMPARISON: [facility], CT, CT HEAD/BRAIN WO CON, 03/15/2021, 22:40. FINDINGS: Image quality: Excellent. CSF spaces: Basal cisterns are patent. No extra-axial fluid collections. Ventricles are normal in size and shape. Brain: No midline shift. No intracranial masses or hemorrhage. Subcortical and periventricular white matter hypodensities are consistent with microvascular ischemic disease. Skull and face: Calvarium and visualized facial bones are intact, without suspicious lesions. Intracranial vasculature has atherosclerotic calcifications. Sinuses: Visualized sinuses and mastoids are clear. IMPRESSION: 1. No acute intracranial abnormality. 2. Chronic basal ganglia lacunar infarcts bilaterally are stable. 3. Microvascular ischemic disease and age related volume loss. Dictated by: Emmett Teran M.D. on 05/09/2021 at 21:29 Approved by: Emmett Teran M.D. on 05/09/2021 at 21:34
[2021-05-09 20:31] LABS: WBC Urine 5-10/HPF (0-5/HPF)
--- NOTE | 2021-05-09 20:31 | ED_ITS ---
HPI - Syncope General Chief Complaint: Syncope Stated Complaint: SOB MAYBE PASSED OUT SEIZURES Time Seen by Provider: 05/09/21 20:18 Source: patient Mode of arrival: Wheelchair Limitations: no limitations History of Present Illness HPI narrative: Patient brought in here by family. Patient recalls events before passing out tonight shortly after 6:00 p.m.. Denies any chest pain palpitations trouble breathing before simple episode. Patient states her kids helped her to the bedside commode in the living room. Daughter help clean her up. Get her back into a chair she passed out. She remembers waking up in her son's arms. Denies any pain. Patient states remember breathing heavily in her son's arms before passing out. But no pain. Similar episode March 15 here. Syncopal episode while transitioning on the commode. Diagnosis with syncope and UTI. Urinalysis here shows UTI. Denies any recent illness chest pain cough cold congestion. Patient has baseline left-sided weakness. [facility] a [facility]. Is on warfarin. Denies any headache. Denies any new numbness tingling or weakness. No history of seizures. Tremors were described during tonight's event. Patient was not postictal after the event. No confusion Related Data Home Medications Medication Instructions Recorded Confirmed aspirin 81 mg chewable tablet 81 mg PO QDAY #0 11/15/17 08/22/20 furosemide 20 mg tablet 40 mg PO QDAY #0 11/15/17 08/22/20 lisinopril 10 mg tablet 5 mg PO BID #0 11/15/17 08/22/20 Previous Rx's Medication Instructions Recorded cephalexin 500 mg capsule 500 mg PO QID #20 cap 05/10/21 Allergies Allergy/AdvReac Type Severity Reaction Status Date / Time No Known Drug Allergies Allergy Verified 03/15/21 22:37 Review of Systems Review of Systems Narrative: GENERAL: Denies chills, fatigue, malaise, fever, sweats. 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 CVA (cerebral vascular accident) Diabetes mellitus History of ventricular fibrillation 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 Neuropathy Urinary incontinence Surgical History History of colonoscopy History of permanent cardiac pacemaker placement Family History Mother MRSA (methicillin resistant Staphylococcus aureus) Cardiovascular disease Stroke Myocardial infarction Father Cardiovascular disease Myocardial infarction Social History household members: spouse and children Smoking Status: Never smoker alcohol intake: former Smoking Status: Never smoker alcohol intake frequency: 0-2 drinks per day Substance Use Type: does not use Exam Narrative Exam Narrative: GENERAL: in no distress, not toxic not dyspneic HEAD: Normocephalic. EYES: Pupils equal round No scleral icterus. No injection no discharge ENT: Mucous membranes moist. NECK: Trachea midline. CARDIOVASCULAR: Regular rate and rhythm without murmurs RESPIRATORY: Clear to auscultation. Breath sounds equal bilaterally. No wheezes, rales, or rhonchi. GASTROINTESTINAL: Abdomen soft, non-tender EXTREMITIES: No gross deformities. BACK: No flank tenderness. NEURO: AOx4. Patient has baseline weakness to the left arm hand left leg and foot. No facial droop. Has clear speech. SKIN: Warm and dry PSYCH: Not anxious, is cooperative Initial Vital Signs Initial Vital Signs: Vital Signs Temperature 98.4 F 05/09/21 19:08 Pulse Rate 91 H 05/09/21 19:08 Respiratory Rate 17 05/09/21 19:08 Blood Pressure 117/71 05/09/21 19:08 Pulse Oximetry 96 05/09/21 19:08 Course Course Course Narrative: No new issues during course of stay Orders Ordered: ED Orders 05/09/21 19:14 EKG-12 Lead Stat 05/09/21 19:35 Urinalysis and Microscopic Stat Urine Culture Stat 05/09/21 19:48 Complete Blood Count AUTO DIFF Stat Comprehensive Metabolic Panel Stat Troponin & CK Cardiac Panel Stat 05/09/21 20:28 CT angio head and neck Stat 05/09/21 20:30 CT head/brain wo con Stat 05/09/21 20:57 Partial Thromboplastin Time Stat Prothrombin Time INR Stat Discontinued Medications Acetaminophen (Acetaminophen 325 Mg Tablet) 650 mg PO NOW ONE Stop: 05/09/21 21:12 Last Admin: 05/09/21 21:15 Dose: 650 mg Documented by: HEATHER Cephalexin HCl (Cephalexin 250 Mg Capsule) 500 mg PO NOW ONE Stop: 05/10/21 00:58 Last Admin: 05/10/21 01:12 Dose: 500 mg Documented by: HEATHER Sodium Chloride (Normal Saline 0.9%) 1,000 mls @ 150 mls/hr IV CONT ERIKA Last Infusion: 05/10/21 00:20 Dose: 0 mls/hr Documented by: Admin: 05/09/21 19:57 Dose: 150 mls/hr Documented by: TAYAALLAG Sodium Chloride (Normal Saline 0.9%) 500 mls @ 1,000 mls/hr IV BOLUS ONE Stop: 05/09/21 21:00 Last Infusion: 05/09/21 21:18 Dose: 0 mls/hr Documented by: Admin: 05/09/21 20:45 Dose: 1,000 mls/hr Documented by: HEATHER Reevaluation(s) Reevaluation #1: Reviewed results with patient, at bedside now. describes same episode happened March 15, 2021. Patient was being lifted upwards out of commode at that time and had passed out. Time: 01:12 Consultations Consultation #1: s/w telestroke, dr nash,, she reviewed images. CT angiograms chronic. Not new. Appropriate to treat for UTI and vasovagal syncope. Time: 01:12 Vital Signs Vital signs: Vital Signs - 8 hr 05/09/21 19:08 05/09/21 19:48 05/09/21 19:51 Temperature 98.4 F Pulse Rate 91 H 78 Respiratory Rate 17 19 Blood Pressure 117/71 116/69 Pulse Oximetry 96 05/09/21 20:00 05/09/21 20:30 05/09/21 21:00 Temperature Pulse Rate 78 78 79 Respiratory Rate 18 15 18 Blood Pressure 113/68 116/88 Pulse Oximetry 99 05/09/21 21:05 05/09/21 21:30 05/09/21 21:31 Temperature Pulse Rate 79 84 85 Respiratory Rate 22 16 17 Blood Pressure 147/67 H 161/78 H Pulse Oximetry 99 98 98 05/09/21 22:00 05/09/21 22:30 05/09/21 23:00 Temperature Pulse Rate 81 79 76 Respiratory Rate 15 17 17 Blood Pressure 124/67 114/73 111/70 Pulse Oximetry 96 96 96 05/09/21 23:30 05/10/21 00:00 05/10/21 00:30 Temperature Pulse Rate 80 85 79 Respiratory Rate 18 17 13 Blood Pressure 102/68 99/63 93/59 L Pulse Oximetry 96 95 94 05/10/21 01:00 Temperature Pulse Rate 73 Respiratory Rate 14 Blood Pressure 98/61 Pulse Oximetry 95 MDM - Syncope Differential Diagnosis Differential diagnosis: Likely syncope due to orthostatic hypotension, vasovagal syncope and other (UTI) Medical Records Medical records narrative: Urine Culture Final 03/18/21 Organism 1 Escherichia coli [place] Count >100,000 CFU/ml 1. Escherichia coli M.I.C. RX --------- --- * Amoxicillin/Clavulanate <=2 S * Ampicillin <=2 S * Ampicillin/Sulbactam <=2 S * Cefazolin <=4 S * Cefepime <=1 S * Ceftriaxone <=1 S * Ciprofloxacin >=4 R * Ertapenem <=0.5 S * Gentamicin <=1 S * Imipenem <=0.25 S * Levofloxacin >=8 R * Nitrofurantoin <=16 S * Tobramycin <=1 S * Trimethoprim/Sulfamethoxazole <=20 S * Piperacillin/Tazobactam <=4 S Lab Data Result diagrams: 05/09/21 19:48 05/09/21 19:48 Labs: Lab Results 05/09/21 05/09/21 05/09/21 Range/Units 19:35 19:48 19:48 WBC 6.0 (4.5-11.0) X10^3/uL RBC 4.95 (4.0-5.2) X10^6/uL Hgb 14.2 (12.0-16.0) g/dL Hct 43.1 (36-46) % MCV 87.1 (80-100) fL MCH 28.6 (26-34) PG MCHC 32.9 (30-36) % RDW 13.9 (11.6-14.8) % Plt Count 200 (150-400) X10^3/uL Neut % (Auto) 64.2 (50-75) % Lymph % (Auto) 21.6 L (25-40) % Barber % (Auto) 11.0 (3-14) % Eos % (Auto) 2.4 (2-4) % Baso % (Auto) 0.8 (0-2) % Neut # (Auto) 3800 (5928-8709) /uL Lymph # (Auto) 1300 (9414-8927) /uL Barber # (Auto) 700 (0-900) /uL Eos # (Auto) 100 (0-450) /uL Baso # (Auto) 0 (0-100) /uL PT (10.1-12.7) SECONDS INR (0.9-1.3) APTT (26.4-36.2) SECONDS Sodium 137 (137-145) mmol/L Potassium 3.8 (3.4-5.1) mmol/L Chloride 103 (98-107) mmol/L Carbon Dioxide 25 (22-32) mmol/L BUN 27 H (7-17) mg/dL Creatinine 0.50 L (0.52-1.04) mg/dL Estimated GFR > 60.0 (>60) mL/min BUN/Creatinine Ratio 54.0 H (6-22) Glucose 233 H (70-100) mg/dL Calcium 9.8 (8.4-10.2) mg/dL Total Bilirubin 0.6 (0.2-1.3) mg/dL AST 19 (14-36) IU/L ALT 15 (<35) IU/L Alkaline Phosphatase 96 (38-126) U/L Total Creatine Kinase 28 L (30-135) U/L CK-MB (CK-2) TNP CK-MB (CK-2) Rel Index TNP Troponin I < 0.012 (0.01-0.034) ng/mL Total Protein 7.9 (6.3-8.2) g/dL Albumin 4.2 (3.5-5.0) g/dL Globulin 3.7 (1.7-4.1) g/dL Albumin/Globulin Ratio 1.1 (1.0-2.8) Urine Color Yellow Urine Appearance Clear Urine pH 6.0 (4.5-8.0) Ur Specific [place] <=1.005 (1.000-1.035) Urine Protein Negative (Negative) Urine Glucose (UA) Trace H (Negative) g/dL Urine Ketones Negative (NEGATIVE) Urine Occult Blood Negative (Negative) Urine Nitrate Positive H (Negative) Urine Bilirubin Negative (NEGATIVE) Urine Urobilinogen 0.2 (0.2) E.U./dL Ur Leukocyte Esterase 1+ H (NEGATIVE) Urine RBC None seen (0-5/HPF) Urine WBC 5-10/hpf H (0-5/HPF) Urine Bacteria Moderate (10-30) H (None) Ur Culture Indicated? Specimen cultured 05/09/21 Range/Units 20:57 WBC (4.5-11.0) X10^3/uL RBC (4.0-5.2) X10^6/uL Hgb (12.0-16.0) g/dL Hct (36-46) % MCV (80-100) fL MCH (26-34) PG MCHC (30-36) % RDW (11.6-14.8) % Plt Count (150-400) X10^3/uL Neut % (Auto) (50-75) % Lymph % (Auto) (25-40) % Barber % (Auto) (3-14) % Eos % (Auto) (2-4) % Baso % (Auto) (0-2) % Neut # (Auto) (6504-0506) /uL Lymph # (Auto) (8177-7201) /uL Barber # (Auto) (0-900) /uL Eos # (Auto) (0-450) /uL Baso # (Auto) (0-100) /uL PT 21.3 H (10.1-12.7) SECONDS INR 1.9 H (0.9-1.3) APTT 27 D (26.4-36.2) SECONDS Sodium (137-145) mmol/L Potassium (3.4-5.1) mmol/L Chloride (98-107) mmol/L Carbon Dioxide (22-32) mmol/L BUN (7-17) mg/dL Creatinine (0.52-1.04) mg/dL Estimated GFR (>60) mL/min BUN/Creatinine Ratio (6-22) Glucose (70-100) mg/dL Calcium (8.4-10.2) mg/dL Total Bilirubin (0.2-1.3) mg/dL AST (14-36) IU/L ALT (<35) IU/L Alkaline Phosphatase (38-126) U/L Total Creatine Kinase (30-135) U/L CK-MB (CK-2) CK-MB (CK-2) Rel Index Troponin I (0.01-0.034) ng/mL Total Protein (6.3-8.2) g/dL Albumin (3.5-5.0) g/dL Globulin (1.7-4.1) g/dL Albumin/Globulin Ratio (1.0-2.8) Urine Color Urine Appearance Urine pH (4.5-8.0) Ur Specific [place] (1.000-1.035) Urine Protein (Negative) Urine Glucose (UA) (Negative) g/dL Urine Ketones (NEGATIVE) Urine Occult Blood (Negative) Urine Nitrate (Negative) Urine Bilirubin (NEGATIVE) Urine Urobilinogen (0.2) E.U./dL Ur Leukocyte Esterase (NEGATIVE) Urine RBC (0-5/HPF) Urine WBC (0-5/HPF) Urine Bacteria (None) Ur Culture Indicated? Imaging Data CT scan - head: Radiologist's Impression: Chronic involutional volume loss with no acute findings CTA - brain/neck: Radiologist's Impression: No large vessel occlusion. No aneurysm and no AVM. The nondominant right vertebral artery terminates in the right posterior inferior cerebellar artery. There is fusiform dilatation ectasia of the distal left vertebral intracranial segment measuring 7.5 mm in diameter where there is calcified atherosclerotic plaque ECG Data Interpretation: Atrial sensed ventricular paced rhythm. Rate 88. MDM Narrative Medical decision making narrative: Appropriate for discharge home. Similar event March 15, 2021. Reviewed with patient and . Reviewed with tele stroke as well. Clinically not seizure as well. Will treat for UTI. Vasovagal preventions reviewed with patient and . Return precautions reviewed with him. They agree with treatment plan and follow-up. Discharge Plan Departure Patient Disposition: Home Clinical Impression: Vasovagal syncope UTI (urinary tract infection) Qualifiers: Urinary tract infection type: site unspecified Hematuria presence: without hematuria Qualified Code(s): N39.0 - Urinary tract infection, site not specified Instructions: DI for Syncope in Adults (Fainting), DI for Urinary Tract Infection (UTI) Activity Restrictions/Additional Instructions: Keep well hydrated. Be sure to make transitions from any seated or lying position slowly to prevent passing out. See family doctor this week for recheck. Continue antibiotics tomorrow. Return if worse if any questions or concerns. Prescriptions: New cephalexin 500 mg capsule 500 mg PO QID Qty: 20 RF: 0 No Action lisinopril 10 MG tablet 5 mg PO BID Qty: 0 RF: 0 aspirin 81 MG tablet,chewable 81 mg PO QDAY Qty: 0 RF: 0 furosemide 20 MG tablet 40 mg PO QDAY Qty: 0 RF: 0 Referrals: Donna Redman PA-C [Primary Care Provider] -
[2021-05-09 20:32] LABS: Bacteria Urine Moderate (10-30); Culture Indicated Urine Specimen Cultured
[2021-05-09] MEDS: SODIUM CHLORIDE 0.9% 500 ML 1000 ML IV (20:45)
[2021-05-09] MEDS: ACETAMINOPHEN 325 MG TABLET 650 MG PO (21:15)
[2021-05-09 21:19] LABS: INR 1.9 (0.9-1.3); Prothrombin Time 21.3 SECONDS (10.1-12.7)
[2021-05-09 21:22] LABS: PTT Partial Thromboplastin Tim 27 SECONDS (26.4-36.2)
[2021-05-10] VITALS: BP 99/63; PULSE 85; RESP 17; O2SAT 95
[2021-05-10 00:30] VITALS: BP 93/59; PULSE 79; RESP 13; O2SAT 94
[2021-05-10 01:00] VITALS: BP 98/61; PULSE 73; RESP 14; O2SAT 95
[2021-05-10] MEDS: cephALEXin 250 MG CAPSULE 500 MG PO (01:12)
== END 2021-05-10 01:30 | disposition home or self-care (01) ==
PROVIDERS: Emergency Provider Emergency Medicine; Family Provider Family Medicine; PCP Physician Assistant Medical
DX: R55 Syncope and collapse (principal); N39.0 Urinary tract infection, site not specified; R07.9 Chest pain, unspecified
CPT/HCPCS: 36415; 70450; 70496; 70498; 80053; 81001; 82550; 84484; 85025; 85610; 85730; 87077; 87086; 87186; 93005; 93010; 96360; 96361; 99284; Q9967

== ENCOUNTER 2021-12-09 18:34 | Emergency (ER) | payer SELFPAY ==
[2021-12-09] VITALS (13 sets, daily range): BP systolic 106–140; BP diastolic 71–84; PULSE 87–115; RESP 11–24; TEMP 37.1; O2SAT 90–99; BMI 35.2
--- NOTE | 2021-12-09 19:55 | ED.WEAKNESS ---
HPI - Weakness General Chief complaint: Weakness Stated complaint: lethargic, can't feed self, can't stay awake Time Seen by Provider: 12/09/21 19:48 Source: patient Mode of arrival: Ambulatory History of Present Illness HPI Narrative: 56-year-old female nonsmoker with extensive medical history including cardiac arrest with pacemaker, PEs on warfarin, diabetes and blood pressure with chronic basal lacunar infarcts presents with her and a chief complaint of being lethargic and a bit ?out of it ?for the course of the week. Over the course of the day she has been difficult to arouse and has not been eating or drinking. There has been no recent trauma, she denies any headache, blurred vision, chest pain or trouble breathing. She feels weak and has had episodes of nausea but denies any vomiting. She has no abdominal pain, diarrhea or constipation. She denies any dysuria, frequency or urgency. She has had no recent change in her medications or diet. Related Data Home Medications Medication Instructions Recorded Confirmed aspirin 81 mg chewable tablet 81 mg PO QDAY #0 11/15/17 08/22/20 furosemide 20 mg tablet 40 mg PO QDAY #0 11/15/17 08/22/20 lisinopril 10 mg tablet 5 mg PO BID #0 11/15/17 08/22/20 Previous Rx's Medication Instructions Recorded cephalexin 500 mg capsule 500 mg PO QID #20 cap 05/10/21 Allergies Allergy/AdvReac Type Severity Reaction Status Date / Time No Known Drug Allergies Allergy Verified 03/15/21 22:37 Review of Systems Review of Systems Narrative: GENERAL: See HP HEENT: Denies sinus pain, ear pain, sore throat, difficulty swallowing, dizziness. RESPIRATORY: Denies dyspnea, cough, wheezing, hemoptysis, sputum. CARDIOVASCULAR: Denies chest pain, palpitations, orthopnea, edema, GASTROINTESTINAL: See HPI : Denies dysuria, frequency, incontinence, hematuria, urinary retention. MUSCULOSKELETAL: denies weakness, joint pain, or bony pain SKIN: Denies rash, skin lesions, or other NEUROLOGIC: Denies weakness, headache, numbness, change in speech, confusion, seizures, incoordination. PSYCHIATRIC: No concerning psychosocial issues. 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 Neuropathy Urinary incontinence Surgical History History of colonoscopy History of permanent cardiac pacemaker placement Family History Mother MRSA (methicillin resistant Staphylococcus aureus) Cardiovascular disease Stroke Myocardial infarction Father Cardiovascular disease Myocardial infarction Social History household members: spouse and children Smoking Status: Never smoker alcohol intake: former Smoking Status: Never smoker alcohol intake frequency: 0-2 drinks per day Substance Use Type: does not use Exam Narrative Exam Narrative: GENERAL: [56] year old patient appears stated age. Well-developed patient, arousable to voice, guarding her airway, controlling secretions without difficulty. HEAD: Atraumatic. Normocephalic. EYES: Pupils equal round and reactive. Extraocular motions intact. No scleral icterus. No injection or drainage. ENT: Dry mucous membrane Nose without bleeding, purulent drainage. Throat without erythema, tonsillar hypertrophy or exudate. Airway patent. NECK: Trachea midline. Non tender CARDIOVASCULAR: Tachycardic and Regular rate and rhythm without murmurs, gallops, or rubs. RESPIRATORY: Clear to auscultation. Breath sounds equal bilaterally. No wheezes, rales, or rhonchi. GASTROINTESTINAL: Abdomen soft, non-tender, nondistended. EXTREMITIES: No edema or joint tenderness. BACK: Nontender without deformity or crepitance. No flank tenderness. NEURO: AOx3. SKIN: No rash or erythema of visible areas Initial Vital Signs Initial Vital Signs: Vital Signs Temperature 98.8 F 12/09/21 19:07 Pulse Rate 115 H 12/09/21 19:07 Respiratory Rate 24 12/09/21 19:07 Blood Pressure 140/78 12/09/21 19:07 Pulse Oximetry 94 12/09/21 19:07 Scores GCS Oswaldo coma scale eye opening: To sound Oswaldo coma scale verbal response: Confused Oswaldo coma scale motor response: Obey commands Oswaldo coma scale total score: 13 Course Orders Ordered: ED Orders 12/09/21 19:28 EKG-12 Lead Stat 12/09/21 19:45 BNP [NT-proBNP (BNP-Adult 18+)] Stat Complete Blood Count AUTO DIFF Stat Comprehensive Metabolic Panel Stat Ketones (Beta-Hydroxybutyrate) Stat Lactate (Lactic Acid) Stat Procalcitonin Stat Prothrombin Time INR Stat TSH w/ Reflex to FT4 Stat Troponin & CK Cardiac Panel Stat 12/09/21 19:52 Respiratory Panel (Film Array) Stat 12/09/21 20:01 CT head/brain wo con Stat 12/09/21 20:31 VBG [Venous Blood Gas] Stat 12/09/21 20:50 Blood Culture Stat 12/09/21 20:54 EKG-12 Lead Stat 12/09/21 22:38 Urinalysis and Microscopic Stat Urine Culture Stat Urine Drug Screen, Rapid Stat Discontinued Medications Dexamethasone (Dexamethasone 10 Mg/Ml Vial) 6 mg IV NOW ONE Stop: 12/09/21 22:53 Last Admin: 12/09/21 23:07 Dose: 6 mg Documented by: SULLY Furosemide (Furosemide 40 Mg/4 Ml Vial) 40 mg IV NOW ONE Stop: 12/09/21 22:14 Last Admin: 12/09/21 22:41 Dose: 40 mg Documented by: SULLY Ceftriaxone Sodium 1,000 mg/ (Sodium Chloride) 100 mls @ 200 mls/hr IV NOW ONE Stop: 12/09/21 23:21 Last Infusion: 12/10/21 00:26 Dose: 0 mls/hr Documented by: Admin: 12/09/21 23:32 Dose: 200 mls/hr Documented by: SULLY Reevaluation(s) Reevaluation #1: Call to on-call Cardiology as scheduled [facility]. She has reviewed patient's prior history and notes a catheterization in 2018 demonstrating mid LAD occlusion as well as circumflex. After discussing the patient's history and physical she recommends against use of heparin given her therapeutic INR. Furthermore currently the etiology is unclear, whether from COVID, decompensated CHF or true NSTEMI, in the and she recommends transfer to facility with in-house Cardiology, preferably [facility]. [facility] - no beds [place] - no beds [facility] - no beds [facility] - initial call to anger control counselor cardio ([facility]). After discussion of history and physical as well as current clinical course he agrees no heparin for now. Agrees with appropriateness of transfer and recommends call to hospitalist Dr. Farrar (hospitalist) happy to accept patient in transfer to [facility] Consultation #1: Discussed with on-call Cardiology at [facility] ([place]). She has reviewed the patient's chart and states given prior calf she is not a candidate for any emergent intervention. She agrees that given patient's elevated INR that heparinization is not indicated at this time. Recommendation is to transfer to [facility], monitor, diurese if he did, trend enzymes, keep her off her Coumadin and allow INR to drop at which point she could be placed on heparin. Vital Signs Vital signs: Vital Signs - 8 hr 12/09/21 19:40 12/09/21 19:49 12/09/21 20:00 Pulse Rate 109 H 105 H 103 H Respiratory Rate 12 17 18 Blood Pressure 106/71 106/77 Pulse Oximetry 92 91 12/09/21 20:30 12/09/21 21:00 12/09/21 21:02 Pulse Rate 98 H 100 H 97 H Respiratory Rate 11 L 13 14 Blood Pressure 114/80 Pulse Oximetry 93 91 90 L 12/09/21 21:30 12/09/21 22:00 12/09/21 22:30 Pulse Rate 91 H 95 H 87 Respiratory Rate Blood Pressure 122/72 130/78 Pulse Oximetry 99 96 12/09/21 22:37 12/09/21 23:00 12/09/21 23:30 Pulse Rate 92 H 91 H 95 H Respiratory Rate 12 18 17 Blood Pressure 122/78 127/84 111/76 Pulse Oximetry 99 97 97 12/10/21 00:00 Pulse Rate 99 H Respiratory Rate 16 Blood Pressure 120/78 Pulse Oximetry 98 MDM - Weakness Lab Data Result diagrams: 12/09/21 19:45 12/09/21 19:45 Labs: Lab Results 12/09/21 12/09/21 12/09/21 Range/Units 19:45 19:45 19:45 WBC 4.9 (4.5-11.0) X10^3/uL RBC 5.12 (4.0-5.2) X10^6/uL Hgb 15.1 (12.0-16.0) g/dL Hct 43.5 (36-46) % MCV 85.0 (80-100) fL MCH 29.4 (26-34) PG MCHC 34.7 (30-36) % RDW 13.1 (11.6-14.8) % Plt Count 197 (150-400) X10^3/uL Neut % (Auto) 78.0 H (50-75) % Lymph % (Auto) 9.5 L (25-40) % [place] % (Auto) 11.6 (3-14) % Eos % (Auto) 0.2 L (2-4) % Baso % (Auto) 0.7 (0-2) % Neut # (Auto) 3800 (1386-5218) /uL Lymph # (Auto) 500 L (8468-6042) /uL [place] # (Auto) 600 (0-900) /uL Eos # (Auto) 0 (0-450) /uL Baso # (Auto) 0 (0-100) /uL PT 34.0 H (10.1-12.7) SECONDS INR 3.0 H (0.9-1.3) Sodium 137 (137-145) mmol/L Potassium 3.9 (3.4-5.1) mmol/L Chloride 106 (98-107) mmol/L Carbon Dioxide 23 (22-32) mmol/L BUN 18 H (7-17) mg/dL Creatinine 0.52 (0.52-1.04) mg/dL Estimated GFR > 60.0 (>60) mL/min BUN/Creatinine Ratio 34.6 H (6-22) Glucose 216 H (70-100) mg/dL Lactate (0.7-2.1) mmol/L Calcium 9.4 (8.4-10.2) mg/dL Total Bilirubin 0.5 (0.2-1.3) mg/dL AST 52 H (14-36) IU/L ALT 36 H (<35) IU/L Alkaline Phosphatase 99 (38-126) U/L Total Creatine Kinase 242 H (30-135) U/L CK-MB (CK-2) 8.53 H (<2.37) ng/mL CK-MB (CK-2) Rel Index 3.5 (1.5-5.0) % Troponin I 5.370 H* (0.01-0.034) ng/mL NT-Pro-B Natriuret Pep (<125) pg/mL Total Protein 8.0 (6.3-8.2) g/dL Albumin 4.2 (3.5-5.0) g/dL Globulin 3.8 (1.7-4.1) g/dL Albumin/Globulin Ratio 1.1 (1.0-2.8) Procalcitonin 0.13 (<0.5) ng/mL TSH (0.47-4.68) uIU/mL Urine Color Urine Appearance Urine pH (4.5-8.0) Ur Specific [place] (1.000-1.035) Urine Protein (Negative) Urine Glucose (UA) (Negative) g/dL Urine Ketones (NEGATIVE) Urine Occult Blood (Negative) Urine Nitrate (Negative) Urine Bilirubin (NEGATIVE) Urine Urobilinogen (0.2) E.U./dL Ur Leukocyte Esterase (NEGATIVE) Urine RBC (0-5/HPF) Urine WBC (0-5/HPF) Urine Bacteria (None) Ur Culture Indicated? U Opiates 300ng/mL cut (Negative) Ur Oxycodone Screen (Negative) Urine Methadone Screen (Negative) Ur Barbiturates Screen (Negative) U Tricyclic Antidepress (Negative) Ur Phencyclidine Scrn (Negative) Ur Amphetamines Screen (Negative) U Methamphetamines Scrn (Negative) Ur MDMA Scrn (Ecstasy) (Negative) U Benzodiazepines Scrn (Negative) Urine Cocaine Screen (Negative) U Marijuana (THC) Screen (Negative) Ketones (<0.27) mmol/L Chlamy pneumoniae PCR (Not Detect) Adenovirus (PCR) (Not Detect) B. pertussis DNA (PCR) (Not Detecte) B.parapertussis DNA PCR (Not Detecte) Coronavirus OC43 (PCR) (Not Detect) Coronavirus HKU1 (PCR) (Not Detect) Coronavirus 229E (PCR) (Not Detect) SARS-CoV-2 (PCR) (Not Detecte) Coronavirus NL63 (PCR) (Not Detect) Human Metapneumovir PCR (Not Detect) Influenza Type A (PCR) (Not Detect) Influenza Type B (PCR) (Not Detect) M. pneumoniae (PCR) (Not Detect) Parainfluenza 1 (PCR) (Not Detect) Parainfluenza 2 (PCR) (Not Detect) Parainfluenza 3 (PCR) (Not Detect) Parainfluenza 4 (PCR) (Not Detect) RSV (PCR) (Not Detect) Entero/Rhino (PCR) (Not Detect) 12/09/21 12/09/21 12/09/21 Range/Units 19:45 19:45 19:45 WBC (4.5-11.0) X10^3/uL RBC (4.0-5.2) X10^6/uL Hgb (12.0-16.0) g/dL Hct (36-46) % MCV (80-100) fL MCH (26-34) PG MCHC (30-36) % RDW (11.6-14.8) % Plt Count (150-400) X10^3/uL Neut % (Auto) (50-75) % Lymph % (Auto) (25-40) % [place] % (Auto) (3-14) % Eos % (Auto) (2-4) % Baso % (Auto) (0-2) % Neut # (Auto) (3041-8913) /uL Lymph # (Auto) (1303-1124) /uL [place] # (Auto) (0-900) /uL Eos # (Auto) (0-450) /uL Baso # (Auto) (0-100) /uL PT (10.1-12.7) SECONDS INR (0.9-1.3) Sodium (137-145) mmol/L Potassium (3.4-5.1) mmol/L Chloride (98-107) mmol/L Carbon Dioxide (22-32) mmol/L BUN (7-17) mg/dL Creatinine (0.52-1.04) mg/dL Estimated GFR (>60) mL/min BUN/Creatinine Ratio (6-22) Glucose (70-100) mg/dL Lactate 2.5 H (0.7-2.1) mmol/L Calcium (8.4-10.2) mg/dL Total Bilirubin (0.2-1.3) mg/dL AST (14-36) IU/L ALT (<35) IU/L Alkaline Phosphatase (38-126) U/L Total Creatine Kinase (30-135) U/L CK-MB (CK-2) (<2.37) ng/mL CK-MB (CK-2) Rel Index (1.5-5.0) % Troponin I (0.01-0.034) ng/mL NT-Pro-B Natriuret Pep (<125) pg/mL Total Protein (6.3-8.2) g/dL Albumin (3.5-5.0) g/dL Globulin (1.7-4.1) g/dL Albumin/Globulin Ratio (1.0-2.8) Procalcitonin (<0.5) ng/mL TSH 0.63 (0.47-4.68) uIU/mL Urine Color Urine Appearance Urine pH (4.5-8.0) Ur Specific [place] (1.000-1.035) Urine Protein (Negative) Urine Glucose (UA) (Negative) g/dL Urine Ketones (NEGATIVE) Urine Occult Blood (Negative) Urine Nitrate (Negative) Urine Bilirubin (NEGATIVE) Urine Urobilinogen (0.2) E.U./dL Ur Leukocyte Esterase (NEGATIVE) Urine RBC (0-5/HPF) Urine WBC (0-5/HPF) Urine Bacteria (None) Ur Culture Indicated? U Opiates 300ng/mL cut (Negative) Ur Oxycodone Screen (Negative) Urine Methadone Screen (Negative) Ur Barbiturates Screen (Negative) U Tricyclic Antidepress (Negative) Ur Phencyclidine Scrn (Negative) Ur Amphetamines Screen (Negative) U Methamphetamines Scrn (Negative) Ur MDMA Scrn (Ecstasy) (Negative) U Benzodiazepines Scrn (Negative) Urine Cocaine Screen (Negative) U Marijuana (THC) Screen (Negative) Ketones 0.03 (<0.27) mmol/L Chlamy pneumoniae PCR (Not Detect) Adenovirus (PCR) (Not Detect) B. pertussis DNA (PCR) (Not Detecte) B.parapertussis DNA PCR (Not Detecte) Coronavirus OC43 (PCR) (Not Detect) Coronavirus HKU1 (PCR) (Not Detect) Coronavirus 229E (PCR) (Not Detect) SARS-CoV-2 (PCR) (Not Detecte) Coronavirus NL63 (PCR) (Not Detect) Human Metapneumovir PCR (Not Detect) Influenza Type A (PCR) (Not Detect) Influenza Type B (PCR) (Not Detect) M. pneumoniae (PCR) (Not Detect) Parainfluenza 1 (PCR) (Not Detect) Parainfluenza 2 (PCR) (Not Detect) Parainfluenza 3 (PCR) (Not Detect) Parainfluenza 4 (PCR) (Not Detect) RSV (PCR) (Not Detect) Entero/Rhino (PCR) (Not Detect) 12/09/21 12/09/21 12/09/21 Range/Units 19:45 19:52 22:25 WBC (4.5-11.0) X10^3/uL RBC (4.0-5.2) X10^6/uL Hgb (12.0-16.0) g/dL Hct (36-46) % MCV (80-100) fL MCH (26-34) PG MCHC (30-36) % RDW (11.6-14.8) % Plt Count (150-400) X10^3/uL Neut % (Auto) (50-75) % Lymph % (Auto) (25-40) % [place] % (Auto) (3-14) % Eos % (Auto) (2-4) % Baso % (Auto) (0-2) % Neut # (Auto) (9444-7439) /uL Lymph # (Auto) (2297-2084) /uL [place] # (Auto) (0-900) /uL Eos # (Auto) (0-450) /uL Baso # (Auto) (0-100) /uL PT (10.1-12.7) SECONDS INR (0.9-1.3) Sodium (137-145) mmol/L Potassium (3.4-5.1) mmol/L Chloride (98-107) mmol/L Carbon Dioxide (22-32) mmol/L BUN (7-17) mg/dL Creatinine (0.52-1.04) mg/dL Estimated GFR (>60) mL/min BUN/Creatinine Ratio (6-22) Glucose (70-100) mg/dL Lactate 2.0 (0.7-2.1) mmol/L Calcium (8.4-10.2) mg/dL Total Bilirubin (0.2-1.3) mg/dL AST (14-36) IU/L ALT (<35) IU/L Alkaline Phosphatase (38-126) U/L Total Creatine Kinase (30-135) U/L CK-MB (CK-2) (<2.37) ng/mL CK-MB (CK-2) Rel Index (1.5-5.0) % Troponin I (0.01-0.034) ng/mL NT-Pro-B Natriuret Pep 3510 H (<125) pg/mL Total Protein (6.3-8.2) g/dL Albumin (3.5-5.0) g/dL Globulin (1.7-4.1) g/dL Albumin/Globulin Ratio (1.0-2.8) Procalcitonin (<0.5) ng/mL TSH (0.47-4.68) uIU/mL Urine Color Urine Appearance Urine pH (4.5-8.0) Ur Specific [place] (1.000-1.035) Urine Protein (Negative) Urine Glucose (UA) (Negative) g/dL Urine Ketones (NEGATIVE) Urine Occult Blood (Negative) Urine Nitrate (Negative) Urine Bilirubin (NEGATIVE) Urine Urobilinogen (0.2) E.U./dL Ur Leukocyte Esterase (NEGATIVE) Urine RBC (0-5/HPF) Urine WBC (0-5/HPF) Urine Bacteria (None) Ur Culture Indicated? U Opiates 300ng/mL cut (Negative) Ur Oxycodone Screen (Negative) Urine Methadone Screen (Negative) Ur Barbiturates Screen (Negative) U Tricyclic Antidepress (Negative) Ur Phencyclidine Scrn (Negative) Ur Amphetamines Screen (Negative) U Methamphetamines Scrn (Negative) Ur MDMA Scrn (Ecstasy) (Negative) U Benzodiazepines Scrn (Negative) Urine Cocaine Screen (Negative) U Marijuana (THC) Screen (Negative) Ketones (<0.27) mmol/L Chlamy pneumoniae PCR Not detected (Not Detect) Adenovirus (PCR) Not detected (Not Detect) B. pertussis DNA (PCR) Not detected (Not Detecte) B.parapertussis DNA PCR Not detected (Not Detecte) Coronavirus OC43 (PCR) Not detected (Not Detect) Coronavirus HKU1 (PCR) Not detected (Not Detect) Coronavirus 229E (PCR) Not detected (Not Detect) SARS-CoV-2 (PCR) Detected H (Not Detecte) Coronavirus NL63 (PCR) Not detected (Not Detect) Human Metapneumovir PCR Not detected (Not Detect) Influenza Type A (PCR) Not detected (Not Detect) Influenza Type B (PCR) Not detected (Not Detect) M. pneumoniae (PCR) Not detected (Not Detect) Parainfluenza 1 (PCR) Not detected (Not Detect) Parainfluenza 2 (PCR) Not detected (Not Detect) Parainfluenza 3 (PCR) Not detected (Not Detect) Parainfluenza 4 (PCR) Not detected (Not Detect) RSV (PCR) Not detected (Not Detect) Entero/Rhino (PCR) Not detected (Not Detect) 12/09/21 12/09/21 Range/Units 22:38 22:38 WBC (4.5-11.0) X10^3/uL RBC (4.0-5.2) X10^6/uL Hgb (12.0-16.0) g/dL Hct (36-46) % MCV (80-100) fL MCH (26-34) PG MCHC (30-36) % RDW (11.6-14.8) % Plt Count (150-400) X10^3/uL Neut % (Auto) (50-75) % Lymph % (Auto) (25-40) % [place] % (Auto) (3-14) % Eos % (Auto) (2-4) % Baso % (Auto) (0-2) % Neut # (Auto) (2989-8606) /uL Lymph # (Auto) (3872-3654) /uL [place] # (Auto) (0-900) /uL Eos # (Auto) (0-450) /uL Baso # (Auto) (0-100) /uL PT (10.1-12.7) SECONDS INR (0.9-1.3) Sodium (137-145) mmol/L Potassium (3.4-5.1) mmol/L Chloride (98-107) mmol/L Carbon Dioxide (22-32) mmol/L BUN (7-17) mg/dL Creatinine (0.52-1.04) mg/dL Estimated GFR (>60) mL/min BUN/Creatinine Ratio (6-22) Glucose (70-100) mg/dL Lactate (0.7-2.1) mmol/L Calcium (8.4-10.2) mg/dL Total Bilirubin (0.2-1.3) mg/dL AST (14-36) IU/L ALT (<35) IU/L Alkaline Phosphatase (38-126) U/L Total Creatine Kinase (30-135) U/L CK-MB (CK-2) (<2.37) ng/mL CK-MB (CK-2) Rel Index (1.5-5.0) % Troponin I (0.01-0.034) ng/mL NT-Pro-B Natriuret Pep (<125) pg/mL Total Protein (6.3-8.2) g/dL Albumin (3.5-5.0) g/dL Globulin (1.7-4.1) g/dL Albumin/Globulin Ratio (1.0-2.8) Procalcitonin (<0.5) ng/mL TSH (0.47-4.68) uIU/mL Urine Color Yellow Urine Appearance Cloudy Urine pH 5.0 (4.5-8.0) Ur Specific [place] 1.025 (1.000-1.035) Urine Protein 1+ H (Negative) Urine Glucose (UA) 1+ H (Negative) g/dL Urine Ketones Trace H (NEGATIVE) Urine Occult Blood 3+ H (Negative) Urine Nitrate Positive H (Negative) Urine Bilirubin Negative (NEGATIVE) Urine Urobilinogen 0.2 (0.2) E.U./dL Ur Leukocyte Esterase 2+ H (NEGATIVE) Urine RBC 1-5/hpf (0-5/HPF) Urine WBC >100/hpf H (0-5/HPF) Urine Bacteria Many (>30) H (None) Ur Culture Indicated? Specimen cultured U Opiates 300ng/mL cut Negative (Negative) Ur Oxycodone Screen Negative (Negative) Urine Methadone Screen Negative (Negative) Ur Barbiturates Screen Negative (Negative) U Tricyclic Antidepress Negative (Negative) Ur Phencyclidine Scrn Negative (Negative) Ur Amphetamines Screen Negative (Negative) U Methamphetamines Scrn Negative (Negative) Ur MDMA Scrn (Ecstasy) Negative (Negative) U Benzodiazepines Scrn Negative (Negative) Urine Cocaine Screen Negative (Negative) U Marijuana (THC) Screen Negative (Negative) Ketones (<0.27) mmol/L Chlamy pneumoniae PCR (Not Detect) Adenovirus (PCR) (Not Detect) B. pertussis DNA (PCR) (Not Detecte) B.parapertussis DNA PCR (Not Detecte) Coronavirus OC43 (PCR) (Not Detect) Coronavirus HKU1 (PCR) (Not Detect) Coronavirus 229E (PCR) (Not Detect) SARS-CoV-2 (PCR) (Not Detecte) Coronavirus NL63 (PCR) (Not Detect) Human Metapneumovir PCR (Not Detect) Influenza Type A (PCR) (Not Detect) Influenza Type B (PCR) (Not Detect) M. pneumoniae (PCR) (Not Detect) Parainfluenza 1 (PCR) (Not Detect) Parainfluenza 2 (PCR) (Not Detect) Parainfluenza 3 (PCR) (Not Detect) Parainfluenza 4 (PCR) (Not Detect) RSV (PCR) (Not Detect) Entero/Rhino (PCR) (Not Detect) Imaging Data CT scan - head: Radiologist Impression: Launch?[place] [address] CT Scan Report Signed Patient: Kimmy Gray MR#: [id number] : 1965 Acct:[id number] Age/Sex: 56 / F Date of Service: 12/09/21 Loc: ED Accession Number: [id number] ?? Procedure: CT head/brain wo con Ordering Provider: Farzad Eason D.O. PROCEDURE:? CT HEAD/BRAIN WO CON ? INDICATIONS:? altered, history of stroke ? TECHNIQUE:? Noncontrast 4.5 mm thick angled axial sections acquired from the foramen magnum to the vertex, with coronal and sagittal reformats.? For radiation dose reduction, the following was used:? automated exposure control, adjustment of mA and/or kV according to patient size.? ? COMPARISON:? [facility], CT, CT HEAD/BRAIN WO CON, 05/09/2021, 20:37. ? FINDINGS:? Image quality:? Excellent.? ? CSF spaces:? Basal cisterns are patent.? No extra-axial fluid collections.? The ventricles are symmetric in size and shape.? ? Brain:? No intracranial bleeds or masses.? Old lacunar infarcts are again seen in bilateral basal ganglia.? There is cerebral volume loss for age, with resultant ventricular and sulcal prominence.? There are periventricular and deep white matter chronic small vessel ischemic changes.? There is intracranial internal carotid artery atherosclerosis.? ? Skull and face:? Calvarium and visualized facial bones appear intact, without suspicious lesions.? ? Sinuses:? Visualized sinuses and mastoids are clear.? ? IMPRESSION:? 1. No CT evidence of acute intracranial abnormalities. 2. No significant changes from previous study.? ? ? Dictated by: Crow Roche M.D. on 12/09/2021 at 20:20 ? ? Approved by: Crow Roche M.D. on 12/09/2021 at 20:20 ? ECG Data Interpretation: Atrial paced, no ectopy, no abnormal elevations or depressions conistent with Sgarbossa's criteria Critical Care Time Critical Care Time Critical Care Time: Yes Total Critical Care Time: 35 Attestation: The high probability of a clinically significant, sudden or life threatening deterioration of the [CV] system(s) required my full and direct attention, intervention and personal management. The aggregate critical care time was [] minutes. This time is in addition to time spent performing reported procedures but includes the following: [x] Data Review and interpretation [x] Patient assessment and monitoring of vital signs [x] Documentation [x] Medication orders and management Discharge Plan Departure Patient Disposition: XfGeneral acute hospital Clinical Impression: Acute non-ST elevation myocardial infarction (NSTEMI), UTI (urinary tract infection), CHF (congestive heart failure), COVID Prescriptions: No Action lisinopril 10 MG tablet 5 mg PO BID Qty: 0 0RF aspirin 81 MG tablet,chewable 81 mg PO QDAY Qty: 0 0RF furosemide 20 MG tablet 40 mg PO QDAY Qty: 0 0RF cephalexin 500 mg capsule 500 mg PO QID Qty: 20 0RF Referrals: Donna Redman PA-C [Primary Care Provider] -
--- NOTE | 2021-12-09 20:01 | DI.CT.S_ITS ---
PROCEDURE: CT HEAD/BRAIN WO CON INDICATIONS: altered, history of stroke TECHNIQUE: Noncontrast 4.5 mm thick angled axial sections acquired from the foramen magnum to the vertex, with coronal and sagittal reformats. For radiation dose reduction, the following was used: automated exposure control, adjustment of mA and/or kV according to patient size. COMPARISON: [facility], CT, CT HEAD/BRAIN WO CON, 05/09/2021, 20:37. FINDINGS: Image quality: Excellent. CSF spaces: Basal cisterns are patent. No extra-axial fluid collections. The ventricles are symmetric in size and shape. Brain: No intracranial bleeds or masses. Old lacunar infarcts are again seen in bilateral basal ganglia. There is cerebral volume loss for age, with resultant ventricular and sulcal prominence. There are periventricular and deep white matter chronic small vessel ischemic changes. There is intracranial internal carotid artery atherosclerosis. Skull and face: Calvarium and visualized facial bones appear intact, without suspicious lesions. Sinuses: Visualized sinuses and mastoids are clear. IMPRESSION: 1. No CT evidence of acute intracranial abnormalities. 2. No significant changes from previous study. Dictated by: Crow Roche M.D. on 12/09/2021 at 20:20 Approved by: Crow Roche M.D. on 12/09/2021 at 20:20
[2021-12-09 20:03] LABS: Add Manual Diff / Slide Review NO; Basophils Absolute Auto 0 /uL (0-100); Basophils Percent Auto 0.7 % (0-2); Eosinophils Absolute Auto 0 /uL (0-450); Eosinophils Percent Auto 0.2 % (2-4); Hematocrit 43.5 % (36-46); Hemoglobin 15.1 g/dL (12.0-16.0); Lymphocytes Absolute Auto 500 /uL (1100-4500); Lymphocytes Percent Auto 9.5 % (25-40); Mean Corpuscular HGB Conc 34.7 % (30-36); Mean Corpuscular Hemoglobin 29.4 PG (26-34); Monocytes Absolute Auto 600 /uL (0-900); Monocytes Percent Auto 11.6 % (3-14); Neutrophils Absolute Auto 3800 /uL (1500-7000); Platelet Count 197 X10^3/uL (150-400); Red Blood Cell Count 5.12 X10^6/uL (4.0-5.2); Red Cell Distribution Width 13.1 % (11.6-14.8); White Blood Cell Count 4.9 X10^3/uL (4.5-11.0)
[2021-12-09 20:16] LABS: Alanine Aminotransferase 36 IU/L (<35); Albumin 4.2 g/dL (3.5-5.0); Albumin Globulin Ratio 1.1 (1.0-2.8); Alkaline Phosphatase 99 U/L (38-126); Aspartate Aminotransferase 52 IU/L (14-36); BUN Creatinine Ratio 34.6 (6-22); Bilirubin Total 0.5 mg/dL (0.2-1.3); Blood Urea Nitrogen 18 mg/dL (7-17); Calcium 9.4 mg/dL (8.4-10.2); Carbon Dioxide 23 mmol/L (22-32); Chloride 106 mmol/L (98-107); Creatine Kinase 242 U/L (30-135); Estimated Glomerular Filt Rate > 60.0 mL/min (>60); Globulin 3.8 g/dL (1.7-4.1); Glucose 216 mg/dL (70-100); HEMOLYSIS < 15 (0-50); Potassium 3.9 mmol/L (3.4-5.1); Sodium 137 mmol/L (137-145)
[2021-12-09 20:18] LABS: Lactate (Lactic Acid) 2.5 mmol/L (0.7-2.1)
[2021-12-09 20:32] LABS: CKMB % Relative Index 3.5 % (1.5-5.0); Creatine Kinase MB 8.53 ng/mL (<2.37)
[2021-12-09 20:33] LABS: Procalcitonin 0.13 ng/mL (<0.5)
[2021-12-09 20:50] LABS: Adenovirus Not Detected (Not Detect); B. parapertussis Not Detected (Not Detecte); Bordetella pertussis Not Detected (Not Detecte); Chlamydophila pneumoniae Not Detected (Not Detect); Coronavirus 229E Not Detected (Not Detect); Coronavirus HKU1 Not Detected (Not Detect); Coronavirus NL 63 Not Detected (Not Detect); Coronavirus OC43 Not Detected (Not Detect); Human Metapneumovirus Not Detected (Not Detect); Human Rhinovirus/Enterovirus Not Detected (Not Detect); Influenza A Not Detected (Not Detect); Influenza B Not Detected (Not Detect); Mycoplasma pneumoniae Not Detected (Not Detect); Parainfluenza Virus 1 Not Detected (Not Detect); Parainfluenza Virus 2 Not Detected (Not Detect); Parainfluenza Virus 3 Not Detected (Not Detect); Parainfluenza Virus 4 Not Detected (Not Detect); Respiratory Syncytial Virus Not Detected (Not Detect); SARS- CoV-2 Detected (Not Detecte)
[2021-12-09 20:51] LABS: Ketones (Beta-Hydroxybutyrate) 0.03 mmol/L (<0.27)
[2021-12-09 21:33] LABS: TSH w/ Reflex to FT4 0.63 uIU/mL (0.47-4.68)
[2021-12-09 21:53] LABS: NT-proBNP (BNP-Adult 18+) 3510 pg/mL (<125); Reflexed Lactate in 2 Hours Y
[2021-12-09] MEDS: FUROSEMIDE 40 MG/4 ML VIAL IV (22:41)
[2021-12-09 22:51] LABS: Bilirubin Urine UA NEGATIVE (NEGATIVE); Color Urine UA YELLOW; Glucose Urine UA 1+ g/dL (Negative); Ketones Urine UA TRACE (NEGATIVE); Leukocyte Esterase Urine UA 2+ (NEGATIVE); Nitrite Urine UA POSITIVE (Negative); Occult Blood Urine UA 3+ (Negative); Protein Urine UA 1+ (Negative); Specific Gravity Urine UA 1.025 (1.000-1.035); Urobilinogen Urine UA 0.2 E.U./dL (0.2)
[2021-12-09 22:53] LABS: Appearance Urine UA CLOUDY
[2021-12-09 22:56] LABS: UR Morphine/Opiate cutoff 300 Negative (Negative); Ur Creatinine 20 (Normal); Ur Specific Gravity 1.025 (Normal); Urine Amphetamines Negative (Negative); Urine Cocaine Negative (Negative); Urine Tetrahydrocannabinol Negative (Negative); Urine pH 5 (Normal)
[2021-12-09 22:57] LABS: Urine Barbiturates Negative (Negative); Urine Benzodiazepines Negative (Negative); Urine MDMA Negative (Negative); Urine Methadone Negative (Negative); Urine Methamphetamines Negative (Negative); Urine Oxycodone Negative (Negative); Urine Phencyclidine Negative (Negative); Urine Tricyclic Antidepressant Negative (Negative)
[2021-12-09 23:03] LABS: Bacteria Urine Many (>30); Culture Indicated Urine Specimen Cultured; RBC Urine 1-5/HPF (0-5/HPF); WBC Urine >100/HPF (0-5/HPF)
[2021-12-09] MEDS: DEXAMETHASONE 10 MG/ML VIAL 6 MG IV (23:07)
[2021-12-09] MEDS: cefTRIAXone 1,000 MG in SODIUM CHLORIDE 0.9% 100 ML 200 ML IV (23:32)
[2021-12-10] VITALS: BP 120/78; PULSE 99; RESP 16; O2SAT 98
== END 2021-12-10 01:04 | disposition short-term general hospital (02) ==
PROVIDERS: Emergency Provider Emergency Medicine; Family Provider Family Medicine; PCP Physician Assistant Medical
DX: U07.1 COVID-19 (principal); I21.4 Non-ST elevation (NSTEMI) myocardial infarction; N39.0 Urinary tract infection, site not specified; I50.9 Heart failure, unspecified; I13.0 Hypertensive heart and chronic kidney disease with heart failure and stage 1 through stage 4 chronic kidney disease, or unspecified chronic kidney disease; E11.22 Type 2 diabetes mellitus with diabetic chronic kidney disease; N18.9 Chronic kidney disease, unspecified; I25.2 Old myocardial infarction; Z79.01 Long term (current) use of anticoagulants; Z95.0 Presence of cardiac pacemaker
CPT/HCPCS: 36415; 70450; 80053; 80305; 81001; 82009; 82550; 82553; 83605; 83880; 84145; 84443; 84484; 85025; 85610; 87040; 87077; 87086; 87186; 87633; 93005; 96374; 96375; 99284; 99291; J0696; J1100; J1940

== ENCOUNTER 2021-12-21 06:43 | Inpatient (IN) | payer SELFPAY ==
[2021-12-21] VITALS (27 sets, daily range): BP systolic 102–144; BP diastolic 62–76; PULSE 61–90; RESP 11–20; TEMP 36.1–36.6; O2SAT 94–99; BMI 32.1
--- NOTE | 2021-12-21 07:02 | DI.RAD.S_ITS ---
PROCEDURE: XR CHEST 1V INDICATIONS: weakness TECHNIQUE: One view of the chest was acquired. COMPARISON: [facility], CR, XR CHEST 1V, 04/25/2021, 18:16. FINDINGS: Surgical changes and devices: left-sided cardiac pacer device is in place. Lungs and pleura: Lungs are clear. No pleural effusions or pneumothorax. Mediastinum: Mediastinal contours appear normal. Heart size is normal. Bones and chest wall: No suspicious bony lesions. Overlying soft tissues appear unremarkable. IMPRESSION: Chest without acute cardiopulmonary abnormalities. No focal airspace disease. Dictated by: Sahil Gurrola M.D. on 12/21/2021 at 7:42 Approved by: Sahil Gurrola M.D. on 12/21/2021 at 7:42
[2021-12-21 07:17] LABS: Add Manual Diff / Slide Review NO; Basophils Absolute Auto 100 /uL (0-100); Basophils Percent Auto 0.6 % (0-2); Eosinophils Absolute Auto 200 /uL (0-450); Eosinophils Percent Auto 1.1 % (2-4); Hematocrit 42.5 % (36-46); Hemoglobin 14.2 g/dL (12.0-16.0); Lymphocytes Absolute Auto 2700 /uL (1100-4500); Lymphocytes Percent Auto 16.8 % (25-40); Mean Corpuscular HGB Conc 33.4 % (30-36); Mean Corpuscular Hemoglobin 28.8 PG (26-34); Mean Corpuscular Volume 86.3 fL (80-100); Monocytes Absolute Auto 1200 /uL (0-900); Monocytes Percent Auto 7.4 % (3-14); Neutrophils Absolute Auto 12100 /uL (1500-7000); Neutrophils Percent Auto 74.1 % (50-75); Platelet Count 233 X10^3/uL (150-400); Red Blood Cell Count 4.92 X10^6/uL (4.0-5.2); Red Cell Distribution Width 13.5 % (11.6-14.8); White Blood Cell Count 16.3 X10^3/uL (4.5-11.0)
[2021-12-21] MEDS: SODIUM CHLORIDE 0.9% 1,000 ML 150 ML IV (07:18)
[2021-12-21 07:27] LABS: Lactate (Lactic Acid) 2.2 mmol/L (0.7-2.1)
[2021-12-21 07:29] LABS: Prothrombin Time 63.4 SECONDS (10.1-12.7)
--- NOTE | 2021-12-21 07:29 | ED.WEAKNESS ---
HPI - Weakness General Chief complaint: Weakness Stated complaint: Lethargic, clammy, vomiting Time Seen by Provider: 12/21/21 06:50 Source: patient Mode of arrival: Ambulatory History of Present Illness HPI Narrative: Patient is a 56-year-old female with history of cardiac arrest, pacemaker, pulmonary embolisms on warfarin, diabetes, CVA with left-sided weakness presenting today with weakness and sweating. She was diagnosed with NSTEMI on 12/09/2021 transferred down to [facility]. She has been home for about 1 week. Last night she went into the living room got extremely sweaty lightheaded clammy and weak. Most history is from . Patient denying any pain. She has had 1 episode of diarrhea this morning. [facility] records report patient underwent angiogram on 12/14/2021 which showed multivessel coronary artery disease similar to previous study in 2018. Cardiology recommended outpatient follow-up to discuss bypass in the future after patient recovered from her COVID infection (diagnosed on 12/09/2021). COVID symptoms started around December 07 she is vaccinated with Moderna x2. She required 2-3 L of oxygen as she was treated with remdesivir for 5 days and dexamethasone his for 10 days she was discharged home on room air. Urine culture positive on 12/09/2021 here for of coli resistant to fluoroquinolones and Macrobid. It does not appear that it was treated at [facility] Related Data Home Medications Medication Instructions Recorded Confirmed aspirin 81 mg chewable tablet 81 mg PO QDAY #0 11/15/17 08/22/20 furosemide 20 mg tablet 40 mg PO QDAY #0 11/15/17 08/22/20 lisinopril 10 mg tablet 5 mg PO BID #0 11/15/17 08/22/20 Previous Rx's Medication Instructions Recorded cephalexin 500 mg capsule 500 mg PO QID #20 cap 05/10/21 Allergies Allergy/AdvReac Type Severity Reaction Status Date / Time No Known Drug Allergies Allergy Verified 03/15/21 22:37 Review of Systems Review of Systems ROS Unobtainable: All systems reviewed & are unremarkable except as noted in HPI and below Constitutional Constitutional: Reports as per HPI, Denies chills, Denies fever(s) and Reports weakness ENT Ears, Nose, Mouth, and Throat: Denies sore throat Cardiovascular Cardiovascular: Denies chest pain, Denies edema and Reports lightheadedness Respiratory Respiratory: Denies chest congestion and Denies cough Gastrointestinal Gastrointestinal: Denies abdominal pain, Denies nausea and Denies vomiting Musculoskeletal Musculoskeletal: Denies myalgias and Denies numbness Neurologic Neurologic: Denies numbness and Reports weakness 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 CVA (cerebral vascular accident) Diabetes mellitus History of ventricular fibrillation 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 Neuropathy Urinary incontinence Surgical History History of colonoscopy History of permanent cardiac pacemaker placement Family History Mother MRSA (methicillin resistant Staphylococcus aureus) Cardiovascular disease Stroke Myocardial infarction Father Cardiovascular disease Myocardial infarction Social History household members: children Smoking Status: Never smoker alcohol intake: former Smoking Status: Never smoker alcohol intake frequency: 0-2 drinks per day Substance Use Type: does not use Exam Initial Vital Signs Initial Vital Signs: Vital Signs Temperature 97.7 F 12/21/21 07:07 Pulse Rate 63 12/21/21 07:07 Respiratory Rate 20 12/21/21 07:07 Blood Pressure 114/62 12/21/21 07:07 Pulse Oximetry 98 12/21/21 07:07 GENERAL: Alert 56-year-old female appears weak in [no acute] distress. HEENT: Head atraumatic,EOMI, pupils reactive, face symmetric, [moist] mucous membranes CARDIOVASCULAR: Regular rate and rhythm without murmurs, rubs or gallops. RESPIRATORY: Breath sounds equal bilaterally, no wheezes rales or rhonchi. ABDOMEN: Soft, nontender. Normoactive bowel sounds all 4 quadrants. No guarding or rebound. EXTREMITIES: Normal range of motion, no clubbing or edema. Neurovascularly intact NEUROLOGICAL: Alert awake at baseline SKIN: Warm, dry, no laceration, no petechiae, no rashes or lesions. Course Orders Ordered: Acetaminophen (Acetaminophen 325 Mg Tablet) 650 mg PO Q6HR PRN PRN Reason: pain Dextrose (Dextrose 50 % In Water 25 Gm/50 Ml Syringe) 25 gm IV PRN PRN PRN Reason: Hypoglycemia Ceftriaxone Sodium 1,000 mg/ (Sodium Chloride) 100 mls @ 200 mls/hr IV Q24H ERIKA Insulin Glargine (Insulin Glargine 100 Unit/Ml 3ml Pen) 10 unit SUBCUT BEDTIME ERIKA Insulin Human Lispro (Insulin Lispro 100 Unit/Ml 3ml Vial) 0 unit SUBCUT ACHS ERIKA; Protocol Last Admin: 12/21/21 17:46 Dose: 3 unit Documented by: ROCAEL Cosigned by: LIAM Ondansetron HCl (Ondansetron 4 Mg/2 Ml Inj) 4 mg IV Q8HR PRN PRN Reason: Nausea And Vomiting Discontinued Medications Enoxaparin Sodium (Enoxaparin 40 Mg/0.4 Ml Syringe) 40 mg SUBCUT DAILY ERIKA Sodium Chloride (Normal Saline 0.9%) 1,000 mls @ 150 mls/hr IV CONT ERIKA Last Infusion: 12/21/21 11:01 Dose: 0 mls/hr Documented by: Admin: 12/21/21 07:18 Dose: 150 mls/hr Documented by: JACI Ceftriaxone Sodium 2,000 mg/ (Sodium Chloride) 100 mls @ 200 mls/hr IV NOW ONE Stop: 12/21/21 09:06 Last Infusion: 12/21/21 11:01 Dose: 0 mls/hr Documented by: Infusion: 12/21/21 10:47 Dose: 0 mls/hr Documented by: Admin: 12/21/21 09:39 Dose: 200 mls/hr Documented by: HERNANDEZ Vital Signs Vital signs: Vital Signs - 8 hr 12/21/21 10:40 12/21/21 11:00 12/21/21 11:21 Pulse Rate 66 66 63 Respiratory Rate 13 12 11 L Blood Pressure 130/76 127/71 113/68 Pulse Oximetry 98 97 99 MDM - Weakness Lab Data Result diagrams: 12/21/21 07:00 12/21/21 08:45 Labs: Lab Results 12/21/21 12/21/21 12/21/21 Range/Units 07:00 07:00 07:00 WBC 16.3 H (4.5-11.0) X10^3/uL RBC 4.92 (4.0-5.2) X10^6/uL Hgb 14.2 (12.0-16.0) g/dL Hct 42.5 (36-46) % MCV 86.3 (80-100) fL MCH 28.8 (26-34) PG MCHC 33.4 (30-36) % RDW 13.5 (11.6-14.8) % Plt Count 233 (150-400) X10^3/uL Neut % (Auto) 74.1 (50-75) % Lymph % (Auto) 16.8 L (25-40) % [place] % (Auto) 7.4 (3-14) % Eos % (Auto) 1.1 L (2-4) % Baso % (Auto) 0.6 (0-2) % Neut # (Auto) 01857 H (4255-1990) /uL Lymph # (Auto) 2700 (0999-8856) /uL [place] # (Auto) 1200 H (0-900) /uL Eos # (Auto) 200 (0-450) /uL Baso # (Auto) 100 (0-100) /uL PT (10.1-12.7) SECONDS INR (0.9-1.3) APTT (26.4-36.2) SECONDS Sodium (137-145) mmol/L Potassium (3.4-5.1) mmol/L Chloride (98-107) mmol/L Carbon Dioxide (22-32) mmol/L BUN (7-17) mg/dL Creatinine (0.52-1.04) mg/dL Estimated GFR (>60) mL/min BUN/Creatinine Ratio (6-22) Glucose (70-100) mg/dL Lactate 2.2 H (0.7-2.1) mmol/L Calcium (8.4-10.2) mg/dL Total Bilirubin (0.2-1.3) mg/dL AST (14-36) IU/L ALT (<35) IU/L Alkaline Phosphatase (38-126) U/L Total Creatine Kinase (30-135) U/L CK-MB (CK-2) CK-MB (CK-2) Rel Index Troponin I (0.01-0.034) ng/mL Total Protein (6.3-8.2) g/dL Albumin (3.5-5.0) g/dL Globulin (1.7-4.1) g/dL Albumin/Globulin Ratio (1.0-2.8) Procalcitonin (<0.5) ng/mL TSH 7.57 H (0.47-4.68) uIU/mL Urine Color Urine Appearance Urine pH (4.5-8.0) Ur Specific [place] (1.000-1.035) Urine Protein (Negative) Urine Glucose (UA) (Negative) g/dL Urine Ketones (NEGATIVE) Urine Occult Blood (Negative) Urine Nitrate (Negative) Urine Bilirubin (NEGATIVE) Urine Urobilinogen (0.2) E.U./dL Ur Leukocyte Esterase (NEGATIVE) Urine RBC (0-5/HPF) Urine WBC (0-5/HPF) Ur Squamous Epith Cells (0-5/HPF) Urine Bacteria (None) Ur Culture Indicated? SARS-CoV-2 (PCR) (Negative) 12/21/21 12/21/21 12/21/21 Range/Units 07:00 08:15 08:24 WBC (4.5-11.0) X10^3/uL RBC (4.0-5.2) X10^6/uL Hgb (12.0-16.0) g/dL Hct (36-46) % MCV (80-100) fL MCH (26-34) PG MCHC (30-36) % RDW (11.6-14.8) % Plt Count (150-400) X10^3/uL Neut % (Auto) (50-75) % Lymph % (Auto) (25-40) % [place] % (Auto) (3-14) % Eos % (Auto) (2-4) % Baso % (Auto) (0-2) % Neut # (Auto) (4848-4869) /uL Lymph # (Auto) (5257-2210) /uL [place] # (Auto) (0-900) /uL Eos # (Auto) (0-450) /uL Baso # (Auto) (0-100) /uL PT 63.4 H (10.1-12.7) SECONDS INR 5.3 H* (0.9-1.3) APTT 57 H D (26.4-36.2) SECONDS Sodium (137-145) mmol/L Potassium (3.4-5.1) mmol/L Chloride (98-107) mmol/L Carbon Dioxide (22-32) mmol/L BUN (7-17) mg/dL Creatinine (0.52-1.04) mg/dL Estimated GFR (>60) mL/min BUN/Creatinine Ratio (6-22) Glucose (70-100) mg/dL Lactate (0.7-2.1) mmol/L Calcium (8.4-10.2) mg/dL Total Bilirubin (0.2-1.3) mg/dL AST (14-36) IU/L ALT (<35) IU/L Alkaline Phosphatase (38-126) U/L Total Creatine Kinase (30-135) U/L CK-MB (CK-2) CK-MB (CK-2) Rel Index Troponin I (0.01-0.034) ng/mL Total Protein (6.3-8.2) g/dL Albumin (3.5-5.0) g/dL Globulin (1.7-4.1) g/dL Albumin/Globulin Ratio (1.0-2.8) Procalcitonin (<0.5) ng/mL TSH (0.47-4.68) uIU/mL Urine Color Yellow Urine Appearance Clear Urine pH 5.0 (4.5-8.0) Ur Specific [place] 1.020 (1.000-1.035) Urine Protein Trace H (Negative) Urine Glucose (UA) 2+ H (Negative) g/dL Urine Ketones Trace H (NEGATIVE) Urine Occult Blood Trace-intact (Negative) Urine Nitrate Positive H (Negative) Urine Bilirubin Negative (NEGATIVE) Urine Urobilinogen 0.2 (0.2) E.U./dL Ur Leukocyte Esterase Negative (NEGATIVE) Urine RBC None seen (0-5/HPF) Urine WBC 5-10/hpf H (0-5/HPF) Ur Squamous Epith Cells 0-1 /hpf (0-5/HPF) Urine Bacteria Many (>30) H (None) Ur Culture Indicated? Specimen cultured SARS-CoV-2 (PCR) Positive H (Negative) 12/21/21 12/21/21 12/21/21 Range/Units 08:45 08:45 10:37 WBC (4.5-11.0) X10^3/uL RBC (4.0-5.2) X10^6/uL Hgb (12.0-16.0) g/dL Hct (36-46) % MCV (80-100) fL MCH (26-34) PG MCHC (30-36) % RDW (11.6-14.8) % Plt Count (150-400) X10^3/uL Neut % (Auto) (50-75) % Lymph % (Auto) (25-40) % [place] % (Auto) (3-14) % Eos % (Auto) (2-4) % Baso % (Auto) (0-2) % Neut # (Auto) (2562-0204) /uL Lymph # (Auto) (4438-2413) /uL [place] # (Auto) (0-900) /uL Eos # (Auto) (0-450) /uL Baso # (Auto) (0-100) /uL PT (10.1-12.7) SECONDS INR (0.9-1.3) APTT (26.4-36.2) SECONDS Sodium 136 L (137-145) mmol/L Potassium 5.7 H (3.4-5.1) mmol/L Chloride 106 (98-107) mmol/L Carbon Dioxide 17 L (22-32) mmol/L BUN 34 H (7-17) mg/dL Creatinine 0.66 (0.52-1.04) mg/dL Estimated GFR > 60.0 (>60) mL/min BUN/Creatinine Ratio 51.5 H (6-22) Glucose 221 H (70-100) mg/dL Lactate 1.8 (0.7-2.1) mmol/L Calcium 9.0 (8.4-10.2) mg/dL Total Bilirubin 1.4 H (0.2-1.3) mg/dL AST 107 H (14-36) IU/L ALT 52 H (<35) IU/L Alkaline Phosphatase 107 (38-126) U/L Total Creatine Kinase 65 (30-135) U/L CK-MB (CK-2) TNP CK-MB (CK-2) Rel Index TNP Troponin I 0.032 (0.01-0.034) ng/mL Total Protein 7.9 (6.3-8.2) g/dL Albumin 4.2 (3.5-5.0) g/dL Globulin 3.7 (1.7-4.1) g/dL Albumin/Globulin Ratio 1.1 (1.0-2.8) Procalcitonin 0.06 (<0.5) ng/mL TSH (0.47-4.68) uIU/mL Urine Color Urine Appearance Urine pH (4.5-8.0) Ur Specific [place] (1.000-1.035) Urine Protein (Negative) Urine Glucose (UA) (Negative) g/dL Urine Ketones (NEGATIVE) Urine Occult Blood (Negative) Urine Nitrate (Negative) Urine Bilirubin (NEGATIVE) Urine Urobilinogen (0.2) E.U./dL Ur Leukocyte Esterase (NEGATIVE) Urine RBC (0-5/HPF) Urine WBC (0-5/HPF) Ur Squamous Epith Cells (0-5/HPF) Urine Bacteria (None) Ur Culture Indicated? SARS-CoV-2 (PCR) (Negative) Point of Care Testing Glucose POC [address] scan - head: Radiologist Impression: PROCEDURE:? CT HEAD/BRAIN WO CON ? INDICATIONS:? weakness on coumadin prior cva ? TECHNIQUE:? Noncontrast 4.5 mm thick angled axial sections acquired from the foramen magnum to the vertex, with coronal and sagittal reformats.? For radiation dose reduction, the following was used:? automated exposure control, adjustment of mA and/or kV according to patient size.? ? COMPARISON:? [facility], CT, CT HEAD/BRAIN WO CON, 05/09/2021, 20:37.? [facility], CT, CT HEAD/BRAIN WO CON, 12/09/2021, 20:04. ? FINDINGS:? Image quality:? Excellent.? ? CSF spaces:? Basal cisterns are patent.? No extra-axial fluid collections.? The ventricles are symmetric in size and shape.? ? Brain:? No intracranial bleeds or masses.? Old lacunar infarcts in basal ganglia bilaterally.? There is mild cerebral volume loss for age, with resultant ventricular and sulcal prominence.? There are moderate periventricular and deep white matter chronic small vessel ischemic changes.? There is intracranial internal carotid artery atherosclerosis.? ? Skull and face:? Calvarium and visualized facial bones appear intact, without suspicious lesions.? ? Sinuses:? Visualized sinuses and mastoids are clear.? ? IMPRESSION:? ? 1. No acute intracranial abnormalities. 2. Old lacunar infarcts in basal ganglia bilaterally. 3. Cerebral volume loss and periventricular white matter chronic small vessel ischemic changes. ? ? Dictated by: Neema Perez M.D. on 12/21/2021 at 7:49 ? ? Chest x-ray: Radiologist Impression: PROCEDURE:? XR CHEST 1V ? INDICATIONS:? weakness ? TECHNIQUE:? One view of the chest was acquired.? ? COMPARISON:? [facility], CR, XR CHEST 1V, 04/25/2021, 18:16. ? FINDINGS:? ? Surgical changes and devices:? left-sided cardiac pacer device is in place.? ? Lungs and pleura:? Lungs are clear.? No pleural effusions or pneumothorax.? ? Mediastinum:? Mediastinal contours appear normal.? Heart size is normal.? ? Bones and chest wall:? No suspicious bony lesions.? Overlying soft tissues appear unremarkable.? ? IMPRESSION:? Chest without acute cardiopulmonary abnormalities.? No focal airspace disease. ? ? Dictated by: Sahil Gurrola M.D. on 12/21/2021 at 7:42 ? ? Approved by: Sahil Gurrola M.D. on 12/21/2021 at 7:42 ? ECG Data Attestation: I personally reviewed and interpreted this ECG as follows: Interpretation: Paced rhythm rate 62 WI interval 148 QRS [address] changes MDM Narrative Medical decision making narrative: Patient is found to have UTI positive nitrates and leukocytosis. She has had weakness that has worsened. She continues to become positive for COVID but is asymptomatic and was previously treated. Potassium noted to be mildly elevated at 5.7 possibly from some mild dehydration. She is given fluids and antibiotics. Lactic acid and Bilirubin is also mildly elevated possibly due to sepsis as well. She is given a dose of Rocephin is based on previous culture. Blood pressure and heart rate have been stable in the emergency department. Dr. Clemens accepts patient. PCP is INÉS Redman Discharge Plan Departure Patient Disposition: Admitted As Inpatient Clinical Impression: UTI (urinary tract infection) Admit Date/Time: 12/21/21 11:28 Admit Provider: Adrien Clemens
[2021-12-21 07:30] LABS: INR 5.3 (0.9-1.3); PTT Partial Thromboplastin Tim 57 SECONDS (26.4-36.2)
--- NOTE | 2021-12-21 07:44 | DI.CT.S_ITS ---
PROCEDURE: CT HEAD/BRAIN WO CON INDICATIONS: weakness on coumadin prior cva TECHNIQUE: Noncontrast 4.5 mm thick angled axial sections acquired from the foramen magnum to the vertex, with coronal and sagittal reformats. For radiation dose reduction, the following was used: automated exposure control, adjustment of mA and/or kV according to patient size. COMPARISON: [facility], CT, CT HEAD/BRAIN WO CON, 05/09/2021, 20:37. [facility], CT, CT HEAD/BRAIN WO CON, 12/09/2021, 20:04. FINDINGS: Image quality: Excellent. CSF spaces: Basal cisterns are patent. No extra-axial fluid collections. The ventricles are symmetric in size and shape. Brain: No intracranial bleeds or masses. Old lacunar infarcts in basal ganglia bilaterally. There is mild cerebral volume loss for age, with resultant ventricular and sulcal prominence. There are moderate periventricular and deep white matter chronic small vessel ischemic changes. There is intracranial internal carotid artery atherosclerosis. Skull and face: Calvarium and visualized facial bones appear intact, without suspicious lesions. Sinuses: Visualized sinuses and mastoids are clear. IMPRESSION: 1. No acute intracranial abnormalities. 2. Old lacunar infarcts in basal ganglia bilaterally. 3. Cerebral volume loss and periventricular white matter chronic small vessel ischemic changes. Dictated by: Neema Perez M.D. on 12/21/2021 at 7:49 Approved by: Neema Perez M.D. on 12/21/2021 at 7:51
[2021-12-21 08:20] LABS: Thyroid Stimulating Hormone 7.57 uIU/mL (0.47-4.68)
[2021-12-21 08:31] LABS: COVID19 -Nasal RAPID POSITIVE (Negative)
--- NOTE | 2021-12-21 08:34 | PC.NURSE ---
straight cath ua obtained and sent to lab.
[2021-12-21 08:57] LABS: Appearance Urine UA CLEAR; Bilirubin Urine UA NEGATIVE (NEGATIVE); Color Urine UA YELLOW; Glucose Urine UA 2+ g/dL (Negative); Ketones Urine UA TRACE (NEGATIVE); Leukocyte Esterase Urine UA NEGATIVE (NEGATIVE); Nitrite Urine UA POSITIVE (Negative); Occult Blood Urine UA TRACE-INTACT (Negative); Protein Urine UA TRACE (Negative); Urobilinogen Urine UA 0.2 E.U./dL (0.2)
[2021-12-21 09:03] LABS: RBC Urine None Seen (0-5/HPF); Squamous Epithelial Cell Urine 0-1 /HPF (0-5/HPF); WBC Urine 5-10/HPF (0-5/HPF)
[2021-12-21 09:04] LABS: Bacteria Urine Many (>30); Culture Indicated Urine Specimen Cultured
[2021-12-21 09:12] LABS: Reflexed Lactate in 2 Hours Y
[2021-12-21 09:26] LABS: Procalcitonin 0.06 ng/mL (<0.5)
[2021-12-21] MEDS: cefTRIAXone 2,000 MG in SODIUM CHLORIDE 0.9% 100 ML 200 ML IV (09:39)
[2021-12-21 10:00] LABS: Creatine Kinase 65 U/L (30-135)
[2021-12-21 10:12] LABS: Troponin I 0.032 ng/mL (0.01-0.034)
[2021-12-21 10:19] LABS: Alanine Aminotransferase 52 IU/L (<35); Albumin 4.2 g/dL (3.5-5.0); Albumin Globulin Ratio 1.1 (1.0-2.8); Alkaline Phosphatase 107 U/L (38-126); Aspartate Aminotransferase 107 IU/L (14-36); BUN Creatinine Ratio 51.5 (6-22); Bilirubin Total 1.4 mg/dL (0.2-1.3); Blood Urea Nitrogen 34 mg/dL (7-17); Carbon Dioxide 17 mmol/L (22-32); Chloride 106 mmol/L (98-107); Estimated Glomerular Filt Rate > 60.0 mL/min (>60); Globulin 3.7 g/dL (1.7-4.1); Glucose 221 mg/dL (70-100); Potassium 5.7 mmol/L (3.4-5.1); Sodium 136 mmol/L (137-145); Total Protein 7.9 g/dL (6.3-8.2)
[2021-12-21 10:20] LABS: HEMOLYSIS 215 (0-50)
[2021-12-21 10:56] LABS: Lactate 2HR (Lactic Acid Rflx) 1.8 mmol/L (0.7-2.1)
--- NOTE | 2021-12-21 11:46 | PC.NURSE ---
recieving rn to call for report she is in rooms with a patient currently. at bedside notified of room status.
--- NOTE | 2021-12-21 15:05 | PT.IIE ---
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 CVA (cerebral vascular accident) Diabetes mellitus History of ventricular fibrillation 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 Neuropathy Urinary incontinence Physical Therapy Inpatient Evaluation/Re-Eval M1 PT/OT-IP Prior Functional Status Start: 12/21/21 16:03 Freq: NEEDED Status: Active Protocol: Document 12/21/21 15:05 AB (Rec: 12/21/21 16:14 AB [id number]) Medical Review Prior Functional Status Medical History Reviewed Yes Communication very soft weak voice and unable to answer questions consistently Mobility and Gait pt stated that her sons assists her at home with all mobilities; able to ambulate with assistance using a FWW Social History Household Members children Living Arrangements Mobile home Number of Floors (Floors) One Floor Number of Stairs To Enter/Railing? 2 steps : pt unable to state if she has rails Home Environment Standard Height Toilet,Tub/ Shower Home Equipment Front Wheel Walker Additional Social History Comment pt stated that she sponge bathes: son assists her M2 PT-IP Current Condition Start: 12/21/21 16:03 Freq: NEEDED Status: Active Protocol: Document 12/21/21 15:05 AB (Rec: 12/21/21 16:14 AB [id number]) Physical Therapy Current Condition Current Condition Evaluation Date 12/21/21 Treatment Diagnosis Covid; UTI; generalized weakness Onset Date 12/21/21 M3 PT-IP Subjective Start: 12/21/21 16:03 Freq: NEEDED Status: Active Protocol: Document 12/21/21 15:05 AB (Rec: 12/21/21 16:14 AB [email or web address]) Subjective Physical Therapy Visit Type Type Initial Evaluation Visit Start Time 15:05 Visit Stop Time 15:40 Total Visit Minutes 35 Notes EMR reviewed: pt with increase INR 5.[address] Clemens and stated that pt is ok to do PT. Number of FIRMWARE DEVELOPER Visits 0 M4 PT-IP Mobility and Gait Start: 12/21/21 16:03 Freq: NEEDED Status: Active Protocol: Document 12/21/21 15:05 AB (Rec: 12/21/21 16:14 AB [email or web address]) PT-Bed Mobility Assessment Supine to Sit Supine to Sit Maximum Assistance,1 Person Assistance,2 Person Assistance ,Head of Bed Elevated Sit to Supine Sit to Supine Maximum Assistance,1 Person Assistance,2 Person Assistance Scooting Scooting to Edge of Bed Dependent PT-Transfer Assessment Comments Mobility Comments pt completed supine to sit HOB elevated max A x 1-2 and max cues. max A for sitting balance with increase posterior and L lateral trunk LOB. pt unable to tolerate much activity and is dosing off in between tasks. pt requested to go back to bed. max A for sit to supine. total A for positioned in bed. call light and table placed within reach. PT-Balance Assessment Sitting Balance and Reactions Static Sitting Balance Ability Poor Dynamic Sitting Balance Ability Poor M5 PT-IP Objective Assessments Start: 12/21/21 16:03 Freq: NEEDED Status: Active Protocol: Document 12/21/21 15:05 AB (Rec: 12/21/21 16:14 AB [email or web address]) Orientation Orientation/Cognition Level of Alertness Confusional State Safety Awareness Decreased Safety Awareness Memory Description Short Term Impaired Gross Range of Motion Lower Extremity ROM Impairments LLE with increase extensor tone Strength Lower Extremity Strength Assessment Left Impaired Comments Strength Comments pt with increase LLE extensor tone with PROM but unable to move LLE for MMT M6 PT-IP Treatment Start: 12/21/21 16:03 Freq: NEEDED Status: Active Protocol: Document 12/21/21 15:05 AB (Rec: 12/21/21 16:14 AB [email or web address]) Physical Therapy Treatment Education Education Provided Safety M7 PT-IP Assessment and Plan Start: 12/21/21 16:03 Freq: NEEDED Status: Active Protocol: Document 12/21/21 15:05 AB (Rec: 12/21/21 16:14 AB [email or web address]) PT Summary Assessment and Plan Potential Rehabilitation Potential Fair Status of Condition at Evaluation Evolving Summary Impairments Pain,ROM,Strength,Balance, Coordination,Sensation,Tone, Cognition,Bed Mobility, Transfers,Gait,Activity Tolerance Assessment Summary pt requiring max A x 1-2 for bed mobility and unable to tolerate much activity to be able to transfers or ambulate. pt with h/o CVA with L sided weakness and currently also has Covid PNA. pt will require SNF rehab at this time . will continue to assess progress. Goals Bed Mobility Goal Moderate Assistance Transfer Goal Moderate Assistance,Front Wheeled Walker Gait Goal Moderate Assistance,Front Wheel Walker,Nilson Walker Gait Distance 25 Days to Meet Goals 10 Frequency of Treatment Frequency Of Treatment Once a Day Treatment Plan Physical Therapy Treatment Plan Bed Mobility Training,Transfer Training,Gait Training, Therapeutic Exercise,Balance Retraining,Discharge Planning, Hot or Cold Pack,Neuromuscular Re-ed,Coordination Retraining ,Manual Therapy Precautions Other Precautions Covid Recommendations To Nursing Amount of Assist Needed Mechanical Lift Discharge Recommendations PT Discharge Recommendations SNF Rehab Transportation Needs at Discharge Stretcher/Ambulance
--- NOTE | 2021-12-21 16:36 | PM.HP.1 ---
History of Present Illness History of Present Illness Date Patient Seen: 12/21/21 Time Patient Seen: 13:00 Chief complaint: Lethargic, clammy, vomiting Narrative: Ms. Gray is a 56W with PMH CVA with residual left sided weakness, DM on insulin, cardiac arrest vfib s/p AICD, HTN, PEs who presents with weakness and diaphoresis. She was recently admitted to [facility] for an NSTEMI, and was then discharged. She had cath showing multivessedl disease and she was COVID positive with symptoms starting around 12/07. She was discharged to have outpatient consideration of bypass once COVID resolved. Yesterday she began feeling sweaty, lightheaded, and weak. She had an episode of diarrhea and felt worse today so was brought to the hospital. She had no chest pain, cough, shortness of breath. She had no dysuria. In the ED workup was done, vitals notable for T 97.7. Labs notable for WBC 16.3, Na 136, K 5.7 (but hemolyzed), Creatinine 0.66. Lactate 2.2. INR 5.3. UA positive nitrates, 5-10 WBC, and many bacteria. COVID remained positive. Procal 0.06. She did have an e. coli uti on 12/09. She was ordered for fluids and antibiotics and admitted for further treatment. 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 CVA (cerebral vascular accident) Diabetes mellitus History of ventricular fibrillation 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 Neuropathy Urinary incontinence Surgical History History of colonoscopy History of permanent cardiac pacemaker placement Family & Social History Family History Mother MRSA (methicillin resistant Staphylococcus aureus) Cardiovascular disease Stroke Myocardial infarction Father Cardiovascular disease Myocardial infarction Social History: household members children Prior Living Arrangements Mobile home Safety & Behavioral: Feels Safe in Current Yes Environment Been Physically Hurt or No Threatened By a Person Suicidal Ideation Description None Suicide Plan Description No Plan Tobacco & Substance use: Smoking Status Never smoker alcohol intake former alcohol intake frequency 0-2 drinks per day Substance Use Type does not use Meds Home Medications and Allergies Home Medications Medication Instructions Recorded Confirmed Type aspirin 81 mg chewable tablet 81 mg PO QDAY #0 11/15/17 08/22/20 History furosemide 20 mg tablet 40 mg PO QDAY #0 11/15/17 08/22/20 History lisinopril 10 mg tablet 5 mg PO BID #0 11/15/17 08/22/20 History cephalexin 500 mg capsule 500 mg PO QID #20 cap 05/10/21 Rx Allergies Allergy/AdvReac Type Severity Reaction Status Date / Time No Known Drug Allergies Allergy Verified 03/15/21 22:37 Review of Systems Review of Systems Narrative: 14 systems reviewed and negative aside from what is noted in HPI Exam Vital Signs (past 8 hours): - 12/21/21 08:40 12/21/21 09:00 12/21/21 09:20 Temperature Pulse Rate 65 62 66 Respiratory Rate 12 12 12 Blood Pressure 113/74 114/71 109/69 Pulse Oximetry 99 99 98 12/21/21 09:30 12/21/21 09:40 12/21/21 10:00 Temperature Pulse Rate 69 64 65 Respiratory Rate 15 16 12 Blood Pressure 113/71 115/69 Pulse Oximetry 99 99 98 12/21/21 10:20 12/21/21 10:30 12/21/21 10:40 Temperature Pulse Rate 64 67 66 Respiratory Rate 12 13 13 Blood Pressure 113/64 130/76 Pulse Oximetry 97 98 98 12/21/21 11:00 12/21/21 11:21 12/21/21 11:30 Temperature Pulse Rate 66 63 64 Respiratory Rate 12 11 L 11 L Blood Pressure 127/71 113/68 Pulse Oximetry 97 99 98 12/21/21 11:40 12/21/21 12:05 Temperature 97.0 F L Pulse Rate 64 63 Respiratory Rate 13 17 Blood Pressure 109/69 121/74 Pulse Oximetry 98 97 Oxygen Delivery Method Room Air Oxygen Flow Rate 0 Narrative Exam Narrative: GEN: no acute distress, chronically ill appearing HEENT: moist mucous membranes, PERRL NECK: trachea midline, no JVD PULM: clear bilaterally CV: regular rate and rhythm, no murmurs ABD: soft, nontender, nondistended, no organomegaly, normal bowel sounds EXT: warm and well perfused with no edema NEURO: chronic left sided weakness Objective Labs Result Diagrams: 12/21/21 07:00 12/21/21 08:45 Labs: Laboratory Results - last 24 hr 12/21/21 12/21/21 12/21/21 07:00 07:00 07:00 WBC 16.3 H RBC 4.92 Hgb 14.2 Hct 42.5 MCV 86.3 MCH 28.8 MCHC 33.4 RDW 13.5 Plt Count 233 Neut % (Auto) 74.1 Lymph % (Auto) 16.8 L [place] % (Auto) 7.4 Eos % (Auto) 1.1 L Baso % (Auto) 0.6 Neut # (Auto) 01049 H Lymph # (Auto) 2700 [place] # (Auto) 1200 H Eos # (Auto) 200 Baso # (Auto) 100 PT INR APTT Sodium Potassium Chloride Carbon Dioxide BUN Creatinine Estimated GFR BUN/Creatinine Ratio Glucose Lactate 2.2 H Calcium Total Bilirubin AST ALT Alkaline Phosphatase Total Creatine Kinase CK-MB (CK-2) CK-MB (CK-2) Rel Index Troponin I Total Protein Albumin Globulin Albumin/Globulin Ratio Procalcitonin TSH 7.57 H Urine Color Urine Appearance Urine pH Ur Specific [place] Urine Protein Urine Glucose (UA) Urine Ketones Urine Occult Blood Urine Nitrate Urine Bilirubin Urine Urobilinogen Ur Leukocyte Esterase Urine RBC Urine WBC Ur Squamous Epith Cells Urine Bacteria Ur Culture Indicated? SARS-CoV-2 (PCR) 12/21/21 12/21/21 12/21/21 07:00 08:15 08:24 WBC RBC Hgb Hct MCV MCH MCHC RDW Plt Count Neut % (Auto) Lymph % (Auto) [place] % (Auto) Eos % (Auto) Baso % (Auto) Neut # (Auto) Lymph # (Auto) [place] # (Auto) Eos # (Auto) Baso # (Auto) PT 63.4 H INR 5.3 H* APTT 57 H D Sodium Potassium Chloride Carbon Dioxide BUN Creatinine Estimated GFR BUN/Creatinine Ratio Glucose Lactate Calcium Total Bilirubin AST ALT Alkaline Phosphatase Total Creatine Kinase CK-MB (CK-2) CK-MB (CK-2) Rel Index Troponin I Total Protein Albumin Globulin Albumin/Globulin Ratio Procalcitonin TSH Urine Color Yellow Urine Appearance Clear Urine pH 5.0 Ur Specific [place] 1.020 Urine Protein Trace H Urine Glucose (UA) 2+ H Urine Ketones Trace H Urine Occult Blood Trace-intact Urine Nitrate Positive H Urine Bilirubin Negative Urine Urobilinogen 0.2 Ur Leukocyte Esterase Negative Urine RBC None seen Urine WBC 5-10/hpf H Ur Squamous Epith Cells 0-1 /hpf Urine Bacteria Many (>30) H Ur Culture Indicated? Specimen cultured SARS-CoV-2 (PCR) Positive H 12/21/21 12/21/21 12/21/21 08:45 08:45 10:37 WBC RBC Hgb Hct MCV MCH MCHC RDW Plt Count Neut % (Auto) Lymph % (Auto) [place] % (Auto) Eos % (Auto) Baso % (Auto) Neut # (Auto) Lymph # (Auto) [place] # (Auto) Eos # (Auto) Baso # (Auto) PT INR APTT Sodium 136 L Potassium 5.7 H Chloride 106 Carbon Dioxide 17 L BUN 34 H Creatinine 0.66 Estimated GFR > 60.0 BUN/Creatinine Ratio 51.5 H Glucose 221 H Lactate 1.8 Calcium 9.0 Total Bilirubin 1.4 H AST 107 H ALT 52 H Alkaline Phosphatase 107 Total Creatine Kinase 65 CK-MB (CK-2) TNP CK-MB (CK-2) Rel Index TNP Troponin I 0.032 Total Protein 7.9 Albumin 4.2 Globulin 3.7 Albumin/Globulin Ratio 1.1 Procalcitonin 0.06 TSH Urine Color Urine Appearance Urine pH Ur Specific [place] Urine Protein Urine Glucose (UA) Urine Ketones Urine Occult Blood Urine Nitrate Urine Bilirubin Urine Urobilinogen Ur Leukocyte Esterase Urine RBC Urine WBC Ur Squamous Epith Cells Urine Bacteria Ur Culture Indicated? SARS-CoV-2 (PCR) Assessment & Plan Assessment & Plan narrative: 1. Acute UTI with weakness -WBC on admit 16, with positive UA -continue ceftriaxone -follow up urine cultures -PT/OT consult 2. Hyperkalemia -possibly secondary to hemolyzed specimen -repeat lab 3. Coagulopathy, acute -secondary to coumadin -INR on admit >5, no evidence of bleeding -hold coumadin for now -likely worsened in setting of recent illness -trend daily -goal 2-3 4. Transaminitis, acute -in setting of infection -recheck tomorrow 5. Chronic PEs -hold coumadin for now -goal INR 2-3 6. CAD s/p vfib arrest s/p AICD -asymptomatic currently -continue home medication aspirin 7. Type 2 Diabetes on insulin -continue home insulin 13U glargine -add insulin sliding scale CODE: Full Proxy: Javi Sylvester, spouse I have utilized all available resources to reconcile patient's home medications Time Spent With Patient Critical Care time: I spent a total of [] minutes of critical care time on this patient's care today; this time is exclusive of procedural time. Quality MIPS - Admit I confirm the patient?s Advance Care Plan is present, Code status is documented, Surrogate decision maker is in patient?s record [If Yes, STOP here]: Yes
[2021-12-21] MEDS: INSULIN LISPRO 100 UNIT/ML 3ML VIAL SUBCUT ×2 (17:46→20:32)
[2021-12-21 18:50] LABS: HEMOLYSIS < 15 (0-50)
[2021-12-21] MEDS: ACETAMINOPHEN 325 MG TABLET 650 MG PO (19:42)
[2021-12-21] MEDS: INSULIN GLARGINE 100 UNIT/ML 3ML PEN 10 UNIT SUBCUT (20:31)
[2021-12-21] MEDS: OXYCODONE IR 5 MG TABLET PO (22:50)
[2021-12-22 04:00] VITALS: BP 154/78; PULSE 84; RESP 19; TEMP 36.3; O2SAT 96
[2021-12-22] MEDS: ACETAMINOPHEN 325 MG TABLET 650 MG PO (04:05)
[2021-12-22 05:17] LABS: INR 3.6 (0.9-1.3); Prothrombin Time 41.7 SECONDS (10.1-12.7)
[2021-12-22 05:26] LABS: Add Manual Diff / Slide Review NO; Alanine Aminotransferase 43 IU/L (<35); Albumin 3.4 g/dL (3.5-5.0); Albumin Globulin Ratio 1.1 (1.0-2.8); Alkaline Phosphatase 110 U/L (38-126); Aspartate Aminotransferase 23 IU/L (14-36); Basophils Absolute Auto 0 /uL (0-100); Basophils Percent Auto 0.2 % (0-2); Bilirubin Total 0.7 mg/dL (0.2-1.3); Bilirubin Unconjugated 0.7 mg/dL (0.0-1.1); Eosinophils Absolute Auto 100 /uL (0-450); Eosinophils Percent Auto 0.7 % (2-4); Globulin 3.1 g/dL (1.7-4.1); HEMOLYSIS < 15 (0-50); Hematocrit 35.1 % (36-46); Hemoglobin 11.9 g/dL (12.0-16.0); Lymphocytes Absolute Auto 1500 /uL (1100-4500); Lymphocytes Percent Auto 11.8 % (25-40); Mean Corpuscular HGB Conc 33.9 % (30-36); Mean Corpuscular Hemoglobin 28.9 PG (26-34); Mean Corpuscular Volume 85.3 fL (80-100); Monocytes Absolute Auto 700 /uL (0-900); Monocytes Percent Auto 5.5 % (3-14); Neutrophils Absolute Auto 10500 /uL (1500-7000); Neutrophils Percent Auto 81.8 % (50-75); Platelet Count 192 X10^3/uL (150-400); Red Blood Cell Count 4.12 X10^6/uL (4.0-5.2); Red Cell Distribution Width 12.9 % (11.6-14.8); Total Protein 6.5 g/dL (6.3-8.2); White Blood Cell Count 12.8 X10^3/uL (4.5-11.0)
[2021-12-22 05:28] LABS: Blood Urea Nitrogen 25 mg/dL (7-17); Calcium 8.3 mg/dL (8.4-10.2); Carbon Dioxide 25 mmol/L (22-32); Chloride 100 mmol/L (98-107); Estimated Glomerular Filt Rate > 60.0 mL/min (>60); Glucose 243 mg/dL (70-100); HEMOLYSIS < 15 (0-50); Potassium 4.5 mmol/L (3.4-5.1); Sodium 132 mmol/L (137-145)
[2021-12-22 07:00] VITALS: O2SAT 93
[2021-12-22] MEDS: INSULIN LISPRO 100 UNIT/ML 3ML VIAL SUBCUT ×2 (08:39→11:30)
[2021-12-22] MEDS: ATORVASTATIN 20 MG TABLET 40 MG PO (08:41)
[2021-12-22] MEDS: cefTRIAXone 1,000 MG in SODIUM CHLORIDE 0.9% 100 ML 200 ML IV (08:43)
[2021-12-22 08:45] VITALS: BP 162/93; PULSE 78
[2021-12-22] MEDS: METOPROLOL ER 25 MG TABLET PO (08:45)
[2021-12-22 09:15] VITALS: BP 159/84; PULSE 99
[2021-12-22 11:38] VITALS: O2SAT 99
[2021-12-22 12:00] VITALS: BP 145/82; PULSE 81; RESP 16; TEMP 36.3; O2SAT 97
--- NOTE | 2021-12-22 14:02 | PT-IP ANOTE ---
Attempted to see pt at 14:02, pt refused therapy stating she has plenty of help at home. Pt stated her family uses w/c to get her into her home and are already used to providing assistance to her.
--- NOTE | 2021-12-22 14:11 | OT.IPNOTE ---
Attempted to do OT eval with pt, pt states has supportive family at home to assist her and has discharge orders to go home. Therefore discharge OT eval orders.
--- NOTE | 2021-12-22 17:05 | PC.NURSE ---
Pt discharged by provider. Written and verbal instructions provider to spouse; Spouse verbalized understanding of all instructions. IV removed. Pt escorted out via w/c in stable condition with all personal belongings.
--- NOTE | 2021-12-22 20:38 | PM.DS.1 ---
History of Present Illness History of Present Illness Chief complaint: Lethargic, clammy, vomiting Narrative: Ms. Gray is a 56W with PMH CVA with residual left sided weakness, DM on insulin, cardiac arrest vfib s/p AICD, HTN, PEs who presents with weakness and diaphoresis. She was recently admitted to [facility] for an NSTEMI, and was then discharged. She had cath showing multivessedl disease and she was COVID positive with symptoms starting around 12/07. She was discharged to have outpatient consideration of bypass once COVID resolved. Yesterday she began feeling sweaty, lightheaded, and weak. She had an episode of diarrhea and felt worse today so was brought to the hospital. She had no chest pain, cough, shortness of breath. She had no dysuria. In the ED workup was done, vitals notable for T 97.7. Labs notable for WBC 16.3, Na 136, K 5.7 (but hemolyzed), Creatinine 0.66. Lactate 2.2. INR 5.3. UA positive nitrates, 5-10 WBC, and many bacteria. COVID remained positive. Procal 0.06. She did have an e. coli uti on 12/09. She was ordered for fluids and antibiotics and admitted for further treatment. Discharge Providers Provider Date of admission: 12/21/21 11:28 Discharge Date: 12/22/21 Primary care physician: Donna Redman PA-C Consults: 12/21/21 12:46 Consult to Occupational Therapy Evaluate & Treat Comment: Physician Instructions: Evaluate and treat Consult to Physical Therapy Evaluate & Treat Comment: Physician Instructions: Evaluate and Treat 12/21/21 12:50 Consult to Dietitian, Adult Routine Comment: Reason For Exam: BMI 32 Discharge provider: Adrien Clemens MD Summary Hospital Course Discharge Diagnosis: 1. Acute UTI with weakness 2. Acute coagulopathy 4. Chronic PEs 5. CAD s/p vfib arrest s/p AICD 6. Type 2 DM on insulin 7. History of CVA with residual left sided weakness Hospital Course: Ms. Gray was admitted with weakness. Initially white count elevated to 16. She had recent positive urine culture with E. coli, and on discharge was growing gram negative bacilli. She was started on antibiotics and improved. She was discharged with antibiotics for a 7 day course of treatment. She said she was feeling back to baseline on day of discharged and wanted to go home. She did have mildly elevated INR and had one dose of coumadin held, and was restarted on home dose on discharge. Exam Vital Signs (past 8 hours): Oxygen Delivery Method Room Air Oxygen Flow Rate 0 Narrative Exam Narrative: GEN: no acute distress, chronically ill appearing PULM: clear bilaterally CV: regular rate and rhythm, no murmurs ABD: soft, nontender, nondistended, no organomegaly, normal bowel sounds Objective Labs Result Diagrams: 12/22/21 04:50 12/22/21 04:50 Labs: Laboratory Results - last 24 hr 12/21/21 12/22/21 12/22/21 20:00 04:50 04:50 WBC RBC Hgb Hct MCV MCH MCHC RDW Plt Count Neut % (Auto) Lymph % (Auto) [place] % (Auto) Eos % (Auto) Baso % (Auto) Neut # (Auto) Lymph # (Auto) [place] # (Auto) Eos # (Auto) Baso # (Auto) PT 41.7 H D INR 3.6 H Sodium Potassium Chloride Carbon Dioxide BUN Creatinine Estimated GFR BUN/Creatinine Ratio Glucose Calcium Total Bilirubin 0.7 Conjugated Bilirubin 0.0 Unconjugated Bilirubin 0.7 AST 23 ALT 43 H Alkaline Phosphatase 110 Total Protein 6.5 Albumin 3.4 L Globulin 3.1 Albumin/Globulin Ratio 1.1 Nasal Screen MRSA (PCR) Positive for mrsa H 12/22/21 12/22/21 04:50 04:50 WBC 12.8 H RBC 4.12 Hgb 11.9 L Hct 35.1 L MCV 85.3 MCH 28.9 MCHC 33.9 RDW 12.9 Plt Count 192 Neut % (Auto) 81.8 H Lymph % (Auto) 11.8 L [place] % (Auto) 5.5 Eos % (Auto) 0.7 L Baso % (Auto) 0.2 Neut # (Auto) 95346 H Lymph # (Auto) 1500 [place] # (Auto) 700 Eos # (Auto) 100 Baso # (Auto) 0 PT INR Sodium 132 L Potassium 4.5 Chloride 100 Carbon Dioxide 25 BUN 25 H Creatinine 0.61 Estimated GFR > 60.0 BUN/Creatinine Ratio 41.0 H Glucose 243 H Calcium 8.3 L Total Bilirubin Conjugated Bilirubin Unconjugated Bilirubin AST ALT Alkaline Phosphatase Total Protein Albumin Globulin Albumin/Globulin Ratio Nasal Screen MRSA (PCR) PFSH Medical History 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 CVA (cerebral vascular accident) Diabetes mellitus History of ventricular fibrillation 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 Neuropathy Urinary incontinence Surgical History History of colonoscopy History of permanent cardiac pacemaker placement Family History Mother MRSA (methicillin resistant Staphylococcus aureus) Cardiovascular disease Stroke Myocardial infarction Father Cardiovascular disease Myocardial infarction Social History household members: children Smoking Status: Never smoker alcohol intake: former Discharge Plan Discharge Plan Patient Disposition: Home Health Service Provider Discharge Comment: Ms. Gray came in to the hospital with a UTI. She was improving with antibiotics. She should continue to take antibiotics to completely clear up her infection and follow up soon with her PCP. Discharge orders & Medications Prescriptions: New sulfamethoxazole-trimethoprim [Bactrim DS] 800-160 mg tablet 1 tab PO BID Qty: 10 0RF Continued lisinopril 10 MG tablet 5 mg PO DAILY Qty: 0 0RF atorvastatin 40 mg Tablet 40 mg PO DAILY 0RF warfarin 7.5 mg tablet 7.5 mg PO QPM 0RF Label Comments: take 1 tablet by mouth once daily metformin 1,000 mg tablet 1,000 mg PO BID 0RF Label Comments: TAKE 1 TABLET BY MOUTH TWICE DAILY metoprolol succinate 25 mg tablet extended release 24 hr 25 mg PO DAILY 0RF oxybutynin chloride 5 mg tablet 2.5 mg PO BID 0RF Label Comments: TAKE 1/2 (ONE-HALF) TABLET BY MOUTH TWICE DAILY NEEDED FOR OVERACTIVE BLADDER Follow up/Referrals: Donna Redman PA-C [Primary Care Provider] - Diet/Activity/Treatments Diet: Carb-consistent/Diabetic Discharge Data Primary Care Provider: Donna Redman
--- NOTE | 2021-12-23 09:33 | CM.DPNOTE ---
DC Note Late Entry Patient is a 56 yo female, resident of [place], wheelchair bound, lives w/spouse, PMH includes multiple medical complication to include: history of stroke and left-sided hemiparesis , anticoagulated on Coumadin, hyperlipidemia, hypertension, diabetes who had a cardiac arrest 3 years ago PETAR Gonzalez notified this MANAGER PRINTING yesterday 12.22.21 that patient had been cleared medically for discharge home. This MANAGER PRINTING reviewed admitting notes to find: Patient will be self-pay. is the only one employed at approx. $20.00/hr. with a family of 3. Their FPL is approx. 180% and over the 138% FPL required to qualify for [employer]. It?s outside of open enrollment to process an application for a QHP through the exchange. Patient said has the financial assistance application, and I urged her to complete this prior to discharging. Updated RN. Plan: DC home w/spouse via pov yesterday 12.22.21, self pay limits available resources RICHAR Larsen
== END 2021-12-22 16:15 | disposition home or self-care (01) | DRG 689 ==
LOC: ED 07:20 → AC 11:29 → ICU 11:39
PROVIDERS: Admitting Provider Internal Medicine; Emergency Provider Emergency Medicine; Family Provider Family Medicine; PCP Physician Assistant Medical; Referring Provider Emergency Medicine; Visit Provider Internal Medicine
DX: N39.0 Urinary tract infection, site not specified (principal); I49.01 Ventricular fibrillation; U07.1 COVID-19; I69.354 Hemiplegia and hemiparesis following cerebral infarction affecting left non-dominant side; I27.82 Chronic pulmonary embolism; D68.9 Coagulation defect, unspecified; E87.5 Hyperkalemia; I10 Essential (primary) hypertension; I25.10 Atherosclerotic heart disease of native coronary artery without angina pectoris; R32 Unspecified urinary incontinence; E11.9 Type 2 diabetes mellitus without complications; B96.20 Unspecified Escherichia coli [E. coli] as the cause of diseases classified elsewhere; Z95.810 Presence of automatic (implantable) cardiac defibrillator; Z79.4 Long term (current) use of insulin; Z79.01 Long term (current) use of anticoagulants; Z79.84 Long term (current) use of oral hypoglycemic drugs
CPT/HCPCS: 36415; 70450; 71045; 80048; 80053; 80076; 81001; 82550; 82962; 83605; 84132; 84145; 84443; 84484; 85025; 85610; 85730; 87040; 87077; 87086; 87186; 87635; 87797; 93005; 93010; 94760; 96361; 96365; 97162; 99284; C9803; J0696; J1815

== ENCOUNTER 2021-12-23 01:27 | Emergency (ER) | payer SELFPAY ==
[2021-12-21 12:38] VITALS: BMI 32.1
[2021-12-23] VITALS (22 sets, daily range): BP systolic 86–117; BP diastolic 50–69; PULSE 64–95; RESP 8–20; TEMP 36.4–36.5; O2SAT 53–100
--- NOTE | 2021-12-23 01:49 | DI.RAD.S_ITS ---
PROCEDURE: XR CHEST 1V INDICATIONS: chest pain TECHNIQUE: One view of the chest was acquired. COMPARISON: [facility], CR, XR CHEST 1V, 12/21/2021, 7:29. FINDINGS: Surgical changes and devices: Left chest wall AICD is stable. Lungs and pleura: Lungs are clear. No pleural effusions or pneumothorax. Mediastinum: Mediastinal contours appear normal. Heart size is normal. Bones and chest wall: No suspicious bony lesions. Overlying soft tissues appear unremarkable. IMPRESSION: No acute cardiopulmonary disease process. Dictated by: Emily Ramirez MD, PhD on 12/23/2021 at 7:21 Approved by: Emily Ramirez MD, PhD on 12/23/2021 at 7:24
--- NOTE | 2021-12-23 02:54 | DI.RAD.S_ITS ---
PROCEDURE: XR CHEST 1V INDICATIONS: confirm placement of line TECHNIQUE: One view of the chest was acquired. COMPARISON: None. FINDINGS: Surgical changes and devices: Central venous catheter tip projects to the proximal right atrium. AICD is stable. Lungs and pleura: Lungs are clear. No pleural effusions or pneumothorax. Mediastinum: Mediastinal contours appear normal. Heart size is normal. Bones and chest wall: No suspicious bony lesions. Overlying soft tissues appear unremarkable. IMPRESSION: Tip of central venous catheter projects over the right atrium. Dictated by: Emily Ramirez MD, PhD on 12/23/2021 at 7:42 Approved by: Emily Ramirez MD, PhD on 12/23/2021 at 7:43
--- NOTE | 2021-12-23 02:59 | ED.GENADULT ---
HPI - General Adult General Chief complaint: Altered Mental Status Stated complaint: chest pain/lethargic/rt arm pain today Time Seen by Provider: 12/23/21 01:30 History of Present Illness HPI narrative: 56-year-old woman with history of stroke and left-sided hemiparesis in a wheelchair most the time, anticoagulated on Coumadin, hyperlipidemia, hypertension, diabetes who had a cardiac arrest 3 years ago and now has an AICD, she was admitted to [facility] for an NSTEMI on December 09, catheterization showed multivessel disease she was also noted to be COVID positive. Was seen again at [facility] on December 21 and diagnosed with an acute urinary tract infection with weakness and noted coagulopathy. She was discharged home. She was doing well for the 1st day and then became increasingly weak, lethargic and less and less responsive. Her brings her in for further evaluation. She is complaining of right shoulder pain but no headache, abdominal pain vomiting, diarrhea or dysuria at this time. She had a urine culture growing E coli noted from December 09 (resistant to levofloxacin and nitrofurantoin but sensitive to all others) and urine culture from December 21 growing Gram-negative bacilli. Related Data Home Medications Medication Instructions Recorded Confirmed lisinopril 10 mg tablet 5 mg PO DAILY #0 11/15/17 12/21/21 atorvastatin 40 mg tablet 40 mg PO DAILY 12/21/21 12/21/21 metformin 1,000 mg tablet 1,000 mg PO BID 12/21/21 12/21/21 metoprolol succinate 25 mg 25 mg PO DAILY 12/21/21 12/21/21 tablet,extended release 24 hr oxybutynin chloride 5 mg tablet 2.5 mg PO BID 12/21/21 12/21/21 warfarin 7.5 mg tablet 7.5 mg PO QPM 12/21/21 12/21/21 Previous Rx's Medication Instructions Recorded sulfamethoxazole 800 1 tab PO BID #10 tab 12/22/21 mg-trimethoprim 160 mg tablet (Bactrim DS) Allergies Allergy/AdvReac Type Severity Reaction Status Date / Time No Known Drug Allergies Allergy Verified 03/15/21 22:37 Review of Systems Review of Systems Narrative: Remainder of complete review of systems is otherwise unremarkable except for that included in the HPI. 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 CVA (cerebral vascular accident) Diabetes mellitus History of ventricular fibrillation 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 Neuropathy Urinary incontinence Surgical History History of colonoscopy History of permanent cardiac pacemaker placement Family History Mother MRSA (methicillin resistant Staphylococcus aureus) Cardiovascular disease Stroke Myocardial infarction Father Cardiovascular disease Myocardial infarction Social History household members: children Smoking Status: Never smoker alcohol intake: former Smoking Status: Never smoker alcohol intake frequency: 0-2 drinks per day Substance Use Type: does not use Exam Initial Vital Signs Initial Vital Signs: Vital Signs Temperature 97.7 F 12/23/21 01:30 Pulse Rate 95 H 12/23/21 01:30 Respiratory Rate 14 12/23/21 01:30 Blood Pressure 96/53 L 12/23/21 01:30 Pulse Oximetry 96 12/23/21 01:30 General: Pale, chronically ill-appearing responding to direct questions only, maintaining an airway with no respiratory distress HEENT: Moist mucous membranes, normal sclera with reactive pupils, Neck: No JVD, supple Respiratory: Lungs are clear to auscultation, no wheezing no rales no rhonchi. Full and symmetrical air movement Cardiac: Regular rate and rhythm no murmurs no bruits Abdomen: Obese, Soft, nontender, good bowel tones, no flank pain Skin: Pale, she has a large hematoma in the right chest area extending from the posterior axillary line around to the nipple with multiple bruising over forearms from IV start some blood draws Neurologic: Lethargic, left arm and leg hemiparesis. Extremities: Trauma from blood draws, no obvious bony abnormalities or injuries, lower extremities are atrophied with poor overall peripheral perfusion upper extremities with reasonable peripheral perfusion Psych: Cooperative, sleepy and minimally interactive Procedures Central Line Placement Right IJ: Time of procedure: 07:25 Time Out Performed: Yes Patient Placed on Monitor/Pulse Ox: Yes MD Prep: mask, gown and gloves Central Line Prep: Chlorhexidine scrub Local Anesthetic: lidocaine 1% Amount of anesthesia used (mL): 3 Ultrasound Used for Placement: Yes Central Line Lumen Inserted: triple Post Procedure: sutured in place, good blood return, all ports aspirated, flushed, capped and sterile dressing applied Post Procedure X-Ray: tip of catheter in good position and no pneumothorax seen Patient Tolerated Procedure: Well Complications: none Course Orders Ordered: ED Orders 12/23/21 01:49 XR chest 1V Stat EKG-12 Lead Stat 12/23/21 02:54 Chest [XR chest 1V] Stat 12/23/21 02:55 Blood Culture Stat 12/23/21 03:07 Type and Screen Stat transfuse [Packed Cells] Stat 12/23/21 03:09 Complete Blood Count AUTO DIFF Stat Comprehensive Metabolic Panel Stat Lactate (Lactic Acid) Stat Lipase Stat Magnesium Stat Partial Thromboplastin Time Stat Procalcitonin Stat Prothrombin Time INR Stat Troponin & CK Cardiac Panel Stat 12/23/21 03:12 COVID19 -Nasal RAPID/Pre-Proc Stat 12/23/21 03:23 Urinalysis and Microscopic Stat 12/23/21 03:59 CT chest abd pel w con Stat 12/23/21 06:06 ABG [Arterial Blood Gas] Stat 12/23/21 06:28 Hemoglobin and Hematocrit Stat Discontinued Medications Sodium Chloride (Normal Saline 0.9%) 1,000 mls @ 1,000 mls/hr IV BOLUS ONE Stop: 12/23/21 02:48 Last Infusion: 12/23/21 04:01 Dose: 0 mls/hr Documented by: Admin: 12/23/21 03:10 Dose: 1,000 mls/hr Documented by: KATHRINE Piperacillin Sod/Tazobactam (Sod 4.5 gm/ Sodium Chloride) 100 mls @ 200 mls/hr IV NOW ONE Stop: 12/23/21 03:09 Last Infusion: 12/23/21 04:01 Dose: 0 mls/hr Documented by: Admin: 12/23/21 03:35 Dose: 200 mls/hr Documented by: KATHRINE Sodium Chloride (Normal Saline 0.9%) 1,000 mls @ 1,000 mls/hr IV BOLUS ONE Stop: 12/23/21 04:41 Last Infusion: 12/23/21 04:02 Dose: 0 mls/hr Documented by: Admin: 12/23/21 03:10 Dose: 1,000 mls/hr Documented by: KATHRINE Vital Signs Vital signs: Vital Signs - 8 hr 12/23/21 01:30 12/23/21 03:17 12/23/21 03:18 Temperature 97.7 F Pulse Rate 95 H 81 83 Respiratory Rate 14 15 Blood Pressure 96/53 L 99/61 Pulse Oximetry 96 96 97 12/23/21 03:30 12/23/21 03:46 12/23/21 04:00 Temperature Pulse Rate 80 75 74 Respiratory Rate 12 12 14 Blood Pressure 86/50 L 86/56 L Pulse Oximetry 100 100 100 12/23/21 04:01 12/23/21 04:20 12/23/21 04:30 Temperature Pulse Rate 76 92 H 87 Respiratory Rate 19 20 12 Blood Pressure 113/62 105/61 106/61 Pulse Oximetry 100 100 100 12/23/21 04:34 12/23/21 04:45 12/23/21 04:58 Temperature 97.7 F 97.5 F L Pulse Rate 83 84 80 Respiratory Rate 12 12 14 Blood Pressure 106/61 104/56 L 93/50 L Pulse Oximetry 100 100 12/23/21 05:00 12/23/21 05:15 12/23/21 05:30 Temperature Pulse Rate 79 77 71 Respiratory Rate 15 13 16 Blood Pressure 90/50 L 96/53 L 97/55 L Pulse Oximetry 100 100 100 12/23/21 05:45 12/23/21 06:00 12/23/21 06:01 Temperature Pulse Rate 64 69 Respiratory Rate 19 11 L 12 Blood Pressure 91/53 L 99/63 Pulse Oximetry 100 53 L 99 12/23/21 06:15 12/23/21 06:30 12/23/21 06:45 Temperature Pulse Rate 74 78 72 Respiratory Rate 12 8 L 16 Blood Pressure 100/58 L 112/62 112/64 Pulse Oximetry 98 99 100 12/23/21 07:00 Temperature Pulse Rate 85 Respiratory Rate 14 Blood Pressure 117/69 Pulse Oximetry 100 Medical Decision Making Lab Data Result diagrams: 12/23/21 06:28 12/23/21 03:09 Labs: Lab Results 12/23/21 12/23/21 12/23/21 Range/Units 03:07 03:09 03:09 WBC 18.7 H (4.5-11.0) X10^3/uL RBC 3.32 L (4.0-5.2) X10^6/uL Hgb 9.6 L (12.0-16.0) g/dL Hct 28.8 L (36-46) % MCV 86.7 (80-100) fL MCH 28.9 (26-34) PG MCHC 33.3 (30-36) % RDW 13.5 (11.6-14.8) % Plt Count 202 (150-400) X10^3/uL Neut % (Auto) 88.2 H (50-75) % Lymph % (Auto) 6.2 L (25-40) % Wise % (Auto) 5.4 (3-14) % Eos % (Auto) 0.0 L (2-4) % Baso % (Auto) 0.2 (0-2) % Neut # (Auto) 78235 H (8345-6201) /uL Lymph # (Auto) 1200 (6746-3692) /uL Wise # (Auto) 1000 H (0-900) /uL Eos # (Auto) 0 (0-450) /uL Baso # (Auto) 0 (0-100) /uL PT 26.3 H D (10.1-12.7) SECONDS INR 2.3 H (0.9-1.3) APTT 35 D (26.4-36.2) SECONDS ABG pH (7.35-7.45) ABG pCO2 (35-45) mmHg ABG pO2 (80-100) mmHg ABG HCO3 (22-26) mmol/L ABG Total CO2 (21-31) mmol/L ABG O2 Saturation (95-100) % ABG Base Excess (-2-2) mmol/L FiO2 Sodium (137-145) mmol/L Potassium (3.4-5.1) mmol/L Chloride (98-107) mmol/L Carbon Dioxide (22-32) mmol/L BUN (7-17) mg/dL Creatinine (0.52-1.04) mg/dL Estimated GFR (>60) mL/min BUN/Creatinine Ratio (6-22) Glucose (70-100) mg/dL Lactate (0.7-2.1) mmol/L Calcium (8.4-10.2) mg/dL Magnesium (1.6-2.3) mg/dL Total Bilirubin (0.2-1.3) mg/dL AST (14-36) IU/L ALT (<35) IU/L Alkaline Phosphatase (38-126) U/L Total Creatine Kinase (30-135) U/L CK-MB (CK-2) (<2.37) ng/mL CK-MB (CK-2) Rel Index (1.5-5.0) % Troponin I (0.01-0.034) ng/mL Total Protein (6.3-8.2) g/dL Albumin (3.5-5.0) g/dL Globulin (1.7-4.1) g/dL Albumin/Globulin Ratio (1.0-2.8) Lipase (23-300) U/L Procalcitonin (<0.5) ng/mL Urine Color Urine Appearance Urine pH (4.5-8.0) Ur Specific [place] (1.000-1.035) Urine Protein (Negative) Urine Glucose (UA) (Negative) g/dL Urine Ketones (NEGATIVE) Urine Occult Blood (Negative) Urine Nitrate (Negative) Urine Bilirubin (NEGATIVE) Urine Urobilinogen (0.2) E.U./dL Ur Leukocyte Esterase (NEGATIVE) Urine RBC (0-5/HPF) Urine WBC (0-5/HPF) Urine Bacteria (None) Hyaline Casts (None) Ur Culture Indicated? SARS-CoV-2 (PCR) (Negative) Blood Type O Positive Antibody Screen Negative Crossmatch See Detail 12/23/21 12/23/21 12/23/21 Range/Units 03:09 03:09 03:09 WBC (4.5-11.0) X10^3/uL RBC (4.0-5.2) X10^6/uL Hgb (12.0-16.0) g/dL Hct (36-46) % MCV (80-100) fL MCH (26-34) PG MCHC (30-36) % RDW (11.6-14.8) % Plt Count (150-400) X10^3/uL Neut % (Auto) (50-75) % Lymph % (Auto) (25-40) % Wise % (Auto) (3-14) % Eos % (Auto) (2-4) % Baso % (Auto) (0-2) % Neut # (Auto) (8608-7270) /uL Lymph # (Auto) (9351-3349) /uL Wise # (Auto) (0-900) /uL Eos # (Auto) (0-450) /uL Baso # (Auto) (0-100) /uL PT (10.1-12.7) SECONDS INR (0.9-1.3) APTT (26.4-36.2) SECONDS ABG pH (7.35-7.45) ABG pCO2 (35-45) mmHg ABG pO2 (80-100) mmHg ABG HCO3 (22-26) mmol/L ABG Total CO2 (21-31) mmol/L ABG O2 Saturation (95-100) % ABG Base Excess (-2-2) mmol/L FiO2 Sodium 131 L (137-145) mmol/L Potassium 4.0 (3.4-5.1) mmol/L Chloride 100 (98-107) mmol/L Carbon Dioxide 23 (22-32) mmol/L BUN 31 H (7-17) mg/dL Creatinine 0.66 (0.52-1.04) mg/dL Estimated GFR > 60.0 (>60) mL/min BUN/Creatinine Ratio 47.0 H (6-22) Glucose 381 H D (70-100) mg/dL Lactate 0.9 (0.7-2.1) mmol/L Calcium 8.2 L (8.4-10.2) mg/dL Magnesium 1.6 (1.6-2.3) mg/dL Total Bilirubin 0.6 (0.2-1.3) mg/dL AST 21 (14-36) IU/L ALT 33 (<35) IU/L Alkaline Phosphatase 82 (38-126) U/L Total Creatine Kinase 221 H (30-135) U/L CK-MB (CK-2) 2.44 H (<2.37) ng/mL CK-MB (CK-2) Rel Index 1.1 L (1.5-5.0) % Troponin I 0.056 H (0.01-0.034) ng/mL Total Protein 6.0 L (6.3-8.2) g/dL Albumin 3.1 L (3.5-5.0) g/dL Globulin 2.9 (1.7-4.1) g/dL Albumin/Globulin Ratio 1.1 (1.0-2.8) Lipase 46 Cancelled (23-300) U/L Procalcitonin 0.15 Cancelled (<0.5) ng/mL Urine Color Urine Appearance Urine pH (4.5-8.0) Ur Specific [place] (1.000-1.035) Urine Protein (Negative) Urine Glucose (UA) (Negative) g/dL Urine Ketones (NEGATIVE) Urine Occult Blood (Negative) Urine Nitrate (Negative) Urine Bilirubin (NEGATIVE) Urine Urobilinogen (0.2) E.U./dL Ur Leukocyte Esterase (NEGATIVE) Urine RBC (0-5/HPF) Urine WBC (0-5/HPF) Urine Bacteria (None) Hyaline Casts (None) Ur Culture Indicated? SARS-CoV-2 (PCR) (Negative) Blood Type Antibody Screen Crossmatch 12/23/21 12/23/21 12/23/21 Range/Units 03:12 03:23 06:06 WBC (4.5-11.0) X10^3/uL RBC (4.0-5.2) X10^6/uL Hgb (12.0-16.0) g/dL Hct (36-46) % MCV (80-100) fL MCH (26-34) PG MCHC (30-36) % RDW (11.6-14.8) % Plt Count (150-400) X10^3/uL Neut % (Auto) (50-75) % Lymph % (Auto) (25-40) % Wise % (Auto) (3-14) % Eos % (Auto) (2-4) % Baso % (Auto) (0-2) % Neut # (Auto) (9464-0562) /uL Lymph # (Auto) (2754-8689) /uL Wise # (Auto) (0-900) /uL Eos # (Auto) (0-450) /uL Baso # (Auto) (0-100) /uL PT (10.1-12.7) SECONDS INR (0.9-1.3) APTT (26.4-36.2) SECONDS ABG pH 7.45 (7.35-7.45) ABG pCO2 28.1 L (35-45) mmHg ABG pO2 78 L (80-100) mmHg ABG HCO3 20 L (22-26) mmol/L ABG Total CO2 20 L (21-31) mmol/L ABG O2 Saturation 96 (95-100) % ABG Base Excess -4.0 L (-2-2) mmol/L FiO2 21 Sodium (137-145) mmol/L Potassium (3.4-5.1) mmol/L Chloride (98-107) mmol/L Carbon Dioxide (22-32) mmol/L BUN (7-17) mg/dL Creatinine (0.52-1.04) mg/dL Estimated GFR (>60) mL/min BUN/Creatinine Ratio (6-22) Glucose (70-100) mg/dL Lactate (0.7-2.1) mmol/L Calcium (8.4-10.2) mg/dL Magnesium (1.6-2.3) mg/dL Total Bilirubin (0.2-1.3) mg/dL AST (14-36) IU/L ALT (<35) IU/L Alkaline Phosphatase (38-126) U/L Total Creatine Kinase (30-135) U/L CK-MB (CK-2) (<2.37) ng/mL CK-MB (CK-2) Rel Index (1.5-5.0) % Troponin I (0.01-0.034) ng/mL Total Protein (6.3-8.2) g/dL Albumin (3.5-5.0) g/dL Globulin (1.7-4.1) g/dL Albumin/Globulin Ratio (1.0-2.8) Lipase (23-300) U/L Procalcitonin (<0.5) ng/mL Urine Color Yellow Urine Appearance Clear Urine pH 5.0 (4.5-8.0) Ur Specific [place] 1.015 (1.000-1.035) Urine Protein Negative (Negative) Urine Glucose (UA) 2+ H (Negative) g/dL Urine Ketones Trace H (NEGATIVE) Urine Occult Blood Trace-lysed (Negative) Urine Nitrate Negative (Negative) Urine Bilirubin Negative (NEGATIVE) Urine Urobilinogen 0.2 (0.2) E.U./dL Ur Leukocyte Esterase Negative (NEGATIVE) Urine RBC None seen (0-5/HPF) Urine WBC 0-1/hpf (0-5/HPF) Urine Bacteria None seen (None) Hyaline Casts 1-5/lpf (None) Ur Culture Indicated? Cult not indicated SARS-CoV-2 (PCR) Negative (Negative) Blood Type Antibody Screen Crossmatch 12/23/21 Range/Units 06:28 WBC (4.5-11.0) X10^3/uL RBC (4.0-5.2) X10^6/uL Hgb 11.4 L (12.0-16.0) g/dL Hct 33.9 L (36-46) % MCV (80-100) fL MCH (26-34) PG MCHC (30-36) % RDW (11.6-14.8) % Plt Count (150-400) X10^3/uL Neut % (Auto) (50-75) % Lymph % (Auto) (25-40) % Wise % (Auto) (3-14) % Eos % (Auto) (2-4) % Baso % (Auto) (0-2) % Neut # (Auto) (3258-9266) /uL Lymph # (Auto) (8824-7215) /uL Wise # (Auto) (0-900) /uL Eos # (Auto) (0-450) /uL Baso # (Auto) (0-100) /uL PT (10.1-12.7) SECONDS INR (0.9-1.3) APTT (26.4-36.2) SECONDS ABG pH (7.35-7.45) ABG pCO2 (35-45) mmHg ABG pO2 (80-100) mmHg ABG HCO3 (22-26) mmol/L ABG Total CO2 (21-31) mmol/L ABG O2 Saturation (95-100) % ABG Base Excess (-2-2) mmol/L FiO2 Sodium (137-145) mmol/L Potassium (3.4-5.1) mmol/L Chloride (98-107) mmol/L Carbon Dioxide (22-32) mmol/L BUN (7-17) mg/dL Creatinine (0.52-1.04) mg/dL Estimated GFR (>60) mL/min BUN/Creatinine Ratio (6-22) Glucose (70-100) mg/dL Lactate (0.7-2.1) mmol/L Calcium (8.4-10.2) mg/dL Magnesium (1.6-2.3) mg/dL Total Bilirubin (0.2-1.3) mg/dL AST (14-36) IU/L ALT (<35) IU/L Alkaline Phosphatase (38-126) U/L Total Creatine Kinase (30-135) U/L CK-MB (CK-2) (<2.37) ng/mL CK-MB (CK-2) Rel Index (1.5-5.0) % Troponin I (0.01-0.034) ng/mL Total Protein (6.3-8.2) g/dL Albumin (3.5-5.0) g/dL Globulin (1.7-4.1) g/dL Albumin/Globulin Ratio (1.0-2.8) Lipase (23-300) U/L Procalcitonin (<0.5) ng/mL Urine Color Urine Appearance Urine pH (4.5-8.0) Ur Specific [place] (1.000-1.035) Urine Protein (Negative) Urine Glucose (UA) (Negative) g/dL Urine Ketones (NEGATIVE) Urine Occult Blood (Negative) Urine Nitrate (Negative) Urine Bilirubin (NEGATIVE) Urine Urobilinogen (0.2) E.U./dL Ur Leukocyte Esterase (NEGATIVE) Urine RBC (0-5/HPF) Urine WBC (0-5/HPF) Urine Bacteria (None) Hyaline Casts (None) Ur Culture Indicated? SARS-CoV-2 (PCR) (Negative) Blood Type Antibody Screen Crossmatch Imaging Data Chest x-ray: Radiologist's Impression: Stable heart size, left chest wall pacer AICD in place, lungs are clear no acute findings Tomer Camargo MD CT chest abd pelvis: My Impression: Large blood clot in the right axillary area with significant blood in surrounding tissue Radiologist's Impression: Saddle embolism with bilateral upper and lower pulmonary emboli with RV to LV ratio normal Clot within the right atrium Hypodense left adrenal gland probably an adenoma ECG Data Interpretation: Atrial paced at a rate of 91 MDM Narrative Medical decision making narrative: ? 56-year-old woman with complicated medical history One year ago had a stroke with persistent left hemiparesis Following that she had a VFib cardiac arrest with implantable defibrillator pacer She is anticoagulated on warfarin with pulmonary embolism diagnosed around those events She was seen on December 09 with weakness diagnosed with the and STEMI transfer to [facility] of with heart catheterization showing diffuse disease no stenting or balloon catheterization done. ?Urine culture from this hospitalization shows E coli. ?She was not discharged home with antibiotics. On December 21 she presented to [facility] complaining of weakness, presumed to be urinary tract infection.? She was treated with ceftriaxone and discharged home on , both of which should sensitivity to the E coli grown out from December 10. She comes in today complaining of right arm pain and increasing weakness with multiple issues identified ? 1.? Large hematoma and bleeding into chest wall right axillary area with drop in H&H from 14.2/42.5 down to 9.6/28.8.? Initial concern was that the hypotension she was exhibiting was because of bleeding with concern for significantly elevated INR.? Central line was placed.? She was given 2 L of fluid with slight improvement in overall hypotension and 2 units of blood with the obvious blood loss.? CT scan of the chest abdomen and pelvis was done to confirm absence of other source for infection and lack of retroperitoneal bleeding as well as characterizing the degree of blood loss in the right axillary area 2.? Concern for sepsis with hypotension, elevated white blood cell count and infection source.? Fluid resuscitation was initiated and Zosyn was started.? Lactic acid returns low at 0.08 3.? Recurrent and extensive pulmonary embolism.? She now has saddle embolism with bilateral upper and lower pulmonary emboli with a clot in the right atrium and maintained RV/LV ratio.? She is therapeutic on her Coumadin with INR 2.3. 4.? Elevated troponin.? With NSTEMI on December 09 max troponin is 5.37.? On December 21 was 0.032.? Today is trending back up at 0.056(normal at our hospital is less than 0.012) 5.? Continued hypotension with systolic blood pressures in the 90-100 range with maps in the low 60s.? Discussed need for pressors with the accepting hospitalist and will hold for now. 6. Intermittent episodes of apnea. Response to stimulation. ABG shows pH of 7.45 and a CO2 of 28.1 she has not received any narcotics and has no extrinsic reasons for the apneic episodes. 7.? Code status: ?She does currently have an implantable defibrillator in place.? Long discussion with both the patient and her regarding her all of her diagnoses and complications and at this time they both agree that she would want to be no code and no intubation but does want to continue with treatments up to that point.? We have not broached the possibility of any procedural interventions and that will need to be discussed further. Care is reviewed with Dr. Hector Nelson, national sales representative at [facility] who accepts the patient in transfer.? ALS transport will be arranged. Patient remains in critical condition at time of transfer Critical Care Time Critical Care Time Critical Care Time: Yes Total Critical Care Time: 97 Attestation: Critical care time is separate from other billable procedures. There is a high probability of a significant, sudden or life-threatening deterioration that requires my full and direct attention, intervention and personal management. This critical care time includes consultation with family and other consulting doctors, review of records, and interpretation of data from labs, EKGs and imaging as well as managements of significant risk for bleeding, multiple blood clots, sepsis and multiple consultations Discharge Plan Departure Patient Disposition: [facility] Clinical Impression: Urinary tract infection, Acute blood loss anemia, Anticoagulated, Hypotension, Non-ST elevation PR (NSTEMI) Acute saddle pulmonary embolism Qualifiers: Acute cor pulmonale presence: unspecified Qualified Code(s): I26.92 - Saddle embolus of pulmonary artery without acute cor pulmonale Prescriptions: No Action lisinopril 10 MG tablet 5 mg PO DAILY Qty: 0 0RF atorvastatin 40 mg Tablet 40 mg PO DAILY 0RF warfarin 7.5 mg tablet 7.5 mg PO QPM 0RF Label Comments: take 1 tablet by mouth once daily metformin 1,000 mg tablet 1,000 mg PO BID 0RF Label Comments: TAKE 1 TABLET BY MOUTH TWICE DAILY metoprolol succinate 25 mg tablet extended release 24 hr 25 mg PO DAILY 0RF oxybutynin chloride 5 mg tablet 2.5 mg PO BID 0RF Label Comments: TAKE 1/2 (ONE-HALF) TABLET BY MOUTH TWICE DAILY NEEDED FOR OVERACTIVE BLADDER sulfamethoxazole-trimethoprim [Bactrim DS] 800-160 mg tablet 1 tab PO BID Qty: 10 0RF Referrals: Donna Redman PA-C [Primary Care Provider] -
[2021-12-23] MEDS: SODIUM CHLORIDE 0.9% 1,000 ML 1000 ML IV ×2 (03:10)
[2021-12-23 03:32] LABS: Add Manual Diff / Slide Review NO; Basophils Absolute Auto 0 /uL (0-100); Basophils Percent Auto 0.2 % (0-2); Eosinophils Absolute Auto 0 /uL (0-450); Hematocrit 28.8 % (36-46); Hemoglobin 9.6 g/dL (12.0-16.0); Lymphocytes Absolute Auto 1200 /uL (1100-4500); Lymphocytes Percent Auto 6.2 % (25-40); Mean Corpuscular HGB Conc 33.3 % (30-36); Mean Corpuscular Hemoglobin 28.9 PG (26-34); Mean Corpuscular Volume 86.7 fL (80-100); Monocytes Absolute Auto 1000 /uL (0-900); Monocytes Percent Auto 5.4 % (3-14); Neutrophils Absolute Auto 16500 /uL (1500-7000); Neutrophils Percent Auto 88.2 % (50-75); Platelet Count 202 X10^3/uL (150-400); Red Blood Cell Count 3.32 X10^6/uL (4.0-5.2); Red Cell Distribution Width 13.5 % (11.6-14.8); White Blood Cell Count 18.7 X10^3/uL (4.5-11.0)
[2021-12-23] MEDS: PIPERACILLIN/TAZO 4.5 GM in SODIUM CHLORIDE 0.9% 100 ML 200 ML IV (03:35)
[2021-12-23 03:37] LABS: Lactate (Lactic Acid) 0.9 mmol/L (0.7-2.1)
[2021-12-23 03:39] LABS: Alanine Aminotransferase 33 IU/L (<35); Albumin 3.1 g/dL (3.5-5.0); Albumin Globulin Ratio 1.1 (1.0-2.8); Alkaline Phosphatase 82 U/L (38-126); Aspartate Aminotransferase 21 IU/L (14-36); Bilirubin Total 0.6 mg/dL (0.2-1.3); Blood Urea Nitrogen 31 mg/dL (7-17); Calcium 8.2 mg/dL (8.4-10.2); Carbon Dioxide 23 mmol/L (22-32); Chloride 100 mmol/L (98-107); Creatine Kinase 221 U/L (30-135); Estimated Glomerular Filt Rate > 60.0 mL/min (>60); Globulin 2.9 g/dL (1.7-4.1); Glucose 381 mg/dL (70-100); HEMOLYSIS < 15 (0-50); Lipase 46 U/L (23-300); Magnesium 1.6 mg/dL (1.6-2.3); Sodium 131 mmol/L (137-145)
[2021-12-23 03:50] LABS: Troponin I 0.056 ng/mL (0.01-0.034)
[2021-12-23 03:54] LABS: CKMB % Relative Index 1.1 % (1.5-5.0); Creatine Kinase MB 2.44 ng/mL (<2.37)
[2021-12-23 03:58] LABS: Procalcitonin 0.15 ng/mL (<0.5)
--- NOTE | 2021-12-23 03:59 | DI.CT.S_ITS ---
PROCEDURE: CT CHEST ABD PEL W CON INDICATIONS: hypotension, acute blood loss, large hematoma Right side of chest TECHNIQUE: After the administration of intravenous contrast, axial sections acquired from the supraclavicular neck to the pubic symphysis. Coronal and sagittal reformats were performed. For radiation dose reduction, the following was used: automated exposure control, adjustment of mA and/or kV according to patient size. COMPARISON:[facility], CT, CT ANGIO AORTA RUNOFF, 07/24/2020, 15:18. [facility], CT, CT ANGIO CHEST PE PROTOCOL, 09/17/2020, 23:46. FINDINGS: Image quality: Excellent. CHEST: Lower Neck: No enlarged lymph nodes. Thyroid: Within normal limits. Axillae: No enlarged lymph nodes. Chest Wall: There is a 7.2 x 7.0 x 11.5 cm focus of increased density within the right anterior lateral chest wall Hounsfield units 49. There are several punctate areas of contrast enhancement within the mass. Pacemaker is present. Lungs and Airways: No consolidation or suspicious nodules. Pleura: No pneumothorax or pleural effusions. Heart: Heart size is mildly prominent. Trace pericardial effusion. Thoracic Vessels: The aorta and pulmonary arteries demonstrate normal size. Mediastinum and Pina: No enlarged lymph nodes. Esophagus: No wall thickening. Mild hiatal hernia. ABDOMEN: Liver: Unremarkable. Gallbladder: Removed. Biliary ducts: Unremarkable. Pancreas: Unremarkable. Spleen: Calcifications are noted within the spleen, possibly patient intake representative of prior granulomatous disease. Adrenal Glands: Left adrenal mass is present measuring 2.4 x 2.0 cm, Hounsfield units 2.0 is unchanged since 2019. Kidneys and Ureters: No obstruction is present. No visualized calcifications. Fat containing mass is present in the left kidney measuring 1.3 cm, suggestive of angiomyolipoma. Stomach and Bowel: Stomach, small bowel loops, and colon are unremarkable. Peritoneum: No abnormal intraperitoneal fluid. No free air. Ventral Wall: No hernia. Abdominal Nodes: No retroperitoneal or mesenteric adenopathy by size criteria. Vessels: Aorta and inferior vena cava are normal in size. PELVIS: Pelvic Organs: Unremarkable. Bladder: Bladder is collapsed with a Shepard catheter, limiting evaluation. Pelvic Nodes: No enlarged lymph nodes. Miscellaneous: No inguinal hernias are seen. Bones: Unremarkable. IMPRESSION: 1. Right chest wall mass most consistent with hematoma. Small areas of contrast are noted which are suspected to represent active extravasation. 2. Left adrenal mass with Hounsfield units suggestive of adenoma and stable compared to prior exam. Dictated by: Fang Cristina M.D. on 12/23/2021 at 8:18 Approved by: Fang Cristina M.D. on 12/23/2021 at 8:44
[2021-12-23 04:05] LABS: COVID19 -Nasal RAPID Negative (Negative)
[2021-12-23 04:18] LABS: Appearance Urine UA CLEAR; Bilirubin Urine UA NEGATIVE (NEGATIVE); Color Urine UA YELLOW; Glucose Urine UA 2+ g/dL (Negative); Ketones Urine UA TRACE (NEGATIVE); Leukocyte Esterase Urine UA NEGATIVE (NEGATIVE); Nitrite Urine UA NEGATIVE (Negative); Occult Blood Urine UA TRACE-LYSED (Negative); Protein Urine UA NEGATIVE (Negative); Specific Gravity Urine UA 1.015 (1.000-1.035); Urobilinogen Urine UA 0.2 E.U./dL (0.2)
--- NOTE | 2021-12-23 04:45 | PC.NURSE ---
Dr. Aiken wishes for both units of PRBC to be transfused rapidly and at the same time. Verbal order of both units of PRBC infused concurrently repeated and verified.
[2021-12-23 04:52] LABS: INR 2.3 (0.9-1.3); Prothrombin Time 26.3 SECONDS (10.1-12.7)
[2021-12-23 04:53] LABS: RBC Urine None Seen (0-5/HPF); WBC Urine 0-1/HPF (0-5/HPF)
[2021-12-23 04:53] LABS: PTT Partial Thromboplastin Tim 35 SECONDS (26.4-36.2)
[2021-12-23 04:54] LABS: Bacteria Urine None Seen; Culture Indicated Urine Cult Not Indicated; Hyaline Casts Urine 1-5/LPF
--- NOTE | 2021-12-23 06:00 | PC.NURSE ---
Pt had a period where her O2 dropped to 53%. Able to wake pt and O2 sat came back up to 99%. RT called to bedside
[2021-12-23 06:39] LABS: Hemoglobin 11.4 g/dL (12.0-16.0)
[2021-12-23 06:40] LABS: Hematocrit 33.9 % (36-46)
[2021-12-23 07:12] LABS: Fractionated Inspired Oxygen 21; HCO3 ABG 20 mmol/L (22-26); Oxygen Saturation ABG 96 % (95-100); PCO2 ABG 28.1 mmHg (35-45); PO2 ABG 78 mmHg (80-100); TCO2 ABG 20 mmol/L (21-31); pH ABG 7.45 (7.35-7.45)
== END 2021-12-23 08:00 | disposition short-term general hospital (02) ==
PROVIDERS: Emergency Provider Emergency Medicine; Family Provider Family Medicine; PCP Physician Assistant Medical
DX: I21.4 Non-ST elevation (NSTEMI) myocardial infarction (principal); I95.9 Hypotension, unspecified; D62 Acute posthemorrhagic anemia; N39.0 Urinary tract infection, site not specified; R04.89 Hemorrhage from other sites in respiratory passages; I10 Essential (primary) hypertension; Z95.810 Presence of automatic (implantable) cardiac defibrillator; Z79.01 Long term (current) use of anticoagulants; Z20.822 Contact with and (suspected) exposure to COVID-19
CPT/HCPCS: 36415; 36430; 36600; 71045; 71260; 74177; 80053; 81001; 82550; 82553; 82805; 83605; 83690; 83735; 84145; 84484; 85014; 85018; 85025; 85610; 85730; 86850; 86900; 86901; 87040; 87635; 93005; 93010; 96365; 99285; 99291; 99292; C9803; P9016; J2543; Q9967

== ENCOUNTER 2022-02-17 18:50 | Emergency (ER) | payer SELFPAY ==
[2021-12-21 12:38] VITALS: BMI 32.1
[2022-02-17 19:01] VITALS: BP 132/88; PULSE 100; RESP 18; TEMP 36.5; O2SAT 96
--- NOTE | 2022-02-17 19:36 | ED_ITS ---
HPI - Wound/Laceration <Anjali Diaz [facility] - Last Filed: 02/17/22 20:00> General Chief Complaint: Wound/Laceration Stated Complaint: Sore on backside, pain Time Seen by Provider: 02/17/22 19:10 Source: patient Mode of arrival: Wheelchair History of Present Illness HPI narrative: This is a chronically ill 56-year-old female with history of diabetes, hypertension, has a pacemaker, NSTEMI and is anticoagulated on warfarin for an embolism, patient's brings her in for concern about a year and a her sacrum which has been present for a couple of days and he is concerned that it might get worse. Patient also has Luz Maria in her flexor fold of her pannus and groin area. They have been using barrier cream and Lamisil for those areas. Patient's states that between him and her sons they have been caring for her at home following her NSTEMI, CHF, COVID infections and pulmonary embolism knee after the last few months. Patient's states that she lost her insurance and he is attempting to get her on his so they cannot get any home health care at this time. He states that he would like to know what to do to help improve this wound before a could get worse. Related Data Home Medications Medication Instructions Recorded Confirmed lisinopril 10 mg tablet 5 mg PO DAILY #0 11/15/17 12/21/21 atorvastatin 40 mg tablet 40 mg PO DAILY 12/21/21 12/21/21 metformin 1,000 mg tablet 1,000 mg PO BID 12/21/21 12/21/21 metoprolol succinate 25 mg 25 mg PO DAILY 12/21/21 12/21/21 tablet,extended release 24 hr oxybutynin chloride 5 mg tablet 2.5 mg PO BID 12/21/21 12/21/21 warfarin 7.5 mg tablet 7.5 mg PO QPM 12/21/21 12/21/21 Previous Rx's Medication Instructions Recorded sulfamethoxazole 800 1 tab PO BID #10 tab 12/22/21 mg-trimethoprim 160 mg tablet (Bactrim DS) clotrimazole 1 % topical cream 1 applic TOPICAL BID #45 g 02/17/22 foam bandage 6 5/8 X 6 3/4 #40 ea 02/17/22 (Allevyn Gentle Border Sacrum) hydrocortisone 0.5 % topical cream 1 applic TOPICAL BID PRN #28.4 g 02/17/22 zinc oxide 25 % topical paste 1 applic TOPICAL TID PRN #500 g 02/17/22 Allergies Allergy/AdvReac Type Severity Reaction Status Date / Time No Known Drug Allergies Allergy Verified 03/15/21 22:37 Review of Systems <NI Irwin - Last Filed: 02/17/22 20:00> Review of Systems Narrative: General: denies fever, chills, denies any new systemic symptoms Head/Neck: denies headache, neck pain Eyes: denies visual changes, eye pain Cardio: denies chest pain, palpitations Respiratory: denies shortness of breath, cough GI: denies abdominal pain, nausea, vomiting, or diarrhea : denies dysuria, hematuria or flank pain MSK: denies new joint pain, muscle weakness or swelling Skin: Endorses having yeast in her folds, this is not getting worse, coccyx area is mildly tender, patient's states that she has one small area of excoriation Neuro: denies numbness, tingling, dizziness Patient History <NI Irwin - Last Filed: 02/17/22 20:00> Medical History 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 CVA (cerebral vascular accident) Diabetes mellitus History of ventricular fibrillation 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 Neuropathy Urinary incontinence Surgical History History of colonoscopy History of permanent cardiac pacemaker placement Family History Mother MRSA (methicillin resistant Staphylococcus aureus) Cardiovascular disease Stroke Myocardial infarction Father Cardiovascular disease Myocardial infarction Social History household members: children Smoking Status: Never smoker alcohol intake: former Smoking Status: Never smoker alcohol intake frequency: 0-2 drinks per day Substance Use Type: does not use Exam <NI Irwin - Last Filed: 02/17/22 20:00> Narrative Exam Narrative: Independently reviewed vitals signs and nursing notes. General: cooperative, is in no acute distress, appears chronically ill and weak, overweight, pleasant and comfortable Head: atraumatic, symmetrical facial expressions Neck: supple Eyes: equal round and reactive, EOMI, conjunctiva normal Nose: nares patent, no rhinorrhea Mouth/Throat: moist mucus membranes Cardiovascular: regular rate and rhythm, no peripheral edema, warm extremities Respiratory: normal effort, able to speak in complete sentences, no audible wheezing, stridor, or rales. No retractions or tachypnea. GI: abdomen soft, non-tender to palpation, nondistended, no masses, no exquisite tenderness with exam, without guarding or rebound. MSK: moves all extremities, neurovascularly intact, no weakness, normal tone Skin: brisk capillary refill, erythema odor to flexor folds in growing and under abdomen, mild area on right flank of beefy red, appears most like candidal in fection, states that Lamisil has been applied, area on right flank is likely outside of the area of cream. The patient was rolled over, minor small excoriation on coccyx approximately 1 cm, stage I, mild erythema without fluctuance, significant tenderness, no beefy red appearance, no abnormal discharge, no visible hemorrhoids or bulging masses. Radha care was completed, barrier cream was applied, ALLEYVN dressing applied over wound and discussed how to manage this dressing with . Neuro: normal speech and cognition, A&O x3 Psych: mental status is grossly normal, congruent mood, normal affect, pleasant and cooperative Initial Vital Signs Initial Vital Signs: Vital Signs Temperature 97.7 F 02/17/22 19:01 Pulse Rate 100 H 02/17/22 19:01 Respiratory Rate 18 02/17/22 19:01 Blood Pressure 132/88 02/17/22 19:01 Pulse Oximetry 96 02/17/22 19:01 <Carly Oneal DO - Last Filed: 02/17/22 21:59> Initial Vital Signs Initial Vital Signs: Vital Signs Temperature 97.7 F 02/17/22 19:01 Pulse Rate 100 H 02/17/22 19:01 Respiratory Rate 18 02/17/22 19:01 Blood Pressure 132/88 02/17/22 19:01 Pulse Oximetry 96 02/17/22 19:01 Course <NI Irwin - Last Filed: 02/17/22 20:00> Orders Ordered: ED Orders 02/17/22 19:05 Consult to [facility] [place] [facility] [employer] Stat Discontinued Medications Clotrimazole (Clotrimazole 1% Crm 30 Gm) 1 applic TOP NOW ONE Stop: 02/17/22 19:21 Last Admin: 02/17/22 19:36 Dose: Not Given Documented by: FLORENCEWANSO Zinc Oxide (Zinc Oxide Oint 60 Gm) 1 applic TOP PRN PRN PRN Reason: Rash Vital Signs Vital signs: Vital Signs - 8 hr 02/17/22 19:01 Temperature 97.7 F Pulse Rate 100 H Respiratory Rate 18 Blood Pressure 132/88 Pulse Oximetry 96 <Carly Oneal DO - Last Filed: 02/17/22 21:59> Orders Ordered: ED Orders 02/17/22 19:05 Consult to [facility] [place] [facility] [employer] Teacher Stat Discontinued Medications Clotrimazole (Clotrimazole 1% Crm 30 Gm) 1 applic TOP NOW ONE Stop: 02/17/22 19:21 Last Admin: 02/17/22 19:36 Dose: Not Given Documented by: GORAN Zinc Oxide (Zinc Oxide Oint 60 Gm) 1 applic TOP PRN PRN PRN Reason: Rash Vital Signs Vital signs: Vital Signs - 8 hr 02/17/22 19:01 Temperature 97.7 F Pulse Rate 100 H Respiratory Rate 18 Blood Pressure 132/88 Pulse Oximetry 96 MDM - Wound/Laceration <NI Irwin - Last Filed: 02/17/22 20:00> [facility] Narrative Medical decision making narrative: This is a pleasant and chronically ill 56-year-old female with history of pulmonary embolism on warfarin, diabetes type 2, hypertension, pacemaker, NSTEMI and recent COVID infection who presents to the emergency department with her as she has been in a frail state of health over the last few months with concern about a pressure wound on her coccyx/sacral area. Patient does not fact have a very small pressure ulcer on her sacrum, approximately 1 cm and is a stage I with mild erythema without abscess, fluctuance, or beefy red appearance with drainage. Patient's periarea was dry, covered with barrier cream, folds appeared well care for with cream present. Her flexor surfaces have of candidal odor and patches of beefy red appearance with concern for candidal infection, she has been using Lamisil cream which has kept it at bay. She was prescribed alleyvn dressings for her sacrum, clotrimazole, and zinc barrier cream, discussed methods of changing positions frequently, barrier, dressings, and pain control with patient and her . They state understanding, she does not appear toxic, any symptoms of illness, she is able to help with position changes, and isn't fully mobile although she does have a left-sided deficit from her two previous CVAs. Encourage close follow-up with her PCP, they were concerned because patient does not currently have insurance, patient's states that he is going to try and put her on his as he is an employee here at the hospital. If he is able to, he will attempt to get a home wound care referral from his PCP Donna MEREDITH. It is to resource heavy to bring patient into wound care appointments as patient only has her and he works full-time nights here at the hospital. Is appropriate and amenable to discharge home. Vital signs are stable on repeat examination is unremarkable. Patient has been informed of results. Patient has been given strict return to ER precautions for any new or worsening symptoms. Patient understands to follow up closely with outpatient providers as instructed. Patient understands plan and agrees to discharge home. All questions and concerns answered at this time. Discharge Plan Departure Patient Disposition: Home Clinical Impression: Luz Maria infection of flexural skin Pressure ulcer Qualifiers: Pressure injury location: sacral region Pressure injury stage: stage 1 Qualified Code(s): L89.151 - Pressure ulcer of sacral region, stage 1 Instructions: Pressure Injuries, Pressure Sore Activity Restrictions/Additional Instructions: *You have been diagnosed with a stage I pressure wound on your coccyx. Please ensure you are changing positions frequently and not staying any seated or semi upright position flat on your bottom for long period of time. I have sent clotrimazole a yeast cream to the [facility] pharmacy, as well as a hydrocortisone cream which you can apply to the beefy red areas of this yeast rash in her folds. Please use the clotrimazole cream in the folds twice a day every day for as long as she has irritation there, for any of the bright red areas, use the hydrocortisone cream for a couple of days until it calms down. I have also sent over zinc oxide paste which is a thick barrier paste, you can apply this to her perianal area and over the small pressure wound, cover it with one of Allevyn sacrum dressings it will be in a heart shape, please see the directions on how to apply so that it goes in the right direction. Try to avoid contaminating the dressing during bed blackmon uses or after she uses the bathroom. But if it is contaminated, gently take it off, it is sticky so it will pull at her skin but it should not tear it. Please follow-up with Donna Redman if she is having any worsening of the size of this wound and ask for a home wound care referral because it is too difficult to drive her to appointments. If it starts to get bigger, please increase the turns and mobility is because that means she is having too much pressure on her sacrum while in bed. Please do not allow this to get very bad without her returning to the emergency department. Have her use Tylenol as needed for pain, you can cover all creams and ointments with Vaseline to help prevent the medicine from sticking to the brief. It will stick to the Vaseline instead which will help the other medicine work still. I wish you mercedes kellyMarbin should have your medications. *What to do: *Please continue to take your regular medications as directed. [x] New medication prescriptions sent to your pharmacy: [[facility] ] [ ] New medication written as a paper prescription [ ] No new medications given *Please follow up with your primary care provider in 2-3 days, call for an appointment. Let them know you were seen in the Emergency Department and that we asked that you be seen for follow-up. We will electronically transmit a record of today's note if your PCP is in our system *If you do not have a primary care provider please contact [phone] to establish care with one of the [facility] primary care providers. *Return to Emergency Department if you should have any new, worsening or concerning symptoms, such as [fever greater than 101F, chills, worsening pain, persistent vomiting or other bothersome symptoms] Prescriptions: New (DME) Allevyn Gentle Border Sacrum 6 5/8 X 6 3/4 bandage See Rx Instructions .Route Qty: 40 0RF Rx Instructions: As directed zinc oxide 25 % paste 1 applic topical TID PRN (Reason: skin irritation) Qty: 500 0RF clotrimazole 1 % cream 1 applic topical BID Qty: 45 0RF hydrocortisone 0.5 % cream 1 applic topical BID PRN (Reason: rash) Qty: 28.4 0RF Rx Instructions: Use a thin layer on bright red areas of rash to help calm down the skin, also use fungal cream. Please use only for up to three days in a row and take a vacation day or two in between. No Action lisinopril 10 MG tablet 5 mg PO DAILY Qty: 0 0RF atorvastatin 40 mg Tablet 40 mg PO DAILY 0RF warfarin 7.5 mg tablet 7.5 mg PO QPM 0RF Label Comments: take 1 tablet by mouth once daily metformin 1,000 mg tablet 1,000 mg PO BID 0RF Label Comments: TAKE 1 TABLET BY MOUTH TWICE DAILY metoprolol succinate 25 mg tablet extended release 24 hr 25 mg PO DAILY 0RF oxybutynin chloride 5 mg tablet 2.5 mg PO BID 0RF Label Comments: TAKE 1/2 (ONE-HALF) TABLET BY MOUTH TWICE DAILY NEEDED FOR OVERACTIVE BLADDER sulfamethoxazole-trimethoprim [Bactrim DS] 800-160 mg tablet 1 tab PO BID Qty: 10 0RF Referrals: Donna Redman PA-C [Primary Care Provider] - Visit Report Forms: Patient Portal/API <Carly Oneal DO - Last Filed: 02/17/22 21:59> Cosign ED Attending Reyature Attestation: I was immediately available in the department for consultation. Documentation has been reviewed. I agree with assessment and plan.
== END 2022-02-17 19:50 | disposition home or self-care (01) ==
PROVIDERS: Emergency Provider Nurse Practitioner Critical Care Medicine; Family Provider Family Medicine; PCP Physician Assistant Medical
DX: L89.151 Pressure ulcer of sacral region, stage 1 (principal); B37.2 Candidiasis of skin and nail
CPT/HCPCS: 99281

== ENCOUNTER 2022-10-20 09:24 | Emergency (ER) | payer SELFPAY ==
[2021-12-21 12:38] VITALS: BMI 32.1
[2022-10-20] VITALS (9 sets, daily range): BP systolic 159–176; BP diastolic 102–119; PULSE 109–124; RESP 17–34; TEMP 36.3; O2SAT 92–97; BMI 31.7
--- NOTE | 2022-10-20 09:44 | DI.RAD.S_ITS ---
PROCEDURE: XR CHEST 1V INDICATIONS: chest pain TECHNIQUE: One view of the chest was acquired. COMPARISON: [facility], CT, CT ANGIO CHEST PE PROTOCOL, 10/20/2022, 10:24. [facility], CR, XR CHEST 1V, 12/23/2021, 2:55. FINDINGS: Surgical changes and devices: Pacemaker. Lungs and pleura: Slight hazy appearance is present in the right base. Mediastinum: Mediastinal contours appear normal. Heart size is normal. Bones and chest wall: No suspicious bony lesions. Overlying soft tissues appear unremarkable. IMPRESSION: Slight right basilar hazy appearance possibly related to minimal effusion. Small areas of dependent change cannot be excluded. Dictated by: Fang Cristina M.D. on 10/20/2022 at 10:35 Approved by: Fang Cristina M.D. on 10/20/2022 at 10:35
--- NOTE | 2022-10-20 09:52 | DI.CT.S_ITS ---
PROCEDURE: CT ANGIO CHEST PE PROTOCOL INDICATIONS: hx of PE now with CP and SOB TECHNIQUE: After the administration of intravenous contrast, 2 mm thick sections acquired from the pulmonary apices to the posterior costophrenic angles. 3-dimensional maximum intensity projection (MIP) coronal and sagittal reformats were then acquired through the thorax. For radiation dose reduction, the following was used: automated exposure control, adjustment of mA and/or kV according to patient size. COMPARISON: [facility], CT, CT ANGIO CHEST PE PROTOCOL, 09/17/2020, 23:46. FINDINGS: Image quality: Segmental branches are considered suboptimally evaluated. Pulmonary arteries: Pulmonary arteries are normal in size, and demonstrate no intraluminal filling defects to suggest central pulmonary embolism. Although segmental branches are felt to be suboptimally evaluated, there are several areas which appear concerning for emboli particularly overlying the right middle and lower lobes. Lungs and pleura: Mild right effusion is present. There is an overall appearance of increased pulmonary vascularity. Previously identified bilateral subcentimeter pulmonary nodules are stable. Mediastinum: Heart size is normal, without pericardial effusion. No mediastinal or hilar adenopathy. Thoracic aorta is normal in caliber and enhancement. Esophagus is normal in caliber, without hiatal hernia. Bones and chest wall: No suspicious bony lesions. Ribs and thoracic spine appear intact throughout. Thyroid gland is unremarkable. No axillary or supraclavicular adenopathy. Abdomen: Left adrenal mass is unchanged. Visualized upper abdominal solid organs appear normal in the early arterial phase of enhancement. IMPRESSION: Suboptimal evaluation of segmental pulmonary artery secondary to artifact. However, there are areas concerning despite artifact for emboli particularly within the right middle and lower lobes. No central pulmonary embolism. Mild right effusion. The above findings were discussed with Dr. Hector Oneill on 10/20/2022 at 10:53 a.m. Dictated by: Fang Cristina M.D. on 10/20/2022 at 10:46 Approved by: Fang Cristina M.D. on 10/20/2022 at 10:54
--- NOTE | 2022-10-20 09:53 | ED_ITS ---
HPI - Chest Pain General Chief Complaint: Chest Pain Stated Complaint: chest pain has a pacemaker Time Seen by Provider: 10/20/22 09:40 Source: patient and family () Mode of arrival: Wheelchair Limitations: no limitations History of Present Illness HPI narrative: Patient is a 57-year-old female. Has multiple chronic medical problems. Has had a stroke with left-sided weakness. She can not ambulate. She is in a wheelchair all the time. She is also had pulmonary embolisms. Also has a pacemaker in place. Is not on any anticoagulation. She states she was taken off this because she was bruising and also because she was told that she had been on it for long enough. She is here for evaluation of approximately 45 minutes of left-sided chest pain and right-sided flank pain. States it is sharp. It is causing her to have some shortness of breath. No other changes to her baseline physical status. Related Data Home Medications Medication Instructions Recorded Confirmed lisinopril 10 mg tablet 5 mg PO DAILY ##0 11/15/17 12/21/21 atorvastatin 40 mg tablet 40 mg PO DAILY 12/21/21 12/21/21 metformin 1,000 mg tablet 1,000 mg PO BID 12/21/21 12/21/21 metoprolol succinate 25 mg 25 mg PO DAILY 12/21/21 12/21/21 tablet,extended release 24 hr oxybutynin chloride 5 mg tablet 2.5 mg PO BID 12/21/21 12/21/21 warfarin 7.5 mg tablet 7.5 mg PO QPM 12/21/21 12/21/21 Previous Rx's Medication Instructions Recorded sulfamethoxazole 800 1 tab PO BID #10 tabs 12/22/21 mg-trimethoprim 160 mg tablet (Bactrim DS) clotrimazole 1 % topical cream 1 applic topical BID yeast in 02/17/22 folds #45 grams foam bandage 6 5/8 X 6 3/4 #40 ea 02/17/22 (Allevyn Gentle Border Sacrum) hydrocortisone 0.5 % topical cream 1 applic topical BID PRN rash 02/17/22 #28.4 grams zinc oxide 25 % topical paste 1 applic topical TID PRN skin 02/17/22 irritation #500 grams hydrocodone 5 mg-acetaminophen 325 1 tab PO Q8H PRN pain #10 tabs 02/03/23 mg tablet rivaroxaban 15 mg (42)-20 mg (9) See Rx Instructions PO .COMPLEX 10/20/22 tablets in a starter pack (Xarelto #51 ea DVT-PE Treatment 30-Day Starter) Allergies Allergy/AdvReac Type Severity Reaction Status Date / Time No Known Drug Allergies Allergy Verified 03/15/21 22:37 Review of Systems Review of Systems ROS Unobtainable: All systems reviewed & are unremarkable except as noted in HPI and below 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 CVA (cerebral vascular accident) Diabetes mellitus History of ventricular fibrillation 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 Neuropathy Urinary incontinence Surgical History History of colonoscopy History of permanent cardiac pacemaker placement Family History Mother MRSA (methicillin resistant Staphylococcus aureus) Cardiovascular disease Stroke Myocardial infarction Father Cardiovascular disease Myocardial infarction Social History household members: children Smoking Status: Never smoker alcohol intake: former Smoking Status: Never smoker alcohol intake frequency: 0-2 drinks per day Substance Use Type: does not use Exam Initial Vital Signs Initial Vital Signs: Vital Signs Pulse Rate 123 H 10/20/22 09:33 Blood Pressure 166/119 H 10/20/22 09:33 Pulse Oximetry 97 10/20/22 09:33 Const General: cooperative and comfortable HENMT Head: normal to inspection and normocephalic Chest Chest: No crepitus and No tenderness Resp Effort & Inspection: labored, no retractions and tachypneic Auscultation: clear to auscultation bilaterally Cardio Rate: regular rate Rhythm: regular rhythm GI Inspection: normal to inspection Skin General: no rashes or lesions noted Neuro General: patient alert, patient awake and patient oriented x3 Speech: speech normal Extrem General: capillary refill normal Course Orders Ordered: ED Orders 10/20/22 09:37 EKG-12 Lead Stat 10/20/22 09:44 XR chest 1V Stat 10/20/22 09:52 CT angio chest PE protocol Stat 10/20/22 09:53 Complete Blood Count AUTO DIFF Stat Comprehensive Metabolic Panel Stat Covid-19 + FLU A/B + RSV - PCR Stat Lipase Stat Magnesium Stat Partial Thromboplastin Time Stat Prothrombin Time INR Stat Troponin & CK Cardiac Panel Stat 10/20/22 11:00 BNP [NT-proBNP (BNP-Adult 18+)] Stat Discontinued Medications Hydrocodone Bitart/Acetaminophen (Hydrocodone/Acet 5/325 Tablet) 1 tab PO NOW ONE Stop: 10/20/22 12:35 Last Admin: 10/20/22 12:39 Dose: 1 tab Documented By: HENRIK Enoxaparin Sodium (Enoxaparin 150 Mg/Ml Syringe) 120 mg SUBCUT DAILY [facility] Last Admin: 10/20/22 11:45 Dose: 120 mg Documented By: HENRIK Vital Signs Vital signs: Vital Signs - 8 hr 10/20/22 09:40 10/20/22 09:33 10/20/22 09:33 Temperature 97.4 F L Pulse Rate 124 H 123 H Respiratory Rate 24 Blood Pressure 166/119 H 166/119 H Pulse Oximetry 95 97 Oxygen Delivery Method Room Air 10/20/22 10:00 10/20/22 10:00 10/20/22 10:34 Temperature Pulse Rate 111 H 110 H Respiratory Rate 22 Blood Pressure 159/102 H Pulse Oximetry 95 95 Oxygen Delivery Method 10/20/22 11:00 10/20/22 11:30 10/20/22 11:46 Temperature Pulse Rate 110 H 110 H Respiratory Rate 34 H 31 H Blood Pressure 176/109 H Pulse Oximetry 93 94 Oxygen Delivery Method 10/20/22 11:46 10/20/22 12:00 10/20/22 12:30 Temperature Pulse Rate 109 H 109 H 111 H Respiratory Rate 26 H 17 21 Blood Pressure 176/109 H Pulse Oximetry 92 93 94 Oxygen Delivery Method MDM - Chest Pain Lab Data 10/20/22 09:53 10/20/22 09:53 Labs: Lab Results 10/20/22 10/20/22 10/20/22 Range/Units 09:53 09:53 09:53 WBC 11.0 (4.5-11.0) X10^3/uL RBC 5.71 H (4.0-5.2) X10^6/uL Hgb 16.5 H (12.0-16.0) g/dL Hct 49.3 H (36-46) % MCV 86.3 (80-100) fL MCH 28.8 (26-34) PG MCHC 33.4 (30-36) % RDW 13.6 (11.6-14.8) % Plt Count 204 (150-400) X10^3/uL Neut % (Auto) 80.4 H (50-75) % Lymph % (Auto) 11.7 L (25-40) % [place] % (Auto) 5.4 (3-14) % Eos % (Auto) 1.7 L (2-4) % Baso % (Auto) 0.8 (0-2) % Neut # (Auto) 8800 H (6193-8661) /uL Lymph # (Auto) 1300 (2574-5457) /uL [place] # (Auto) 600 (0-900) /uL Eos # (Auto) 200 (0-450) /uL Baso # (Auto) 100 (0-100) /uL PT 11.3 (10.1-12.7) SECONDS INR 1.0 (0.9-1.3) APTT 30 (26-36) SECONDS Sodium 137 (137-145) mmol/L Potassium 4.2 (3.4-5.1) mmol/L Chloride 105 (98-107) mmol/L Carbon Dioxide 22 (22-32) mmol/L BUN 18 H (7-17) mg/dL Creatinine 0.48 L (0.52-1.04) mg/dL Estimated GFR > 60 (>60) mL/min BUN/Creatinine Ratio 37.5 H (6-22) Glucose 277 H (70-100) mg/dL Calcium 9.6 (8.4-10.2) mg/dL Magnesium 1.8 (1.6-2.3) mg/dL Total Bilirubin 0.9 (0.2-1.3) mg/dL AST 26 (14-36) IU/L ALT 28 (<35) IU/L Alkaline Phosphatase 145 H (38-126) U/L Total Creatine Kinase 52 (30-135) U/L CK-MB (CK-2) TNP CK-MB (CK-2) Rel Index TNP Troponin I < 0.012 (0.01-0.034) ng/mL NT-Pro-B Natriuret Pep (<125) pg/mL Total Protein 8.5 H (6.3-8.2) g/dL Albumin 4.2 (3.5-5.0) g/dL Globulin 4.3 H (1.7-4.1) g/dL Albumin/Globulin Ratio 1.0 (1.0-2.8) Lipase 33 (23-300) U/L SARS-CoV-2 (PCR) (Negative) Influenza A (RT-PCR) (NEGATIVE) Influenza B (RT-PCR) (NEGATIVE) RSV (PCR) (Negative) 10/20/22 10/20/22 Range/Units 09:53 11:00 WBC (4.5-11.0) X10^3/uL RBC (4.0-5.2) X10^6/uL Hgb (12.0-16.0) g/dL Hct (36-46) % MCV (80-100) fL MCH (26-34) PG MCHC (30-36) % RDW (11.6-14.8) % Plt Count (150-400) X10^3/uL Neut % (Auto) (50-75) % Lymph % (Auto) (25-40) % [place] % (Auto) (3-14) % Eos % (Auto) (2-4) % Baso % (Auto) (0-2) % Neut # (Auto) (5527-3719) /uL Lymph # (Auto) (5867-7146) /uL [place] # (Auto) (0-900) /uL Eos # (Auto) (0-450) /uL Baso # (Auto) (0-100) /uL PT (10.1-12.7) SECONDS INR (0.9-1.3) APTT (26-36) SECONDS Sodium (137-145) mmol/L Potassium (3.4-5.1) mmol/L Chloride (98-107) mmol/L Carbon Dioxide (22-32) mmol/L BUN (7-17) mg/dL Creatinine (0.52-1.04) mg/dL Estimated GFR (>60) mL/min BUN/Creatinine Ratio (6-22) Glucose (70-100) mg/dL Calcium (8.4-10.2) mg/dL Magnesium (1.6-2.3) mg/dL Total Bilirubin (0.2-1.3) mg/dL AST (14-36) IU/L ALT (<35) IU/L Alkaline Phosphatase (38-126) U/L Total Creatine Kinase (30-135) U/L CK-MB (CK-2) CK-MB (CK-2) Rel Index Troponin I (0.01-0.034) ng/mL NT-Pro-B Natriuret Pep 188 H (<125) pg/mL Total Protein (6.3-8.2) g/dL Albumin (3.5-5.0) g/dL Globulin (1.7-4.1) g/dL Albumin/Globulin Ratio (1.0-2.8) Lipase (23-300) U/L SARS-CoV-2 (PCR) Negative (Negative) Influenza A (RT-PCR) Flu a negative (NEGATIVE) Influenza B (RT-PCR) Flu b negative (NEGATIVE) RSV (PCR) Negative (Negative) Imaging Data Chest x-ray: Radiologist's Impression: [address] [address] XRay Report Signed Patient: Kimmy Gray MR#: [id number] : 1965 Acct:[id number] Age/Sex: 57 / F Date of Service: 10/20/22 Loc: ED Accession Number: [id number] ?? Procedure: XR chest 1V Ordering Provider: Hector Oneill D.O. PROCEDURE:? XR CHEST 1V ? INDICATIONS:? chest pain ? TECHNIQUE:? One view of the chest was acquired.? ? COMPARISON:? [facility], CT, CT ANGIO CHEST PE PROTOCOL, 10/20/2022, 10:24.? [facility], CR, XR CHEST 1V, 12/23/2021, 2:55. ? FINDINGS:? ? Surgical changes and devices:? Pacemaker. ? Lungs and pleura:? Slight hazy appearance is present in the right base. ? Mediastinum:? Mediastinal contours appear normal.? Heart size is normal.? ? Bones and chest wall:? No suspicious bony lesions.? Overlying soft tissues appear unremarkable.? ? IMPRESSION:? Slight right basilar hazy appearance possibly related to minimal effusion.? Small areas of dependent change cannot be excluded. ? ? Dictated by: Fang Cristina M.D. on 10/20/2022 at 10:35 ? ? Approved by: Fang Cristina M.D. on 10/20/2022 at 10:35?? CTA chest: Radiologist's Impression: [address] [address] [address] Scan Report Signed Patient: Kimmy Gray MR#: [id number] : 1965 Acct:[id number] Age/Sex: 57 / F Date of Service: 10/20/22 Loc: ED Accession Number: [id number] ?? Procedure: CT angio chest PE protocol Ordering Provider: Hector Oneill D.O. PROCEDURE:? CT ANGIO CHEST PE PROTOCOL ? INDICATIONS:? hx of PE now with CP and SOB ? TECHNIQUE:? After the administration of intravenous contrast, 2 mm thick sections acquired from the pulmonary apices to the posterior costophrenic angles.? 3-dimensional maximum intensity projection (MIP) coronal and sagittal reformats were then acquired through the thorax.? For radiation dose reduction, the following was used:? automated exposure control, adjustment of mA and/or kV according to patient size.? ? COMPARISON:? [facility], CT, CT ANGIO CHEST PE PROTOCOL, 09/17/2020, 23:46. ? FINDINGS:? Image quality:? Segmental branches are considered suboptimally evaluated. ? Pulmonary arteries:? Pulmonary arteries are normal in size, and demonstrate no intraluminal filling defects to suggest central pulmonary embolism.? Although segmental branches are felt to be suboptimally evaluated, there are several areas which appear concerning for emboli particularly overlying the right middle and lower lobes. ? Lungs and pleura:? Mild right effusion is present.? There is an overall appearance of increased pulmonary vascularity.? Previously identified bilateral subcentimeter pulmonary nodules are stable. ? Mediastinum:? Heart size is normal, without pericardial effusion.? No mediastinal or hilar adenopathy.? Thoracic aorta is normal in caliber and enhancement.? Esop hagus is normal in caliber, without hiatal hernia.? ? Bones and chest wall:? No suspicious bony lesions.? Ribs and thoracic spine appear intact throughout.? Thyroid gland is unremarkable.? No axillary or supraclavicular adenopathy.? ? Abdomen:? Left adrenal mass is unchanged.? Visualized upper abdominal solid organs appear normal in the early arterial phase of enhancement.? ? IMPRESSION:? ? Suboptimal evaluation of segmental pulmonary artery secondary to artifact.? However, there are areas concerning despite artifact for emboli particularly within the right middle and lower lobes.? No central pulmonary embolism. ? Mild right effusion. ? The above findings were discussed with Dr. Hector Oneill on 10/20/2022 at 10:53 a.m. ? ? Dictated by: Fang Cristina M.D. on 10/20/2022 at 10:46 ? ? Approved by: Fang Cristina M.D. on 10/20/2022 at 10:54?? ECG Data Attestation: I personally reviewed and interpreted this ECG as follows: Interpretation: Paced rhythm Rate of 117 LVH Left axis deviation QTC 560 milliseconds MDM Narrative Medical decision making narrative: Patient is not hypoxic. She was tachypneic but this actually improved while she was here in the ER. She stated that she felt less short of breath. She is ta chycardic. Given her significant medical history a CT scan was obtained. Radiology was concerning for right-sided lower lobe clot although was not completely definitive although given her presentation today with the sudden chest pain in the right-sided chest pain and shortness of breath in the tac hycardia and her history and also that she is wheelchair bound not on anticoagulation blood clot is very reasonable. Low suspicion for ACS. No indication of heart strain given her negative BNP and troponin. I did discuss the case with Dr. Stockton on-call for hospitalist Medicine who thought that de spite her tachycardia the fact that she was not hypoxic and could tolerate oral intake he felt that the patient can be discharged home. The last time the patient was on anticoagulation was Coumadin. Had a discussion with her and her family at bedside. They would like to try to avoid it admission to the hospital secondary to financial constraints. Plan abuse to send her home on Xarelto. They were given a co-pay card for this that the prescription is only 10 dollars a month. She was given a dose of Lovenox here in the ER. Patient was given very strict return precautions. She is alert oriented x3. In my opinion capacity make decisions. She expressed understanding agreement with plan. at bedside also expresses understanding and agreement. Discharge Plan Departure Patient Disposition: Home Clinical Impression: Pulmonary embolism Instructions: DI for Pulmonary Embolism Activity Restrictions/Additional Instructions: I recommend that you take all of your medications as directed. Use the co-pay card for the Xarelto. You do need to follow-up with your primary provider. Return to the emergency department for new symptoms. Prescriptions: New Xarelto DVT-PE Treat 30d Start 15 mg (42)- 20 mg (9) tablets,dose pack See Rx Instructions .ROUTE .COMPLEX Qty: 51 0RF Rx Instructions: take one-15 mg tablet twice daily for 21 days, then one-20 mg tablet once daily; must take with meal/food hydrocodone-acetaminophen 5-325 mg tablet 1 tab PO Q8H PRN (Reason: pain) Qty: 10 0RF No Action lisinopril 10 MG tablet 5 mg PO DAILY Qty: 0 (DME) Allevyn Gentle Border Sacrum 6 5/8 X 6 3/4 bandage See Rx Instructions .Route Qty: 40 0RF Rx Instructions: As directed zinc oxide 25 % paste 1 applic topical TID PRN (Reason: skin irritation) Qty: 500 0RF clotrimazole 1 % cream 1 applic topical BID Qty: 45 0RF hydrocortisone 0.5 % cream 1 applic topical BID PRN (Reason: rash) Qty: 28.4 0RF Rx Instructions: Use a thin layer on bright red areas of rash to help calm down the skin, also use fungal cream. Please use only for up to three days in a row and take a vacation day or two in between. atorvastatin 40 mg Tablet 40 mg PO DAILY warfarin 7.5 mg tablet 7.5 mg PO QPM Label Comments: take 1 tablet by mouth once daily metformin 1,000 mg tablet 1,000 mg PO BID Label Comments: TAKE 1 TABLET BY MOUTH TWICE DAILY metoprolol succinate 25 mg tablet extended release 24 hr 25 mg PO DAILY oxybutynin chloride 5 mg tablet 2.5 mg PO BID Label Comments: TAKE 1/2 (ONE-HALF) TABLET BY MOUTH TWICE DAILY NEEDED FOR OVERACTIVE BLADDER sulfamethoxazole-trimethoprim [Bactrim DS] 800-160 mg tablet 1 tab PO BID Qty: 10 0RF Referrals: Donna Redman PA-C [Primary Care Provider] - Stand Alone Forms: Patient Portal/API
[2022-10-20 10:06] LABS: Add Manual Diff / Slide Review NO; Basophils Absolute Auto 100 /uL (0-100); Basophils Percent Auto 0.8 % (0-2); Eosinophils Absolute Auto 200 /uL (0-450); Eosinophils Percent Auto 1.7 % (2-4); Hematocrit 49.3 % (36-46); Hemoglobin 16.5 g/dL (12.0-16.0); Lymphocytes Absolute Auto 1300 /uL (1100-4500); Lymphocytes Percent Auto 11.7 % (25-40); Mean Corpuscular HGB Conc 33.4 % (30-36); Mean Corpuscular Hemoglobin 28.8 PG (26-34); Mean Corpuscular Volume 86.3 fL (80-100); Monocytes Absolute Auto 600 /uL (0-900); Monocytes Percent Auto 5.4 % (3-14); Neutrophils Absolute Auto 8800 /uL (1500-7000); Neutrophils Percent Auto 80.4 % (50-75); Platelet Count 204 X10^3/uL (150-400); Red Blood Cell Count 5.71 X10^6/uL (4.0-5.2); Red Cell Distribution Width 13.6 % (11.6-14.8)
[2022-10-20 10:17] LABS: Alanine Aminotransferase 28 IU/L (<35); Albumin 4.2 g/dL (3.5-5.0); Alkaline Phosphatase 145 U/L (38-126); Aspartate Aminotransferase 26 IU/L (14-36); BUN Creatinine Ratio 37.5 (6-22); Bilirubin Total 0.9 mg/dL (0.2-1.3); Blood Urea Nitrogen 18 mg/dL (7-17); Calcium 9.6 mg/dL (8.4-10.2); Carbon Dioxide 22 mmol/L (22-32); Chloride 105 mmol/L (98-107); Creatine Kinase 52 U/L (30-135); Estimated Glomerular Filt Rate > 60 mL/min (>60); Globulin 4.3 g/dL (1.7-4.1); Glucose 277 mg/dL (70-100); HEMOLYSIS 39 (0-50); Lipase 33 U/L (23-300); Magnesium 1.8 mg/dL (1.6-2.3); Potassium 4.2 mmol/L (3.4-5.1); Prothrombin Time 11.3 SECONDS (10.1-12.7); Sodium 137 mmol/L (137-145); Total Protein 8.5 g/dL (6.3-8.2)
[2022-10-20 10:20] LABS: PTT Partial Thromboplastin Tim 30 SECONDS (26-36)
[2022-10-20 10:28] LABS: Troponin I < 0.012 ng/mL (0.01-0.034)
[2022-10-20 10:41] LABS: COVID-19 CEPHEID 4-PLEX PCR Negative (Negative); Influenza A - CEPHEID Flu A NEGATIVE (NEGATIVE); Influenza B - CEPHEID Flu B NEGATIVE (NEGATIVE); Respiratory Syncytial Virus Negative (Negative)
--- NOTE | 2022-10-20 10:46 | PC.NURSE ---
zpaste barrier cream applied.
[2022-10-20 11:41] LABS: NT-proBNP (BNP-Adult 18+) 188 pg/mL (<125)
[2022-10-20] MEDS: ENOXAPARIN 150 MG/ML SYRINGE 120 MG SUBCUT (11:45)
[2022-10-20] MEDS: HYDROCODONE/ACET 5/325 TABLET 1 TAB PO (12:39)
--- NOTE | 2022-10-20 17:52 | ED.CHESTPAIN ---
HPI - Chest Pain General Chief Complaint: Chest Pain Stated Complaint: chest pain has a pacemaker Time Seen by Provider: 10/20/22 09:40 Source: patient and family () Mode of arrival: Wheelchair Limitations: no limitations Related Data Home Medications Medication Instructions Recorded Confirmed lisinopril 10 mg tablet 5 mg PO DAILY ##0 11/15/17 12/21/21 atorvastatin 40 mg tablet 40 mg PO DAILY 12/21/21 12/21/21 metformin 1,000 mg tablet 1,000 mg PO BID 12/21/21 12/21/21 metoprolol succinate 25 mg 25 mg PO DAILY 12/21/21 12/21/21 tablet,extended release 24 hr oxybutynin chloride 5 mg tablet 2.5 mg PO BID 12/21/21 12/21/21 warfarin 7.5 mg tablet 7.5 mg PO QPM 12/21/21 12/21/21 Previous Rx's Medication Instructions Recorded sulfamethoxazole 800 1 tab PO BID #10 tabs 12/22/21 mg-trimethoprim 160 mg tablet (Bactrim DS) clotrimazole 1 % topical cream 1 applic topical BID yeast in 02/17/22 folds #45 grams foam bandage 6 5/8 X 6 3/4 #40 ea 02/17/22 (Allevyn Gentle Border Sacrum) hydrocortisone 0.5 % topical cream 1 applic topical BID PRN rash 02/17/22 #28.4 grams zinc oxide 25 % topical paste 1 applic topical TID PRN skin 02/17/22 irritation #500 grams enoxaparin 80 mg/0.8 mL 80 mg (0.8 mL) SUBCUT Q12H #8 mL 10/20/22 subcutaneous syringe (Lovenox) hydrocodone 5 mg-acetaminophen 325 1 tab PO Q8H PRN pain #10 tabs 10/20/22 mg tablet rivaroxaban 15 mg (42)-20 mg (9) See Rx Instructions PO .COMPLEX 10/20/22 tablets in a starter pack (Xarelto #51 ea DVT-PE Treatment 30-Day Starter) warfarin 5 mg tablet 5 mg PO DAILY #30 tabs 10/20/22 Allergies Allergy/AdvReac Type Severity Reaction Status Date / Time No Known Drug Allergies Allergy Verified 03/15/21 22:37 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 CVA (cerebral vascular accident) Diabetes mellitus History of ventricular fibrillation 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 Neuropathy Urinary incontinence Surgical History History of colonoscopy History of permanent cardiac pacemaker placement Family History Mother MRSA (methicillin resistant Staphylococcus aureus) Cardiovascular disease Stroke Myocardial infarction Father Cardiovascular disease Myocardial infarction Social History household members: children Smoking Status: Never smoker alcohol intake: former Smoking Status: Never smoker alcohol intake frequency: 0-2 drinks per day Substance Use Type: does not use Exam Initial Vital Signs Initial Vital Signs: Vital Signs Pulse Rate 123 H 10/20/22 09:33 Blood Pressure 166/119 H 10/20/22 09:33 Pulse Oximetry 97 10/20/22 09:33 Course Orders Ordered: ED Orders 10/20/22 09:37 EKG-12 Lead Stat 10/20/22 09:44 XR chest 1V Stat 10/20/22 09:52 CT angio chest PE protocol Stat 10/20/22 09:53 Complete Blood Count AUTO DIFF Stat Comprehensive Metabolic Panel Stat Covid-19 + FLU A/B + RSV - PCR Stat Lipase Stat Magnesium Stat Partial Thromboplastin Time Stat Prothrombin Time INR Stat Troponin & CK Cardiac Panel Stat 10/20/22 11:00 BNP [NT-proBNP (BNP-Adult 18+)] Stat Discontinued Medications Hydrocodone Bitart/Acetaminophen (Hydrocodone/Acet 5/325 Tablet) 1 tab PO NOW ONE Stop: 10/20/22 12:35 Last Admin: 10/20/22 12:39 Dose: 1 tab Documented By: HENRIK Enoxaparin Sodium (Enoxaparin 150 Mg/Ml Syringe) 120 mg SUBCUT DAILY [facility] Last Admin: 10/20/22 11:45 Dose: 120 mg Documented By: HENRIK Vital Signs Vital signs: Vital Signs - 8 hr 10/20/22 10:00 10/20/22 10:00 10/20/22 10:34 Pulse Rate 111 H 110 H Respiratory Rate 22 Blood Pressure 159/102 H Pulse Oximetry 95 95 10/20/22 11:00 10/20/22 11:30 10/20/22 11:46 Pulse Rate 110 H 110 H Respiratory Rate 34 H 31 H Blood Pressure 176/109 H Pulse Oximetry 93 94 10/20/22 11:46 10/20/22 12:00 10/20/22 12:30 Pulse Rate 109 H 109 H 111 H Respiratory Rate 26 H 17 21 Blood Pressure 176/109 H Pulse Oximetry 92 93 94 MDM - Chest Pain Lab Data 10/20/22 09:53 10/20/22 09:53 Labs: Lab Results 10/20/22 10/20/22 10/20/22 Range/Units 09:53 09:53 09:53 WBC 11.0 (4.5-11.0) X10^3/uL RBC 5.71 H (4.0-5.2) X10^6/uL Hgb 16.5 H (12.0-16.0) g/dL Hct 49.3 H (36-46) % MCV 86.3 (80-100) fL MCH 28.8 (26-34) PG MCHC 33.4 (30-36) % RDW 13.6 (11.6-14.8) % Plt Count 204 (150-400) X10^3/uL Neut % (Auto) 80.4 H (50-75) % Lymph % (Auto) 11.7 L (25-40) % [place] % (Auto) 5.4 (3-14) % Eos % (Auto) 1.7 L (2-4) % Baso % (Auto) 0.8 (0-2) % Neut # (Auto) 8800 H (7257-8542) /uL Lymph # (Auto) 1300 (6289-3892) /uL [place] # (Auto) 600 (0-900) /uL Eos # (Auto) 200 (0-450) /uL Baso # (Auto) 100 (0-100) /uL PT 11.3 (10.1-12.7) SECONDS INR 1.0 (0.9-1.3) APTT 30 (26-36) SECONDS Sodium 137 (137-145) mmol/L Potassium 4.2 (3.4-5.1) mmol/L Chloride 105 (98-107) mmol/L Carbon Dioxide 22 (22-32) mmol/L BUN 18 H (7-17) mg/dL Creatinine 0.48 L (0.52-1.04) mg/dL Estimated GFR > 60 (>60) mL/min BUN/Creatinine Ratio 37.5 H (6-22) Glucose 277 H (70-100) mg/dL Calcium 9.6 (8.4-10.2) mg/dL Magnesium 1.8 (1.6-2.3) mg/dL Total Bilirubin 0.9 (0.2-1.3) mg/dL AST 26 (14-36) IU/L ALT 28 (<35) IU/L Alkaline Phosphatase 145 H (38-126) U/L Total Creatine Kinase 52 (30-135) U/L CK-MB (CK-2) TNP CK-MB (CK-2) Rel Index TNP Troponin I < 0.012 (0.01-0.034) ng/mL NT-Pro-B Natriuret Pep (<125) pg/mL Total Protein 8.5 H (6.3-8.2) g/dL Albumin 4.2 (3.5-5.0) g/dL Globulin 4.3 H (1.7-4.1) g/dL Albumin/Globulin Ratio 1.0 (1.0-2.8) Lipase 33 (23-300) U/L SARS-CoV-2 (PCR) (Negative) Influenza A (RT-PCR) (NEGATIVE) Influenza B (RT-PCR) (NEGATIVE) RSV (PCR) (Negative) 10/20/22 10/20/22 Range/Units 09:53 11:00 WBC (4.5-11.0) X10^3/uL RBC (4.0-5.2) X10^6/uL Hgb (12.0-16.0) g/dL Hct (36-46) % MCV (80-100) fL MCH (26-34) PG MCHC (30-36) % RDW (11.6-14.8) % Plt Count (150-400) X10^3/uL Neut % (Auto) (50-75) % Lymph % (Auto) (25-40) % [place] % (Auto) (3-14) % Eos % (Auto) (2-4) % Baso % (Auto) (0-2) % Neut # (Auto) (5414-2438) /uL Lymph # (Auto) (8776-5587) /uL [place] # (Auto) (0-900) /uL Eos # (Auto) (0-450) /uL Baso # (Auto) (0-100) /uL PT (10.1-12.7) SECONDS INR (0.9-1.3) APTT (26-36) SECONDS Sodium (137-145) mmol/L Potassium (3.4-5.1) mmol/L Chloride (98-107) mmol/L Carbon Dioxide (22-32) mmol/L BUN (7-17) mg/dL Creatinine (0.52-1.04) mg/dL Estimated GFR (>60) mL/min BUN/Creatinine Ratio (6-22) Glucose (70-100) mg/dL Calcium (8.4-10.2) mg/dL Magnesium (1.6-2.3) mg/dL Total Bilirubin (0.2-1.3) mg/dL AST (14-36) IU/L ALT (<35) IU/L Alkaline Phosphatase (38-126) U/L Total Creatine Kinase (30-135) U/L CK-MB (CK-2) CK-MB (CK-2) Rel Index Troponin I (0.01-0.034) ng/mL NT-Pro-B Natriuret Pep 188 H (<125) pg/mL Total Protein (6.3-8.2) g/dL Albumin (3.5-5.0) g/dL Globulin (1.7-4.1) g/dL Albumin/Globulin Ratio (1.0-2.8) Lipase (23-300) U/L SARS-CoV-2 (PCR) Negative (Negative) Influenza A (RT-PCR) Flu a negative (NEGATIVE) Influenza B (RT-PCR) Flu b negative (NEGATIVE) RSV (PCR) Negative (Negative) Discharge Plan Departure Patient Disposition: Home Clinical Impression: Pulmonary embolism Instructions: DI for Pulmonary Embolism Activity Restrictions/Additional Instructions: I recommend that you take all of your medications as directed. Use the co-pay card for the Xarelto. You do need to follow-up with your primary provider. Return to the emergency department for new symptoms. Prescriptions: New Xarelto DVT-PE Treat 30d Start 15 mg (42)- 20 mg (9) tablets,dose pack See Rx Instructions .ROUTE .COMPLEX Qty: 51 0RF Rx Instructions: take one-15 mg tablet twice daily for 21 days, then one-20 mg tablet once daily; must take with meal/food hydrocodone-acetaminophen 5-325 mg tablet 1 tab PO Q8H PRN (Reason: pain) Qty: 10 0RF warfarin 5 mg tablet 5 mg PO DAILY Qty: 30 0RF enoxaparin [Lovenox] 80 mg/0.8 mL syringe 80 mg SUBCUT Q12H Qty: 8 0RF No Action lisinopril 10 MG tablet 5 mg PO DAILY Qty: 0 (DME) Allevyn Gentle Border Sacrum 6 5/8 X 6 3/4 bandage See Rx Instructions .Route Qty: 40 0RF Rx Instructions: As directed zinc oxide 25 % paste 1 applic topical TID PRN (Reason: skin irritation) Qty: 500 0RF clotrimazole 1 % cream 1 applic topical BID Qty: 45 0RF hydrocortisone 0.5 % cream 1 applic topical BID PRN (Reason: rash) Qty: 28.4 0RF Rx Instructions: Use a thin layer on bright red areas of rash to help calm down the skin, also use fungal cream. Please use only for up to three days in a row and take a vacation day or two in between. atorvastatin 40 mg Tablet 40 mg PO DAILY warfarin 7.5 mg tablet 7.5 mg PO QPM Label Comments: take 1 tablet by mouth once daily metformin 1,000 mg tablet 1,000 mg PO BID Label Comments: TAKE 1 TABLET BY MOUTH TWICE DAILY metoprolol succinate 25 mg tablet extended release 24 hr 25 mg PO DAILY oxybutynin chloride 5 mg tablet 2.5 mg PO BID Label Comments: TAKE 1/2 (ONE-HALF) TABLET BY MOUTH TWICE DAILY NEEDED FOR OVERACTIVE BLADDER sulfamethoxazole-trimethoprim [Bactrim DS] 800-160 mg tablet 1 tab PO BID Qty: 10 0RF Referrals: Donna Redman PA-C [Primary Care Provider] - Stand Alone Forms: Patient Portal/API
== END 2022-10-20 12:58 | disposition home or self-care (01) ==
PROVIDERS: Emergency Provider Emergency Medicine; Family Provider Family Medicine; PCP Physician Assistant Medical
DX: I26.99 Other pulmonary embolism without acute cor pulmonale (principal); R06.82 Tachypnea, not elsewhere classified; R00.0 Tachycardia, unspecified; Z95.0 Presence of cardiac pacemaker; Z79.01 Long term (current) use of anticoagulants; Z20.822 Contact with and (suspected) exposure to COVID-19
CPT/HCPCS: 0241U; 36415; 71045; 71275; 80053; 82550; 83690; 83735; 83880; 84484; 85025; 85610; 85730; 93005; 96372; 99284; J1650

== ENCOUNTER 2022-11-07 21:53 | Emergency (ER) | payer SELFPAY ==
[2021-12-21 12:38] VITALS: BMI 32.1
[2022-11-07 22:08] VITALS: BP 133/84; PULSE 100; RESP 16; TEMP 36.6; O2SAT 95; BMI 40.7
--- NOTE | 2022-11-07 22:47 | DI.RAD.S_ITS ---
PROCEDURE: XR CHEST 1V INDICATIONS: Chest pain TECHNIQUE: One view of the chest was acquired. COMPARISON: [facility], CR, XR CHEST 1V, 12/23/2021, 2:55. [facility], CR, XR CHEST 1V, 10/20/2022, 10:01. FINDINGS: Surgical changes and devices: Left chest wall AICD redemonstrated. Lungs and pleura: There is mild blunting of the right costophrenic angle suggestive of a small pleural effusion. No acute consolidation. Mediastinum: Mediastinal contours appear unchanged. Heart size is normal. Bones and chest wall: No suspicious bony lesions. Overlying soft tissues appear unremarkable. IMPRESSION: 1. Blunting of the right costophrenic angle suggestive of a small right pleural effusion. Dictated by: Dandy Gil M.D. on 11/07/2022 at 23:38 Approved by: Dandy Gil M.D. on 11/07/2022 at 23:48
[2022-11-07 23:18] LABS: Add Manual Diff / Slide Review NO; Basophils Absolute Auto 100 /uL (0-100); Basophils Percent Auto 0.9 % (0-2); Eosinophils Absolute Auto 200 /uL (0-450); Hemoglobin 15.4 g/dL (12.0-16.0); Lymphocytes Absolute Auto 1100 /uL (1100-4500); Lymphocytes Percent Auto 17.2 % (25-40); Mean Corpuscular HGB Conc 34.2 % (30-36); Mean Corpuscular Hemoglobin 29.4 PG (26-34); Mean Corpuscular Volume 85.8 fL (80-100); Monocytes Absolute Auto 500 /uL (0-900); Monocytes Percent Auto 8.4 % (3-14); Neutrophils Absolute Auto 4400 /uL (1500-7000); Neutrophils Percent Auto 70.5 % (50-75); Platelet Count 201 X10^3/uL (150-400); Red Blood Cell Count 5.24 X10^6/uL (4.0-5.2); Red Cell Distribution Width 13.4 % (11.6-14.8); White Blood Cell Count 6.2 X10^3/uL (4.5-11.0)
[2022-11-07 23:24] LABS: Creatine Kinase 28 U/L (30-135); Lipase 27 U/L (23-300)
[2022-11-07 23:37] LABS: Troponin I < 0.012 ng/mL (0.01-0.034)
--- NOTE | 2022-11-07 23:45 | ED_ITS ---
HPI - Chest Pain General Chief Complaint: Chest Pain Stated Complaint: heart pain Time Seen by Provider: 11/07/22 22:46 Source: patient and family Mode of arrival: Wheelchair Limitations: no limitations History of Present Illness HPI narrative: Patient is a 57-year-old female. Well known to myself. Has had history of a stroke and has left-sided deficits to where she can not walk or move her left arm. She also has a pacemaker placed. History of multiple pulmonary emboli. Is on Lovenox. She is here for evaluation of chest discomfort that she states is sharp and is located over her pacemaker device in the left side of her chest. She is currently not having symptoms but it has been off and on all day long. States that it lasts only a few seconds or short period of time and then resolves. She did not tell her family about it until this afternoon which is why she is brought to the emergency department. She denies chest pain. She is at her baseline respiratory status. No new neurologic symptoms. She states she is taking all of her medications as directed. Related Data Home Medications Medication Instructions Recorded Confirmed lisinopril 10 mg tablet 5 mg PO DAILY ##0 11/15/17 12/21/21 atorvastatin 40 mg tablet 40 mg PO DAILY 12/21/21 12/21/21 metformin 1,000 mg tablet 1,000 mg PO BID 12/21/21 12/21/21 metoprolol succinate 25 mg 25 mg PO DAILY 12/21/21 12/21/21 tablet,extended release 24 hr oxybutynin chloride 5 mg tablet 2.5 mg PO BID 12/21/21 12/21/21 warfarin 7.5 mg tablet 7.5 mg PO QPM 12/21/21 12/21/21 Previous Rx's Medication Instructions Recorded sulfamethoxazole 800 1 tab PO BID #10 tabs 12/22/21 mg-trimethoprim 160 mg tablet (Bactrim DS) clotrimazole 1 % topical cream 1 applic topical BID yeast in 02/17/22 folds #45 grams foam bandage 6 5/8 X 6 3/4 #40 ea 02/17/22 (Allevyn Gentle Border Sacrum) hydrocortisone 0.5 % topical cream 1 applic topical BID PRN rash 02/17/22 #28.4 grams zinc oxide 25 % topical paste 1 applic topical TID PRN skin 02/17/22 irritation #500 grams enoxaparin 80 mg/0.8 mL 80 mg (0.8 mL) SUBCUT Q12H #8 mL 10/20/22 subcutaneous syringe (Lovenox) hydrocodone 5 mg-acetaminophen 325 1 tab PO Q8H PRN pain #10 tabs 10/20/22 mg tablet rivaroxaban 15 mg (42)-20 mg (9) See Rx Instructions PO .COMPLEX 10/20/22 tablets in a starter pack (Xarelto #51 ea DVT-PE Treatment 30-Day Starter) warfarin 5 mg tablet 5 mg PO DAILY #30 tabs 10/20/22 Allergies Allergy/AdvReac Type Severity Reaction Status Date / Time No Known Drug Allergies Allergy Verified 03/15/21 22:37 Review of Systems Constitutional Constitutional: Reports system reviewed and no additional complaints, except as documented Cardiovascular Cardiovascular: Reports system reviewed and no additional complaints, except as documented Respiratory Respiratory: Reports system reviewed and no additional complaints, except as documented Gastrointestinal Gastrointestinal: Reports system reviewed and no additional complaints, except as documented Integumentary/Breasts Skin/Breast: Reports system reviewed and no additional complaints, except as documented Neurologic Neurologic: Reports system reviewed and no additional complaints, except as documented Hematologic/Lymphatic On Anticoagulants: Yes 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 CVA (cerebral vascular accident) Diabetes mellitus History of ventricular fibrillation 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 Neuropathy Urinary incontinence Surgical History History of colonoscopy History of permanent cardiac pacemaker placement Family History Mother MRSA (methicillin resistant Staphylococcus aureus) Cardiovascular disease Stroke Myocardial infarction Father Cardiovascular disease Myocardial infarction Social History household members: children Smoking Status: Never smoker alcohol intake: former Smoking Status: Never smoker alcohol intake frequency: 0-2 drinks per day Substance Use Type: does not use Exam Initial Vital Signs Initial Vital Signs: Vital Signs Temperature 98 F 11/07/22 22:08 Pulse Rate 100 H 11/07/22 22:08 Respiratory Rate 16 11/07/22 22:08 Blood Pressure 133/84 02/21/23 22:08 Pulse Oximetry 95 11/07/22 22:08 Oxygen Delivery Method 11/07/22 22:08 Const General: cooperative, comfortable and No ill appearing HENMT Head: normal to inspection and normocephalic Resp Effort & Inspection: normal respiratory effort Auscultation: clear to auscultation bilaterally Cardio Rate: regular rate Rhythm: regular rhythm GI Inspection: normal to inspection Skin General: no rashes or lesions noted Neuro General: patient alert, patient awake and moves all extremities Scores GCS [place] coma scale eye opening: Spontaneous [place] coma scale verbal response: Orientated [place] coma scale motor response: Obey commands [place] coma scale total score: 15 Course Orders Ordered: ED Orders 11/07/22 22:47 XR chest 1V Stat EKG-12 Lead Stat 11/07/22 23:00 Complete Blood Count AUTO DIFF Stat Lipase Stat Troponin & CK Cardiac Panel Stat 11/08/22 01:19 Troponin & CK Cardiac Panel Stat Vital Signs Vital signs: Vital Signs - 8 hr 11/07/22 22:08 11/08/22 00:00 11/08/22 01:00 Temperature 98 F Pulse Rate 100 H 83 78 Respiratory Rate 16 19 19 Blood Pressure 133/84 Pulse Oximetry 95 95 95 Oxygen Delivery Method Room Air Nasal Cannula Nasal Cannula Oxygen Flow Rate 2 2 11/08/22 02:33 11/08/22 01:39 Temperature Pulse Rate 73 72 Respiratory Rate 20 20 Blood Pressure 128/79 123/77 Pulse Oximetry 98 95 Oxygen Delivery Method Nasal Cannula Nasal Cannula Oxygen Flow Rate 2 2 MDM - Chest Pain Medical Records Data Attestation: I reviewed the patient's medical records. Lab Data Attestation: I reviewed the patient's lab results. 11/07/22 23:00 11/07/22 23:00 Labs: Lab Results 11/07/22 11/07/22 11/08/22 Range/Units 23:00 23:00 01:19 WBC 6.2 (4.5-11.0) X10^3/uL RBC 5.24 H (4.0-5.2) X10^6/uL Hgb 15.4 (12.0-16.0) g/dL Hct 45.0 (36-46) % MCV 85.8 (80-100) fL MCH 29.4 (26-34) PG MCHC 34.2 (30-36) % RDW 13.4 (11.6-14.8) % Plt Count 201 (150-400) X10^3/uL Neut % (Auto) 70.5 (50-75) % Lymph % (Auto) 17.2 L (25-40) % [place] % (Auto) 8.4 (3-14) % Eos % (Auto) 3.0 (2-4) % Baso % (Auto) 0.9 (0-2) % Neut # (Auto) 4400 (6218-5015) /uL Lymph # (Auto) 1100 (0243-6848) /uL [place] # (Auto) 500 (0-900) /uL Eos # (Auto) 200 (0-450) /uL Baso # (Auto) 100 (0-100) /uL Sodium 135 L (137-145) mmol/L Potassium 4.1 (3.4-5.1) mmol/L Chloride 101 (98-107) mmol/L Carbon Dioxide 26 (22-32) mmol/L BUN 19 H (7-17) mg/dL Creatinine 0.54 (0.52-1.04) mg/dL Estimated GFR > 60 (>60) mL/min BUN/Creatinine Ratio 35.2 H (6-22) Glucose 335 H (70-100) mg/dL Calcium 8.6 (8.4-10.2) mg/dL Total Bilirubin 0.5 (0.2-1.3) mg/dL AST 15 (14-36) IU/L ALT 19 (<35) IU/L Alkaline Phosphatase 132 H (38-126) U/L Total Creatine Kinase 28 L (30-135) U/L CK-MB (CK-2) TNP CK-MB (CK-2) Rel Index TNP Troponin I < 0.012 (0.01-0.034) ng/mL Total Protein 7.3 (6.3-8.2) g/dL Albumin 3.7 (3.5-5.0) g/dL Globulin 3.6 (1.7-4.1) g/dL Albumin/Globulin Ratio 1.0 (1.0-2.8) Lipase 27 (23-300) U/L 11/08/22 Range/Units 01:19 WBC (4.5-11.0) X10^3/uL RBC (4.0-5.2) X10^6/uL Hgb (12.0-16.0) g/dL Hct (36-46) % MCV (80-100) fL MCH (26-34) PG MCHC (30-36) % RDW (11.6-14.8) % Plt Count (150-400) X10^3/uL Neut % (Auto) (50-75) % Lymph % (Auto) (25-40) % [place] % (Auto) (3-14) % Eos % (Auto) (2-4) % Baso % (Auto) (0-2) % Neut # (Auto) (8852-5736) /uL Lymph # (Auto) (6311-4720) /uL [place] # (Auto) (0-900) /uL Eos # (Auto) (0-450) /uL Baso # (Auto) (0-100) /uL Sodium (137-145) mmol/L Potassium (3.4-5.1) mmol/L Chloride (98-107) mmol/L Carbon Dioxide (22-32) mmol/L BUN (7-17) mg/dL Creatinine (0.52-1.04) mg/dL Estimated GFR (>60) mL/min BUN/Creatinine Ratio (6-22) Glucose (70-100) mg/dL Calcium (8.4-10.2) mg/dL Total Bilirubin (0.2-1.3) mg/dL AST (14-36) IU/L ALT (<35) IU/L Alkaline Phosphatase (38-126) U/L Total Creatine Kinase 22 L (30-135) U/L CK-MB (CK-2) TNP CK-MB (CK-2) Rel Index TNP Troponin I < 0.012 (0.01-0.034) ng/mL Total Protein (6.3-8.2) g/dL Albumin (3.5-5.0) g/dL Globulin (1.7-4.1) g/dL Albumin/Globulin Ratio (1.0-2.8) Lipase (23-300) U/L Imaging Data Chest x-ray: Radiologist's Impression: Possible left-sided small pleural effusion ECG Data Attestation: I personally reviewed and interpreted this ECG as follows: Interpretation: Paced rhythm Ventricular rate 92 Left bundle-branch block MDM Narrative Medical decision making narrative: Patient has a relatively unremarkable chest x-ray. Troponins negative x2. Paste on her EKG. Is anticoagulated. Patient is asymptomatic. Her discomfort is sharp pain located over the device on her left upper chest. The skin overlying the area appears unremarkable. The chest x-ray shows no acute pathology in this area. I do have low suspicion for PE, ACS, infection, pneumonia based on her workup here in the ER. Given her history and her presenting symptoms we will hold on further workup for now. She was given strict return precautions. She will continue all of her medications as directed. She expressed understanding and agreement. After this discussion she stated that she would like to change her mind about being a DNR. During 1 of her hospital stays here in the emergency department she did sign paperwork for being a DNR but she would like to change this. Patient is alert oriented x3 and has a GCS of 15. This decisions made with her family at bedside. We did fill out a new POLST form. Discharge Plan Departure Patient Disposition: Home Clinical Impression: Chest pain Instructions: DI for Chest Pain Activity Restrictions/Additional Instructions: Continue to take all of your medications as directed. Contact your primary doctor for a follow-up. Return to the emergency department for any new or worsening symptoms. Prescriptions: No Action lisinopril 10 MG tablet 5 mg PO DAILY Qty: 0 (DME) Allevyn Gentle Border Sacrum 6 5/8 X 6 3/4 bandage See Rx Instructions .Route Qty: 40 0RF Rx Instructions: As directed zinc oxide 25 % paste 1 applic topical TID PRN (Reason: skin irritation) Qty: 500 0RF clotrimazole 1 % cream 1 applic topical BID Qty: 45 0RF hydrocortisone 0.5 % cream 1 applic topical BID PRN (Reason: rash) Qty: 28.4 0RF Rx Instructions: Use a thin layer on bright red areas of rash to help calm down the skin, also use fungal cream. Please use only for up to three days in a row and take a vacation day or two in between. Xarelto DVT-PE Treat 30d Start 15 mg (42)- 20 mg (9) tablets,dose pack See Rx Instructions .ROUTE .COMPLEX Qty: 51 0RF Rx Instructions: take one-15 mg tablet twice daily for 21 days, then one-20 mg tablet once daily; must take with meal/food hydrocodone-acetaminophen 5-325 mg tablet 1 tab PO Q8H PRN (Reason: pain) Qty: 10 0RF warfarin 5 mg tablet 5 mg PO DAILY Qty: 30 0RF enoxaparin [Lovenox] 80 mg/0.8 mL syringe 80 mg SUBCUT Q12H Qty: 8 0RF atorvastatin 40 mg Tablet 40 mg PO DAILY warfarin 7.5 mg tablet 7.5 mg PO QPM Label Comments: take 1 tablet by mouth once daily metformin 1,000 mg tablet 1,000 mg PO BID Label Comments: TAKE 1 TABLET BY MOUTH TWICE DAILY metoprolol succinate 25 mg tablet extended release 24 hr 25 mg PO DAILY oxybutynin chloride 5 mg tablet 2.5 mg PO BID Label Comments: TAKE 1/2 (ONE-HALF) TABLET BY MOUTH TWICE DAILY NEEDED FOR OVERACTIVE BLADDER sulfamethoxazole-trimethoprim [Bactrim DS] 800-160 mg tablet 1 tab PO BID Qty: 10 0RF Referrals: Donna Redman PA-C [Primary Care Provider] - Stand Alone Forms: Patient Portal/API
[2022-11-08] VITALS: PULSE 83; RESP 19; O2SAT 95
[2022-11-08 01:00] VITALS: PULSE 78; RESP 19; O2SAT 95
[2022-11-08 01:39] VITALS: BP 123/77; PULSE 72; RESP 20; O2SAT 95
[2022-11-08 01:42] LABS: Alanine Aminotransferase 19 IU/L (<35); Albumin 3.7 g/dL (3.5-5.0); Alkaline Phosphatase 132 U/L (38-126); Aspartate Aminotransferase 15 IU/L (14-36); BUN Creatinine Ratio 35.2 (6-22); Bilirubin Total 0.5 mg/dL (0.2-1.3); Blood Urea Nitrogen 19 mg/dL (7-17); Calcium 8.6 mg/dL (8.4-10.2); Carbon Dioxide 26 mmol/L (22-32); Chloride 101 mmol/L (98-107); Creatine Kinase 22 U/L (30-135); Estimated Glomerular Filt Rate > 60 mL/min (>60); Globulin 3.6 g/dL (1.7-4.1); Glucose 335 mg/dL (70-100); HEMOLYSIS 15 (0-50); Potassium 4.1 mmol/L (3.4-5.1); Sodium 135 mmol/L (137-145); Total Protein 7.3 g/dL (6.3-8.2)
[2022-11-08 01:53] LABS: Troponin I < 0.012 ng/mL (0.01-0.034)
[2022-11-08 02:33] VITALS: BP 128/79; PULSE 73; RESP 20; O2SAT 98
== END 2022-11-08 02:36 | disposition home or self-care (01) ==
PROVIDERS: Emergency Provider Emergency Medicine; Family Provider Family Medicine; PCP Physician Assistant Medical
DX: R07.9 Chest pain, unspecified (principal); Z95.0 Presence of cardiac pacemaker; Z79.01 Long term (current) use of anticoagulants
CPT/HCPCS: 36415; 71045; 80053; 82550; 83690; 84484; 85025; 93005; 99284

== ENCOUNTER 2022-12-03 16:57 | Inpatient (IN) | payer SELFPAY ==
[2021-12-21 12:38] VITALS: BMI 32.1
[2022-12-03 16:58] VITALS: BP 139/87; PULSE 86; RESP 16; TEMP 36.3; O2SAT 93
--- NOTE | 2022-12-03 17:27 | DI.RAD.S_ITS ---
PROCEDURE: XR CHEST 1V INDICATIONS: chest pain TECHNIQUE: One view of the chest was acquired. COMPARISON: [facility], CT, CT ANGIO CHEST PE PROTOCOL, 10/20/2022, 10:24. [facility], CR, XR CHEST 1V, 11/07/2022, 22:59. [facility], CR, XR CHEST 1V, 10/20/2022, 10:01. FINDINGS: Surgical changes and devices: Left pacemaker with right atrial and right ventricular leads. Lungs and pleura: No consolidation identified. No significant pleural effusion. No pneumothorax. Mediastinum: Mediastinal contours appear normal. Heart size is normal. Bones and chest wall: No suspicious bony lesions. Overlying soft tissues appear unremarkable. IMPRESSION: No acute cardiopulmonary abnormality identified. Dictated by: Kb Rincon M.D. on 12/03/2022 at 17:40 Approved by: Kb Rincon M.D. on 12/03/2022 at 17:42
[2022-12-03 17:31] VITALS: BP 121/79; PULSE 81; RESP 14; O2SAT 94
[2022-12-03 17:58] LABS: Add Manual Diff / Slide Review NO; Basophils Absolute Auto 100 /uL (0-100); Basophils Percent Auto 0.8 % (0-2); Eosinophils Absolute Auto 100 /uL (0-450); Eosinophils Percent Auto 1.1 % (2-4); Hematocrit 45.9 % (36-46); Hemoglobin 15.6 g/dL (12.0-16.0); Lymphocytes Absolute Auto 1000 /uL (1100-4500); Lymphocytes Percent Auto 10.6 % (25-40); Mean Corpuscular Hemoglobin 29.1 PG (26-34); Mean Corpuscular Volume 85.4 fL (80-100); Monocytes Absolute Auto 700 /uL (0-900); Monocytes Percent Auto 7.2 % (3-14); Neutrophils Absolute Auto 7700 /uL (1500-7000); Neutrophils Percent Auto 80.3 % (50-75); Platelet Count 218 X10^3/uL (150-400); Red Blood Cell Count 5.37 X10^6/uL (4.0-5.2); Red Cell Distribution Width 13.5 % (11.6-14.8); White Blood Cell Count 9.5 X10^3/uL (4.5-11.0)
[2022-12-03 17:59] LABS: COVID19 -Nasal RAPID Negative (Negative)
[2022-12-03 18:04] LABS: Prothrombin Time 11.9 SECONDS (10.1-12.7)
--- NOTE | 2022-12-03 18:05 | ED_ITS ---
HPI - Neuro Symptoms/Deficit General Chief Complaint: Neuro Symptoms/Deficit Stated Complaint: stroke symptoms/talking gibberish Time Seen by Provider: 12/03/22 18:01 Source: patient and family Mode of arrival: Wheelchair History of Present Illness HPI Narrative: 57-year-old female nonsmoker with history of prior stroke and left-sided def icit, hypertension and diabetes presents with her in the chief complaint of sudden onset neurologic symptoms at 4:00 p.m.. She had been in her normal state of health and then the stepped out of the room to get some coffee and upon his return, at 4:00 p.m. he found her to be slurring words and also struggling to find words, she was listing a bit and having dizziness and there was questionable worsening of her chronic weakness on the left side. Patient was activated as a soft code stroke, however given her use of anticoagulation she will not be a candidate for tPA 1913 - states she is being treated for UTI with nitrofurantoin On Anticoagulants: Yes (raul) Related Data Home Medications Medication Instructions Recorded Confirmed lisinopril 10 mg tablet 5 mg PO DAILY ##0 11/15/17 12/03/22 atorvastatin 40 mg tablet 40 mg PO DAILY 12/21/21 12/03/22 metformin 1,000 mg tablet 1,000 mg PO BID 12/21/21 12/03/22 metoprolol succinate 25 mg 25 mg PO DAILY 12/21/21 12/03/22 tablet,extended release 24 hr oxybutynin chloride 5 mg tablet 2.5 mg PO BID 12/21/21 12/03/22 warfarin 7.5 mg tablet 7.5 mg PO QPM 12/21/21 12/03/22 Previous Rx's Medication Instructions Recorded clotrimazole 1 % topical cream 1 applic topical BID yeast in 02/17/22 folds #45 grams foam bandage 6 5/8 X 6 3/4 #40 ea 02/17/22 (Allevyn Gentle Border Sacrum) hydrocortisone 0.5 % topical cream 1 applic topical BID PRN rash 02/17/22 #28.4 grams zinc oxide 25 % topical paste 1 applic topical TID PRN skin 02/17/22 irritation #500 grams enoxaparin 80 mg/0.8 mL 80 mg (0.8 mL) SUBCUT Q12H #8 mL 10/20/22 subcutaneous syringe (Lovenox) hydrocodone 5 mg-acetaminophen 325 1 tab PO Q8H PRN pain #10 tabs 10/20/22 mg tablet rivaroxaban 15 mg (42)-20 mg (9) See Rx Instructions PO .COMPLEX 10/20/22 tablets in a starter pack (Xarelto #51 ea DVT-PE Treatment 30-Day Starter) warfarin 5 mg tablet 5 mg PO DAILY #30 tabs 10/20/22 amoxicillin 875 mg-potassium 1 tab PO BID 5 days #10 tabs 12/05/22 clavulanate 125 mg tablet Allergies Allergy/AdvReac Type Severity Reaction Status Date / Time No Known Drug Allergies Allergy Verified 03/15/21 22:37 Review of Systems Review of Systems Narrative: GENERAL: Denies chills, fatigue, malaise, fever, sweats. HEENT: Denies sinus pain, ear pain, sore throat, difficulty swallowing, dizziness. RESPIRATORY: Denies dyspnea, cough, wheezing, hemoptysis, sputum. CARDIOVASCULAR: Denies chest pain, palpitations, orthopnea, edema, GASTROINTESTINAL: Denies nausea, vomiting, abdominal pain, diarrhea, constipation, melena. : Denies dysuria, frequency, incontinence, hematuria, urinary retention. MUSCULOSKELETAL: denies weakness, joint pain, or bony pain SKIN: Denies rash, skin lesions, or other NEUROLOGIC: See HPI PSYCHIATRIC: No concerning psychosocial issues. 12 point review of systems is negative except for those stated above Hematologic/Lymphatic On Anticoagulants: Yes (wafarthiago) 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 CVA (cerebral vascular accident) Diabetes mellitus History of ventricular fibrillation 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 Neuropathy Urinary incontinence Surgical History History of colonoscopy History of permanent cardiac pacemaker placement Family History Mother MRSA (methicillin resistant Staphylococcus aureus) Cardiovascular disease Stroke Myocardial infarction Father Cardiovascular disease Myocardial infarction Social History household members: spouse and children Smoking Status: Never smoker alcohol intake: former Smoking Status: Never smoker alcohol intake frequency: 0-2 drinks per day Substance Use Type: does not use Exam Narrative Exam Narrative: GENERAL: [57] year old patient appears stated age. Well-developed patient, in mild distress. GCS 15 HEAD: Atraumatic. Normocephalic. EYES: Pupils equal round and reactive. Extraocular motions intact. No scleral icterus. No injection or drainage. ENT: Nose without bleeding, purulent drainage. Throat without erythema, tonsillar hypertrophy or exudate. Airway patent. NECK: Trachea midline. Non tender CARDIOVASCULAR: Regular rate and rhythm without murmurs, gallops, or rubs. RESPIRATORY: Clear to auscultation. Breath sounds equal bilaterally. No wheezes, rales, or rhonchi. GASTROINTESTINAL: Abdomen soft, non-tender, nondistended. EXTREMITIES: No edema or joint tenderness. BACK: Nontender without deformity or crepitance. No flank tenderness. NEURO: AOx3. SKIN: No rash or erythema of visible areas Initial Vital Signs Initial Vital Signs: Vital Signs Temperature 97.4 F L 12/03/22 16:58 Pulse Rate 86 12/03/22 16:58 Respiratory Rate 16 12/03/22 16:58 Blood Pressure 139/87 12/03/22 16:58 Pulse Oximetry 93 12/03/22 16:58 Oxygen Delivery Method Room Air 12/03/22 16:58 Scores NIH Stroke Scale Level of Conciousness: Not alert, but arousable by minor stim to obey, answer or respond Ask month/age: Answers neither question correctly, aphasic, stuporous, coma Open/close eyes, close hand: Performs one task correctly Best gaze horizontal: Normal Visual tilley: No visual loss Facial palsy: Minor paralysis, flattened nasolabial fold, asymmetry on smiling Left arm drift: No effort against gravity Right arm drift: No drift for full 10 sec Left leg drift: No effort against gravity Right leg drift: Some effort against gravity, cannot maintain, drifts down to bed Limb ataxia: Absent Sensory on face/arms/legs: Mild to moderate sensory loss, can tell touch Best language: Severe aphasia, not much is understood, fragmented Dysarthria: Mild to mod,some slurring Extinction or inattention: No abnormality Total NIH Stroke scale score: 17 Course Orders Ordered: Acetaminophen (Acetaminophen 325 Mg Tablet) 650 mg PO Q6H PRN PRN Reason: Fever/Mild Pain (1-3) Aspirin (Aspirin Ec 81 Mg Tablet) 81 mg PO DAILY [facility] Last Admin: 12/05/22 11:27 Dose: 81 mg Documented By: Admin: 12/04/22 09:43 Dose: 81 mg Documented By: DARIAN Atorvastatin Calcium (Atorvastatin 20 Mg Tablet) 80 mg PO BEDTIME [facility] Last Admin: 12/04/22 21:13 Dose: 80 mg Documented By: Admin: 12/03/22 23:06 Dose: 80 mg Documented By: CT Dextrose (Dextrose 50 % In Water 25 Gm/50 Ml Syringe) 25 gm IV PRN PRN PRN Reason: Hypoglycemia Enoxaparin Sodium (Enoxaparin 100 Mg/Ml Syringe) 85 mg SUBCUT BID [facility] Last Admin: 12/05/22 11:28 Dose: Not Given Documented By: Admin: 12/04/22 21:12 Dose: 85 mg Documented By: ZACHERY Ceftriaxone Sodium 1,000 mg/ (Sodium Chloride) 100 mls @ 200 mls/hr IV Q24H [facility] Last Admin: 12/04/22 21:15 Dose: 200 mls/hr Documented By: ZACHERY Insulin Human Lispro (Insulin Lispro 100 Unit/Ml 3ml Vial) 0 unit SUBCUT ACHS ERIKA; Protocol Last Admin: 12/05/22 11:27 Dose: 3 unit Documented By: TOSIN Co-signed By: EUSEBIO Admin: 12/04/22 21:11 Dose: 3 unit Documented By: ZACHERY Co-signed By: CON Admin: 12/04/22 16:54 Dose: 100 unit Documented By: REX Co-signed By: DARIAN Admin: 12/04/22 12:00 Dose: Not Given Documented By: Admin: 12/04/22 09:43 Dose: 2 unit Documented By: DARIAN Co-signed By: MORRIS Admin: 12/03/22 23:05 Dose: 3 unit Documented By: CT Co-signed By: Metoprolol Succinate (Metoprolol Er 25 Mg Tablet) 25 mg PO DAILY [facility] Last Admin: 12/05/22 11:27 Dose: 25 mg Documented By: Admin: 12/04/22 09:44 Dose: 25 mg Documented By: DARIAN Naloxone HCl (Naloxone 0.4 Mg/Ml Vial) 0.2 mg IV Q2MIN PRN PRN Reason: Opiate Reversal Nystatin (Nystatin Powder 15gm) 1 applic TOP TID PRN PRN Reason: Rash Last Admin: 12/04/22 14:10 Dose: 1 applic Documented By: DARIAN Ondansetron HCl (Ondansetron 4 Mg/2 Ml Inj) 4 mg IV Q8HR PRN PRN Reason: Nausea And Vomiting Warfarin Sodium (Warfarin 5 Mg Tablet) 5 mg PO DAILY@1700 [facility] Last Admin: 12/04/22 17:44 Dose: 5 mg Documented By: Admin: 12/03/22 23:06 Dose: 5 mg Documented By: CT Discontinued Medications Enoxaparin Sodium (Enoxaparin 40 Mg/0.4 Ml Syringe) 40 mg SUBCUT DAILY [facility] Last Admin: 12/04/22 09:43 Dose: 40 mg Documented By: DARIAN Ceftriaxone Sodium 1,000 mg/ (Sodium Chloride) 100 mls @ 200 mls/hr IV NOW ONE Stop: 12/03/22 20:25 Last Infusion: 12/03/22 21:20 Dose: 0 mls/hr Documented By: Infusion: 12/03/22 20:54 Dose: 200 mls/hr Documented By: Admin: 12/03/22 20:49 Dose: 200 mls/hr Documented By: TEMI Influenza Virus Vaccine (Influenza Vaccine Qiv 0.5 Ml Syringe) 0.5 ml IM .ONCE ONE Stop: 12/03/22 21:48 Potassium Chloride (Potassium Chloride 20 Meq Tab) 40 meq PO NOW ONE Stop: 12/04/22 09:15 Last Admin: 12/04/22 10:02 Dose: 40 meq Documented By: DARIAN Consultations Consultation #1: [id number] - Dr. Jenkins ( Stroke). We have discussed the patient's history, physical exam, clinical course, labs and imaging and sure the opinion that the circumstances would suggest the administration of tPA is contraindicated given her waxing and waning symptoms, reported use of anticoagulants though it was discussed that her INR is only 1.0, as well as unclear presentation which seems more globally encephalopathic. Vital Signs Vital signs: Vital Signs - 8 hr 12/03/22 16:58 12/03/22 17:31 Temperature 97.4 F L Pulse Rate 86 81 Respiratory Rate 16 14 Blood Pressure 139/87 121/79 Pulse Oximetry 93 94 Oxygen Delivery Method Room Air Room Air MDM - Neuro Symptoms/Deficit Lab Data 12/05/22 04:59 12/05/22 04:59 Labs: Lab Results 12/03/22 12/03/22 12/03/22 Range/Units 17:24 17:45 17:45 WBC 9.5 (4.5-11.0) X10^3/uL RBC 5.37 H (4.0-5.2) X10^6/uL Hgb 15.6 (12.0-16.0) g/dL Hct 45.9 (36-46) % MCV 85.4 (80-100) fL MCH 29.1 (26-34) PG MCHC 34.0 (30-36) % RDW 13.5 (11.6-14.8) % Plt Count 218 (150-400) X10^3/uL Neut % (Auto) 80.3 H (50-75) % Lymph % (Auto) 10.6 L (25-40) % [place] % (Auto) 7.2 (3-14) % Eos % (Auto) 1.1 L (2-4) % Baso % (Auto) 0.8 (0-2) % Neut # (Auto) 7700 H (8745-9753) /uL Lymph # (Auto) 1000 L (0543-4116) /uL [place] # (Auto) 700 (0-900) /uL Eos # (Auto) 100 (0-450) /uL Baso # (Auto) 100 (0-100) /uL PT 11.9 (10.1-12.7) SECONDS INR 1.0 (0.9-1.3) APTT 28 (26-36) SECONDS Sodium (137-145) mmol/L Potassium (3.4-5.1) mmol/L Chloride (98-107) mmol/L Carbon Dioxide (22-32) mmol/L BUN (7-17) mg/dL Creatinine (0.52-1.04) mg/dL Estimated GFR (>60) mL/min BUN/Creatinine Ratio (6-22) Glucose (70-100) mg/dL Calcium (8.4-10.2) mg/dL Magnesium (1.6-2.3) mg/dL Total Bilirubin (0.2-1.3) mg/dL AST (14-36) IU/L ALT (<35) IU/L Alkaline Phosphatase (38-126) U/L Total Creatine Kinase (30-135) U/L CK-MB (CK-2) CK-MB (CK-2) Rel Index Troponin I (0.01-0.034) ng/mL Total Protein (6.3-8.2) g/dL Albumin (3.5-5.0) g/dL Globulin (1.7-4.1) g/dL Albumin/Globulin Ratio (1.0-2.8) Lipase (23-300) U/L Urine RBC (0-5/HPF) Urine WBC (0-5/HPF) Ur Squamous Epith Cells (0-5/HPF) Urine Bacteria (None) Ur Culture Indicated? SARS-CoV-2 (PCR) Negative (Negative) 12/03/22 12/03/22 Range/Units 17:45 19:57 WBC (4.5-11.0) X10^3/uL RBC (4.0-5.2) X10^6/uL Hgb (12.0-16.0) g/dL Hct (36-46) % MCV (80-100) fL MCH (26-34) PG MCHC (30-36) % RDW (11.6-14.8) % Plt Count (150-400) X10^3/uL Neut % (Auto) (50-75) % Lymph % (Auto) (25-40) % [place] % (Auto) (3-14) % Eos % (Auto) (2-4) % Baso % (Auto) (0-2) % Neut # (Auto) (1517-7424) /uL Lymph # (Auto) (6261-5939) /uL [place] # (Auto) (0-900) /uL Eos # (Auto) (0-450) /uL Baso # (Auto) (0-100) /uL PT (10.1-12.7) SECONDS INR (0.9-1.3) APTT (26-36) SECONDS Sodium 135 L (137-145) mmol/L Potassium 3.7 (3.4-5.1) mmol/L Chloride 99 (98-107) mmol/L Carbon Dioxide 28 (22-32) mmol/L BUN 17 (7-17) mg/dL Creatinine 0.70 (0.52-1.04) mg/dL Estimated GFR > 60 (>60) mL/min BUN/Creatinine Ratio 24.3 H (6-22) Glucose 303 H (70-100) mg/dL Calcium 8.9 (8.4-10.2) mg/dL Magnesium 1.7 (1.6-2.3) mg/dL Total Bilirubin 0.6 (0.2-1.3) mg/dL AST 18 (14-36) IU/L ALT 21 (<35) IU/L Alkaline Phosphatase 124 (38-126) U/L Total Creatine Kinase 25 L (30-135) U/L CK-MB (CK-2) TNP CK-MB (CK-2) Rel Index TNP Troponin I < 0.012 (0.01-0.034) ng/mL Total Protein 7.8 (6.3-8.2) g/dL Albumin 3.9 (3.5-5.0) g/dL Globulin 3.9 (1.7-4.1) g/dL Albumin/Globulin Ratio 1.0 (1.0-2.8) Lipase 23 (23-300) U/L Urine RBC 0-1/hpf (0-5/HPF) Urine WBC >100/hpf H (0-5/HPF) Ur Squamous Epith Cells 0-1 /hpf (0-5/HPF) Urine Bacteria Many (>30) H (None) Ur Culture Indicated? Specimen cultured SARS-CoV-2 (PCR) (Negative) Imaging Data CT scan - head: Radiologist's Impression: No acute process CTA - brain/neck: Radiologist's Impression: No dissection, aneurysm or large vessel occlusion MDM Narrative Medical decision making narrative: CC: Complicating co-morbidities: Data collected from: Patient Medical records reviewed: Prior notes reviewed in our EMR Differential considered, but not limited to: Exam documented above, pertinent findings include: Lab Test results independently reviewed as above. Pertinent findings: Independently reviewed EKG as above Imaging studies independently reviewed: Scores Used: #187: Stroke & Stroke Rehabilitation: Thrombolytic Therapy [x] The patient, who arrived at the hospital within 3.5 hours of time last known well, was diagnosed with subacute or acute ischemic stroke. IV t-PA was NOT initiated as her symptoms have improved if not completely resolved, and she is on anticoagulation Consultations: Discussed with Dr. [facility] stroke, see details above Discussion: Patient with altered mental status, speech difficulty and neurologic exam suggesting stroke versus more global encephalopathic picture. As discussed above though the patient did arrive within a tPA window both myself and the stroke neurologist at the [facility] are uncomfortable with the use of tPA given the story, exam and use of anticoagulation. Patient requires hospitalization for further workup and stabilization of her condition Discharge Plan Departure Patient Disposition: Admitted As Inpatient Clinical Impression: Stroke Admit Date/Time: 12/03/22 19:57 Admit Provider: Adrien Clemens
[2022-12-03 18:07] LABS: PTT Partial Thromboplastin Tim 28 SECONDS (26-36)
--- NOTE | 2022-12-03 18:07 | DI.CT.S_ITS ---
PROCEDURE: CT ANGIO HEAD AND NECK INDICATIONS: stroke TECHNIQUE: After the administration of intravenous contrast, 1 mm thick sections acquired from the aortic arch through the [place] of [place]. Post-contrast 4.5 mm thick sections then re-acquired from the foramen magnum to the vertex. 3-dimensional rtyqkvt-nsdkcrezn-wqldkrbqmc (MIP) and/or volume rendering reformats were acquired of the central intracranial vasculature and neck separately. For radiation dose reduction, the following was used: automated exposure control, adjustment of mA and/or kV according to patient size. COMPARISON: None. FINDINGS: Image quality: Excellent. BRAIN: CSF spaces: Ventricles are normal in size and shape. Basal cisterns are patent. No extra-axial fluid collections. Brain: Diffuse parenchymal volume loss with expansion of the CSF containing spaces. Sequela of previous lacunar infarcts. No midline shift. No intracranial bleeds or masses. Rodriguez-white matter interface appears intact. Skull and face: Calvarium and facial bones appear intact, without suspicious lesions. Orbits appear normal. Sinuses: Sinuses and mastoids are clear. HEAD CT ANGIOGRAPHY: Anterior circulation: Left greater than right atherosclerotic disease of the intracranial and petrosal portions of the internal carotid artery resulting in moderate stenosis, unchanged from comparison dated 2020. There is robust enhancement of the [id number]-[id number] 10 symmetric enhancement of the anterior and middle cerebellar arteries. The anterior communicating artery is present. No aneurysms dissections or occlusions are present. Posterior circulation: Atherosclerotic plaques within the intracranial left vertebral artery are unchanged. The right vertebral artery is diminutive when compared to the left and does not meet up with vertebral artery to grade the basilar. Flow within the posterior cerebral arteries is normal and symmetric. No aneurysms are seen. NECK CT ANGIOGRAPHY: Carotid system: The great vessels demonstrate a conventional anatomy as they arise from the aortic arch. The origins of the common carotid arteries appear patent. The common carotid arteries demonstrate normal caliber and courses. The bifurcation regions are both widely patent. The internal carotid arteries demonstrate normal calibers and courses. Posterior circulation: The origins of the vertebral arteries both appear widely patent. The more superior extracranial portions of both vertebral arteries also demonstrate normal courses and calibers. They join to form a normal appearing basilar artery. Soft tissues: Visualized neck soft tissues demonstrate no suspicious abnormalities. Bones: No suspicious bony lesions. Visualized cervical spine appears normally aligned. IMPRESSION: No dissection aneurysm or occlusion identified. Stable moderate to severe stenosis of the bilateral internal carotid arteries secondary to calcific atherosclerotic disease. Stable atherosclerotic disease of the left vertebral artery resulting in moderate stenosis. Chronic changes of microvascular ischemic disease with lacunar infarcts. Any quantitative measurements of stenosis were performed using NASCET criteria. Dictated by: Javi Rossi M.D. on 12/03/2022 at 17:42 Approved by: Javi Rossi M.D. on 12/03/2022 at 17:50
--- NOTE | 2022-12-03 18:07 | DI.CT.S_ITS ---
PROCEDURE: CT STROKE INDICATIONS: stroke TECHNIQUE: Noncontrast 4.5 mm thick angled axial sections acquired from the foramen magnum to the vertex, with coronal reformats. For radiation dose reduction, the following was used: automated exposure control, adjustment of mA and/or kV according to patient size. COMPARISON: None. FINDINGS: Image quality: Excellent. CSF spaces: Basal cisterns are patent. No extra-axial fluid collections. Ventricles are normal in size and shape. Brain: Diffuse parenchymal volume loss with expansion the CSF containing spaces. Periventricular white matter hypodensities consistent with chronic microvascular ischemic disease. Bilateral lacunar infarcts. No midline shift. No intracranial masses or hemorrhage. Rodriguez-white matter interface is normal. Skull and face: Calvarium and visualized facial bones are intact, without suspicious lesions. Sinuses: Visualized sinuses and mastoids are clear. IMPRESSION: 1. No intracranial hemorrhage or acute findings. 2. Sequela of chronic microvascular ischemic disease. This study fulfills neurological imaging criteria for inclusion or exclusion of acute stroke therapies based on available published neurological imaging guidelines. Dictated by: Javi Rossi M.D. on 12/03/2022 at 17:28 Approved by: Javi Rossi M.D. on 12/03/2022 at 17:31
[2022-12-03 18:08] LABS: Creatine Kinase 25 U/L (30-135); HEMOLYSIS < 15 (0-50)
[2022-12-03 18:09] LABS: Alanine Aminotransferase 21 IU/L (<35); Albumin 3.9 g/dL (3.5-5.0); Alkaline Phosphatase 124 U/L (38-126); Aspartate Aminotransferase 18 IU/L (14-36); BUN Creatinine Ratio 24.3 (6-22); Bilirubin Total 0.6 mg/dL (0.2-1.3); Blood Urea Nitrogen 17 mg/dL (7-17); Calcium 8.9 mg/dL (8.4-10.2); Carbon Dioxide 28 mmol/L (22-32); Chloride 99 mmol/L (98-107); Estimated Glomerular Filt Rate > 60 mL/min (>60); Globulin 3.9 g/dL (1.7-4.1); Glucose 303 mg/dL (70-100); Lipase 23 U/L (23-300); Magnesium 1.7 mg/dL (1.6-2.3); Potassium 3.7 mmol/L (3.4-5.1); Sodium 135 mmol/L (137-145); Total Protein 7.8 g/dL (6.3-8.2)
[2022-12-03 18:20] LABS: Troponin I < 0.012 ng/mL (0.01-0.034)
--- NOTE | 2022-12-03 20:01 | PC.NURSE ---
pt cath for urine specimen, foul smelling white vaginal dc noted, urine was [place] and cloudy
[2022-12-03 20:12] LABS: Bacteria Urine Many (>30); Culture Indicated Urine Specimen Cultured; RBC Urine 0-1/HPF (0-5/HPF); Squamous Epithelial Cell Urine 0-1 /HPF (0-5/HPF); WBC Urine >100/HPF (0-5/HPF)
--- NOTE | 2022-12-03 20:38 | PM.HP.1 ---
History of Present Illness History of Present Illness Date Patient Seen: 12/03/22 Time Patient Seen: 20:00 Chief complaint: stroke symptoms/talking gibberish Narrative: Ms Gray is a 57W with PMH cva with left sided weakness, cardiac arrest from vfib s/p aic, CAD, PEs, HTN who presents with confusion. She was in her normal state of health until 4pm this afternoon when she was noted to by her to have sudden difficulty with slurring speech, sleepiness, and word finding difficulties. In the days prior she had some nausea and vomiting which the family had attributed to a possible GI illness. She had no fevers/chills, no dysuria. No cough or shortness of breath or chest pain. She is supposed to be on warfarin for PE but states he has forgotten to give her this medication for the last 3-4 days. She was diagnosed recently with a UTI and is currently taking Nitrofurantoin In the ED workup was done, vitals notable for afebrile, heart rate in the 80s, blood pressure 130s/80s. NIH initially 17. She was a code stroke and ct head showed no acute process, cta head/neck showed severe bilateral carotid artery stenosis. Labs notable for WBC 9.5, hgb 15.6, plts 218. Creatinine 0.70. INR 1.0. Glucose 303. Trop negative. EKG showed paced rhythm. Discussion was had with teleroke who decided she was not a tpa candidate given the history and anticoagulation use. UA was notable for WBCs and bacteria. She was given antibiotics and admitted for further treatment. 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 CVA (cerebral vascular accident) Diabetes mellitus History of ventricular fibrillation 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 Neuropathy Urinary incontinence Surgical History History of colonoscopy History of permanent cardiac pacemaker placement Family & Social History Family History Mother MRSA (methicillin resistant Staphylococcus aureus) Cardiovascular disease Stroke Myocardial infarction Father Cardiovascular disease Myocardial infarction Social History: household members children Tobacco & Substance use: Smoking Status Never smoker alcohol intake former alcohol intake frequency 0-2 drinks per day Substance Use Type does not use Meds Home Medications and Allergies Home Medications Medication Instructions Recorded Confirmed Type lisinopril 10 mg tablet 5 mg PO DAILY ##0 11/15/17 12/21/21 History atorvastatin 40 mg tablet 40 mg PO DAILY 12/21/21 12/21/21 History metformin 1,000 mg tablet 1,000 mg PO BID 12/21/21 12/21/21 History metoprolol succinate 25 mg 25 mg PO DAILY 12/21/21 12/21/21 History tablet,extended release 24 hr oxybutynin chloride 5 mg tablet 2.5 mg PO BID 12/21/21 12/21/21 History warfarin 7.5 mg tablet 7.5 mg PO QPM 12/21/21 12/21/21 History sulfamethoxazole 800 1 tab PO BID #10 tabs 12/22/21 Rx mg-trimethoprim 160 mg tablet (Bactrim DS) clotrimazole 1 % topical cream 1 applic topical BID yeast in 02/17/22 Rx folds #45 grams foam bandage 6 5/8 X 6 3/4 #40 ea 02/17/22 Rx (Allevyn Gentle Border Sacrum) hydrocortisone 0.5 % topical cream 1 applic topical BID PRN rash 02/17/22 Rx #28.4 grams zinc oxide 25 % topical paste 1 applic topical TID PRN skin 02/17/22 Rx irritation #500 grams enoxaparin 80 mg/0.8 mL 80 mg (0.8 mL) SUBCUT Q12H #8 mL 10/20/22 Rx subcutaneous syringe (Lovenox) hydrocodone 5 mg-acetaminophen 325 1 tab PO Q8H PRN pain #10 tabs 10/20/22 Rx mg tablet rivaroxaban 15 mg (42)-20 mg (9) See Rx Instructions PO .COMPLEX 10/20/22 Rx tablets in a starter pack (Xarelto #51 ea DVT-PE Treatment 30-Day Starter) warfarin 5 mg tablet 5 mg PO DAILY #30 tabs 10/20/22 Rx Allergies Allergy/AdvReac Type Severity Reaction Status Date / Time No Known Drug Allergies Allergy Verified 03/15/21 22:37 Review of Systems Review of Systems Narrative: 14 systems reviewed and negative aside from what is noted in HPI Exam Vital Signs (past 8 hours): - 12/03/22 16:58 12/03/22 17:31 Temperature 97.4 F L Pulse Rate 86 81 Respiratory Rate 16 14 Blood Pressure 139/87 121/79 Pulse Oximetry 93 94 Oxygen Delivery Method Room Air Room Air Oxygen Delivery Method Room Air Narrative Exam Narrative: GEN: no acute distress, lethargic HEENT: moist mucous membranes, PERRL NECK: trachea midline, no jvd PULM: clear bilaterally, no wheezes, rhonchi, rales CV: regular rate and rhythm, no murmurs ABD: soft, nontender, nondistended, no organomegaly, normal bowel sounds EXT: warm and well perfused with no edema NEURO: awake, lethargic, open eyes and responds to voice, left sided weakness chronic per family Objective Labs 12/03/22 17:45 12/03/22 17:45 Labs: Laboratory Results - last 24 hr 12/03/22 12/03/22 12/03/22 17:24 17:45 17:45 WBC 9.5 RBC 5.37 H Hgb 15.6 Hct 45.9 MCV 85.4 MCH 29.1 MCHC 34.0 RDW 13.5 Plt Count 218 Neut % (Auto) 80.3 H Lymph % (Auto) 10.6 L [place] % (Auto) 7.2 Eos % (Auto) 1.1 L Baso % (Auto) 0.8 Neut # (Auto) 7700 H Lymph # (Auto) 1000 L [place] # (Auto) 700 Eos # (Auto) 100 Baso # (Auto) 100 PT 11.9 INR 1.0 APTT 28 Sodium Potassium Chloride Carbon Dioxide BUN Creatinine Estimated GFR BUN/Creatinine Ratio Glucose Calcium Magnesium Total Bilirubin AST ALT Alkaline Phosphatase Total Creatine Kinase CK-MB (CK-2) CK-MB (CK-2) Rel Index Troponin I Total Protein Albumin Globulin Albumin/Globulin Ratio Lipase Urine RBC Urine WBC Ur Squamous Epith Cells Urine Bacteria Ur Culture Indicated? SARS-CoV-2 (PCR) Negative 12/03/22 12/03/22 17:45 19:57 WBC RBC Hgb Hct MCV MCH MCHC RDW Plt Count Neut % (Auto) Lymph % (Auto) [place] % (Auto) Eos % (Auto) Baso % (Auto) Neut # (Auto) Lymph # (Auto) [place] # (Auto) Eos # (Auto) Baso # (Auto) PT INR APTT Sodium 135 L Potassium 3.7 Chloride 99 Carbon Dioxide 28 BUN 17 Creatinine 0.70 Estimated GFR > 60 BUN/Creatinine Ratio 24.3 H Glucose 303 H Calcium 8.9 Magnesium 1.7 Total Bilirubin 0.6 AST 18 ALT 21 Alkaline Phosphatase 124 Total Creatine Kinase 25 L CK-MB (CK-2) TNP CK-MB (CK-2) Rel Index TNP Troponin I < 0.012 Total Protein 7.8 Albumin 3.9 Globulin 3.9 Albumin/Globulin Ratio 1.0 Lipase 23 Urine RBC 0-1/hpf Urine WBC >100/hpf H Ur Squamous Epith Cells 0-1 /hpf Urine Bacteria Many (>30) H Ur Culture Indicated? Specimen cultured SARS-CoV-2 (PCR) Assessment & Plan Assessment & Plan narrative: 1. Acute encephalopathy secondary to UTI, failed oral antibiotics -is being treated with macrobid for uti -UA shows wbcs and leuk esterase -suspect oral antibiotic failure, will need IV antibiotics as UTI has worsened -ordered ceftriaxone -follow up urine culture, ordered blood cultures -did have no acute process on ct head and ct angio head neck, per discusson with telestroke is not a candidate for tpa -for now will continue nih score q4, ordered tele -check lipids, a1c -doubt cva, mri not indicated and regardless has aicd in place 2. History of CVA with left sided weakness with severe bilateral carotid stenosis -restart coumadin -continue statin 3. Type 2 Diabetes -hold metformin -ordered insulin sliding scale 4. PEs -INR on admit 1.0, forgetul to take this medication regularly -ordered lovenox -continue coumadin 5. CAD s/p vfib arrest s/p AICD -continue home meds metoprolol, statin I have obtained history from the patient and and son at bedside. I have discussed the plan with them. I have discussed the plan of care with the ED physician and bedside nurse. I have reviewed labs, ekg, and CT imaging CODE: Full Proxy: Javi Gray, spouse Time Spent With Patient Critical Care time: I spent a total of [] minutes of critical care time on this patient's care today; this time is exclusive of procedural time.
[2022-12-03] MEDS: cefTRIAXone 1,000 MG in SODIUM CHLORIDE 0.9% 100 ML 200 MG IV (20:49)
[2022-12-03 21:30] VITALS: BP 130/79; PULSE 74; RESP 18; TEMP 36.4; O2SAT 94; BMI 29.2
[2022-12-03] MEDS: INSULIN LISPRO 100 UNIT/ML 3ML VIAL SUBCUT (23:05)
[2022-12-03] MEDS: WARFARIN 5 MG TABLET PO (23:06)
[2022-12-03] MEDS: ATORVASTATIN 20 MG TABLET 80 MG PO (23:06)
[2022-12-04] VITALS (8 sets, daily range): BP systolic 116–146; BP diastolic 69–84; PULSE 70–95; RESP 16–20; TEMP 36.4–37.3; O2SAT 92–96
[2022-12-04 05:10] LABS: Add Manual Diff / Slide Review NO; Basophils Absolute Auto 0 /uL (0-100); Basophils Percent Auto 0.6 % (0-2); Eosinophils Absolute Auto 100 /uL (0-450); Eosinophils Percent Auto 2.5 % (2-4); Hematocrit 42.3 % (36-46); Hemoglobin 14.5 g/dL (12.0-16.0); Lymphocytes Absolute Auto 1600 /uL (1100-4500); Lymphocytes Percent Auto 28.1 % (25-40); Mean Corpuscular HGB Conc 34.3 % (30-36); Mean Corpuscular Hemoglobin 29.1 PG (26-34); Mean Corpuscular Volume 84.9 fL (80-100); Monocytes Absolute Auto 500 /uL (0-900); Monocytes Percent Auto 9.5 % (3-14); Neutrophils Absolute Auto 3400 /uL (1500-7000); Neutrophils Percent Auto 59.3 % (50-75); Platelet Count 200 X10^3/uL (150-400); Red Blood Cell Count 4.98 X10^6/uL (4.0-5.2); Red Cell Distribution Width 13.7 % (11.6-14.8); White Blood Cell Count 5.7 X10^3/uL (4.5-11.0)
[2022-12-04 05:16] LABS: Hemoglobin A1C% w Est Avg Glu 10.6 % (4.0-6.0)
[2022-12-04 05:18] LABS: Blood Urea Nitrogen 18 mg/dL (7-17); Calcium 8.8 mg/dL (8.4-10.2); Carbon Dioxide 30 mmol/L (22-32); Chloride 100 mmol/L (98-107); Cholesterol 204 mg/dL (140-199); Estimated Glomerular Filt Rate > 60 mL/min (>60); Glucose 230 mg/dL (70-100); HDL Cholesterol 32 mg/dL (40-60); HEMOLYSIS < 15 (0-50); LDL Cholesterol Calculated 143 mg/dL (<100); Potassium 3.4 mmol/L (3.4-5.1); Sodium 136 mmol/L (137-145); Triglycerides 145 mg/dL (35-150)
[2022-12-04] MEDS: ENOXAPARIN 40 MG/0.4 ML SYRINGE SUBCUT (09:43)
[2022-12-04] MEDS: ASPIRIN EC 81 MG TABLET PO (09:43)
[2022-12-04] MEDS: INSULIN LISPRO 100 UNIT/ML 3ML VIAL SUBCUT ×3 (09:43→21:11)
[2022-12-04] MEDS: METOPROLOL ER 25 MG TABLET PO (09:44)
--- NOTE | 2022-12-04 10:00 | PT-IP ANOTE ---
Received PT orders and completed chart review. Pt was discussed at interdisciplinary AM rounds where hospitalist indicated PT and OT should hold assessments today. Will continue to follow for appropriateness of PT intervention.
[2022-12-04] MEDS: POTASSIUM CHLORIDE 20 MEQ TAB 40 MEQ PO (10:02)
--- NOTE | 2022-12-04 10:07 | OT.IPNOTE ---
Per hospital rounds, hospitalist wanting to hold OT and PT eval for today. To check on the pt tomorrow for OT needs if appropriate.
--- NOTE | 2022-12-04 10:18 | CM.DANOTE ---
Addendum entered by Melba Titus R.N. 12/04/22 13:42: Met with patient's spouse, Javi, and sister, who works here as well. Discussed insurance. Asked him if he had called [employer] yet for his insurance, stated, he didn't yet, does not have a phone. Let him know that he can use the phone in the room if needed. Gave him a Mer[employer] application, he indicated that he also received one from the ER. Let him know that this DC Maintenance Mgr can't order home health services until insurance is on board. Did confirm that patient is still seeing Dr. Donna Redman for medical care. Confirmed that his 3 children help at home, she has a hoier at home as well, does not like to use it. Sons help with transfers, has a bedside commode. Plan is home when stable, spouse is to be following up with insurance. Addendum entered by Melba Titus R.N. 12/04/22 12:22: Read a note from prior admission by RICHAR Pulido. Patient was here in December of 2021. At the time, patient was self pay. Notes indicated that spouse is the only one employed with a family of three, and [employer] is 180% and over the 138% [employer] required to qualify for [employer]. Do have a [employer] Application to give to spouse when he arrives, and can ask him if he has called the [employer] exchange to activate his insurance. Original Note: DCP: Case received, EMR reviewed and met with patient. Introduced self and role. Was able to obtain information regarding patient's baseline activity status prior to hospitalization, as well as her current living situation. DCP assessment completed with information currently available. Patient is a 57 year old female who admitted yesterday evening to the care of the hospitalist team. PCP: Dr. Donna Redman. Payer: confirmed: Self pay at this time, spouse is calling insurance to reinstate. Patient came to the hospital via private vehicle secondary to having difficulty with her speech. Patient has history of CVA, and left sided deficit. Notes indicate that patient had been in her normal state of health, stepped out of room, and was slurring words, and struggling to find words. Patient was diagnosed with acute encephalopathy secondary to UTI. Patient had already been treated for UTI at home prior on oral antibiotics. No MRI is indicated, had CT. Patient is on IV Ceftriaxone for UTI. Discussed patient during rounds, and for today, P.T, O.T. will be held. Met with patient in her room. She was sitting up in bed having her breakfast. She is alert and oriented, was able to get words out, speaks quietly. Confirmed that she resides in [place] with spouse, Javi, sons and daughter. She does not drive, is in a wheelchair at baseline, family assists with meals, showers, meds. Asked her if she had home health services before, stated, she thinks that she did, but can't remember with who. Confirmed that spouse works night worker here at the hospital, will be in later today, this DC Maintenance Mgr will attempt to meet with him. Notes indicate self pay, admission counselors had given spouse the number for [place] exchange to call their insurance company, for insurance had recently dropped patient. P: DCP to continue to follow. Patient most likely will go home, pending working with the therapy team, not until tomorrow. Insurance is the barrier in case patient has any needs, such as long-term, as well as home health. Will discuss further with spouse. Melba Titus RN/Pantograph I Engraver Discharge Planning/Care Management Advanced directive, confirm from FAMILY Start: 12/03/22 21:51 Freq: Q24H Status: Active Protocol: Document 12/03/22 21:30 CT (Rec: 12/03/22 22:47 CT [id number]) Co-signed By Natalie Mayers RN Advance Directive, confirm on record Time 21:00 Person contacted Copy received No CM Discharge Assessment Start: 12/04/22 10:13 Freq: Status: Active Protocol: Document 12/04/22 10:13 VM (Rec: 12/04/22 10:18 VM [id number]) Discharge Planning Assessment Assigned Program Engineer Melba Titus RN/Pantograph I Engraver Advance Directives? Yes: Polst Advance Directives on File No History Provided By Patient,Significant Other, Medical Record Prior Living Arrangements House Household Members spouse,children Type of transporation used prior to Relies on Others admit Independent with ADL's No Is patient alert and oriented? Yes Needs Assistance With Bathing,Meal Prep,Toileting, Managing Medications,Home Chores / Shopping Caregiver for Another No DME Already Rented / Owned Wheelchair Patient/Family Preference Home with Home Health Comment will need to verify insurance first before pursuing any home health services. Comment Patient is currently self pay . Spouse was given phone number for [place] exchange to reinstate insurance. Barriers to Discharge Yes Comment Insurance Discharge Plan Home Transportation Arrangement Family to provide transport. Additional Comment Patient currently self pay' per spouse patient will have insurance on September 17, 2020. Patient is self pay again, 2022, had been insuranced, but notes indicate insurance had dropped them. Spouse is to be calling insurance company. Whiteboard Updated in Patient Room with Yes name and ext. # of Program Engineer Review Status In Process Next Review Type Continued Stay Review
--- NOTE | 2022-12-04 10:20 | SLP.IPNOTE ---
Per Dr. Cruz, discharge speech orders.
--- NOTE | 2022-12-04 10:32 | P.PN_ITS ---
Subjective Subjective Interval history: 57 F admitted with encephalopathy due to UTI. She is lethargic this morning, slightly confused still but generally improving. She denies chest pain, shortness of breath, abdominal pain, dysuria, urinary frequency. Exam Vital Signs (past 8 hours): - 12/04/22 06:00 12/04/22 06:00 12/04/22 09:44 Temperature Pulse Rate 85 95 H Respiratory Rate 18 Blood Pressure 146/84 H Pulse Oximetry 96 96 Oxygen Delivery Method Room Air Oxygen Flow Rate 0 0 12/04/22 10:00 Temperature 97.6 F Pulse Rate 95 H Respiratory Rate 16 Blood Pressure 146/84 H Pulse Oximetry 95 Oxygen Delivery Method Oxygen Flow Rate 0 Oxygen Delivery Method Room Air Oxygen Flow Rate 0 Narrative Exam Narrative: GEN: no acute distress, lethargic HEENT: moist mucous membranes, PERRL NECK: trachea midline, no jvd PULM: clear bilaterally, no wheezes, rhonchi, rales CV: regular rate and rhythm, no murmurs ABD: soft, nontender, nondistended, no organomegaly, normal bowel sounds EXT: warm and well perfused with no edema NEURO: awake, lethargic, but follows commands, left sided weakness chronic Objective Labs 12/04/22 04:40 12/04/22 04:40 Labs: Laboratory Results - last 24 hr 12/03/22 12/03/22 12/03/22 17:24 17:45 17:45 WBC 9.5 RBC 5.37 H Hgb 15.6 Hct 45.9 MCV 85.4 MCH 29.1 MCHC 34.0 RDW 13.5 Plt Count 218 Neut % (Auto) 80.3 H Lymph % (Auto) 10.6 L [place] % (Auto) 7.2 Eos % (Auto) 1.1 L Baso % (Auto) 0.8 Neut # (Auto) 7700 H Lymph # (Auto) 1000 L [place] # (Auto) 700 Eos # (Auto) 100 Baso # (Auto) 100 PT 11.9 INR 1.0 APTT 28 Sodium Potassium Chloride Carbon Dioxide BUN Creatinine Estimated GFR BUN/Creatinine Ratio Glucose Hemoglobin A1c Calcium Magnesium Total Bilirubin AST ALT Alkaline Phosphatase Total Creatine Kinase CK-MB (CK-2) CK-MB (CK-2) Rel Index Troponin I Total Protein Albumin Globulin Albumin/Globulin Ratio Triglycerides Cholesterol LDL Cholesterol, Calc HDL Cholesterol Lipase Urine RBC Urine WBC Ur Squamous Epith Cells Urine Bacteria Ur Culture Indicated? SARS-CoV-2 (PCR) Negative 12/03/22 12/03/22 12/04/22 17:45 19:57 04:40 WBC 5.7 RBC 4.98 Hgb 14.5 Hct 42.3 MCV 84.9 MCH 29.1 MCHC 34.3 RDW 13.7 Plt Count 200 Neut % (Auto) 59.3 D Lymph % (Auto) 28.1 [place] % (Auto) 9.5 Eos % (Auto) 2.5 Baso % (Auto) 0.6 Neut # (Auto) 3400 Lymph # (Auto) 1600 [place] # (Auto) 500 Eos # (Auto) 100 Baso # (Auto) 0 PT INR APTT Sodium 135 L Potassium 3.7 Chloride 99 Carbon Dioxide 28 BUN 17 Creatinine 0.70 Estimated GFR > 60 BUN/Creatinine Ratio 24.3 H Glucose 303 H Hemoglobin A1c Calcium 8.9 Magnesium 1.7 Total Bilirubin 0.6 AST 18 ALT 21 Alkaline Phosphatase 124 Total Creatine Kinase 25 L CK-MB (CK-2) TNP CK-MB (CK-2) Rel Index TNP Troponin I < 0.012 Total Protein 7.8 Albumin 3.9 Globulin 3.9 Albumin/Globulin Ratio 1.0 Triglycerides Cholesterol LDL Cholesterol, Calc HDL Cholesterol Lipase 23 Urine RBC 0-1/hpf Urine WBC >100/hpf H Ur Squamous Epith Cells 0-1 /hpf Urine Bacteria Many (>30) H Ur Culture Indicated? Specimen cultured SARS-CoV-2 (PCR) 12/04/22 12/04/22 04:40 04:40 WBC RBC Hgb Hct MCV MCH MCHC RDW Plt Count Neut % (Auto) Lymph % (Auto) [place] % (Auto) Eos % (Auto) Baso % (Auto) Neut # (Auto) Lymph # (Auto) [place] # (Auto) Eos # (Auto) Baso # (Auto) PT INR APTT Sodium 136 L Potassium 3.4 Chloride 100 Carbon Dioxide 30 BUN 18 H Creatinine 0.53 Estimated GFR > 60 BUN/Creatinine Ratio 34.0 H Glucose 230 H Hemoglobin A1c 10.6 H Calcium 8.8 Magnesium Total Bilirubin AST ALT Alkaline Phosphatase Total Creatine Kinase CK-MB (CK-2) CK-MB (CK-2) Rel Index Troponin I Total Protein Albumin Globulin Albumin/Globulin Ratio Triglycerides 145 Cholesterol 204 H LDL Cholesterol, Calc 143 H HDL Cholesterol 32 L Lipase Urine RBC Urine WBC Ur Squamous Epith Cells Urine Bacteria Ur Culture Indicated? 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 Acute encephalopathy secondary to UTI, failed oral antibiotics -failed outpatient treatment with macrobid, now on ceftriaxone. -follow up urine culture, ordered blood cultures -did have no acute process on ct head and ct angio head neck, per discusson with telestroke is not a candidate for tpa but highly suspect encephalopathy rather than new stroke. -doubt cva, mri not indicated and regardless has aicd in place 2. History of CVA with left sided weakness with severe bilateral carotid stenosis -restart coumadin -continue statin 3. Type 2 Diabetes -hold metformin -ordered insulin sliding scale 4. h/o PEs -INR on admit 1.0, forgetul to take this medication regularly -ordered lovenox -continue coumadin 5. CAD s/p vfib arrest s/p AICD -continue home meds metoprolol, statin CODE: Full Proxy: Javi Gray, spouse Dispo: probably home in a few days with improvement in encephalopathy, if SNF will likely be complicated by insurance status. Hold PT/OT today given lethargy, no need for speech with slight improvement today. Time Spent With Patient Critical Care time: I spent a total of [] minutes of critical care time on this patient's care today; this time is exclusive of procedural time.
[2022-12-04] MEDS: NYSTATIN POWDER 15GM 1 APPLIC TOP (14:10)
[2022-12-04] MEDS: WARFARIN 5 MG TABLET PO (17:44)
[2022-12-04] MEDS: ENOXAPARIN 100 MG/ML SYRINGE 85 MG SUBCUT (21:12)
[2022-12-04] MEDS: ATORVASTATIN 20 MG TABLET 80 MG PO (21:13)
[2022-12-04] MEDS: cefTRIAXone 1,000 MG in SODIUM CHLORIDE 0.9% 100 ML 200 MG IV (21:15)
[2022-12-05 01:02] VITALS: BP 135/88; PULSE 77; RESP 18; TEMP 36.5; O2SAT 95
[2022-12-05 02:00] VITALS: O2SAT 95
[2022-12-05 04:54] VITALS: BP 138/86; PULSE 76; RESP 18; TEMP 36.3; O2SAT 94
[2022-12-05 05:00] VITALS: O2SAT 94
[2022-12-05 05:52] LABS: Add Manual Diff / Slide Review NO; Basophils Absolute Auto 100 /uL (0-100); Eosinophils Absolute Auto 200 /uL (0-450); Eosinophils Percent Auto 3.7 % (2-4); Hematocrit 41.8 % (36-46); Hemoglobin 14.2 g/dL (12.0-16.0); Lymphocytes Absolute Auto 1800 /uL (1100-4500); Lymphocytes Percent Auto 34.4 % (25-40); Mean Corpuscular Hemoglobin 29.1 PG (26-34); Mean Corpuscular Volume 85.7 fL (80-100); Monocytes Absolute Auto 400 /uL (0-900); Monocytes Percent Auto 8.4 % (3-14); Neutrophils Absolute Auto 2800 /uL (1500-7000); Neutrophils Percent Auto 52.5 % (50-75); Platelet Count 189 X10^3/uL (150-400); Red Blood Cell Count 4.87 X10^6/uL (4.0-5.2); Red Cell Distribution Width 13.4 % (11.6-14.8); White Blood Cell Count 5.3 X10^3/uL (4.5-11.0)
[2022-12-05 06:18] LABS: BUN Creatinine Ratio 32.1 (6-22); Blood Urea Nitrogen 18 mg/dL (7-17); Calcium 8.5 mg/dL (8.4-10.2); Carbon Dioxide 29 mmol/L (22-32); Chloride 102 mmol/L (98-107); Estimated Glomerular Filt Rate > 60 mL/min (>60); Glucose 261 mg/dL (70-100); HEMOLYSIS < 15 (0-50); Potassium 3.9 mmol/L (3.4-5.1); Sodium 136 mmol/L (137-145)
[2022-12-05 08:42] VITALS: BP 132/75; PULSE 75; RESP 17; TEMP 36.1; O2SAT 96
[2022-12-05 10:00] VITALS: O2SAT 92
--- NOTE | 2022-12-05 10:11 | P.DS_ITS ---
History of Present Illness History of Present Illness Date Patient Seen: 12/05/22 Time Patient Seen: 10:15 Chief complaint: stroke symptoms/talking gibberish Narrative: Ms Gray is a 57W with PMH cva with left sided weakness, cardiac arrest from vfib s/p aic, CAD, PEs, HTN who presents with confusion. She was in her normal state of health until 4pm this afternoon when she was noted to by her to have sudden difficulty with slurring speech, sleepiness, and word finding difficulties. In the days prior she had some nausea and vomiting which the family had attributed to a possible GI illness. She had no fevers/chills, no dysuria. No cough or shortness of breath or chest pain. She is supposed to be on warfarin for PE but states he has forgotten to give her this medication for the last 3-4 days. She was diagnosed recently with a UTI and is currently taking Nitrofurantoin In the ED workup was done, vitals notable for afebrile, heart rate in the 80s, blood pressure 130s/80s. NIH initially 17. She was a code stroke and ct head showed no acute process, cta head/neck showed severe bilateral carotid artery stenosis. Labs notable for WBC 9.5, hgb 15.6, plts 218. Creatinine 0.70. INR 1.0. Glucose 303. Trop negative. EKG showed paced rhythm. [facility] given the history and anticoagulation use. UA was notable for WBCs and bacteria. She was given antibiotics and admitted for further treatment. Discharge Providers Provider Date of admission: 12/03/22 19:57 Discharge Date: 12/05/22 Primary care physician: Donna Redman PA-C Consults: 12/03/22 21:27 Consult to Occupational Therapy Evaluate & Treat Comment: Physician Instructions: Evaluate and treat Consult to Physical Therapy Evaluate & Treat Comment: Physician Instructions: Evaluate and Treat Consult to Speech Therapy Evaluate & Treat Comment: Physician Instructions: Evaluate and treat Discharge provider: Rajat Cruz DO Summary Hospital Course Discharge Diagnosis: 1. Acute encephalopathy secondary to acute cystitis, failed oral antibiotics 2. History of CVA with left sided weakness with severe bilateral carotid stenosis 3. Type 2 Diabetes 4. h/o PEs 5. CAD s/p vfib arrest s/p AICD Hospital Course: This is a 57 year old female with PMH of DM2, prior PE on coumadin (but non- compliant with daily medication, limited by outpatient financial resources and lack of insurance), prior CVA with L sided weakness, CAD with AICD who initially presented as a code stroke for difficulty speaking but was more likely to have had an acute encephalopathy due to acute cystitis. She improved over a couple of days with ceftriaxone and on the day of discharge had returned to her baseline. She was treated with therapeutic lovenox and was given coumadin, as her INR was 1.0 given previous PEs. She has Lovenox at home and should continue at home until her INR is in range. No changes to her diabetes medications are recommended at this time. Based on prior cultures (Currently urine culture with GNB) she was discharged home on amoxicillin-pot clavulanate to complete 7 day total course of therapy for complicated cystitis. Time Spent with Patient Time spent: Greater than 30 minutes Exam Vital Signs (past 8 hours): - 12/05/22 05:00 12/05/22 04:54 12/05/22 08:42 Temperature 97.3 F L 96.9 F L Pulse Rate 76 75 Respiratory Rate 18 17 Blood Pressure 138/86 132/75 Pulse Oximetry 94 94 96 Oxygen Delivery Method Room Air Oxygen Flow Rate 0 0 Oxygen Delivery Method Room Air Oxygen Flow Rate 0 Narrative Exam Narrative: GEN: no acute distress, lethargic HEENT: moist mucous membranes, PERRL NECK: trachea midline, no jvd PULM: clear bilaterally, no wheezes, rhonchi, rales CV: regular rate and rhythm, no murmurs ABD: soft, nontender, nondistended, no organomegaly, normal bowel sounds EXT: warm and well perfused with no edema NEURO: awake, lethargic, but follows commands, left sided weakness chronic Objective Labs 12/05/22 04:59 12/05/22 04:59 Labs: Laboratory Results - last 24 hr 12/05/22 12/05/22 04:59 04:59 WBC 5.3 RBC 4.87 Hgb 14.2 Hct 41.8 MCV 85.7 MCH 29.1 MCHC 34.0 RDW 13.4 Plt Count 189 Neut % (Auto) 52.5 Lymph % (Auto) 34.4 [place] % (Auto) 8.4 Eos % (Auto) 3.7 Baso % (Auto) 1.0 Neut # (Auto) 2800 Lymph # (Auto) 1800 [place] # (Auto) 400 Eos # (Auto) 200 Baso # (Auto) 100 Sodium 136 L Potassium 3.9 Chloride 102 Carbon Dioxide 29 BUN 18 H Creatinine 0.56 Estimated GFR > 60 BUN/Creatinine Ratio 32.1 H Glucose 261 H Calcium 8.5 PFSH Medical History 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 CVA (cerebral vascular accident) Diabetes mellitus History of ventricular fibrillation 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 Neuropathy Urinary incontinence Surgical History History of colonoscopy History of permanent cardiac pacemaker placement Family History Mother MRSA (methicillin resistant Staphylococcus aureus) Cardiovascular disease Stroke Myocardial infarction Father Cardiovascular disease Myocardial infarction Social History household members: spouse and children Smoking Status: Never smoker alcohol intake: former Discharge Plan Discharge Plan Patient Disposition: Home Provider Discharge Comment: You were admitted to the hospital with confusion due to a UTI. You improved with antibiotics and will continue on antibiotics at home for another 5 days. Discharge orders & Medications Prescriptions: New amoxicillin-pot clavulanate 875-125 mg tablet 1 tab PO BID 5 Days Qty: 10 0RF Continued lisinopril 10 MG tablet 5 mg PO DAILY Qty: 0 (DME) Allevyn Gentle Border Sacrum 6 5/8 X 6 3/4 bandage See Rx Instructions .Route Qty: 40 0RF Patient Comments: Not currently using Rx Instructions: As directed zinc oxide 25 % paste 1 applic topical TID PRN (Reason: skin irritation) Qty: 500 0RF clotrimazole 1 % cream 1 applic topical BID Qty: 45 0RF hydrocortisone 0.5 % cream 1 applic topical BID PRN (Reason: rash) Qty: 28.4 0RF Patient Comments: No longer taking Rx Instructions: Use a thin layer on bright red areas of rash to help calm down the skin, also use fungal cream. Please use only for up to three days in a row and take a vacation day or two in between. Xarelto DVT-PE Treat 30d Start 15 mg (42)- 20 mg (9) tablets,dose pack See Rx Instructions .ROUTE .COMPLEX Qty: 51 0RF Patient Comments: NO longer taking Rx Instructions: take one-15 mg tablet twice daily for 21 days, then one-20 mg tablet once daily; must take with meal/food hydrocodone-acetaminophen 5-325 mg tablet 1 tab PO Q8H PRN (Reason: pain) Qty: 10 0RF warfarin 5 mg tablet 5 mg PO DAILY Qty: 30 0RF Patient Comments: No longer taking enoxaparin [Lovenox] 80 mg/0.8 mL syringe 80 mg SUBCUT Q12H Qty: 8 0RF atorvastatin 40 mg Tablet 40 mg PO DAILY warfarin 7.5 mg tablet 7.5 mg PO QPM Patient Comments: take 1 tablet by mouth once daily metformin 1,000 mg tablet 1,000 mg PO BID Patient Comments: TAKE 1 TABLET BY MOUTH TWICE DAILY metoprolol succinate 25 mg tablet extended release 24 hr 25 mg PO DAILY oxybutynin chloride 5 mg tablet 2.5 mg PO BID Patient Comments: TAKE 1/2 (ONE-HALF) TABLET BY MOUTH TWICE DAILY NEEDED FOR OVERACTIVE BLADDER Discontinued sulfamethoxazole-trimethoprim [Bactrim DS] 800-160 mg tablet 1 tab PO BID Qty: 10 0RF Follow up/Referrals: Donna Redman PA-C [Primary Care Provider] - Diet/Activity/Treatments Diet: Diet as Tolerated Activity: As tolerated Visit Report/Discharge Packet Instructions: DI for Urinary Tract Infection (UTI), How to Prevent Falls, Amoxicillin and Clavulanic Acid Stand Alone Forms: Patient Portal/API, Stroke Signs & Symptoms Discharge Data Primary Care Provider: Donna Redman
--- NOTE | 2022-12-05 11:00 | PT.IIE ---
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 CVA (cerebral vascular accident) Diabetes mellitus History of ventricular fibrillation 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 Neuropathy Urinary incontinence Physical Therapy Inpatient Evaluation/Re-Eval M1 PT/OT-IP Prior Functional Status Start: 12/04/22 07:53 Freq: NEEDED Status: Active Protocol: Document 12/05/22 11:00 DLM (Rec: 12/05/22 11:49 DLM [id number]) Medical Review Prior Functional Status Medical History Reviewed Yes Communication WFL, quiet voice, can voice her needs Mobility and Gait family assists her in/out of bed and for transfers in/out of wheelchair, she is wheelchair bound and does not ambulate, they have a darlene lift but do not use if regularly per pt Activities of Daily Living and IADL's Family assist for ADL's including dressing, bathing, toileting. Family manages chassis wirer and cooking. Social History Household Members spouse,children Living Arrangements Mobile home Number of Floors (Floors) One Floor Number of Stairs To Enter/Railing? 2-3 steps to enter with rails Home Environment Walk in Shower Home Equipment Manual Wheelchair,Bedside Commode Additional Social History Comment she reports she has a shower chair but can not give details Her Spouse works nights at the hospital. She is cared for by her and children. Unclear how family gets her into house, pt can not give details M2 PT-IP Current Condition Start: 12/04/22 07:53 Freq: NEEDED Status: Active Protocol: Document 12/05/22 11:00 DLM (Rec: 12/05/22 11:49 DLM [id number]) Physical Therapy Current Condition Current Condition Evaluation Date 12/05/22 Treatment Diagnosis UTI, weakness, impaired mobility Onset Date 12/03/22 M3 PT-IP Subjective Start: 12/04/22 07:53 Freq: NEEDED Status: Active Protocol: Document 12/05/22 11:00 DLM (Rec: 12/05/22 11:49 DLM [id number]) Subjective Physical Therapy Visit Type Type Initial Evaluation Visit Start Time 10:30 Visit Stop Time 11:00 Total Visit Minutes 30 Number of E COMMERCE MANAGER Visits 0 Physical Therapy Visit Comments Patient Comments She reports she has been in bed a few days. She thinks she is feeling better. Patient Goals she wants to be able to go home Therapy Pain Assessment Pain Present Pain Present Denied Pain M4 PT-IP Mobility and Gait Start: 12/04/22 07:53 Freq: NEEDED Status: Active Protocol: Document 12/05/22 11:00 DLM (Rec: 12/05/22 11:49 DL [id number]) PT-Bed Mobility Assessment Supine to Sit Supine to Sit Moderate Assistance,Maximum Assistance Scooting Scooting to Edge of Bed Moderate Assistance Scooting Up and Down in Bed Dependent PT-Transfer Assessment Sit to and From Stand Sit to and from Stand Maximum Assistance,1 Person Assistance,2 Person Assistance Equipment Transfer Assistive Device Gait Belt Transfers Transfer Destination Wheelchair,Bedside Commode Transfer Technique Squat Pivot Transfer Ability Level of Assist Maximum Assistance,1 Person Assistance,2 Person Assistance Comments Mobility Comments Pt was transfered onto the bedside commode but she was not able to have BM. She was then transfered into her home wheelchair. Coordinated care with nursing for toileting issues. She is not able to come to a full standing position even with therapist assistance. Transfers completed with therapist in front of pt and blocking left knee as able. Gait Assessment Comments Gait Comments she is not ambulatory at baseline. She is not able to propel her wheelchair. PT-Balance Assessment Sitting Balance and Reactions Static Sitting Balance Ability Good Dynamic Sitting Balance Ability Fair Standing Balance and Reactions Static Standing Balance Ability Poor Dynamic Standing Balance Ability Poor Device Used none M5 PT-IP Objective Assessments Start: 12/04/22 07:53 Freq: NEEDED Status: Active Protocol: Document 12/05/22 11:00 DLM (Rec: 12/05/22 11:49 DL [id number]) Orientation Orientation/Cognition Level of Alertness Alert Orientation Name,Birthday,Day of Week, Place Safety Awareness Decreased Safety Awareness Memory Description Short Term Impaired Comments she is not attempting unsafe things at this time, she is pleasant and cooperative, her voice is soft and she has periods of time she gets very quiet Gross Range of Motion Upper Extremity ROM Assessment Left Impaired Impairments 1-2 finger shoulder subluxation on left, no pain reported Lower Extremity ROM Assessment Within Functional Limits Impairments left DF to neutral only Strength Upper Extremity Strength Assessment Left Impaired Shoulder no functional use of left UE observed Lower Extremity Strength Assessment Left Impaired Hip no functional use of left LE observed Comments Strength Comments intermittent tonal influences can cause left LE to move in synergistic patterns, for example when you stimulate the bottom of left foot she has a withdrawal flexor pattern and during transfers her left LE can show an extensor pattern intermittently Coordination Assessment Gross Coordination Gross Coordination Impaired Assessment Coordination Comments left side is impaired associated with weakness Sensation Assessment Sensation Gross Sensation Left UE Impaired,Left LE Impaired Comments Sensation Comments hx neuropathy, she reports she can feel left side when touched but not as much as the right side Muscle Tone Muscle Tone WNL No Comments Muscle Tone Comments episodic tonal patterns with synergies seen in left LE during mobility, none observed in UE, left UE is hypotonic Other Assessments Other Other Assessments Vital signs sitting up in wheelchair: BP 12/91, HR 99, O2 sat on room air 95% M6 PT-IP Treatment Start: 12/04/22 07:53 Freq: NEEDED Status: Active Protocol: Document 12/05/22 11:00 DLM (Rec: 12/05/22 11:49 DL [id number]) Physical Therapy Treatment Education Education Provided Safety Other Treatments Other Treatment Performed no family present this visit to discuss discharge issues M7 PT-IP Assessment and Plan Start: 12/04/22 07:53 Freq: NEEDED Status: Active Protocol: Document 12/05/22 11:00 DLM (Rec: 12/05/22 11:49 DLM [id number]) PT Summary Assessment and Plan Potential Rehabilitation Potential Fair Status of Condition at Evaluation Evolving Summary Impairments Strength,Balance,Coordination, Sensation,Tone,Cognition,Bed Mobility,Transfers,Gait, Activity Tolerance Assessment Summary Kimmy is alert and showed good participation in therapy. She can give some information about what she does at home but it is hard for her to give all the details. Some home information available in her chart. Pt was able to transfer to the bedside commode and to her wheelchair. Case management indicates her family is prepared to take her home and are able to assist her. She appears to be close to her baseline with possible decrease in her activity level associated with her infection and recent time in bed. Home health would be appropriate if the family feels this would be helpful at discharge to better assess her mobility in her home environment. Pt reports they have needed equipment at home. No family present this visit to discuss discharge issues. Frequency of Treatment Frequency Of Treatment Discharge Treatment Plan Other Recommendations and Next Treatment she appears to be close to her Focus baseline for mobility Precautions Other Precautions hx of CVA with left sided weakness Recommendations To Nursing Amount of Assist Needed 1 Person Assist,2 Person Assist Discharge Recommendations PT Discharge Recommendations Home with / Assist Available Transportation Needs at Discharge Private Vehicle,Wheelchair/ Cabulance
[2022-12-05] MEDS: INSULIN LISPRO 100 UNIT/ML 3ML VIAL SUBCUT (11:27)
[2022-12-05] MEDS: METOPROLOL ER 25 MG TABLET PO (11:27)
[2022-12-05] MEDS: ASPIRIN EC 81 MG TABLET PO (11:27)
--- NOTE | 2022-12-05 12:03 | OT.IPNOTE ---
Pt states her family assist withi all her ADL and transfer needs at home and looking to go home with her family when medically stable. Therefore discharge OT eval orders, hospitalist informed.
--- NOTE | 2022-12-05 15:02 | PC.NURSE ---
d c orders received. call placed to Javi, w/ no answer. call placed to son Aris, who states he and his brother will be here soon to pick her up and take her home.
== END 2022-12-05 13:40 | disposition home or self-care (01) | DRG 690 ==
LOC: ED 19:15 → AC 20:32
PROVIDERS: Family Medicine Addiction Medicine; Internal Medicine; Admitting Provider Internal Medicine; Emergency Provider Emergency Medicine; Family Provider Family Medicine; PCP Physician Assistant Medical; Referring Provider Emergency Medicine; Visit Provider Internal Medicine
DX: N30.00 Acute cystitis without hematuria (principal); I69.954 Hemiplegia and hemiparesis following unspecified cerebrovascular disease affecting left non-dominant side; G93.40 Encephalopathy, unspecified; I65.23 Occlusion and stenosis of bilateral carotid arteries; E11.9 Type 2 diabetes mellitus without complications; I25.10 Atherosclerotic heart disease of native coronary artery without angina pectoris; I10 Essential (primary) hypertension; Z79.84 Long term (current) use of oral hypoglycemic drugs; Z79.01 Long term (current) use of anticoagulants; Z95.810 Presence of automatic (implantable) cardiac defibrillator; Z86.711 Personal history of pulmonary embolism
CPT/HCPCS: 36415; 70450; 70496; 70498; 71045; 80048; 80053; 80061; 81015; 82550; 82962; 83036; 83690; 83735; 84484; 85025; 85610; 85730; 87040; 87077; 87086; 87186; 87635; 93005; 93010; 97161; 99284; 99285; C9803; J0696; J1650; J1815; Q9967

== ENCOUNTER 2023-01-18 18:13 | Inpatient (IN) | payer SELFPAY ==
[2023-01-18] VITALS (9 sets, daily range): BP systolic 140–158; BP diastolic 90–94; PULSE 69–106; RESP 14–28; TEMP 36.5–37.2; O2SAT 91–95; BMI 39.1
--- NOTE | 2023-01-18 19:25 | DI.RAD.S_ITS ---
PROCEDURE: XR CHEST 1V INDICATIONS: altered mental status TECHNIQUE: One view of the chest was acquired. COMPARISON: [facility], CR, XR CHEST 1V, 12/03/2022, 17:25. FINDINGS: Surgical changes and devices: Left chest wall triple lead AICD redemonstrated. Lungs and pleura: There is a persistent small right pleural effusion with associated right basilar opacities consistent with consolidation or atelectasis. There is slightly increased pulmonary edema. No pneumothorax. Mediastinum: Mediastinal contours appear normal. Heart size is normal. Bones and chest wall: No suspicious bony lesions. Overlying soft tissues appear unremarkable. IMPRESSION: 1. Small right pleural effusion with associated right basilar compressive atelectasis or consolidation. 2. Increased mild pulmonary edema. Dictated by: Dandy Gil M.D. on 01/18/2023 at 20:04 Approved by: Dandy Gil M.D. on 01/18/2023 at 20:07
--- NOTE | 2023-01-18 19:29 | DI.CT.S_ITS ---
PROCEDURE: CT HEAD/BRAIN WO CON INDICATIONS: r/o stroke altered mental status TECHNIQUE: Noncontrast 4.5 mm thick angled axial sections acquired from the foramen magnum to the vertex, with coronal and sagittal reformats. For radiation dose reduction, the following was used: automated exposure control, adjustment of mA and/or kV according to patient size. COMPARISON: [facility], CT, CT ANGIO HEAD AND NECK, 12/03/2022, 18:12. [facility], CT, CT STROKE, 12/03/2022, 18:12. [facility], CT, CT HEAD/BRAIN WO CON, 12/21/2021, 7:38. FINDINGS: Image quality: Excellent. CSF spaces: Basal cisterns are patent. No extra-axial fluid collections. Ventricles are normal in size and shape. Brain: No midline shift. No intracranial masses or hemorrhage. Rodriguez-white matter interface is normal. Periventricular and subcortical white matter hypointensities are present. Foci of low attenuation are noted in the arreola radiata bilaterally most consistent with prior lacunar ischemia. Skull and face: Calvarium and visualized facial bones are intact, without suspicious lesions. Sinuses: Visualized sinuses and mastoids are clear. IMPRESSION: Prominent periventricular and subcortical white matter hypo densities most suggestive of chronic microvascular ischemia more pronounced than expected for patient's stated age. Areas of small underlying superimposed subacute ischemia cannot be excluded. Low-attenuation foci within the arreola radiata bilaterally unchanged and reflective of prior lacunar ischemia. Dictated by: Fang Cristina M.D. on 01/18/2023 at 19:56 Approved by: Fang Cristina M.D. on 01/18/2023 at 19:57
[2023-01-18 19:47] LABS: Add Manual Diff / Slide Review NO; Basophils Absolute Auto 100 /uL (0-100); Basophils Percent Auto 0.9 % (0-2); Eosinophils Absolute Auto 200 /uL (0-450); Eosinophils Percent Auto 2.9 % (2-4); Hematocrit 45.4 % (36-46); Hemoglobin 15.5 g/dL (12.0-16.0); Lymphocytes Absolute Auto 1200 /uL (1100-4500); Lymphocytes Percent Auto 16.9 % (25-40); Mean Corpuscular HGB Conc 34.2 % (30-36); Mean Corpuscular Hemoglobin 29.1 PG (26-34); Monocytes Absolute Auto 400 /uL (0-900); Neutrophils Absolute Auto 5100 /uL (1500-7000); Neutrophils Percent Auto 73.3 % (50-75); Platelet Count 204 X10^3/uL (150-400); Red Blood Cell Count 5.34 X10^6/uL (4.0-5.2); Red Cell Distribution Width 13.4 % (11.6-14.8)
[2023-01-18 19:57] LABS: Alanine Aminotransferase 23 IU/L (<35); Albumin 3.8 g/dL (3.5-5.0); Alkaline Phosphatase 117 U/L (38-126); Aspartate Aminotransferase 19 IU/L (14-36); BUN Creatinine Ratio 44.3 (6-22); Bilirubin Total 0.4 mg/dL (0.2-1.3); Blood Urea Nitrogen 27 mg/dL (7-17); Carbon Dioxide 26 mmol/L (22-32); Chloride 104 mmol/L (98-107); Estimated Glomerular Filt Rate > 60 mL/min (>60); Globulin 3.9 g/dL (1.7-4.1); Glucose 285 mg/dL (70-100); HEMOLYSIS 18 (0-50); Potassium 3.9 mmol/L (3.4-5.1); Sodium 137 mmol/L (137-145); Total Protein 7.7 g/dL (6.3-8.2)
[2023-01-18 20:42] LABS: Ammonia (NH3) 11 umol/L (9-30)
[2023-01-18 20:58] LABS: Appearance Urine UA CLEAR; Bilirubin Urine UA NEGATIVE (NEGATIVE); Color Urine UA YELLOW; Glucose Urine UA 3+ g/dL (Negative); Ketones Urine UA TRACE (NEGATIVE); Leukocyte Esterase Urine UA TRACE (NEGATIVE); Nitrite Urine UA POSITIVE (Negative); Occult Blood Urine UA TRACE-INTACT (Negative); Protein Urine UA NEGATIVE (Negative); Specific Gravity Urine UA 1.025 (1.000-1.035); Urobilinogen Urine UA 0.2 E.U./dL (0.2)
[2023-01-18] MEDS: SODIUM CHLORIDE 0.9% 1,000 ML 1000 ML IV (21:11)
[2023-01-18 21:14] LABS: pH Urine UA 5.5 (4.5-8.0)
--- NOTE | 2023-01-18 21:28 | ED_ITS ---
HPI - Altered Mental Status General Chief Complaint: Weakness Stated Complaint: lethargic Time Seen by Provider: 01/18/23 19:50 Source: patient and family Mode of arrival: Wheelchair History of Present Illness HPI narrative: This is a 57-year-old female history of prior stroke, left-sided deficit, hypertension and diabetes who presents with complaint of altered mental status/lethargy. Patient she was feeling a little bit off since last night, she states this evening her noticed when he went to give her a kiss to say goodbye that she was sort of out of it she is sort of just mumbled instead of the normal interaction before he leaves for work in the evening 1700. Patient's family noted that when they were talking or earlier she said out and then was not really talking to them but was looking at but would sort of not respond for a couple minutes. They states she still seems a little bit off but is alert she is been more interactive since her arrival here. No fevers or chills, no cold cough or congestion. No chest pain or shortness of breath, no nausea or vomiting, notes she is had a recent UTI but no dysuria urgency or frequency. She intermittently has diarrhea but no black or bloody stools. No abdominal back or flank pain. No new swelling in her extremities. No new neurologic changes otherwise she has not had any new facial droop, no new weakness she does have permanent left-sided deficit from her prior stroke. Patient has not had any rash or skin changes or new lesions to her extremities. notes no new changes to her medications she is supposed to start warfarin she is on Lovenox shots he states he is not always consistent about giving her shots she gets them intermittently. Family also notes she is not good about drinking water she does not ask for water and she requires 1-2 people to assist her normally so she typically gets a glass of water at times. No allergies to any drugs. She is accompanied by her and son both of whom she lives with. Related Data Home Medications Medication Instructions Recorded Confirmed lisinopril 10 mg tablet 5 mg PO DAILY ##0 11/15/17 12/03/22 atorvastatin 40 mg tablet 40 mg PO DAILY 12/21/21 12/03/22 metformin 1,000 mg tablet 1,000 mg PO BID 12/21/21 12/03/22 metoprolol succinate 25 mg 25 mg PO DAILY 12/21/21 12/03/22 tablet,extended release 24 hr oxybutynin chloride 5 mg tablet 2.5 mg PO BID 12/21/21 12/03/22 warfarin 7.5 mg tablet 7.5 mg PO QPM 12/21/21 12/03/22 Previous Rx's Medication Instructions Recorded clotrimazole 1 % topical cream 1 applic topical BID yeast in 02/17/22 folds #45 grams foam bandage 6 5/8 X 6 3/4 #40 ea 02/17/22 (Allevyn Gentle Border Sacrum) hydrocortisone 0.5 % topical cream 1 applic topical BID PRN rash 02/17/22 #28.4 grams zinc oxide 25 % topical paste 1 applic topical TID PRN skin 02/17/22 irritation #500 grams enoxaparin 80 mg/0.8 mL 80 mg (0.8 mL) SUBCUT Q12H #8 mL 10/20/22 subcutaneous syringe (Lovenox) hydrocodone 5 mg-acetaminophen 325 1 tab PO Q8H PRN pain #10 tabs 10/20/22 mg tablet rivaroxaban 15 mg (42)-20 mg (9) See Rx Instructions PO .COMPLEX 10/20/22 tablets in a starter pack (Xarelto #51 ea DVT-PE Treatment 30-Day Starter) warfarin 5 mg tablet 5 mg PO DAILY #30 tabs 10/20/22 Allergies Allergy/AdvReac Type Severity Reaction Status Date / Time No Known Drug Allergies Allergy Verified 03/15/21 22:37 Review of Systems Review of Systems ROS Unobtainable: All systems reviewed & are unremarkable except as noted in HPI and below 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 CVA (cerebral vascular accident) Diabetes mellitus History of ventricular fibrillation 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 2 diabetes diamondi saira Neuropathy Urinary incontinence Surgical History History of colonoscopy History of permanent cardiac pacemaker placement Family History Mother MRSA (methicillin resistant Staphylococcus aureus) Cardiovascular disease Stroke Myocardial infarction Father Cardiovascular disease Myocardial infarction Social History household members: spouse and children Smoking Status: Never smoker alcohol intake: former Smoking Status: Never smoker alcohol intake frequency: 0-2 drinks per day Substance Use Type: does not use Exam Narrative Exam Narrative: GEN: Chronically ill-appearing female, alert and oriented, patient appears to be in mild distress. HEENT: Atraumatic, pupils are equal round reactive to light, extraocular movements are intact, nares are clear, TMs are clear with no fluid, there is no conjunctival pallor. Throat is clear without any exudates, erythema, tonsillar enlargement or uvular deviation, mild droop on right. HEART: Regular rate and rhythm without murmur, clicks, rubs. Pulses are equal in upper and lower extremities LUNGS:Lungs clear to auscultation, no wheezes, rales, crackles, chest moves symmetrically ABD:bowel sounds normal, soft, non-tender, no guarding, rebound, rigidity, no masses noted, no hepatosplenomegaly :No CVA tenderness MSCL: Non-tender, no muscle atrophy. NEURO:CN 2-12 intact, sensation normal, patient has weakness on the left side unable to have much lift or movement. Initial Vital Signs Initial Vital Signs: Vital Signs Temperature 98.9 F 01/18/23 19:09 Pulse Rate 106 H 01/18/23 19:09 Respiratory Rate 19 01/18/23 19:09 Blood Pressure 140/94 H 01/18/23 19:09 Pulse Oximetry 95 01/18/23 19:09 Oxygen Delivery Method Room Air 01/18/23 19:09 Course Orders Ordered: Sodium Chloride (Normal Saline 0.9%) 1,000 mls @ 100 mls/hr IV CONT ERIKA Last Admin: 01/18/23 23:17 Dose: 100 mls/hr Documented By: BG Discontinued Medications Sodium Chloride (Normal Saline 0.9%) 1,000 mls @ 1,000 mls/hr IV BOLUS ONE Stop: 01/18/23 22:08 Last Infusion: 01/18/23 22:37 Dose: 0 mls/hr Documented By: Admin: 01/18/23 21:11 Dose: 1,000 mls/hr Documented By: PERNELL Ceftriaxone Sodium 1,000 mg/ (Sodium Chloride) 100 mls @ 200 mls/hr IV NOW ONE Stop: 01/18/23 21:41 Last Infusion: 01/18/23 22:37 Dose: 0 mls/hr Documented By: Admin: 01/18/23 22:04 Dose: 200 mls/hr Documented By: PERNELL Vital Signs Vital signs: Vital Signs - 8 hr 01/18/23 19:09 Temperature 98.9 F Pulse Rate 106 H Respiratory Rate 19 Blood Pressure 140/94 H Pulse Oximetry 95 Oxygen Delivery Method Room Air MDM - Altered Mental Status Lab Data 01/18/23 19:35 01/18/23 19:35 Labs: Lab Results 01/18/23 01/18/23 01/18/23 Range/Units 19:35 19:35 20:00 WBC 7.0 (4.5-11.0) X10^3/uL RBC 5.34 H (4.0-5.2) X10^6/uL Hgb 15.5 (12.0-16.0) g/dL Hct 45.4 (36-46) % MCV 85.0 (80-100) fL MCH 29.1 (26-34) PG MCHC 34.2 (30-36) % RDW 13.4 (11.6-14.8) % Plt Count 204 (150-400) X10^3/uL Neut % (Auto) 73.3 (50-75) % Lymph % (Auto) 16.9 L (25-40) % Montgomery % (Auto) 6.0 (3-14) % Eos % (Auto) 2.9 (2-4) % Baso % (Auto) 0.9 (0-2) % Neut # (Auto) 5100 (6859-3467) /uL Lymph # (Auto) 1200 (1446-7661) /uL Montgomery # (Auto) 400 (0-900) /uL Eos # (Auto) 200 (0-450) /uL Baso # (Auto) 100 (0-100) /uL Sodium 137 (137-145) mmol/L Potassium 3.9 (3.4-5.1) mmol/L Chloride 104 (98-107) mmol/L Carbon Dioxide 26 (22-32) mmol/L BUN 27 H (7-17) mg/dL Creatinine 0.61 (0.52-1.04) mg/dL Estimated GFR > 60 (>60) mL/min BUN/Creatinine Ratio 44.3 H (6-22) Glucose 285 H (70-100) mg/dL Calcium 9.0 (8.4-10.2) mg/dL Total Bilirubin 0.4 (0.2-1.3) mg/dL AST 19 (14-36) IU/L ALT 23 (<35) IU/L Alkaline Phosphatase 117 (38-126) U/L Ammonia 11 (9-30) umol/L Total Protein 7.7 (6.3-8.2) g/dL Albumin 3.8 (3.5-5.0) g/dL Globulin 3.9 (1.7-4.1) g/dL Albumin/Globulin Ratio 1.0 (1.0-2.8) Urine Color Urine Appearance Urine pH (4.5-8.0) Ur Specific [place] (1.000-1.035) Urine Protein (Negative) Urine Glucose (UA) (Negative) g/dL Urine Ketones (NEGATIVE) Urine Occult Blood (Negative) Urine Nitrate (Negative) Urine Bilirubin (NEGATIVE) Urine Urobilinogen (0.2) E.U./dL Ur Leukocyte Esterase (NEGATIVE) Urine RBC (0-5/HPF) Urine WBC (0-5/HPF) Urine Bacteria (None) Ur Culture Indicated? U Opiates 300ng/mL cut (Negative) Ur Oxycodone Screen (Negative) Urine Methadone Screen (Negative) Ur Barbiturates Screen (Negative) U Tricyclic Antidepress (Negative) Ur Phencyclidine Scrn (Negative) Ur Amphetamines Screen (Negative) U Methamphetamines Scrn (Negative) Ur MDMA Scrn (Ecstasy) (Negative) U Benzodiazepines Scrn (Negative) Urine Cocaine Screen (Negative) U Marijuana (THC) Screen (Negative) SARS-CoV-2 (PCR) (Negative) 01/18/23 01/18/23 01/18/23 Range/Units 20:42 20:42 21:37 WBC (4.5-11.0) X10^3/uL RBC (4.0-5.2) X10^6/uL Hgb (12.0-16.0) g/dL Hct (36-46) % MCV (80-100) fL MCH (26-34) PG MCHC (30-36) % RDW (11.6-14.8) % Plt Count (150-400) X10^3/uL Neut % (Auto) (50-75) % Lymph % (Auto) (25-40) % Montgomery % (Auto) (3-14) % Eos % (Auto) (2-4) % Baso % (Auto) (0-2) % Neut # (Auto) (6921-2082) /uL Lymph # (Auto) (9188-3326) /uL Montgomery # (Auto) (0-900) /uL Eos # (Auto) (0-450) /uL Baso # (Auto) (0-100) /uL Sodium (137-145) mmol/L Potassium (3.4-5.1) mmol/L Chloride (98-107) mmol/L Carbon Dioxide (22-32) mmol/L BUN (7-17) mg/dL Creatinine (0.52-1.04) mg/dL Estimated GFR (>60) mL/min BUN/Creatinine Ratio (6-22) Glucose (70-100) mg/dL Calcium (8.4-10.2) mg/dL Total Bilirubin (0.2-1.3) mg/dL AST (14-36) IU/L ALT (<35) IU/L Alkaline Phosphatase (38-126) U/L Ammonia (9-30) umol/L Total Protein (6.3-8.2) g/dL Albumin (3.5-5.0) g/dL Globulin (1.7-4.1) g/dL Albumin/Globulin Ratio (1.0-2.8) Urine Color Yellow Urine Appearance Clear Urine pH 5.5 (4.5-8.0) Ur Specific [place] 1.025 (1.000-1.035) Urine Protein Negative (Negative) Urine Glucose (UA) 3+ H (Negative) g/dL Urine Ketones Trace H (NEGATIVE) Urine Occult Blood Trace-intact (Negative) Urine Nitrate Positive H (Negative) Urine Bilirubin Negative (NEGATIVE) Urine Urobilinogen 0.2 (0.2) E.U./dL Ur Leukocyte Esterase Trace H (NEGATIVE) Urine RBC None seen (0-5/HPF) Urine WBC 10-30/hpf H (0-5/HPF) Urine Bacteria Moderate (10-30) H (None) Ur Culture Indicated? Specimen cultured U Opiates 300ng/mL cut Negative (Negative) Ur Oxycodone Screen Negative (Negative) Urine Methadone Screen Negative (Negative) Ur Barbiturates Screen Negative (Negative) U Tricyclic Antidepress Negative (Negative) Ur Phencyclidine Scrn Negative (Negative) Ur Amphetamines Screen Negative (Negative) U Methamphetamines Scrn Negative (Negative) Ur MDMA Scrn (Ecstasy) Negative (Negative) U Benzodiazepines Scrn Negative (Negative) Urine Cocaine Screen Negative (Negative) U Marijuana (THC) Screen Negative (Negative) SARS-CoV-2 (PCR) Negative (Negative) Point of Care Testing Glucose POC [address] scan - head: Radiologist's Impression: Kimmy Gray??57??F??1965 ? Allergy/Adv: No Known Drug Allergies (More??) Close Head CT (Signed) Fang Cristina - 01/18/23 Chest X-Ray (Signed) Dandy Gil - 01/18/23 Telemetry Strips 12/03/22 Telemetry Strips 12/03/22 Head/Neck CTA (Signed) Javi Rossi - 12/03/[address] (Signed) Javi Rossi - 12/03/22 Chest X-Ray (Signed) CallKb - 12/03/22 Chest X-Ray (Signed) Dandy Gil - 11/07/22 Chest CTA (Signed) Fang Cristina - 10/20/22 Chest X-Ray (Signed) Fang Cristina - 10/20/22 Chest/Abdomen/Pelvis CT (Addendum) Fang Cristina - 12/23/21 Chest X-Ray (Signed) Emily Ramirez - 12/23/21 Chest X-Ray (Signed) Emily Ramirez - 12/23/[address] (Signed) Patsy Perez - 12/21/21 Chest X-Ray (Signed) Sahil Gurrola - 12/21/[address] (Signed) Crow Roche - 12/09/[address] (Signed) Emmett Teran - 05/09/21 Head/Neck CTA (Signed) Emmett Teran - 05/09/21 Chest X-Ray (Signed) Kb Rincon - 04/25/[address] (Signed) Emily Ramirez - 03/15/21 Chest CTA (Signed) Nacho Jaimes - 09/17/20 Vascular Ultrasound (Addendum) Crow Roche - 09/17/20 Foot X-Ray (Signed) Crow Roche - 09/17/20 Telemetry Strips 09/17/[address] (Signed) Emily Ramirez - 08/29/[address] (Signed) Emily Ramirez - 08/23/20 Echocardiogram Ultrasound (Cancelled) 08/22/20 Telemetry Strips 08/22/20 Head/Neck CTA (Signed) Nghia Perezgeovany - 08/22/[address] (Signed) AnaNghiageovany - 08/22/20 Toe X-Ray (Signed) Nacho Jaimes - 08/02/20 Chest X-Ray (Signed) James,Emily - 07/21/20 Toe X-Ray (Signed) Iggy Rossi - 04/25/20 [place] [address] CT Scan Report Signed Patient: Kimmy Gray MR#: [id number] : 1965 Acct:[id number] Age/Sex: 57 / F Date of Service: 01/18/23 Loc: Accession Number: [id number] ?? Procedure: CT head/brain wo con Ordering Provider: Inga Kumari D.O. PROCEDURE:? CT HEAD/BRAIN WO CON ? INDICATIONS:? r/o stroke altered mental status ? TECHNIQUE:? Noncontrast 4.5 mm thick angled axial sections acquired from the foramen magnum to the vertex, with coronal and sagittal reformats.? For radiation dose reduction, the following was used:? automated exposure control, adjustment of mA and/or kV according to patient size.? ? COMPARISON:? [facility], CT, CT ANGIO HEAD AND NECK, 12/03/2022, 18:12.? [facility], CT, CT STROKE, 12/03/2022, 18:12.? [facility], CT, CT HEAD/BRAIN WO CON, 12/21/2021, 7:38. ? FINDINGS:? Image quality:? Excellent.? ? CSF spaces:? Basal cisterns are patent.? No extra-axial fluid collections.? Ventricles are normal in size and shape.? ? Brain:? No midline shift.? No intracranial masses or hemorrhage.? Rodriguez-white matter interface is normal.? Periventricular and subcortical white matter hypoi ntensities are present.? Foci of low attenuation are noted in the arreola radiata bilaterally most consistent with prior lacunar ischemia. ? Skull and face:? Calvarium and visualized facial bones are intact, without suspicious lesions.? ? Sinuses:? Visualized sinuses and mastoids are clear.? ? IMPRESSION:? ? Prominent periventricular and subcortical white matter hypo densities most suggestive of chronic microvascular ischemia more pronounced than expected for patient's stated age.? Areas of small underlying superimposed subacute ischemia cannot be excluded. ? Low-attenuation foci within the arreola radiata bilaterally unchanged and reflective of prior lacunar ischemia.? ? ? Dictated by: Fang Cristina M.D. on 01/18/2023 at 19:56 ? ? Approved by: Fang Cristina M.D. on 01/18/2023 at 19:57? Chest x-ray: Radiologist's Impression: Close Head CT (Signed) Fang Cristina - 01/18/23 Chest X-Ray (Signed) Dandy Gil - 01/18/23 Telemetry Strips 12/03/22 Telemetry Strips 12/03/22 Head/Neck CTA (Signed) Javi Rossi - 12/03/[address] (Signed) Javi Rossi - 12/03/22 Chest X-Ray (Signed) MckenzieKb - 12/03/22 Chest X-Ray (Signed) Dandy Gil - 11/07/22 Chest CTA (Signed) Fang Cristina - 10/20/22 Chest X-Ray (Signed) Fang Cristina - 10/20/22 Chest/Abdomen/Pelvis CT (Addendum) Fang Cristina - 12/23/21 Chest X-Ray (Signed) Emily Ramirez - 12/23/21 Chest X-Ray (Signed) Emily Ramirez - 12/23/[address] (Signed) Patsy Perez - 12/21/21 Chest X-Ray (Signed) Sahil Gurrola - 12/21/[address] (Signed) Crow Roche - 12/09/[address] (Signed) Emmett Teran - 05/09/21 Head/Neck CTA (Signed) ParulEmmett - 05/09/21 Chest X-Ray (Signed) Kb Rincon - 04/25/[address] (Signed) Emily Ramirez - 03/15/21 Chest CTA (Signed) Nacho Jaimes - 09/17/20 Vascular Ultrasound (Addendum) Crow Roche - 09/17/20 Foot X-Ray (Signed) Crow Roche - 09/17/20 Telemetry Strips 09/17/[address] (Signed) Emily Ramirez - 08/29/[address] (Signed) Emily Ramirez - 08/23/20 Echocardiogram Ultrasound (Cancelled) 08/22/20 Telemetry Strips 08/22/20 Head/Neck CTA (Signed) Patsy Perez - 08/22/[address] (Signed) Patsy Perez - 08/22/20 Toe X-Ray (Signed) Nacho Jaimes - 08/02/20 Chest X-Ray (Signed) Emily Ramirez - 07/21/20 Toe X-Ray (Signed) Iggy Rossi - 04/25/20 [place] [address] XRay Report Signed Patient: Kimmy Gray MR#: [id number] : 1965 Acct:[id number] Age/Sex: 57 / F Date of Service: 01/18/23 Loc: ED Accession Number: [id number] ?? Procedure: XR chest 1V Ordering Provider: Inga Kumari D.O. PROCEDURE:? XR CHEST 1V ? INDICATIONS:? altered mental status ? TECHNIQUE:? One view of the chest was acquired.? ? COMPARISON:? [facility], , XR CHEST 1V, 12/03/2022, 17:25. ? FINDINGS:? ? Surgical changes and devices:? Left chest wall triple lead AICD redemonstrated. ? Lungs and pleura:? There is a persistent small right pleural effusion with associated right basilar opacities consistent with consolidation or atelectasis.? There is slightly increased pulmonary edema.? No pneumothorax. ? Mediastinum:? Mediastinal contours appear normal.? Heart size is normal.? ? Bones and chest wall:? No suspicious bony lesions.? Overlying soft tissues appear unremarkable.? ? IMPRESSION:? ? 1. Small right pleural effusion with associated right basilar compressive atelectasis or consolidation. ? 2. Increased mild pulmonary edema.? ? ? Dictated by: Dandy Gil M.D. on 01/18/2023 at 20:04 ? ? Approved by: Dandy Gil M.D. on 01/18/2023 at 20:07 ECG Data Attestation: I personally reviewed and interpreted this ECG as follows: Interpretation: Ventricularly paced rhythm rate 81 RI 138 QRS of 162 and QTC of 541. No acute changes patient has prior from 12/03/2022 which appears similar. MDM Narrative Medical decision making narrative: This is a 57-year-old female with prior stroke, permanent deficit on the left side who presents for alteration in mental status which is improving patient's family noted she seemed more lethargic throughout today no clear onset patient thought maybe it started yesterday. She is conversant currently. Patient is able to give a fairly good history and family augments this as well. Patient has not had any acute lateralizing deficits but does have some speech change but has also been confused. Patient does have a nitrite positive urine which may also be worsening her prior medical issues. Electrolytes appear appropriate renal function, CBC does not show an anemia, Patricia is negative, LFTs are negative. Head CT shows chronic change more pronounced in his suspected for patient's age but patient has had known strokes can not exclude underlying superimposed subacute ischemia, low-attenuation foci in the maria elena radiata unchanged and reflective of prior lacunar ischemia. Chest x-ray shows small right pleural effusion. Patient appears slightly clinically dehydrated was given a L of fluids but no additional, antibiotics and discussed with hospitalist for UTI with possible alteration mental status the patient would probably benefit from MR evaluation which is not available this evening. Spoke with hospitalist service, Dr. Ardon for observation Discharge Plan Departure Patient Disposition: Admitted as Observation Clinical Impression: UTI (urinary tract infection), Acute alteration in mental status Admit Date/Time: 01/18/23 22:00 Admit Provider: Rudy Ardon
[2023-01-18 21:33] LABS: Bacteria Urine Moderate (10-30); RBC Urine None Seen (0-5/HPF); WBC Urine 10-30/HPF (0-5/HPF)
[2023-01-18 21:34] LABS: Culture Indicated Urine Specimen Cultured
[2023-01-18 21:35] LABS: UR Morphine/Opiate cutoff 300 Negative (Negative); Ur Creatinine Normal (Normal); Ur Specific Gravity Normal (Normal); Urine Amphetamines Negative (Negative); Urine Barbiturates Negative (Negative); Urine Benzodiazepines Negative (Negative); Urine Cocaine Negative (Negative); Urine MDMA Negative (Negative); Urine Methadone Negative (Negative); Urine Methamphetamines Negative (Negative); Urine Oxycodone Negative (Negative); Urine Phencyclidine Negative (Negative); Urine Tetrahydrocannabinol Negative (Negative); Urine Tricyclic Antidepressant Negative (Negative); Urine pH Normal (Normal)
[2023-01-18 22:04] LABS: COVID19 -Nasal RAPID Negative (Negative)
[2023-01-18] MEDS: cefTRIAXone 1,000 MG in SODIUM CHLORIDE 0.9% 100 ML 200 MG IV (22:04)
[2023-01-18 22:44] LABS: Lactate (Lactic Acid) 1.5 mmol/L (0.7-2.1)
[2023-01-18] MEDS: SODIUM CHLORIDE 0.9% 1,000 ML 100 ML IV (23:17)
[2023-01-19] VITALS (9 sets, daily range): BP systolic 117–189; BP diastolic 88–132; PULSE 69–115; RESP 17–22; TEMP 35.9–36.6; O2SAT 93–98
--- NOTE | 2023-01-19 01:38 | PC.NURSE ---
Pt arrived to room #223 at 2250 from ER. and Son at bedside. Pt is pleasant with no c/o pain. Vitals stable. Able to answer questions with the help of family. Pt wheelchair bound with home chair in room. Complete left sided deficit r/t hx of strokes. Redness with small open tears on coccyx, periarea, and abd folds. Using pillows to float heels and q2 turn. PIV patent with fluids continuous and scheduled IV ABX. Family going home and pt appears to be resting comfortably.
--- NOTE | 2023-01-19 09:41 | P.HP_ITS ---
History of Present Illness History of Present Illness Date Patient Seen: 01/19/23 Time Patient Seen: 13:00 Chief complaint: lethargic Narrative: Kimmy Gray is a 57yo F with PMH of CVA with chronic left hemiparesis, DM2, VT s/p ICD and pacemaker, HTN, PE on warfarin, chronic left foot toe wound and spastic bladder who presents with increased lethargy and AMS. History obtained from ED chart note as patient is too somnolent to answer questions and is not present. Apparently she was less interactive and mumbling to the before he left for work. Concern was for worsening mental status so brought to the ED. Patient found to have UTI. CT noncontrast head showed white matter hypodensities suggestive of chronic microvascular ischemia but subacute ischemia cannot be ruled out. Admitted for MRI brain and abx for UTI. Patient currently cannot tell me the year but knows she is in the hospital and that it is located in [facility]. She says she is in no pain. She denies headache, NV, CP, SOB, abd pain, or diarrhea. 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 CVA (cerebral vascular accident) Diabetes mellitus History of ventricular fibrillation 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 Neuropathy Urinary incontinence Surgical History History of colonoscopy History of permanent cardiac pacemaker placement Family History Mother MRSA (methicillin resistant Staphylococcus aureus) Cardiovascular disease Stroke Myocardial infarction Father Cardiovascular disease Myocardial infarction Social History household members: spouse and children Smoking Status: Never smoker alcohol intake: former Meds Home Medications and Allergies Home Medications Medication Instructions Recorded Confirmed Type lisinopril 10 mg tablet 5 mg PO DAILY ##0 11/15/17 12/03/22 History atorvastatin 40 mg tablet 40 mg PO DAILY 12/21/21 12/03/22 History metformin 1,000 mg tablet 1,000 mg PO BID 12/21/21 12/03/22 History metoprolol succinate 25 mg 25 mg PO DAILY 12/21/21 12/03/22 History tablet,extended release 24 hr oxybutynin chloride 5 mg tablet 2.5 mg PO BID 12/21/21 12/03/22 History warfarin 7.5 mg tablet 7.5 mg PO QPM 12/21/21 12/03/22 History clotrimazole 1 % topical cream 1 applic topical BID yeast in 02/17/22 12/03/22 Rx folds #45 grams foam bandage 6 5/8 X 6 3/4 #40 ea 02/17/22 12/03/22 Rx (Allevyn Gentle Border Sacrum) hydrocortisone 0.5 % topical cream 1 applic topical BID PRN rash 02/17/2211/15 Rx #28.4 grams zinc oxide 25 % topical paste 1 applic topical TID PRN skin 02/17/22 12/03/22 Rx irritation #500 grams enoxaparin 80 mg/0.8 mL 80 mg (0.8 mL) SUBCUT Q12H #8 mL 10/20/22 12/03/22 Rx subcutaneous syringe (Lovenox) hydrocodone 5 mg-acetaminophen 325 1 tab PO Q8H PRN pain #10 tabs 10/20/22 12/03/22 Rx mg tablet rivaroxaban 15 mg (42)-20 mg (9) See Rx Instructions PO .COMPLEX 10/20/22 12/03/22 Rx tablets in a starter pack (Xarelto #51 ea DVT-PE Treatment 30-Day Starter) warfarin 5 mg tablet 5 mg PO DAILY #30 tabs 10/20/22 12/03/22 Rx Allergies Allergy/AdvReac Type Severity Reaction Status Date / Time No Known Drug Allergies Allergy Verified 03/15/21 22:37 Review of Systems Review of Systems Narrative: All other systems reviewed with the patient and are negative unless otherwise stated. Exam Vital Signs (past 8 hours): - 01/19/23 03:24 01/19/23 08:17 Temperature 97.1 F L 96.7 F L Pulse Rate 80 84 Respiratory Rate 17 18 Blood Pressure 143/90 H 117/100 H Pulse Oximetry 95 93 Oxygen Flow Rate 0 Oxygen Delivery Method Room Air Oxygen Flow Rate 0 Narrative Exam Narrative: GEN: no acute distress, lethargic HEENT: moist mucous membranes, PERRL NECK: trachea midline, no jvd PULM: clear bilaterally, no wheezes, rhonchi, rales CV: regular rate and rhythm, no murmurs ABD: soft, nontender, nondistended, no organomegaly, normal bowel sounds EXT: warm and well perfused with no edema NEURO: awake, lethargic, but follows commands, left sided weakness chronic Objective Labs 01/19/23 09:52 01/19/23 09:52 Labs: Laboratory Results - last 24 hr 01/18/23 01/18/23 01/18/23 19:35 19:35 20:00 WBC 7.0 RBC 5.34 H Hgb 15.5 Hct 45.4 MCV 85.0 MCH 29.1 MCHC 34.2 RDW 13.4 Plt Count 204 Neut % (Auto) 73.3 Lymph % (Auto) 16.9 L [place] % (Auto) 6.0 Eos % (Auto) 2.9 Baso % (Auto) 0.9 Neut # (Auto) 5100 Lymph # (Auto) 1200 [place] # (Auto) 400 Eos # (Auto) 200 Baso # (Auto) 100 Sodium 137 Potassium 3.9 Chloride 104 Carbon Dioxide 26 BUN 27 H Creatinine 0.61 Estimated GFR > 60 BUN/Creatinine Ratio 44.3 H Glucose 285 H Lactate Calcium 9.0 Total Bilirubin 0.4 AST 19 ALT 23 Alkaline Phosphatase 117 Ammonia 11 Total Protein 7.7 Albumin 3.8 Globulin 3.9 Albumin/Globulin Ratio 1.0 Urine Color Urine Appearance Urine pH Ur Specific [place] Urine Protein Urine Glucose (UA) Urine Ketones Urine Occult Blood Urine Nitrate Urine Bilirubin Urine Urobilinogen Ur Leukocyte Esterase Urine RBC Urine WBC Urine Bacteria Ur Culture Indicated? U Opiates 300ng/mL cut Ur Oxycodone Screen Urine Methadone Screen Ur Barbiturates Screen U Tricyclic Antidepress Ur Phencyclidine Scrn Ur Amphetamines Screen U Methamphetamines Scrn Ur MDMA Scrn (Ecstasy) U Benzodiazepines Scrn Urine Cocaine Screen U Marijuana (THC) Screen SARS-CoV-2 (PCR) 01/18/23 01/18/23 01/18/23 20:42 20:42 21:37 WBC RBC Hgb Hct MCV MCH MCHC RDW Plt Count Neut % (Auto) Lymph % (Auto) [place] % (Auto) Eos % (Auto) Baso % (Auto) Neut # (Auto) Lymph # (Auto) [place] # (Auto) Eos # (Auto) Baso # (Auto) Sodium Potassium Chloride Carbon Dioxide BUN Creatinine Estimated GFR BUN/Creatinine Ratio Glucose Lactate Calcium Total Bilirubin AST ALT Alkaline Phosphatase Ammonia Total Protein Albumin Globulin Albumin/Globulin Ratio Urine Color Yellow Urine Appearance Clear Urine pH 5.5 Ur Specific [place] 1.025 Urine Protein Negative Urine Glucose (UA) 3+ H Urine Ketones Trace H Urine Occult Blood Trace-intact Urine Nitrate Positive H Urine Bilirubin Negative Urine Urobilinogen 0.2 Ur Leukocyte Esterase Trace H Urine RBC None seen Urine WBC 10-30/hpf H Urine Bacteria Moderate (10-30) H Ur Culture Indicated? Specimen cultured U Opiates 300ng/mL cut Negative Ur Oxycodone Screen Negative Urine Methadone Screen Negative Ur Barbiturates Screen Negative U Tricyclic Antidepress Negative Ur Phencyclidine Scrn Negative Ur Amphetamines Screen Negative U Methamphetamines Scrn Negative Ur MDMA Scrn (Ecstasy) Negative U Benzodiazepines Scrn Negative Urine Cocaine Screen Negative U Marijuana (THC) Screen Negative SARS-CoV-2 (PCR) Negative 01/18/23 22:24 WBC RBC Hgb Hct MCV MCH MCHC RDW Plt Count Neut % (Auto) Lymph % (Auto) [place] % (Auto) Eos % (Auto) Baso % (Auto) Neut # (Auto) Lymph # (Auto) [place] # (Auto) Eos # (Auto) Baso # (Auto) Sodium Potassium Chloride Carbon Dioxide BUN Creatinine Estimated GFR BUN/Creatinine Ratio Glucose Lactate 1.5 Calcium Total Bilirubin AST ALT Alkaline Phosphatase Ammonia Total Protein Albumin Globulin Albumin/Globulin Ratio Urine Color Urine Appearance Urine pH Ur Specific [place] Urine Protein Urine Glucose (UA) Urine Ketones Urine Occult Blood Urine Nitrate Urine Bilirubin Urine Urobilinogen Ur Leukocyte Esterase Urine RBC Urine WBC Urine Bacteria Ur Culture Indicated? U Opiates 300ng/mL cut Ur Oxycodone Screen Urine Methadone Screen Ur Barbiturates Screen U Tricyclic Antidepress Ur Phencyclidine Scrn Ur Amphetamines Screen U Methamphetamines Scrn Ur MDMA Scrn (Ecstasy) U Benzodiazepines Scrn Urine Cocaine Screen U Marijuana (THC) Screen SARS-CoV-2 (PCR) Assessment & Plan Assessment & Plan narrative: # acute encephalopathy in setting of previous strokes -likely UTI related vs possible new stroke as patient's warfarin subtherapeutic -CT head with chronic microvascular ischemia but subacute ischemia cannot be ruled out -INR subtherapeutic at 1.0 -restart warfarin with lovenox bridge -unable to obtain MRI brain due to pacemaker -obtain carotid US to assess for worsening of stenosis -UA with pyuria, f/u culture -rocephin 1g daily -start aspirin 81mg daily -PT/OT evals # history of CVA s/p L-sided hemiparesis -patient has chronic left sided weakness which is unchanged -continue warfarin as above -continue statin -ASA as above # history of saddle PE in Sep 2020 -supposed to be on warfarin but noncompliance an issue -restart warfarin with lovenox bridge # spastic bladder -continue home oxybutynin # history of VT s/p pacemaker and ICD -tele -keep mag >2 # DM2 -hold home metformin -med dose SSI Code status is full code. COVID negative. DVT prophylaxis with Lovenox. Proxy is . I have reviewed home meds and used all available resources to reconcile the home meds. This patient will be admitted as observation and will require less than 2 midnights of hospital time to treat acute encephalopathy.
[2023-01-19 10:08] LABS: Add Manual Diff / Slide Review NO; Basophils Absolute Auto 100 /uL (0-100); Basophils Percent Auto 1.8 % (0-2); Eosinophils Absolute Auto 200 /uL (0-450); Eosinophils Percent Auto 2.9 % (2-4); Hematocrit 42.4 % (36-46); Hemoglobin 14.4 g/dL (12.0-16.0); Lymphocytes Absolute Auto 1100 /uL (1100-4500); Lymphocytes Percent Auto 20.7 % (25-40); Mean Corpuscular Hemoglobin 28.9 PG (26-34); Monocytes Absolute Auto 400 /uL (0-900); Monocytes Percent Auto 6.9 % (3-14); Neutrophils Absolute Auto 3600 /uL (1500-7000); Neutrophils Percent Auto 67.7 % (50-75); Platelet Count 187 X10^3/uL (150-400); Red Blood Cell Count 4.98 X10^6/uL (4.0-5.2); Red Cell Distribution Width 13.5 % (11.6-14.8); White Blood Cell Count 5.3 X10^3/uL (4.5-11.0)
[2023-01-19 10:15] LABS: Prothrombin Time 11.9 SECONDS (10.1-12.7)
[2023-01-19 10:20] LABS: BUN Creatinine Ratio 40.4 (6-22); Blood Urea Nitrogen 19 mg/dL (7-17); Calcium 8.5 mg/dL (8.4-10.2); Carbon Dioxide 24 mmol/L (22-32); Chloride 108 mmol/L (98-107); Estimated Glomerular Filt Rate > 60 mL/min (>60); Glucose 253 mg/dL (70-100); HEMOLYSIS < 15 (0-50); Potassium 3.4 mmol/L (3.4-5.1); Sodium 139 mmol/L (137-145)
[2023-01-19 10:35] LABS: Magnesium 1.7 mg/dL (1.6-2.3)
[2023-01-19] MEDS: cefTRIAXone 1,000 MG in SODIUM CHLORIDE 0.9% 100 ML 200 MG IV (11:05)
[2023-01-19] MEDS: METOPROLOL ER 25 MG TABLET PO (11:07)
[2023-01-19] MEDS: SODIUM CHLORIDE 0.9% 1,000 ML 100 ML IV ×2 (11:09→23:31)
[2023-01-19] MEDS: ENOXAPARIN 60 MG/0.6 ML SYRINGE 115 MG SUBCUT ×2 (11:16→21:21)
--- NOTE | 2023-01-19 11:25 | CM.DANOTE ---
Addendum entered by RICHAR Loco 01/19/23 13:48: ADD: Per PT/OT initial eval this afternoon, pt likely at her baseline but recommending increased personal care (hygiene, showering, hair, oral care, etc..) either at home or LTC facility and PT/OT aware pt's insurance/lack of insurance is a barrier to some options. SW called spouse Javi [phone] and spouse answered but clearly was woken up but spouse confirms that pt does not have insurance right now and too expensive to get her on his own insurance. Spouse is unsure if they are over qualified for Medicaid and SW strongly requested he call [facility] and provided phone number and then messaged [facility] and requested they maybe call him now as we are going into a weekend. Plan: SW to follow for confirmation if any way pt can be enrolled in Medicaid for health insurance and then would determine if she would have options for [facility] and HH at this time for increased care. BF Original Note: Patient is a 57 yo female who was admitted on 01/18/23 for Lethargy/AMS. Pt has SELF PAY currently showing for insurance and Donna Redman as PCP. EMR was reviewed. Per MD, pt with hx of prior stroke and left side deficits and admitted 2 months ago for similar and admitted for small PE, pulmonary edema, dehydration and CVA r/o. MRI ordered and pending. PT/OT ordered and pending. Per RN, pt seems to have made some progress this morning and alert enough to take her morning meds and communicate some. SW met bedside with pt, no family present, and explained role. Pt able to participate in discussion but soft spoken and slow to respond. Pt confirmed that she still resides in [place] with spouse, Javi, sons and daughter. She does not drive, is in a wheelchair at baseline, family assists with meals, showers, meds. Confirmed that spouse works material handler 1st shift here at the hospital and unsure if her spouse was able to get her enrolled with insurance since her last admission and discharge home. Pt agreeable to BALAJI talking to her spouse and family. Pt has POLST scanned in EMR as full treatment but no scanned DPOA pwk. Staff attempted to call spouse but phone did not seem to be working. SW called pt's son Aris [phone] and he confirms that spouse is currently sleeping as he does work tonight at the hospital and typically wakes around 1500. SW inquired about best contact number for spouse and he provided [phone]. Plan: SW updated [facility] with this updated spouse contact number and best time to call after and hopefully they can confirm if pt has health insurance and SW to discuss d/c planning and DPOA. Pt's insurance status will help determine d/c planning options. RICHAR Loco Discharge Planning/Care Management CM Discharge Assessment Start: 01/19/23 11:20 Freq: Status: Active Protocol: Document 01/19/23 11:20 BF (Rec: 01/19/23 11:25 BF [id number]) Discharge Planning Assessment Assigned Folder And Notcher RICHAR Olvera DPOA/Assigned Designee Name informally spouse Javi Gray Contact Information [phone] Advance Directives? Yes: Polst Advance Directives on File No History Provided By Patient,Family Member, Significant Other,Medical Record Has Patient been admitted in last 30 No days? Comment 2 months ago for similar presentation Prior Living Arrangements House Household Members spouse,children Type of transporation used prior to Relies on Others admit Independent with ADL's No Is patient alert and oriented? Yes: somewhat Needs Assistance With Bathing,Toileting,Managing Medications,Home Chores / Shopping Caregiver for Another No DME Already Rented / Owned Wheelchair,Bedside Commode, Other Comment pt has darlene lift at home also Comment Pending PT/OT eval and if pt has insurance Comment Patient is currently self pay . Spouse was given phone number for [place] exchange to reinstate insurance. Barriers to Discharge Yes Comment Insurance Discharge Plan Home Transportation Arrangement Family to provide transport. Additional Comment Patient currently self pay' per spouse patient will have insurance on September 17, 2020. Patient is self pay again, 2022, had been insuranced, but notes indicate insurance had dropped them. Spouse is to be calling insurance company and [facility] attempting to assist/confirm Whiteboard Updated in Patient Room with Yes name and ext. # of Folder And Notcher Review Status In Process Please Provide Date Initial DC 01/19/23 Assessment Was Performed Next Review Type Continued Stay Review
[2023-01-19] MEDS: OXYBUTYNIN 5 MG TABLET 2.5 MG PO ×2 (11:34→11:55)
--- NOTE | 2023-01-19 11:37 | PT-IP ANOTE ---
Attempted to see patient but she was soundly sleeping and not rousable. Will attempt again this afternoon.
[2023-01-19] MEDS: MAGNESIUM SULFATE 2 GM/50 ML PIGGYBACK IV (11:54)
[2023-01-19] MEDS: INSULIN LISPRO 100 UNIT/ML 3ML VIAL SUBCUT ×2 (12:11→17:49)
[2023-01-19] MEDS: CLOTRIMAZOLE 1% CRM 30 GM 1 APPLIC TOP ×2 (12:43→22:14)
--- NOTE | 2023-01-19 13:42 | OT.IP.EVAL ---
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 CVA (cerebral vascular accident) Diabetes mellitus History of ventricular fibrillation 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 Neuropathy Urinary incontinence Surgical History (Last Reviewed 01/18/23 @ 21:35 by Inga Kumari DO) History of colonoscopy History of permanent cardiac pacemaker placement Occupational Therapy Inpatient Evaluation/Re-Eval M1 PT/OT-IP Prior Functional Status Start: 01/19/23 16:10 Freq: NEEDED Status: Active Protocol: Document 01/19/23 13:06 [facility] (Rec: 01/19/23 16:35 [facility] [id number]) Medical Review Prior Functional Status Medical History Reviewed Yes Communication Speaks softly and slowly and requires extra time to respond . Mobility and Gait Transfers in/out of bed and w/ c with assist of 2 sons. Non- ambulatory. Has a darlene lift but does not use it. Spends most of her day in a chair. Activities of Daily Living and IADL's Assist for all ADL's. Pt states able to eat after set- up and also able to do some grooming needs however per pt has not had a chance to do much oral care lately. Prior Functional Level (Other details) Patient unclear about specifics regarding mobility and self-care. Social History Household Members spouse,children Living Arrangements Mobile home Number of Floors (Floors) One Floor Number of Stairs To Enter/Railing? Lives in a mobile home with some stairs to enter, though patient stated sometimes they use a ramp and sometimes they carry her in the w/c. Not clear about home setup. 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 Patient stated one of her sons is home during the day and the other sometimes volunteers outside the home. M2 OT-IP Current Condition Start: 01/19/23 16:10 Freq: Status: Active Protocol: Document 01/19/23 13:06 [facility] (Rec: 01/19/23 16:35 [facility] [id number]) Occupational Therapy Current Condition Current Condition Evaluation Date 01/19/23 Treatment Diagnosis UTi Diagnosis Onset Date 01/18/23 M3 OT- IP Subjective and Pain Start: 01/19/23 16:10 Freq: Status: Active Protocol: Document 01/19/23 13:06 [facility] (Rec: 01/19/23 16:35 [facility] [id number]) OT- Subjective Occupational Therapy Visit Type Type Initial Evaluation Visit Start Time 13:06 Visit Stop Time 13:42 Notes 36 Occupational Therapy Visit Comments Patient Comments Pt very soft spoken but agreed to do OT and PT eval. Patient/Caregiver Goals To get better. OT Pain Assessment Pain When Pain Assessed At Rest Pain Present Pain Present Denied Pain M4 OT- IP ADL's Start: 01/19/23 16:10 Freq: Status: Active Protocol: Document 01/19/23 13:06 [facility] (Rec: 01/19/23 16:35 [facility] [id number]) OT [id number] Comments OT Self-Feeding Comments At this time would be best for pt to have assist to feed due to weakness and decreased activity tolerance. OT ADL-Grooming Comments OT Grooming Comments Pt able to wash her wash after use of wash cloth. Pt hair is very tangled at this time. OT ADL-Oral Care General Eval Oral Care Ability Standby Assistance Areas of Assistance Retrieving/Set-Up of Items Comments Oral Care Comments Pt able to sit with MOD-MAXA for balance from PT and able to do her oral care needs after set-up. OT ADL-Dressing General Eval Lower Body Dressing Ability Total Assistance Areas Needing Assistance Socks OT ADL-Toileting General Evaluation Toileting Ability Total Assistance OT ADL-Bathing Comments OT Bathing Comments Pt states normally sponges at home and has not gotten a shower for awhile. M5 OT- IP IADL's Start: 01/19/23 16:10 Freq: Status: Active Protocol: Document 01/19/23 13:06 [facility] (Rec: 01/19/23 16:35 [facility] [id number]) OT-Instrumental Activities of Daily Living Home Safety Awareness Home Safety Comments Pt is aware that she needs assist for all ADl and mobility needs. Medication Management Medication Management Caregiver Administers Money Management Money Management Caregiver Provides Assistance Meal Preparation Meal Preparation Caregiver Provides Assist Supervisor Tumblers Supervisor Tumblers Caregiver Provides Assist M6 OT- IP Functional Cognition Start: 01/19/23 16:10 Freq: Status: Active Protocol: Document 01/19/23 13:06 [facility] (Rec: 01/19/23 16:35 [facility] [id number]) Cognitive Factors Limiting Selfcare Function Cognitive Ability Level of Alertness Alert Patient Orientation Name Attention Span Ability Capable of Focused Attention, Capable of Sustained Attention Cognitive Comments Cognitive Assessment Comments Pt able to follow commands and needing increased time to process and respond to commands. M7 OT- IP Mobility and Balance Start: 01/19/23 16:10 Freq: Status: Active Protocol: Document 01/19/23 13:06 [facility] (Rec: 01/19/23 16:35 [facility] [id number]) OT- Bed Mobility Assessment Rolling Level of Assistance 2 Person Assistance Supine to Sit Supine to Sit Assist Maximum Assistance,2 Person Assistance Sit to Supine Sit to Supine Assist Maximum Assistance,2 Person Assistance OT-Transfer Assessment Comments Mobility Comments MAXA X2 for bed mobility needs and able to assist with her right UE and LE. Pt able to sit at the edge of the bed with MAXA and able to partake in oral care needs before getting tired and having to lie down. OT- Balance Assessment Sitting Balance and Reactions Static Sitting Balance Ability Poor Dynamic Sitting Balance Ability Poor M8 OT- IP Objective Assessments Start: 01/19/23 16:10 Freq: Status: Active Protocol: Document 01/19/23 13:06 [facility] (Rec: 01/19/23 16:35 [facility] [id number]) OT Gross Range of Motion Upper Extremity Range of Motion Assessment Left Impaired OT Strength Upper Extremity Strength Assessment Left Impaired Comments Strength Comments LUE 0-1/5 throughout RUE 4-/5 M9 OT- IP Assessment and Plan Start: 01/19/23 16:10 Freq: Status: Active Protocol: Document 01/19/23 13:06 [facility] (Rec: 01/19/23 16:35 [facility] [id number]) OT Summary Assessment and Plan Potential Rehabilitation Potential Fair Analytic Complexity at Evaluation Moderate Summary OT Impairments Strength,Balance,Tone, Functional Mobility,Self- Feeding,Grooming Progress Towards Goals Slow Progress due to Medical Issues,Slow Progress due to Activity Tolerance,Slow Progress due to Cognition Assessment Summary Pt MOD complexity and main barriers are decreased balance and activity tolerance. Pt on prior admission to the hospital 12/07/21 on PT selene was able to transfer with two person squat pivot and do bed mobility needs with mod/MAXA. Pt would benefit from skilled rehab to maximize her mobility needs and that pt would be able to do her grooming, oral care, and eating needs on her own after set-up. Otherwise to go to LTC or home with 24/7 assist if pts family able to provide enough assist, pt's family has just been using two person assist to move her at this time per pt from chair to bed mainly. Goals Self-Feeding Goal Standby Assistance Grooming Goal Standby Assistance Toilet Transfer Goal Bedside Commode OT-Other Goals MODA x2 to [facility] squat pivot. Days to Meet Goals 20 Frequency of Treatment Frequency Of Treatment Once a Day Treatment Plan OT Treatment Plan ADL Training,Functional Mobility,Patient/Family Education,Discharge Planning Discharge Recommendations OT Discharge Recommendations Home with 24/7 Assist Available,Home Health,SNF Rehab,LTAC,Home vs SNF Transportation Needs at Discharge Wheelchair/Cabulance,Stretcher /Ambulance
[2023-01-19] MEDS: POTASSIUM CHLORIDE 20 MEQ TAB 40 MEQ PO (14:14)
--- NOTE | 2023-01-19 15:24 | PT.IIE ---
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 Mobility and Gait Transfers in/out of bed and w/ c with assist of 2 sons. Non- ambulatory. Has a darlene lift but does not use it. Spends most of her day in a chair. Activities of Daily Living and IADL's Assist for all ADL's. Prior Functional Level (Other details) Patient unclear about specifics regarding mobility and self-care. Social History Household Members spouse,children Living Arrangements Mobile home Number of Floors (Floors) One Floor Number of Stairs To Enter/Railing? Lives in a mobile home with some stairs to enter, though patient stated sometimes they use a ramp and sometimes they carry her in the w/c. Not clear about home setup. 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 Patient stated one of her sons is home during the day and the other sometimes volunteers outside the home. M2 PT-IP Current Condition Start: 01/19/23 14:52 Freq: NEEDED Status: Active Protocol: Document 01/19/23 14:52 ES (Rec: 01/19/23 15:24 ES [id number]) Physical Therapy Current Condition Current Condition Evaluation Date 01/19/23 Treatment Diagnosis UTI, possible CVA Onset Date 01/18/23 M3 PT-IP Subjective Start: 01/19/23 14:52 Freq: NEEDED Status: Active Protocol: Document 01/19/23 14:52 ES (Rec: 01/19/23 15:24 ES [id number]) Subjective Physical Therapy Visit Type Type Initial Evaluation Visit Start Time 12:55 Visit Stop Time 13:41 Total Visit Minutes 46 Notes OT present Physical Therapy Visit Comments Patient Comments Patient initially sleeping, wakened by PT and drowsy but agreeable to work with therapy . Became more alert while taking history. Patient denied pain. She stated her Amaury doesn't have a lot of time to help her out at home. M4 PT-IP Mobility and Gait Start: 01/19/23 14:52 Freq: NEEDED Status: Active Protocol: Document 01/19/23 14:52 ES (Rec: 01/19/23 15:24 ES [id number]) PT-Bed Mobility Assessment Rolling Type of Rolling Bilateral Level of Assist Maximal Assistance,1 Person Assistance Supine to Sit Supine to Sit Maximum Assistance,2 Person Assistance,Head of Bed Elevated,Bedrails Sit to Supine Sit to Supine Maximum Assistance,2 Person Assistance Scooting Scooting to Edge of Bed Maximum Assistance Scooting Up and Down in Bed Dependent Gait Assessment Comments Gait Comments Non-ambulatory at baseline. PT-Balance Assessment Sitting Balance and Reactions Static Sitting Balance Ability Poor Dynamic Sitting Balance Ability Poor Comments Other Balance Tests/Deviations/Treatment Patient sat at EOB with max A : for trunk support to participate in self-care. She had diplayed poor righting reactions, and had difficulty propping self up with RUE. M5 PT-IP Objective Assessments Start: 01/19/23 14:52 Freq: NEEDED Status: Active Protocol: Document 01/19/23 14:52 ES (Rec: 01/19/23 15:24 ES [id number]) Orientation Orientation/Cognition Level of Alertness Lethargic Orientation Name,Place Language Function Ability Word Finding Difficulties Comments Requires extra time to respond to questions, speaks softly and slowly. Gross Range of Motion Upper Extremity ROM Assessment Within Functional Limits Lower Extremity ROM Assessment Within Functional Limits Strength Upper Extremity Strength Assessment Bilaterally Impaired Comments Strength Comments RUE grossly 4-/5 LUE 0-1/5 RLE grossly 3+/5 LLE 0-1/5 Sensation Assessment Comments Sensation Comments Patient denied numbness/ tingling Muscle Tone Muscle Tone WNL No Comments Muscle Tone Comments Hypotonic LUE/LE M7 PT-IP Assessment and Plan Start: 01/19/23 14:52 Freq: NEEDED Status: Active Protocol: Document 01/19/23 14:52 ES (Rec: 05/05/23 15:24 ES [id number]) PT Summary Assessment and Plan Potential Rehabilitation Potential Fair Status of Condition at Evaluation Evolving Summary Impairments Strength,Balance,Tone,Bed Mobility,Transfers Assessment Summary Patient is a 57 year old female who presents with severely impaired functional mobility due to the above problems. It appears that she has declined since her prior hospitalization based on prior PT notes. On 12/05/22, patient was performing bed mobility with mod/max A, and transferring bed to/from w/c with max A x1. Today, she is a 2-person max A for bed mobility and would require a darlene lift for transfers. She is at increased risk for falls in w/c due to poor trunk control. Family has been providing assistance at home, but patient may need more than what is available to her at home to meet all needs. Recommend in-home caregivers vs LTC placement to reduce burden of care on family. Goals Bed Mobility Goal Moderate Assistance Transfer Goal Moderate Assistance Other Goals Patient will be able to sit unsupported with SBA for 5 minutes without LOB in order to reduce risk of falls during transfers. Patient will be able to perform squat pivot vs slideboard transfer bed to/ from w/c with mod Ax1. Family will be independent in darlene lift transfers bed to/ from w/c. Days to Meet Goals 10 Frequency of Treatment Frequency Of Treatment Once a Day Treatment Plan Physical Therapy Treatment Plan Bed Mobility Training,Transfer Training,Therapeutic Exercise ,Balance Retraining,Discharge Planning,Neuromuscular Re-ed, Manual Therapy Precautions Other Precautions High fall risk Recommendations To Nursing Amount of Assist Needed 2 Person Assist,Mechanical Lift Discharge Recommendations PT Discharge Recommendations Home vs SNF Other Discharge Recommendations Recommend additional caregivers at home or SNF vs LTC placement Transportation Needs at Discharge Wheelchair/Cabulance,Stretcher /Ambulance
--- NOTE | 2023-01-19 16:52 | DI.US.S_ITS ---
PROCEDURE: US CAROTID DOPPLER BI INDICATIONS: ASSESS LEVEL OF STENOSIS TECHNIQUE: Color and pulse Doppler interrogation was performed of both carotid systems, with image documentation and velocity measurements. COMPARISON: None. FINDINGS: Stenosis calculations are based on SRU (Society of Radiologists in Ultrasound) criteria. Right side: Brachial blood pressure: 166/82 mm Hg. Common carotid artery peak systolic velocity: 78 cm/sec. Internal carotid artery peak systolic velocity: 44 cm/sec. Internal carotid artery end diastolic velocity: 48 cm/sec. External carotid artery peak systolic velocity: 150 cm/sec. ICA/CCA peak systolic ratio: 0.6 . Rodriguez scale imaging description: No significant plaque. Percent internal carotid artery stenosis: Normal . Vertebral artery: Flow direction is antegrade. Left side: Brachial blood pressure: 169/93 mm Hg. Common carotid artery peak systolic velocity: 62 cm/sec. Internal carotid artery peak systolic velocity: 88 cm/sec. Internal carotid artery end diastolic velocity: 72 cm/sec. External carotid artery peak systolic velocity: 112 cm/sec. ICA/CCA peak systolic ratio: 1.4 . Rodriguez scale imaging description: No significant plaque. Percent internal carotid artery stenosis: Normal . Vertebral artery: Flow direction is antegrade. IMPRESSION: 1. No hemodynamically significant stenosis based on waveform or velocity criteria in either carotid or vertebral arteries. Dictated by: Phuong Lima M.D. on 01/19/2023 at 18:23 Approved by: Phuong Lima M.D. on 01/19/2023 at 18:26
--- NOTE | 2023-01-19 16:55 | DI.ECHO.S_ITS ---
[facility] +---------+ : : [id number] : : : : [id number] : : : : Phone: [phone]+ Echocardiogram Report + + :Name: RAMIN LINDSEY Study Date: 01/20/2023 Height: 67 in : :[facility] ReadingLocation: Weight: 250 lb : : Gender: Female BSA: 2.2 m2 : :: 1965 Age: 57 yrs BP: 171/124 mmHg: :Reason For Study: POSSIBLE STROKE : :Ordering Physician: RAMA, : :JOCELIN Rosario Performed By: Jenny Melissa : :Referring: JOCELIN ONTIVEROS : + + Interpretation Summary The study quality was technically difficult. The ejection fraction is estimated to be 35-40%. There is a significant dyssynchronous contraction pattern due to the paced rhythm. There akinesis and thinning of the distal septum, distal anterior wall and apex Diastolic function could not be accurately assessed due to paced rhythm. The right ventricle is normal size. Right ventricular systolic function is mild to moderately reduced. No significant valvular abnormalities. Unable to estimate PASP. There is a small pericardial effusion noted. There are no echocardiographic indications of cardiac tamponade. Compared to the prior study dated 08/23/2020, the overall ejection fraction appears to have decreased, the segmental wall motion abnormalities are unchanged. Note that prior echo included a bubble study that did not show evidence of an intra-atrial septal defect. Procedure: A two-dimensional transthoracic echocardiogram with color flow and Doppler was performed. The study quality was technically difficult. A contrast injection of Definity was performed to improve assessment of LV function. Comparison is made with the echocardiogram of 08/23/2020. The heart rate ranged between 88-103 bpm during the study. Left Ventricle: The left ventricle is normal in size and wall thickness. The ejection fraction is estimated to be 35-40%. There is a significant dyssynchronous contraction pattern due to the paced rhythm. There akinesis and thinning of the distal septum, distal anterior wall and apex. Diastolic function could not be accurately assessed due to paced rhythm. Right Ventricle: The right ventricle is normal size. There is a pacemaker lead in the right ventricle. Right ventricular systolic function is mild to moderately reduced. Atria: The left atrial size is normal. Right atrial size is normal. There is a catheter/pacemaker lead seen in the right atrium. There is no Doppler evidence for an interatrial shunt. Mitral Valve: The mitral valve leaflets appear mildly thickened, but open well. The mitral valve leaflets are mildly calcified. There is mild mitral annular calcification. There is trace mitral regurgitation. Aortic Valve: The aortic valve is mildly calcified. There is moderate aortic valve sclerosis. There is no aortic valve stenosis. There is trace aortic regurgitation. Tricuspid Valve: The tricuspid valve is normal in structure and function. There is trace tricuspid regurgitation. Pulmonary artery pressures cannot be estimated because of the lack of a measurable TR jet velocity. Pulmonic Valve: The pulmonic valve is not well visualized. There is no pulmonic valvular regurgitation. Great Vessels: The aortic root is normal size. The ascending aorta could not be visualized. The IVC is of normal diameter and collapses greater than 50% with a sniff. This suggests a low right atrial pressure of 3 mm Hg. Pericardium/ Pleura There is a small pericardial effusion noted. There are no echocardiographic indications of cardiac tamponade. There is no pleural effusion. MMode/2D Measurements & Calculations LVIDd: 4.4 cm LVOT diam: 2.0 cm LVIDs: 3.1 cm Ao root diam: 3.2 cm FS: 28.7 % IVSd: 1.3 cm LVPWd: 1.2 cm LV ruiz. diameter/BSA (cm/m^2): 2.0 LV sys. diameter/BSA (cm/m^2): 1.4 LA A2 area: 15.1 cm2 RA long axis: 4.0 cm LA A4 area: 14.5 cm2 RA area: 11.6 cm2 LA length (vol): 4.6 cm RA vol: 28.3 ml LA vol: 40.3 ml RA : 12.7 ml/m2 LA vol index: 18.1 ml/m2 IVC diam: 0.99 cm RVD1 (basal): 2.4 cm RVD2 (mid): 2.0 cm TAPSE: 1.5 cm Doppler Measurements & Calculations Ao V2 max: 121.8 cm/sec LVOT Max Gilbert: 69.7 cm/sec Ao V2 mean: 90.7 cm/sec LV V1 max P.9 mmHg Ao max P.1 mmHg LV V1 VTI: 10.2 cm Ao mean P.5 mmHg OLAYINKA(I,D): 1.6 cm2 Ao V2 VTI: 20.4 cm OLAYINKA(V,D): 1.8 cm2 sev ratio: 0.50 OLAYINKA indexed to BSA (cm^2/m^2): 0.71 MV E max gilbert: 99.4 cm/sec PA V2 max: 123.0 cm/sec MV A max gilbert: 24.7 cm/sec PA V2 mean: 88.4 cm/sec MV E/A: 4.0 PA mean P.5 mmHg Med Peak E' Gilbert: 12.1 cm/sec E/E' med: 8.2 Lat Peak E' Gilbert: 6.0 cm/sec E/E' lat: 16.7 E/e' average: 12.4 MV dec time: 0.15 sec SV(LVOT): 32.0 ml Reading Physician:04:49 PM
[2023-01-19] MEDS: WARFARIN 5 MG TABLET 7.5 MG PO (17:47)
[2023-01-19] MEDS: ATORVASTATIN 20 MG TABLET 40 MG PO (21:21)
--- NOTE | 2023-01-19 22:31 | PC.NURSE ---
Addendum entered by Unique Mathew R.N. 01/20/23 02:00: blood pressure elevated and heart rate elevated, Dr. Clemens called and informed of change in patient. new orders noted. Patient continually moaning, and groaning medicated for pain. Dr. Clemens calling to check on patient informed of the little change in status. IV fluids stopped, CXR ordered and more labs ordered. Original Note: Patient answering questions slowly, at bedside to see patient, and patient smiling at him and making needs known. Patient normally conversant and able to feed herself. Nods head to questions about frustrations about being unable to speak.
[2023-01-20] VITALS (13 sets, daily range): BP systolic 100–181; BP diastolic 68–132; PULSE 72–135; RESP 10–25; TEMP 35.9–37; O2SAT 83–99
[2023-01-20] MEDS: METOPROLOL ER 25 MG TABLET PO (00:16)
[2023-01-20] MEDS: HYDROCODONE/ACET 5/325 TABLET 1 TAB PO (00:19)
--- NOTE | 2023-01-20 01:36 | DI.RAD.S_ITS ---
PROCEDURE: XR CHEST 1V INDICATIONS: tachycardia TECHNIQUE: One view of the chest was acquired. COMPARISON: [facility], CR, XR CHEST 1V, 01/18/2023, 19:33. FINDINGS: Surgical changes and devices: Left chest wall AICD redemonstrated. Lungs and pleura: There is a persistent small right pleural effusion with patchy indistinct right basilar opacities consistent with consolidation or atelectasis. Mediastinum: Mediastinal contours appear unchanged. Heart size is normal. Bones and chest wall: No suspicious bony lesions. Overlying soft tissues appear unremarkable. IMPRESSION: 1. Persistent small right pleural effusion with indistinct right basilar atelectasis or consolidation. Dictated by: Dandy Gil M.D. on 01/20/2023 at 2:00 Approved by: Dandy Gil M.D. on 01/20/2023 at 2:01
[2023-01-20 02:37] LABS: D Dimer 2091 ng/ml (<500)
[2023-01-20 02:39] LABS: Lactate (Lactic Acid) 1.3 mmol/L (0.7-2.1)
[2023-01-20 02:43] LABS: Magnesium 2.1 mg/dL (1.6-2.3)
[2023-01-20 02:44] LABS: Alanine Aminotransferase 25 IU/L (<35); Albumin 4.1 g/dL (3.5-5.0); Alkaline Phosphatase 128 U/L (38-126); Aspartate Aminotransferase 21 IU/L (14-36); Bilirubin Total 0.7 mg/dL (0.2-1.3); Blood Urea Nitrogen 11 mg/dL (7-17); Calcium 9.1 mg/dL (8.4-10.2); Carbon Dioxide 22 mmol/L (22-32); Chloride 105 mmol/L (98-107); Estimated Glomerular Filt Rate > 60 mL/min (>60); Glucose 311 mg/dL (70-100); HEMOLYSIS 25 (0-50); Sodium 139 mmol/L (137-145); Total Protein 8.1 g/dL (6.3-8.2)
[2023-01-20 02:45] LABS: Add Manual Diff / Slide Review NO; Basophils Absolute Auto 100 /uL (0-100); Basophils Percent Auto 0.9 % (0-2); Eosinophils Absolute Auto 0 /uL (0-450); Eosinophils Percent Auto 0.6 % (2-4); Hematocrit 48.6 % (36-46); Hemoglobin 16.4 g/dL (12.0-16.0); Lymphocytes Absolute Auto 900 /uL (1100-4500); Lymphocytes Percent Auto 12.6 % (25-40); Mean Corpuscular HGB Conc 33.8 % (30-36); Mean Corpuscular Hemoglobin 28.9 PG (26-34); Mean Corpuscular Volume 85.5 fL (80-100); Monocytes Absolute Auto 300 /uL (0-900); Monocytes Percent Auto 4.6 % (3-14); Neutrophils Absolute Auto 5800 /uL (1500-7000); Neutrophils Percent Auto 81.3 % (50-75); Platelet Count 232 X10^3/uL (150-400); Red Blood Cell Count 5.68 X10^6/uL (4.0-5.2); Red Cell Distribution Width 13.3 % (11.6-14.8); White Blood Cell Count 7.1 X10^3/uL (4.5-11.0)
[2023-01-20 02:53] LABS: NT-proBNP (BNP-Adult 18+) 1140 pg/mL (<125)
--- NOTE | 2023-01-20 03:10 | DI.CT.S_ITS ---
PROCEDURE: CT ANGIO CHEST PE PROTOCOL INDICATIONS: PE? TECHNIQUE: After the administration of intravenous contrast, 2 mm thick sections acquired from the pulmonary apices to the posterior costophrenic angles. 3-dimensional maximum intensity projection (MIP) coronal and sagittal reformats were then acquired through the thorax. For radiation dose reduction, the following was used: automated exposure control, adjustment of mA and/or kV according to patient size. COMPARISON: [facility], CT, CT ANGIO CHEST PE PROTOCOL, 10/20/2022, 10:24. FINDINGS: Image quality: Excellent. Pulmonary arteries: Pulmonary arteries are normal in size, and demonstrate no intraluminal filling defects to suggest central pulmonary embolism. Lungs and pleura: Lungs are clear. Small right pleural effusion. No pneumothorax. Central and peripheral airways are patent. Right basilar pulmonary nodule measuring 5 mm. (Axial image 186) additional 5 mm pulmonary nodule within the right lower lobe axial image 181. Right lower lobe traction bronchiectasis with associated round atelectasis. Mediastinum: Heart size is normal, without pericardial effusion. No mediastinal or hilar adenopathy. Thoracic aorta is normal in caliber and enhancement. Esophagus is normal in caliber, without hiatal hernia. Coronary artery calcifications. Bones and chest wall: No suspicious bony lesions. Ribs and thoracic spine appear intact throughout. Thyroid gland appears normal. No axillary or supraclavicular adenopathy. Abdomen: Visualized upper abdominal solid organs appear normal in the early arterial phase of enhancement. IMPRESSION: 1. No pulmonary embolus. 2. Small right pleural effusion. 3. Right lower lobe round atelectasis and traction bronchiectasis 4. Right lower lobe pulmonary nodules measuring 5-6 mm, unchanged from comparison CT 10/20/2022. Consider CT imaging in 12 months to establish chronicity. Dictated by: Javi Rossi M.D. on 01/20/2023 at 12:16 Approved by: Javi Rossi M.D. on 01/20/2023 at 12:25
--- NOTE | 2023-01-20 06:17 | RT ---
While observing the patients O2 saturation on RA this is what I obtained: 01-20-23 @ 01:01:30 85% 01:02 98% 01:04 85% 01:04:30 98% 01:05 85% 01:10 85% 01:17 80% 01:25 85% 01:25:30 99% 01:26:30 80% 01:27:30 84% 01:28 80% 01:29 79% 01:30 86% 01:31:30 84% 01:32:30 81% 01:34 82% The patient continued this pattern of dropping in the low 80's then back to the 90's then back down to the low 80's again. I did not observe a 5 minute consecutive reading of sats below 88%.
[2023-01-20] MEDS: INSULIN LISPRO 100 UNIT/ML 3ML VIAL SUBCUT ×4 (08:53→20:47)
[2023-01-20] MEDS: ASPIRIN EC 81 MG TABLET PO (08:54)
[2023-01-20] MEDS: FUROSEMIDE 40 MG/4 ML VIAL 20 MG IV (08:54)
[2023-01-20] MEDS: ENOXAPARIN 60 MG/0.6 ML SYRINGE 115 MG SUBCUT ×2 (08:55→20:46)
[2023-01-20] MEDS: CLOTRIMAZOLE 1% CRM 30 GM 1 APPLIC TOP ×2 (08:56→20:47)
[2023-01-20] MEDS: cefTRIAXone 1,000 MG in SODIUM CHLORIDE 0.9% 100 ML 200 MG IV (09:18)
[2023-01-20] MEDS: HYDRALAZINE 20 MG/ML VIAL 10 MG IV (10:03)
[2023-01-20] MEDS: METOPROLOL TARTRATE 5 MG/5 ML INJ IV (10:03)
--- NOTE | 2023-01-20 10:44 | PT-IP ANOTE ---
Pt on hold for PT today due to pending testing to rule out possible pulmonary embolism.
[2023-01-20] MEDS: HYDROMORPHONE 0.5 MG INJ IV ×3 (10:59→19:27)
--- NOTE | 2023-01-20 11:05 | ST.IPCSEOM ---
Visit Care Team Role Provider Type Donna Redman PA-C Primary Care Provider Non-Staff Specialty: Medical Address: [address] [place] [address] [address], [place], [address] Email: Kevin Leon MD Family Provider Physician Specialty: Family Practice Address: [address] [place] [address], [place], [address] Email: [email or web address] Inga Kumari DO Emergency Provider Physician Specialty: Emergency Medicine Address: [address] [place] [address], [facility] Email: [email or web address] Tomer Stockton DO Admit Provider Physician Attending Provider Specialty: Internal Medicine Address: [address] [place] [address], [facility] Email: [email or web address] 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 (Medical) CVA (cerebral vascular accident) (Medical) Left lacunar infarct, left basal ganglia and arreola radiata Diabetes mellitus (Medical) Uncontrolled, hemoglobin A1c 13.7 on 08/22/2020 History of ventricular fibrillation (Medical) ICD implanted 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 (Medical) Neuropathy (Medical) Urinary incontinence (Medical) Speech-Language Pathology Swallow Evaluation [employer] Clinical Swallow Evaluation Start: 01/20/23 10:37 Freq: Status: Active Protocol: Document 01/20/23 10:37 MG (Rec: 01/20/23 11:05 MG [id number]) Clinical Swallow Evaluation Session Time Visit Start Time 10:00 Visit Stop Time 10:25 Total Visit Minutes 25 Visit Information Visit Number 1 Setting Assessment Location Acute Care Visit Type Note Type Initial evaluation Next Note Type Next Note Type Re-evaluation Patient Information Identification Type Name,Wristband History Per H&P: Pt is a 57yo F with PMH of CVA with chronic left hemiparesis, DM2, VT s/p ICD and pacemaker, HTN, PE on warfarin, chronic left foot toe wound and spastic bladder who presents with increased lethargy and AMS. History obtained from ED chart note as patient is too somnolent to answer questions and is not present. Apparently she was less interactive and mumbling to the before he left for work. Concern was for worsening mental status so brought to the ED. Patient found to have UTI. CT noncontrast head showed white matter hypodensities suggestive of chronic microvascular ischemia but subacute ischemia cannot be ruled out. Admitted for MRI brain and abx for UTI. Subjective Observations Pt was resting in bed post EKG procedure. Pt moaning on and off throughout evaluation time and did not verbally speak with this [employer]. The pt did not follow single step instructions when given multiple verbal, visual, and tactile prompts. In reviewing previous nurse notes, the pt could communicate at times and could self feed during meals. Of note, the pt was previously admitted in November. Per nurse report: the pt did not tolerate taking medication via carrier and the nurse had to fish the medication out of the pt's mouth. Nurse also noted the pt did not attempt to move tongue back with attempting oral medication. Pt is switching to IV meds. Pt did not attempt to eat any breakfast this morning. Reported by Patient Current Diet Dysphagia mechanical,Thin liquids Baseline Feeding Method Independent in self-feeding Objective Assessment Mental Status Confused,Lethargic, Uncooperative Oral Integrity Oral residue Dentition Missing teeth,Decay Lip Function Severe impairment Observation of Lips at Rest Left sided weakness/Drooping Pucker Reduced range of motion, Reduced strength Lip Retraction Reduced range of motion Alternating Pucker/Lip Retraction Reduced range of motion Tongue Function Severe impairment Observations of Tongue at Rest Within normal limits Tongue Protrusion Reduced range of motion, Reduced strength Tongue Retraction Reduced range of motion, Reduced strength Tongue Lateralization Reduced range of motion, Reduced strength Jaw Function Moderate impairment Observations of Jaw at Rest Reduced range of motion Jaw Opening Reduced range of motion, Reduced strength Jaw Closing Reduced range of motion, Reduced strength Jaw Lateralization Reduced range of motion, Reduced strength Jaw Protrusion Reduced range of motion, Reduced strength Jaw Retraction Reduced range of motion, Reduced strength Hard/Soft Palate Function Moderate impairment Observations of Hard/Soft Palate Within normal limits Phonation Hoarse,Excessive loudness Comment OME information informally obtained as the pt could not follow single step instructions at this time. Pt appearing very weak, mouth open at all times. Food and Liquid Trials Position During Assessment Upright (90 degrees) Oral Impairment Severely impaired Oral Phase Comments This [employer]TER attempted oral to trial on teaspoon thin liquid. Pt did not close mouth and take thin liquid trial. Thin liquid dribbled out of the corner of the right side. Tongue movements were very minimal and only rocking forwards and back. Did not do any side to side movements. Pharyngeal Impairment Severely impaired Pharyngeal Phase Comments Laryngeal palpation could not be performed as the pt could not produce a swallow on command. This [employer] MACH[employer] SETTER did observe the pt attempt to swallow x3 and noted minimal hyolaryngeal elevation and no anterior hyoid excursion at this time. No PO solids trials were given at this time due to pt safety risk and little to no movement of the swallowing mechanism. Fatigue/Endurance Moderate fatigue Comment Pt did appear tired and in pain during evaluation. The pt 's eyes closed x2 but would open when verbally signaled (e .g., calling out her name to awaken her). Findings Swallowing Function Oropharyngeal phase dysphagia Severity of Swallow Impairment Severely impaired Contributing Factors to Swallow Reduced alertness or attention Impairment ,Difficulty following directions,Reduced oral strength/coordination/ sensation,Impaired oral- pharyngeal transport,Impaired velopharyngeal closure/ coordination,Delayed swallow initiation,Reduced laryngeal excursion,Impaired airway protection Prognosis Guarded Based on Comorbidities,Duration of symptoms/severity Impact on Safety and Functioning Risk for aspiration,Risk for inadequate nutrition/hydration Recommendations Instrumental Assessment Yes Swallowing Treatment Yes Recommended Solids Nothing by Mouth Recommended Liquids Nothing by Mouth Other Recommendations At this time the pt is not safe to take hydration and nutrition orally due to severe weakness and lack of movement of the oropharyngeal mechanism. MBSS is recommended if the pt can tolerate sitting upright and regained movement of the swallowing mechanism. Alternative feeding such as NG or PEG tube may be needed if pt continues to not demonstrate a safe swallow. Medication Recommendations Not Recommended by Mouth Discharge Recommendations nursing home facility,[facility] Referrals Recommended Referrals Dietary Education Patient/Caregiver Education Described results of evaluation,Patient requires further education/training, Family/caregivers require further education/training Goals Short-term Goals Pt will participate in further assessment to determine least restrictive diet. Pt will participate in MBSS in order to fully assess swallowing abilities and make diet recommendations. Pt and family will participate in education re: swallowing mechanism, MBSS, alternative feeding options.
--- NOTE | 2023-01-20 12:33 | PM.PN.1 ---
Subjective Subjective Interval history: Patient presented as a 57yo F with PMH of CVA with chronic left hemiparesis, DM2, VT s/p ICD and pacemaker, HTN, PE on warfarin, chronic left foot toe wound and spastic bladder who presents with increased lethargy and AMS. Today has had CTA and vomited after and also nursing reporting high BS values today (around 300). Urine culture today reports gram negative bacilli. Patient is on ceftriaxone 1 g daily IV. Exam Vital Signs (past 8 hours): - 01/20/23 07:09 01/20/23 10:03 01/20/23 10:30 Temperature 98.1 F Pulse Rate 107 H 72 105 H Respiratory Rate 18 Blood Pressure 171/124 H 171/124 H 155/102 H Pulse Oximetry 95 Oxygen Flow Rate 0 Oxygen Delivery Method Room Air Oxygen Flow Rate 0 Narrative Exam Narrative: GEN: no acute distress, noninteractive with me other than moving eyes to look at me. HEENT: moist mucous membranes, currently post vomiting, PERRL NECK: trachea midline, no jvd PULM: clear bilaterally, no wheezes, rhonchi, rales CV: regular rate and rhythm, no murmurs ABD: soft, nontender, nondistended, no organomegaly, normal bowel sounds EXT: warm and well perfused with no edema NEURO: awake, responsive to me talking to her, left sided weakness chronic Objective Labs 01/20/23 02:19 01/20/23 02:19 Labs: Laboratory Results - last 24 hr 01/20/23 01/20/23 01/20/23 02:19 02:19 02:19 WBC 7.1 RBC 5.68 H Hgb 16.4 H Hct 48.6 H MCV 85.5 MCH 28.9 MCHC 33.8 RDW 13.3 Plt Count 232 Neut % (Auto) 81.3 H Lymph % (Auto) 12.6 L [place] % (Auto) 4.6 Eos % (Auto) 0.6 L Baso % (Auto) 0.9 Neut # (Auto) 5800 Lymph # (Auto) 900 L [place] # (Auto) 300 Eos # (Auto) 0 Baso # (Auto) 100 D-Dimer 2091 H Sodium Potassium Chloride Carbon Dioxide BUN Creatinine Estimated GFR BUN/Creatinine Ratio Glucose Lactate Calcium Magnesium 2.1 Total Bilirubin AST ALT Alkaline Phosphatase NT-Pro-B Natriuret Pep Total Protein Albumin Globulin Albumin/Globulin Ratio 01/20/23 01/20/23 01/20/23 02:19 02:19 02:19 WBC RBC Hgb Hct MCV MCH MCHC RDW Plt Count Neut % (Auto) Lymph % (Auto) [place] % (Auto) Eos % (Auto) Baso % (Auto) Neut # (Auto) Lymph # (Auto) [place] # (Auto) Eos # (Auto) Baso # (Auto) D-Dimer Sodium 139 Potassium 4.0 Chloride 105 Carbon Dioxide 22 BUN 11 Creatinine 0.44 L Estimated GFR > 60 BUN/Creatinine Ratio 25.0 H Glucose 311 H Lactate 1.3 Calcium 9.1 Magnesium Total Bilirubin 0.7 AST 21 ALT 25 Alkaline Phosphatase 128 H NT-Pro-B Natriuret Pep 1140 H Total Protein 8.1 Albumin 4.1 Globulin 4.0 Albumin/Globulin Ratio 1.0 PFSH Medical History 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 CVA (cerebral vascular accident) Diabetes mellitus History of ventricular fibrillation 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 Neuropathy Urinary incontinence Surgical History History of colonoscopy History of permanent cardiac pacemaker placement Family History Mother MRSA (methicillin resistant Staphylococcus aureus) Cardiovascular disease Stroke Myocardial infarction Father Cardiovascular disease Myocardial infarction Social History household members: spouse and children Smoking Status: Never smoker alcohol intake: former Assessment & Plan Assessment & Plan narrative: # acute encephalopathy in setting of previous strokes - UTI likely cause with positive culture for Gram-negative bacilli - warfarin subtherapeutic, concerning of a cause for possible new stroke -CT head with chronic microvascular ischemia but subacute ischemia cannot be ruled out -INR subtherapeutic at 1.0 -restart warfarin with lovenox bridge -unable to obtain MRI brain due to pacemaker, we will do a repeat CT of the head tomorrow for comparison of CT done on admission -obtain carotid US to assess for worsening of stenosis -UA with pyuria, f/u culture -rocephin 1g daily -start aspirin 81mg daily -PT/OT evals # history of CVA s/p L-sided hemiparesis -patient has chronic left sided weakness which is unchanged -continue warfarin as above -continue statin -ASA as above # history of saddle PE in Sep 2020 -supposed to be on warfarin but noncompliance an issue -restart warfarin with lovenox bridge -CT angiogram done of the chest today, result pending to assess for any new PE # spastic bladder -continue home oxybutynin # history of VT s/p pacemaker and ICD -tele -keep mag >2 # DM2 -hold home metformin -med dose SSI -1 time dose of glargine 15 units subQ due to blood sugar not being well managed on current sliding scale # hypertension -not well controlled today due to patient not taking oral medication, initiated hydralazine 10 mg IV 1 time dose then then q.4h as needed for systolic greater than 160 or diastolic greater than 110 # tachycardia -present due to not taking oral metoprolol ER, initiated Lopressor 5 mg IV q.2h as needed heart rate 120 or higher Follow clinically and labs. Code status is full code. COVID negative. DVT prophylaxis with Lovenox. Proxy is .
[2023-01-20] MEDS: ONDANSETRON 4 MG/2 ML INJ IV ×2 (12:50→19:27)
--- NOTE | 2023-01-20 13:16 | CM.DPNOTE ---
Discharge Planning Note: Patient sleeping numerous times in attempting to visit with her. Her spouse sleeps during day and not able to speak with until after 3 pm. Patient had CTA lungs for possible PE, results pending. Patient on IVAB for +UTI. Plan: When medically cleared, return home to previous setting with spouse. Ask spouse if can hire caregiver(s) for increased personal care as recommended by PT. Continue to follow for needs. Sue Ramirez RN/DCP
[2023-01-20] MEDS: INSULIN GLARGINE 100 UNIT/ML 3ML PEN 15 UNIT SUBCUT (14:12)
--- NOTE | 2023-01-20 18:51 | PC.NURSE ---
Pt is nonverbal, will cry out in pain, will occassionaly make eye contact with staff. Pt is unable to swallow any pills. Attempted to have the pt swallow her metoprolol this morning but the pt was unable to. Speech therapy came this morning and did an eval. Per speech the pt is NPO including no meds by mouth. Speech therapy recommended a barium swallow eval. Pt had a second IV started via US in the pt's left forearm. When the pt went down to CT this morning the pt threw up in the elevator. Later during the shift the pt threw up again at which point this RN used suction to clear the pt's airway and mouth. The pt is not able to make needs know, is not able to follow instructions. Pt does cry out/moan when in pain. Pt's blood sugars have been elevated all shift with the highest being at lunch with a BG of 331 at which point Lantus was started for the pt. Pt's arrived later today around 1700 and has been at bedside since then.
[2023-01-21] VITALS (13 sets, daily range): BP systolic 107–187; BP diastolic 68–116; PULSE 89–145; RESP 13–28; TEMP 35.8–36.9; O2SAT 92–98
--- NOTE | 2023-01-21 | DI.CT.S_ITS ---
PROCEDURE: CT HEAD/BRAIN WO CON INDICATIONS: Reassess and compared to previous CT on this admission TECHNIQUE: Noncontrast 4.5 mm thick angled axial sections acquired from the foramen magnum to the vertex, with coronal and sagittal reformats. For radiation dose reduction, the following was used: automated exposure control, adjustment of mA and/or kV according to patient size. COMPARISON: [facility], CT, CT HEAD/BRAIN WO CON, 01/18/2023, 19:34. FINDINGS: Image quality: Excellent. CSF spaces: Basal cisterns are patent. No extra-axial fluid collections. Ventricles are normal in size and shape. Brain: Extensive periventricular white matter hypodensities consistent with chronic microvascular ischemic disease, unchanged from recent comparison. Areas of lacunar infarcts along the basal ganglia and arreola radiata, unchanged from comparison. No midline shift. No intracranial masses or hemorrhage. Rodriguez-white matter interface is normal. Skull and face: Calvarium and visualized facial bones are intact, without suspicious lesions. Sinuses: Visualized sinuses and mastoids are clear. IMPRESSION: 1. No acute findings. 2. Sequela of chronic microvascular ischemic disease and prior lacunar infarcts. 3. Findings are unchanged from comparison 01/18/2023 Dictated by: Javi Rossi M.D. on 01/21/2023 at 7:47 Approved by: Javi Rossi M.D. on 01/21/2023 at 7:51
[2023-01-21] MEDS: HYDROMORPHONE 0.5 MG INJ IV ×4 (01:04→17:38)
[2023-01-21 05:33] LABS: Add Manual Diff / Slide Review NO; Basophils Absolute Auto 100 /uL (0-100); Basophils Percent Auto 0.7 % (0-2); Eosinophils Absolute Auto 0 /uL (0-450); Eosinophils Percent Auto 0.1 % (2-4); Hematocrit 47.1 % (36-46); Hemoglobin 15.7 g/dL (12.0-16.0); Lymphocytes Absolute Auto 1600 /uL (1100-4500); Lymphocytes Percent Auto 16.3 % (25-40); Mean Corpuscular HGB Conc 33.4 % (30-36); Mean Corpuscular Hemoglobin 28.6 PG (26-34); Mean Corpuscular Volume 85.6 fL (80-100); Monocytes Absolute Auto 700 /uL (0-900); Monocytes Percent Auto 6.7 % (3-14); Neutrophils Absolute Auto 7500 /uL (1500-7000); Neutrophils Percent Auto 76.2 % (50-75); Platelet Count 270 X10^3/uL (150-400); Red Cell Distribution Width 13.8 % (11.6-14.8); White Blood Cell Count 9.8 X10^3/uL (4.5-11.0)
[2023-01-21 05:42] LABS: BUN Creatinine Ratio 22.8 (6-22); Blood Urea Nitrogen 26 mg/dL (7-17); Calcium 9.8 mg/dL (8.4-10.2); Carbon Dioxide 27 mmol/L (22-32); Chloride 107 mmol/L (98-107); Estimated Glomerular Filt Rate 55 mL/min (>60); Glucose 280 mg/dL (70-100); HEMOLYSIS < 15 (0-50); Sodium 142 mmol/L (137-145)
[2023-01-21] MEDS: INSULIN LISPRO 100 UNIT/ML 3ML VIAL SUBCUT ×3 (08:04→17:05)
[2023-01-21] MEDS: SODIUM CHLORIDE 0.9% 1,000 ML 84 ML IV ×2 (08:05→17:40)
--- NOTE | 2023-01-21 08:55 | PC.NURSE ---
Addendum entered by Maura Arias R.N. 01/21/23 18:12: Patients in room and visiting. Patient has made a grunting noise a couple of times today and when this happens her blood pressure and heart rate go up. Patient given iv dilaudid both times and she calms down right away. VS are normal and pulse rate down. Patients eyes do not role back and she does not become rigid as if a seizure may be occuring. is aware and has ordered iv ativan if this happens again, in case patient is seizing. She was incontinent of urine and changed. Patient now lying supine. is emotional as told patient that they will attempt a swallow eval for patient tomorrow and if she does not respond then other options will be talked about more with Doctor tomorrow. Addendum entered by Maura Arias R.N. 01/21/23 13:10: Patient starting to make noise as if she was in pain. Repositioned to her r.side. Dilaudid 0.5mg iv given. Patients lovenox 115 given to the back of the r.shoulder. Lunch time blood sugar 249. 20u of Lantus and 3u of fast acting insulin given in patients left shoulder. Heart rate up for a small time. Patient was in pain, will see if the pain medication helps her and if pulse is still up will give patient some iv metoprolol. Original Note: Patient is unresponsive and non vernal when asked questions. She has her eyes open. Down to CT scan this morning. She will make noises once in a while and does snore. BS decreased bases. Blood Sugar 258. Resting comfortably. Patient is NPO.
--- NOTE | 2023-01-21 11:02 | PM.PN.1 ---
Subjective Subjective Interval history: No new nursing complaints. Patient calm but nonverbal. Exam Vital Signs (past 8 hours): - 01/21/23 04:32 01/21/23 08:04 Temperature 96.4 F L 96.4 F L Pulse Rate 95 H 89 Respiratory Rate 18 21 Blood Pressure 120/84 114/68 Pulse Oximetry 97 97 Oxygen Flow Rate 2 2 Oxygen Delivery Method Nasal Cannula Oxygen Flow Rate 2 Narrative Exam Narrative: GEN: no acute distress, noninteractive with me other than moving eyes to look at me and appears to register that I am there. HEENT: moist mucous membranes, currently post vomiting, PERRL NECK: trachea midline, no jvd PULM: clear bilaterally, no wheezes, rhonchi, rales CV: regular rate and rhythm, no murmurs ABD: soft, nontender, nondistended, no organomegaly, normal bowel sounds EXT: warm and well perfused with no edema NEURO: awake, left sided weakness chronic Objective Labs 01/21/23 04:50 01/21/23 04:50 Labs: Laboratory Results - last 24 hr 01/21/23 01/21/23 04:50 04:50 WBC 9.8 RBC 5.50 H Hgb 15.7 Hct 47.1 H MCV 85.6 MCH 28.6 MCHC 33.4 RDW 13.8 Plt Count 270 Neut % (Auto) 76.2 H Lymph % (Auto) 16.3 L [place] % (Auto) 6.7 Eos % (Auto) 0.1 L Baso % (Auto) 0.7 Neut # (Auto) 7500 H Lymph # (Auto) 1600 [place] # (Auto) 700 Eos # (Auto) 0 Baso # (Auto) 100 Sodium 142 Potassium 4.0 Chloride 107 Carbon Dioxide 27 BUN 26 H Creatinine 1.14 H Estimated GFR 55 L BUN/Creatinine Ratio 22.8 H Glucose 280 H Calcium 9.8 PFSH Medical History 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 CVA (cerebral vascular accident) Diabetes mellitus History of ventricular fibrillation 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 Neuropathy Urinary incontinence Surgical History History of colonoscopy History of permanent cardiac pacemaker placement Family History Mother MRSA (methicillin resistant Staphylococcus aureus) Cardiovascular disease Stroke Myocardial infarction Father Cardiovascular disease Myocardial infarction Social History household members: spouse and children Smoking Status: Never smoker alcohol intake: former Assessment & Plan Assessment & Plan narrative: # acute encephalopathy in setting of previous strokes - UTI likely cause with positive culture for Gram-negative bacilli, confirmed to be Klebsiella pneumoniae sensitive ceftriaxone. Patient has had a 3 day course intravenously. - warfarin subtherapeutic, concerning of a cause for possible new stroke -CT head with chronic microvascular ischemia but subacute ischemia cannot be ruled out on initial CT. Repeat CT today shows no new acute CVAs. -INR subtherapeutic at 1.0 -restart warfarin with lovenox bridge -unable to obtain MRI brain due to pacemaker, we will do a repeat CT of the head completed today for comparison of CT done on admission -obtain carotid US to assess for worsening of stenosis -no stenosis or compromise of flow noted. -UA with pyuria, f/u culture -positive for Klebsiella pneumoniae -rocephin 1g daily-completed 3 day course -start aspirin 81mg daily -PT/OT evals # history of CVA s/p L-sided hemiparesis -patient has chronic left sided weakness which is unchanged -continue warfarin as above -continue statin -ASA as above # history of saddle PE in Sep 2020 -supposed to be on warfarin but noncompliance an issue -restart warfarin with lovenox bridge -CT angiogram done of the chest yesterday, result pending to assess for any new PE -no PE noted # spastic bladder -continue home oxybutynin # history of VT s/p pacemaker and ICD -tele -keep mag >2 # DM2 -hold home metformin -med dose SSI -1 time dose of glargine 15 units subQ due to blood sugar not being well managed on current sliding scale given yesterday. Continue glargine 20 units daily. # hypertension -not well controlled today due to patient not taking oral medication, initiated hydralazine 10 mg IV 1 time dose then then q.4h as needed for systolic greater than 160 or diastolic greater than 110 # tachycardia -present due to not taking oral metoprolol ER, initiated Lopressor 5 mg IV q.2h as needed heart rate 120 or higher # dysphagia -ongoing assessment by speech therapy. -currently NPO # acute kidney injury -IV normal saline at 84 mL/hour -follow labs Follow clinically and labs. Code status is full code. COVID negative. DVT prophylaxis with Lovenox. Proxy is . Need to further discuss goals of care based on patient's current status of being NPO and questionable ability to improve swallowing.
--- NOTE | 2023-01-21 11:06 | CM.DPNOTE ---
Discharge Planning Note: Patient is s/p CVA, hx previous CVAs, L side deficit, resting in bed, nonverbal. A repeat CT done this morning. Patient is full code. She is NPO. Spoke with spouse Javi yesterday who stated he would visit today. Javi desires to have patient return home when medically cleared. Their children are helpful with patient care and management, especially when he works at night here at ; he sleeps during day. Patient has no insurance. May received email from Admissions counselor who have processed patient's insurance application: does not qualify for [employer] but spouse selected [employer] which will begin 02.15.23. Javi states there are no funds to hire additional caregivers or for assisted living facilities. PT/OT recommend increased personal care and addressed this with Javi on the phone today. Plan: When medically cleared, return home to care of spouse and children in her own home with increased attention to personal care. Sue Ramirez RN/DCP
[2023-01-21 11:43] LABS: NT-proBNP (BNP-Adult 18+) 1440 pg/mL (<125)
--- NOTE | 2023-01-21 12:23 | PT-IP ANOTE ---
Per RN, pt not appropriate to be seen at this time, has been unresponsive and lethargic. Will hold until pt appropriate and able to work w/ PT.
[2023-01-21] MEDS: ENOXAPARIN 60 MG/0.6 ML SYRINGE 115 MG SUBCUT ×2 (12:48→21:31)
[2023-01-21] MEDS: INSULIN GLARGINE 100 UNIT/ML 3ML PEN 20 UNIT SUBCUT (12:51)
--- NOTE | 2023-01-21 20:54 | DI.RAD.S_ITS ---
PROCEDURE: XR CHEST 1V INDICATIONS: sob, fluid? TECHNIQUE: One view of the chest was acquired. COMPARISON: [facility], CR, XR CHEST 1V, 01/18/2023, 19:33. [facility], CR, XR CHEST 1V, 01/20/2023, 1:42. FINDINGS: Surgical changes and devices: Left chest wall AICD redemonstrated. Lungs and pleura: There are low lung volumes with a persistent small right pleural effusion as well as confluent right basilar opacities likely representing consolidation. There is decreased pulmonary edema. Mediastinum: Mediastinal contours appear normal. Heart size is normal. Bones and chest wall: No suspicious bony lesions. Overlying soft tissues appear unremarkable. IMPRESSION: 1. Persistent confluent right basilar opacities likely represent consolidation due to pneumonia. 2. Persistent small right pleural effusion. Dictated by: Dandy Gil M.D. on 01/21/2023 at 22:39 Approved by: Dandy Gil M.D. on 01/21/2023 at 22:41
[2023-01-21] MEDS: NALOXONE 0.4 MG/ML VIAL 0.2 MG IV ×2 (21:03→21:11)
[2023-01-21 21:35] LABS: Fractionated Inspired Oxygen 36; HCO3 ABG 26 mmol/L (23-27); Oxygen Saturation ABG 93 % (95-100); PCO2 ABG 48.1 mmHg (35-45); PO2 ABG 71 mmHg (80-100); TCO2 ABG 27 mmol/L (23-27); pH ABG 7.34 (7.35-7.45)
[2023-01-21] MEDS: SODIUM CHLORIDE 0.9% 500 ML 1000 ML IV ×2 (21:47→23:53)
[2023-01-21] MEDS: MEROPENEM 1 GM in SODIUM CHLORIDE 0.9% 100 ML IV (21:47)
[2023-01-21 21:57] LABS: Add Manual Diff / Slide Review NO; Basophils Absolute Auto 0 /uL (0-100); Basophils Percent Auto 0.3 % (0-2); Eosinophils Absolute Auto 0 /uL (0-450); Hematocrit 48.8 % (36-46); Lymphocytes Absolute Auto 900 /uL (1100-4500); Lymphocytes Percent Auto 5.5 % (25-40); Mean Corpuscular HGB Conc 32.7 % (30-36); Mean Corpuscular Hemoglobin 28.5 PG (26-34); Monocytes Absolute Auto 1000 /uL (0-900); Monocytes Percent Auto 6.3 % (3-14); Neutrophils Absolute Auto 13800 /uL (1500-7000); Neutrophils Percent Auto 87.9 % (50-75); Platelet Count 256 X10^3/uL (150-400); Red Blood Cell Count 5.61 X10^6/uL (4.0-5.2); Red Cell Distribution Width 13.7 % (11.6-14.8); White Blood Cell Count 15.7 X10^3/uL (4.5-11.0)
[2023-01-21] MEDS: VANCOMYCIN 1,500 MG/300 ML PIGGYBACK 200 MG IV (22:13)
[2023-01-21 22:31] LABS: Lactate (Lactic Acid) 1.2 mmol/L (0.7-2.1); Magnesium 2.1 mg/dL (1.6-2.3)
[2023-01-21 22:34] LABS: Alanine Aminotransferase 23 IU/L (<35); Albumin 3.9 g/dL (3.5-5.0); Alkaline Phosphatase 135 U/L (38-126); Aspartate Aminotransferase 19 IU/L (14-36); BUN Creatinine Ratio 38.7 (6-22); Bilirubin Total 0.6 mg/dL (0.2-1.3); Blood Urea Nitrogen 29 mg/dL (7-17); Calcium 9.6 mg/dL (8.4-10.2); Carbon Dioxide 22 mmol/L (22-32); Chloride 112 mmol/L (98-107); Estimated Glomerular Filt Rate > 60 mL/min (>60); Globulin 4.1 g/dL (1.7-4.1); Glucose 261 mg/dL (70-100); HEMOLYSIS < 15 (0-50); Potassium 3.5 mmol/L (3.4-5.1); Sodium 146 mmol/L (137-145)
[2023-01-21 22:42] LABS: NT-proBNP (BNP-Adult 18+) 422 pg/mL (<125)
[2023-01-21] MEDS: VANCOMYCIN 750 MG/150 ML PIGGYBACK 150 MG IV (22:45)
[2023-01-21 22:50] LABS: Prolactin 6.2 ng/mL (3.0-18.6)
--- NOTE | 2023-01-21 23:21 | PM.EVENT ---
Event Note Date Patient Seen: 01/21/23 Time Patient Seen: 21:00 Event Note (Rapid Response, Code, or fall): Evaluated patient due to progressively worsening mental status, tachycardia, and respiratory distress. Discussed with bedside RN. Patient was admitted with encephalopathy etiology thought to be CVA vs UTI. UTI has been appropriately treated. CT head showed no change from prior, and MRI head unable to be done due to AICD. Patient has been receiving dilaudid due to moaning in pain. On my evaluation she was not responsive. She did not follow commands. She did not withdraw to pain in any of her limbs. She was not responding to sternal rub. Her pupils were equal and reactive. She had limp upper extremities. She was noted to be in respiratory distress with retractions and belly breathing. Heart rate sinus tachy in 130s. Narcan was given with no change in condition. Imaging earlier noted to have a recent CTA negative for PE, and she has received full dose anticoagulation for history of VTE in past, making PE unlikely. Per bedside RN patient did have episode of potential aspiration. Labs drawn and notable for newly elevated WBC at 15, concerning for infection. Chest xray done and per my read concerning for right lower lung consolidation consistent with possible aspiration pneumonia. She has been NPO already due to her mental status. Other labs showed hypernatremia and elevated BUN consistent with hypovolemia, and she was ordered for IV fluids. She was ordered for IV antibiotics, broad spectrum with vancomycin, and meropenem. RT called and placed patient on high flow, with improvement in sats from low 90s to mid 90s. Heart rate showed minimal improvement. Work of breathing was not improved. I called her , Javi, and discussed that patient was gravely ill, and that there is concern for continue stroke and now infection. Discussed that we can still treat aggressively her stroke and pneumonia but that despite doing so she continues to decline and her prognosis is poor. Family is on the way to visit her and has decided after discussion to have her be DNR/DNI.
[2023-01-22] VITALS (14 sets, daily range): BP systolic 84–156; BP diastolic 50–86; PULSE 114–129; RESP 12–28; TEMP 36.3–37.2; O2SAT 91–97
[2023-01-22] MEDS: HYDROMORPHONE 0.5 MG INJ IV ×4 (00:21→16:05)
[2023-01-22] MEDS: MEROPENEM 1 GM in SODIUM CHLORIDE 0.9% 100 ML IV ×3 (04:33→21:05)
[2023-01-22] MEDS: SODIUM CHLORIDE 0.9% 500 ML 1000 ML IV (04:56)
--- NOTE | 2023-01-22 05:22 | RT ---
At 0504, SpO2 noted at 93%, HR 70 BPM while on HHFNC 60L, 80% FiO2. Dr. Clemens notified regarding pt's current settings.
--- NOTE | 2023-01-22 05:32 | PC.NURSE ---
2100: This RN, Dr. Clemens, RT, and nursing manager Sloane at bedside. HR 145 BP 171/113 RR24 92% on 4L w/ accessory muscle use, belly breathing and groaning/snoring. Unable to follow commands, limbs flaccid, pupils equal and reactive, lungs clear and diminished. Narcan given, no change in condition. Placed on [place] NC, labs and blood cultures,abg, and chest xray completed. In total, 1000ml bolus, loading dose vanco, and merepenem given. Family came to bedside in lay out helper. 0455: 87% w/ [place] 60L/60%. RT called, increased to 60L/80% and now sating 95%. BP 79/47 84/[address] Clemens called, new order for 500ml bolus placed and given. Dr salazar come to bedside to view patient as well.
[2023-01-22 05:51] LABS: NT-proBNP (BNP-Adult 18+) 1100 pg/mL (<125)
[2023-01-22 05:56] LABS: BUN Creatinine Ratio 43.1 (6-22); Blood Urea Nitrogen 28 mg/dL (7-17); Calcium 8.9 mg/dL (8.4-10.2); Carbon Dioxide 20 mmol/L (22-32); Chloride 114 mmol/L (98-107); Estimated Glomerular Filt Rate > 60 mL/min (>60); Glucose 307 mg/dL (70-100); HEMOLYSIS 30 (0-50); Potassium 3.4 mmol/L (3.4-5.1); Sodium 146 mmol/L (137-145)
[2023-01-22 05:57] LABS: Add Manual Diff / Slide Review NO; Basophils Absolute Auto 0 /uL (0-100); Basophils Percent Auto 0.4 % (0-2); Eosinophils Absolute Auto 0 /uL (0-450); Hematocrit 44.4 % (36-46); Hemoglobin 14.8 g/dL (12.0-16.0); Lymphocytes Absolute Auto 500 /uL (1100-4500); Lymphocytes Percent Auto 4.5 % (25-40); Mean Corpuscular HGB Conc 33.3 % (30-36); Mean Corpuscular Hemoglobin 28.7 PG (26-34); Mean Corpuscular Volume 86.2 fL (80-100); Monocytes Absolute Auto 900 /uL (0-900); Monocytes Percent Auto 7.4 % (3-14); Neutrophils Absolute Auto 10200 /uL (1500-7000); Neutrophils Percent Auto 87.7 % (50-75); Platelet Count 205 X10^3/uL (150-400); Red Blood Cell Count 5.15 X10^6/uL (4.0-5.2); Red Cell Distribution Width 13.8 % (11.6-14.8); White Blood Cell Count 11.6 X10^3/uL (4.5-11.0)
[2023-01-22] MEDS: SODIUM CHLORIDE 0.45% 1,000 ML 42 ML IV (08:00)
[2023-01-22] MEDS: INSULIN LISPRO 100 UNIT/ML 3ML VIAL SUBCUT ×4 (08:01→21:03)
[2023-01-22] MEDS: INSULIN GLARGINE 100 UNIT/ML 3ML PEN 20 UNIT SUBCUT (08:03)
[2023-01-22] MEDS: ENOXAPARIN 60 MG/0.6 ML SYRINGE 115 MG SUBCUT (08:11)
[2023-01-22] MEDS: CLOTRIMAZOLE 1% CRM 30 GM 1 APPLIC TOP (08:17)
[2023-01-22] MEDS: VANCOMYCIN 1,500 MG/300 ML PIGGYBACK 200 MG IV ×2 (09:58→22:54)
--- NOTE | 2023-01-22 10:34 | P.PN_ITS ---
Subjective Subjective Interval history: and other family member present. Patient restfully comfortably in bed open eyes intermittently states that she does not recognize anything. They O2 supplementation with OxiMask with O2 flow rate of 50. Diagnosed with right lower lobe pneumonia last evening.. Exam Vital Signs (past 8 hours): - 01/22/23 03:20 01/22/23 04:00 01/22/23 04:52 Temperature 97.8 F Pulse Rate 122 H 129 H 115 H Respiratory Rate 16 17 12 Blood Pressure 156/86 H Pulse Oximetry 95 96 91 Oxygen Flow Rate 50 01/22/23 04:54 01/22/23 06:00 01/22/23 06:00 Temperature Pulse Rate 114 H 114 H Respiratory Rate 20 Blood Pressure 84/50 L 111/61 Pulse Oximetry 96 Oxygen Flow Rate 01/22/23 08:01 Temperature 97.3 F L Pulse Rate Respiratory Rate Blood Pressure Pulse Oximetry Oxygen Flow Rate Fraction of Inspired Oxygen 36 SaO2/FiO2 Ratio 258 Oxygen Delivery Method Oximask Oxygen Flow Rate 50 Narrative Exam Narrative: GEN: no acute distress, noninteractive with intermittently opening eyes. HEENT: moist mucous membranes, PERRL, OxiMask in place NECK: trachea midline, no jvd PULM: clear bilaterally, no wheezes, rhonchi, rales, some decreased air sounds at the base of right lung CV: regular rate and rhythm, no murmurs ABD: soft, nontender, nondistended, no organomegaly, normal bowel sounds EXT: warm and well perfused with no edema NEURO: awake, left sided weakness chronic Objective Labs 01/22/23 05:05 01/22/23 05:05 Labs: Laboratory Results - last 24 hr 01/21/23 01/21/23 01/21/23 04:50 21:04 21:40 WBC 15.7 H D RBC 5.61 H Hgb 16.0 Hct 48.8 H MCV 87.0 MCH 28.5 MCHC 32.7 RDW 13.7 Plt Count 256 Neut % (Auto) 87.9 H Lymph % (Auto) 5.5 L [place] % (Auto) 6.3 Eos % (Auto) 0.0 L Baso % (Auto) 0.3 Neut # (Auto) 10380 H Lymph # (Auto) 900 L [place]comb # (Auto) 1000 H Eos # (Auto) 0 Baso # (Auto) 0 ABG pH 7.34 L ABG pCO2 48.1 H ABG pO2 71 L ABG HCO3 26 ABG Total CO2 27 ABG O2 Saturation 93 L ABG Base Excess 0.0 FiO2 36 Sodium Potassium Chloride Carbon Dioxide BUN Creatinine Estimated GFR BUN/Creatinine Ratio Glucose Lactate Calcium Magnesium Total Bilirubin AST ALT Alkaline Phosphatase NT-Pro-B Natriuret Pep 1440 H Total Protein Albumin Globulin Albumin/Globulin Ratio Prolactin 01/21/23 01/21/23 01/21/23 21:40 21:40 21:40 WBC RBC Hgb Hct MCV MCH MCHC RDW Plt Count Neut % (Auto) Lymph % (Auto) [place] % (Auto) Eos % (Auto) Baso % (Auto) Neut # (Auto) Lymph # (Auto) [place]comb # (Auto) Eos # (Auto) Baso # (Auto) ABG pH ABG pCO2 ABG pO2 ABG HCO3 ABG Total CO2 ABG O2 Saturation ABG Base Excess FiO2 Sodium 146 H Potassium 3.5 Chloride 112 H Carbon Dioxide 22 BUN 29 H Creatinine 0.75 Estimated GFR > 60 BUN/Creatinine Ratio 38.7 H Glucose 261 H Lactate 1.2 Calcium 9.6 Magnesium 2.1 Total Bilirubin 0.6 AST 19 ALT 23 Alkaline Phosphatase 135 H NT-Pro-B Natriuret Pep 422 H Total Protein 8.0 Albumin 3.9 Globulin 4.1 Albumin/Globulin Ratio 1.0 Prolactin 6.2 01/22/23 01/22/23 01/22/23 05:05 05:05 05:05 WBC 11.6 H RBC 5.15 Hgb 14.8 Hct 44.4 MCV 86.2 MCH 28.7 MCHC 33.3 RDW 13.8 Plt Count 205 Neut % (Auto) 87.7 H Lymph % (Auto) 4.5 L [place]comb % (Auto) 7.4 Eos % (Auto) 0.0 L Baso % (Auto) 0.4 Neut # (Auto) 59198 H Lymph # (Auto) 500 L [place]comb # (Auto) 900 Eos # (Auto) 0 Baso # (Auto) 0 ABG pH ABG pCO2 ABG pO2 ABG HCO3 ABG Total CO2 ABG O2 Saturation ABG Base Excess FiO2 Sodium 146 H Potassium 3.4 Chloride 114 H Carbon Dioxide 20 L BUN 28 H Creatinine 0.65 Estimated GFR > 60 BUN/Creatinine Ratio 43.1 H Glucose 307 H Lactate Calcium 8.9 Magnesium Total Bilirubin AST ALT Alkaline Phosphatase NT-Pro-B Natriuret Pep 1100 H Total Protein Albumin Globulin Albumin/Globulin Ratio Prolactin PFSH Medical History 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 CVA (cerebral vascular accident) Diabetes mellitus History of ventricular fibrillation 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 Neuropathy Urinary incontinence Surgical History History of colonoscopy History of permanent cardiac pacemaker placement Family History Mother MRSA (methicillin resistant Staphylococcus aureus) Cardiovascular disease Stroke Myocardial infarction Father Cardiovascular disease Myocardial infarction Social History household members: spouse and children Smoking Status: Never smoker alcohol intake: former Assessment & Plan Assessment & Plan narrative: # acute encephalopathy in setting of previous strokes - UTI likely cause with positive culture for Gram-negative bacilli, confirmed to be Klebsiella pneumoniae sensitive ceftriaxone.? Patient has had a 3 day course intravenously. - warfarin subtherapeutic, concerning of a cause for possible new stroke -CT head with chronic microvascular ischemia but subacute ischemia cannot be ruled out on initial CT.? Repeat CT today shows no new acute CVAs. -INR subtherapeutic at 1.0 -restart warfarin unable to do due to not swallowing on lovenox bridge at therapeutic dose -unable to obtain MRI brain due to pacemaker, we will do a repeat CT of the head completed today for comparison of CT done on admission-no new acute CVAs. -obtain carotid US to assess for worsening of stenosis -no stenosis or compromise of flow noted. -UA with pyuria, f/u culture -positive for Klebsiella pneumoniae -rocephin 1g daily-completed 3 day course -aspirin 81mg daily -not taking due to not swallowing -PT/OT evals -this will be discontinued due to patient not able to follow commands. # history of CVA s/p L-sided hemiparesis -patient has chronic left sided weakness which is unchanged -continue anticoagulation with therapeutic enoxaparin -statin-unable to give because not swallow -ASA -not swallowing, can not give # history of saddle PE in Sep 2020 -supposed to be on warfarin but noncompliance an issue -currently on therapeutic enoxaparin -CT angiogram done of the chest-no PE noted # spastic bladder - home oxybutynin -unable to take due to not swallowing # history of VT s/p pacemaker and ICD -tele -keep mag >2 # DM2 -hold home metformin -med dose SSI -Continue glargine 20 units daily. # hypertension -hydralazine 10 mg q.4h as needed for systolic greater than 160 or diastolic greater than 110 # tachycardia -present due to not taking oral metoprolol ER on presentation, initiated Lopressor 5 mg IV q.2h as needed heart rate 120 or higher # dysphagia -ongoing assessment by speech therapy. Unable to follow commands and likely can not do any further assessment. -currently NPO # acute kidney injury -IV now 1/2 normal saline at 42 mL per hour, renal function has resolved to normal however patient today is hypernatremic -follow labs # hypernatremia -with 1/2 normal saline at 42 mL/hour -follow labs # pneumonia, right lower lobe with some small effusion -treating with vancomycin -white blood count improved to 11.6 today -procalcitonin was normal yesterday 6.2 # congestive heart failure -yesterday BNP was 422 however today 1100, consistent with fluid resuscitation given last evening Follow clinically and labs. Code status: Has been changed to DNR last evening based on hospitalist acid concentrator discussion with the COVID negative. DVT prophylaxis with Lovenox. Proxy is .?
--- NOTE | 2023-01-22 10:39 | PT-IP ANOTE ---
Pt was discussed at AM interdisciplinary rounds. She has not been able to participate with therapy services since initial evaluation. Her condition is worsening. Will discharge PT orders at this time. Please consult again depending on pt condition and goals of care.
--- NOTE | 2023-01-22 11:49 | OT.IPNOTE ---
Chart reviewed and discussed in rounds. Pt is no longer participatory at this time. Will discharge orders for OT services.
--- NOTE | 2023-01-22 13:59 | SLP.IPNOTE ---
Pt not seen, as she is unsafe to participate in swallow evaluation. Per NSG, pt is unresponsive, including to painful stimuli and sternal rub.
--- NOTE | 2023-01-22 14:31 | CM.DPC ---
DCP/Continued: Reviewed chart. Patient currently on heated high flow 02 and unresponsive. Spoke with provider in AM rounds about next steps. Provider reports that she will discuss hospice with family today. Patient most likely had another stroke which has led to her poor prognosis. P: Await instruction from provider after she discusses hospice with family. CAMRON
[2023-01-23] VITALS (12 sets, daily range): BP systolic 117–128; BP diastolic 74–78; PULSE 106–132; RESP 12–32; TEMP 36.6–36.9; O2SAT 95–97
[2023-01-23 04:49] LABS: Hematocrit 47.7 % (36-46); Hemoglobin 15.8 g/dL (12.0-16.0); Mean Corpuscular HGB Conc 33.2 % (30-36); Mean Corpuscular Hemoglobin 28.8 PG (26-34); Mean Corpuscular Volume 86.9 fL (80-100); Platelet Count 197 X10^3/uL (150-400); Red Blood Cell Count 5.49 X10^6/uL (4.0-5.2); Red Cell Distribution Width 13.8 % (11.6-14.8); White Blood Cell Count 9.9 X10^3/uL (4.5-11.0)
[2023-01-23 04:51] LABS: BUN Creatinine Ratio 41.1 (6-22); Blood Urea Nitrogen 37 mg/dL (7-17); Calcium 9.8 mg/dL (8.4-10.2); Carbon Dioxide 17 mmol/L (22-32); Chloride 119 mmol/L (98-107); Estimated Glomerular Filt Rate > 60 mL/min (>60); Glucose 280 mg/dL (70-100); HEMOLYSIS 17 (0-50); Potassium 2.8 mmol/L (3.4-5.1); Sodium 148 mmol/L (137-145)
[2023-01-23 04:56] LABS: Add Manual Diff / Slide Review YES
[2023-01-23 04:59] LABS: NT-proBNP (BNP-Adult 18+) 2900 pg/mL (<125)
[2023-01-23] MEDS: CLOTRIMAZOLE 1% CRM 30 GM 1 APPLIC TOP ×2 (05:43→08:06)
[2023-01-23 05:44] LABS: Neutrophils Absolute Manual 6831 /uL (3000-5900); RBC Morphology Normal Morphology; Total Cells Counted 100
[2023-01-23] MEDS: MEROPENEM 1 GM in SODIUM CHLORIDE 0.9% 100 ML IV (06:03)
[2023-01-23] MEDS: POTASSIUM CHLORIDE IN WATER 10 MEQ/100 ML PIGGYBACK 100 MEQ IV ×6 (07:00→13:15)
[2023-01-23] MEDS: HYDROMORPHONE 0.5 MG INJ IV ×2 (07:25→12:09)
[2023-01-23] MEDS: INSULIN GLARGINE 100 UNIT/ML 3ML PEN 20 UNIT SUBCUT (08:07)
[2023-01-23] MEDS: INSULIN LISPRO 100 UNIT/ML 3ML VIAL SUBCUT ×2 (08:08→13:21)
--- NOTE | 2023-01-23 09:26 | P.PN_ITS ---
Subjective Subjective Interval history: An 18 minute coversation was had with the patient's about prognosis given patient's lack of po intake and continued cognitive decline. He agreed that she is likely dying and asked if we can just let her go. Patient switched to full comfort care. Exam Vital Signs (past 8 hours): - 01/23/23 02:50 01/23/23 03:38 01/23/23 04:35 Temperature 98.4 F Pulse Rate 131 H 129 H 132 H Respiratory Rate 32 H 22 32 H Blood Pressure 117/74 Pulse Oximetry 97 97 96 Oxygen Delivery Method Oxygen Flow Rate 60 01/23/23 05:56 01/23/23 06:37 01/23/23 08:00 Temperature 97.9 F Pulse Rate 119 H 121 H Respiratory Rate 28 H 17 Blood Pressure 128/74 Pulse Oximetry 97 95 96 Oxygen Delivery Method Oxygen Flow Rate 60 6 01/23/23 07:00 Temperature Pulse Rate Respiratory Rate Blood Pressure Pulse Oximetry Oxygen Delivery Method Heated High Flow Oxygen Flow Rate Fraction of Inspired Oxygen 36 SaO2/FiO2 Ratio 258 Oxygen Delivery Method Heated High Flow Oxygen Flow Rate 6 Narrative Exam Narrative: GEN: unresponsive, withdraws to painful stimuli HEENT: moist mucous membranes, PERRL, OxiMask in place NECK: trachea midline, no jvd PULM: clear bilaterally, no wheezes, rhonchi, rales, some decreased air sounds at the base of right lung CV: regular rate and rhythm, no murmurs ABD: soft, nontender, nondistended, no organomegaly, normal bowel sounds EXT: warm and well perfused with no edema NEURO: not able to assess Objective Labs 01/23/23 04:25 01/23/23 04:25 Labs: Laboratory Results - last 24 hr 01/23/23 01/23/23 04:25 04:25 WBC 9.9 RBC 5.49 H Hgb 15.8 Hct 47.7 H MCV 86.9 MCH 28.8 MCHC 33.2 RDW 13.8 Plt Count 197 Neut % (Auto) Not Reportable Lymph % (Auto) Not Reportable [place] % (Auto) Not Reportable Eos % (Auto) Not Reportable Baso % (Auto) Not Reportable Lymph # (Auto) Not Reportable [place] # (Auto) Not Reportable Baso # (Auto) Not Reportable Total Counted 100 Seg Neutrophils % 20.0 L Band Neutrophils % 49.0 H Lymphocytes % (Manual) 14.0 L Monocytes % (Manual) 5.0 Metamyelocytes % 9.0 H Myelocytes % 3.0 H Neutrophils # (Manual) 6831 H RBC Morphology Normal morphology Sodium 148 H Potassium 2.8 L Chloride 119 H Carbon Dioxide 17 L BUN 37 H Creatinine 0.90 Estimated GFR > 60 BUN/Creatinine Ratio 41.1 H Glucose 280 H Calcium 9.8 NT-Pro-B Natriuret Pep 2900 H PFSH Medical History 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 CVA (cerebral vascular accident) Diabetes mellitus History of ventricular fibrillation 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 Neuropathy Urinary incontinence Surgical History History of colonoscopy History of permanent cardiac pacemaker placement Family History Mother MRSA (methicillin resistant Staphylococcus aureus) Cardiovascular disease Stroke Myocardial infarction Father Cardiovascular disease Myocardial infarction Social History household members: spouse and children Smoking Status: Never smoker alcohol intake: former Assessment & Plan Assessment & Plan narrative: # comfort care -switched to comfort after discussion with on 01/23 -IV morphine and ativan PRN for comfort # acute encephalopathy in setting of previous strokes - UTI likely cause with positive culture for Gram-negative bacilli, confirmed to be Klebsiella pneumoniae sensitive ceftriaxone.? Patient has had a 3 day course intravenously. - warfarin subtherapeutic, concerning of a cause for possible new stroke -CT head with chronic microvascular ischemia but subacute ischemia cannot be ruled out on initial CT.? Repeat CT today shows no new acute CVAs. -INR subtherapeutic at 1.0 -restart warfarin unable to do due to not swallowing on lovenox bridge at therapeutic dose -unable to obtain MRI brain due to pacemaker, we will do a repeat CT of the head completed today for comparison of CT done on admission-no new acute CVAs. -obtain carotid US to assess for worsening of stenosis -no stenosis or compromise of flow noted. -UA with pyuria, f/u culture -positive for Klebsiella pneumoniae -rocephin 1g daily-completed 3 day course -aspirin 81mg daily -not taking due to not swallowing -PT/OT ramírezals -this will be discontinued due to patient not able to follow commands. 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 Unable to follow commands and likely can not do any further assessment. -currently NPO # acute kidney injury, resolved -renal function has resolved to normal # hypernatremia -with 1/2 normal saline at 42 mL/hour -due to lack of po intake # pneumonia, right lower lobe with some small effusion -stopped abx due to comfort care Code status: Has been changed to DNR last evening based on hospitalist classification control clerk discussion with the COVID negative. DVT prophylaxis with Lovenox. Proxy is .? Dispo: Comfort care. Will likely pass in hospital.
[2023-01-23 10:47] LABS: Vancomycin Trough 20.3 ug/mL (10-20)
--- NOTE | 2023-01-23 11:23 | SLP.IPNOTE ---
Attempted to see pt, nursing stated still not appropriate. Dr Stockton, in rounds, indicated ST to cancel order as pt to go to comfort care status.
[2023-01-23] MEDS: LORazepam 2 MG/ML INJ 1 MG IV ×3 (13:16→22:50)
[2023-01-23] MEDS: MORPHINE 2 MG/ML INJ IV ×2 (18:56→22:50)
[2023-01-23] MEDS: SCOPOLAMINE 1 PATCH TOP (20:53)
[2023-01-24] MEDS: MORPHINE 2 MG/ML INJ IV ×9 (00:20→23:43)
[2023-01-24 05:30] VITALS: PULSE 115; RESP 26
[2023-01-24 08:04] VITALS: PULSE 108; RESP 24; O2SAT 91
[2023-01-24] MEDS: LORazepam 2 MG/ML INJ 1 MG IV (08:08)
[2023-01-24] MEDS: MORPHINE 10 MG/0.5 ML ORAL SYRINGE SL ×7 (11:11→19:42)
[2023-01-24 11:54] VITALS: PULSE 119; RESP 20; O2SAT 86
--- NOTE | 2023-01-24 14:52 | CM.DPNOTE ---
DCP Note Met w/spouse today, introduced self. Spouse sitting w/patient at bedside, patient on HHFNC 50-60L, non-responsive, appears to be in no distress Reviewed the DCP option of home w/hospice and family support (no insurance=likely hospice foundation dollars for hospice service). Spouse explains this will likely not be feasible. Spouse further explains that EMS will not be able to fit a stretcher through the front door of their double-wide trailer. In addition, spouse feels patient and spouse's three adult children will have a very difficult time seeing their mother in the family home Dr Stockton asks spouse why patient is on aggressive high flow at this time? (comfort care) Spouse wants addtl family to visit patient this afternoon/evening for good-byes and then agrees to O2 being titrated and medication being increased. Dr Stockton anticipates patient will not survive this hospitalization once O2 is titrated and comfort meds increased (to help w/air hunger) Provided spouse w/a home/cremation services resource list from [facility]. Encouraged spouse to contact [facility] as this is the local business that calls if no arrangements are made before a person's CM team following closely for support and coordination of DCP- that is if patient stabilizes w/end of life management over the next 24-48 hrs and thought to be able to survive this hospitalization RICHAR Larsen
[2023-01-24 15:22] VITALS: PULSE 120; RESP 20; TEMP 37; O2SAT 93
[2023-01-24 15:33] VITALS: O2SAT 91
--- NOTE | 2023-01-24 16:25 | P.PN_ITS ---
Subjective Subjective Interval history: Patient now on HFNC at 50L and 100% satting in mid 80's in order to buy time for her family to come see her. Exam Vital Signs (past 8 hours): - 01/24/23 11:54 01/24/23 15:22 01/24/23 15:33 Temperature 98.6 F Pulse Rate 119 H 120 H Respiratory Rate 20 20 Pulse Oximetry 86 L 93 91 Oxygen Delivery Method Room Air Oxygen Flow Rate 60 Fraction of Inspired Oxygen 36 SaO2/FiO2 Ratio 258 Oxygen Delivery Method Room Air Oxygen Flow Rate 60 Narrative Exam Narrative: GEN: unresponsive, withdraws to painful stimuli HEENT: moist mucous membranes, PERRL, OxiMask in place NECK: trachea midline, no jvd PULM: clear bilaterally, no wheezes, rhonchi, rales, some decreased air sounds at the base of right lung CV: regular rate and rhythm, no murmurs ABD: soft, nontender, nondistended, no organomegaly, normal bowel sounds EXT: warm and well perfused with no edema NEURO: not able to assess Objective Labs 01/23/23 04:25 01/23/23 04:25 [facility] Medical History 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 CVA (cerebral vascular accident) Diabetes mellitus History of ventricular fibrillation 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 Neuropathy Urinary incontinence Surgical History History of colonoscopy History of permanent cardiac pacemaker placement Family History Mother MRSA (methicillin resistant Staphylococcus aureus) Cardiovascular disease Stroke Myocardial infarction Father Cardiovascular disease Myocardial infarction Social History household members: spouse and children Smoking Status: Never smoker alcohol intake: former Assessment & Plan Assessment & Plan narrative: # comfort care -switched to comfort after discussion with on 01/23 -IV morphine and ativan PRN for comfort # acute encephalopathy in setting of previous strokes - UTI likely cause with positive culture for Gram-negative bacilli, confirmed to be Klebsiella pneumoniae sensitive ceftriaxone.? Patient has had a 3 day course intravenously. - warfarin subtherapeutic, concerning of a cause for possible new stroke -CT head with chronic microvascular ischemia but subacute ischemia cannot be ruled out on initial CT.? Repeat CT today shows no new acute CVAs. -INR subtherapeutic at 1.0 -restart warfarin unable to do due to not swallowing on lovenox bridge at thera peutic dose -unable to obtain MRI brain due to pacemaker, we will do a repeat CT of the head completed today for comparison of CT done on admission-no new acute CVAs. -obtain carotid US to assess for worsening of stenosis -no stenosis or compromise of flow noted. -UA with pyuria, f/u culture -positive for Klebsiella pneumoniae -rocephin 1g daily-completed 3 day course -aspirin 81mg daily -not taking due to not swallowing -PT/OT evals -this will be discontinued due to patient not able to follow c janemanderica. 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 Unable to follow commands and likely can not do any further assessment. -currently NPO # acute kidney injury, resolved -renal function has resolved to normal # hypernatremia -with 1/2 normal saline at 42 mL/hour -due to lack of po intake # pneumonia, right lower lobe with some small effusion -stopped abx due to comfort care Code status: Has been changed to DNR last evening based on hospitalist management consultant discussion with the COVID negative. DVT prophylaxis with Lovenox. Proxy is .? Dispo: Comfort care. Will likely pass in hospital.
[2023-01-24] MEDS: LORazepam 2 MG/ML ORAL SOL 1 MG SL (16:43)
[2023-01-25] MEDS: MORPHINE 2 MG/ML INJ 3 MG IV ×4 (00:48→05:45)
[2023-01-25] MEDS: MORPHINE 2 MG/ML INJ IV ×3 (08:29→13:13)
--- NOTE | 2023-01-25 08:30 | PM.PN.1 ---
Exam Vital Signs (past 8 hours): Fraction of Inspired Oxygen 36 SaO2/FiO2 Ratio 258 Oxygen Delivery Method Room Air Oxygen Flow Rate 60 Narrative Exam Narrative: GEN: unresponsive, withdraws to painful stimuli HEENT: moist mucous membranes, PERRL, OxiMask in place NECK: trachea midline, no jvd PULM: clear bilaterally, no wheezes, rhonchi, rales, some decreased air sounds at the base of right lung CV: regular rate and rhythm, no murmurs ABD: soft, nontender, nondistended, no organomegaly, normal bowel sounds EXT: warm and well perfused with no edema NEURO: not able to assess Objective Labs 01/23/23 04:25 01/23/23 04:25 [facility] Medical History 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 CVA (cerebral vascular accident) Diabetes mellitus History of ventricular fibrillation 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 Neuropathy Urinary incontinence Surgical History History of colonoscopy History of permanent cardiac pacemaker placement Family History Mother MRSA (methicillin resistant Staphylococcus aureus) Cardiovascular disease Stroke Myocardial infarction Father Cardiovascular disease Myocardial infarction Social History household members: spouse and children Smoking Status: Never smoker alcohol intake: former Assessment & Plan Assessment & Plan narrative: # comfort care -switched to comfort after discussion with on 01/23 -IV morphine and ativan PRN for comfort # acute encephalopathy in setting of previous strokes - UTI likely cause with positive culture for Gram-negative bacilli, confirmed to be Klebsiella pneumoniae sensitive ceftriaxone.? Patient has had a 3 day course intravenously. - warfarin subtherapeutic, concerning of a cause for possible new stroke -CT head with chronic microvascular ischemia but subacute ischemia cannot be ruled out on initial CT.? Repeat CT today shows no new acute CVAs. -INR subtherapeutic at 1.0 -restart warfarin unable to do due to not swallowing on lovenox bridge at therapeutic dose -unable to obtain MRI brain due to pacemaker, we will do a repeat CT of the head completed today for comparison of CT done on admission-no new acute CVAs. -obtain carotid US to assess for worsening of stenosis -no stenosis or compromise of flow noted. -UA with pyuria, f/u culture -positive for Klebsiella pneumoniae -rocephin 1g daily-completed 3 day course -aspirin 81mg daily -not taking due to not swallowing -PT/OT evals -this will be discontinued due to patient not able to follow commands. 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 Unable to follow commands and likely can not do any further assessment. -currently NPO # acute kidney injury, resolved -renal function has resolved to normal # hypernatremia -with 1/2 normal saline at 42 mL/hour -due to lack of po intake # pneumonia, right lower lobe with some small effusion -stopped abx due to comfort care Code status: Has been changed to DNR last evening based on hospitalist front desk representative discussion with the COVID negative. DVT prophylaxis with Lovenox. Proxy is .? Dispo: Comfort care. Will likely pass in hospital.
--- NOTE | 2023-01-25 14:17 | P.DN_ITS ---
Discharge Summary History of Illness Narrative: Kimmy Gray is a 57yo F with PMH of CVA with chronic left hemiparesis, DM2, VT s/p ICD and pacemaker, HTN, PE on warfarin, chronic left foot toe wound and spastic bladder who presents with increased lethargy and AMS. History obtained from ED chart note as patient is too somnolent to answer questions and is not present. Apparently she was less interactive and mumbling to the before he left for work. Concern was for worsening mental status so brought to the ED. Patient found to have UTI. CT noncontrast head showed white matter hypodensities suggestive of chronic microvascular ischemia but subacute ischemia cannot be ruled out. Admitted for MRI brain and abx for UTI. Patient currently cannot tell me the year but knows she is in the hospital and that it is located in [facility]. She says she is in no pain. She denies headache, NV, CP, SOB, abd pain, or diarrhea. Hospital Course Date of Admission: 01/20/23 13:56 Primary care provider: Donna Redman PA-C Consults: 01/19/23 09:39 Consult to Occupational Therapy Evaluate & Treat Comment: Physician Instructions: Evaluate and treat Consult to Physical Therapy Evaluate & Treat Comment: Physician Instructions: Evaluate and Treat 01/19/23 18:12 Consult to Speech Therapy Evaluate & Treat Comment: difficulty managing food, slower speech/responses Physician Instructions: Evaluate and treat 01/23/23 13:49 Consult to Pastoral Services Routine Comment: on comfort care, would like to see director merit system 01/23/23 13:56 Consult to Discharge Planning Routine Comment: Consult to Hospice Referral Urgent Comment: Discharge Diagnosis: # comfort care -switched to comfort after discussion with on 01/23 -IV morphine and ativan PRN for comfort - at 1400 on 01/25 # acute encephalopathy in setting of previous strokes - UTI likely cause with positive culture for Gram-negative bacilli, confirmed to be Klebsiella pneumoniae sensitive ceftriaxone.? Patient has had a 3 day course intravenously. - warfarin subtherapeutic, concerning of a cause for possible new stroke -CT head with chronic microvascular ischemia but subacute ischemia cannot be ruled out on initial CT.? Repeat CT today shows no new acute CVAs. -INR subtherapeutic at 1.0 -restart warfarin unable to do due to not swallowing on lovenox bridge at therapeutic dose -unable to obtain MRI brain due to pacemaker, we will do a repeat CT of the head completed today for comparison of CT done on admission-no new acute CVAs. -obtain carotid US to assess for worsening of stenosis -no stenosis or compromise of flow noted. -UA with pyuria, f/u culture -positive for Klebsiella pneumoniae -rocephin 1g daily-completed 3 day course -aspirin 81mg daily -not taking due to not swallowing -PT/OT evals -this will be discontinued due to patient not able to follow commands. 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 Unable to follow commands and likely can not do any further assessment. -currently NPO # acute kidney injury, resolved -renal function has resolved to normal # hypernatremia -with 1/2 normal saline at 42 mL/hour -due to lack of po intake # pneumonia, right lower lobe with some small effusion -stopped abx due to comfort care Hospital Course: Admitted for worsening acute encephalopathy and found to have pneumonia. Mental status continued to worsen and patient stopped eating and drinking. Became more unresponsive so was switched to comfort care on 01/23 and patient peacefully at 1400 on 01/25. Objective Labs 01/23/23 04:25 01/23/23 04:25
--- NOTE | 2023-01-25 14:22 | PC.NURSE ---
MD [place] at bedside pronounced Patient's at 1400.
--- NOTE | 2023-01-25 17:34 | PC.NURSE ---
Pt obtunded, no movements noted or eye opening. Comfort care provided. Family and at bedside. Morphine given for SOB, and increased RRR. Pt turned q 2 hour, mouth care provided. Patient found extremely pale this afternoon when stepped out to smoke just before 1400. MD notified and patient pronounced at 1400. Patient's notified and requested time with body and for children to have time to view /be with body. After the family left and took all belongings, requested [facility] to be notified. Representatives from [facility] arrived at 1700. Assisted with body transport to [facility] and escorted representatives to ER entrance to [place]. Pt is discharged at approximately 1730.
== END 2023-01-25 17:30 | disposition expired | DRG 689 ==
LOC: ED 22:00 → AC 22:01
PROVIDERS: Internal Medicine; Neuromusculoskeletal Medicine, Sports Medicine; Admitting Provider Student in an Organized Health Care Education/Training Program; Emergency Provider Emergency Medicine; Family Provider Family Medicine; PCP Physician Assistant Medical; Visit Provider Student in an Organized Health Care Education/Training Program
DX: N39.0 Urinary tract infection, site not specified (principal); J18.9 Pneumonia, unspecified organism; G93.40 Encephalopathy, unspecified; I69.954 Hemiplegia and hemiparesis following unspecified cerebrovascular disease affecting left non-dominant side; N17.9 Acute kidney failure, unspecified; E87.0 Hyperosmolality and hypernatremia; N32.89 Other specified disorders of bladder; E11.9 Type 2 diabetes mellitus without complications; I10 Essential (primary) hypertension; B96.1 Klebsiella pneumoniae [K. pneumoniae] as the cause of diseases classified elsewhere; R79.1 Abnormal coagulation profile; R13.10 Dysphagia, unspecified; I99.8 Other disorder of circulatory system; Z51.5 Encounter for palliative care; Z79.84 Long term (current) use of oral hypoglycemic drugs; Z20.822 Contact with and (suspected) exposure to COVID-19; Z95.0 Presence of cardiac pacemaker; Z66 Do not resuscitate; Z86.711 Personal history of pulmonary embolism; Z79.01 Long term (current) use of anticoagulants
CPT/HCPCS: 36415; 36600; 70450; 71045; 71275; 80048; 80053; 80202; 80305; 81001; 82140; 82805; 82962; 83605; 83735; 83880; 84146; 85007; 85025; 85379; 85610; 87040; 87077; 87086; 87186; 87635; 92610; 93005; 93880; 94762; 96365; 97163; 97166; 99284; C9803; G0378; C8929; J0360; J0696; J1170; J1650; J1815; J1940; J2060; J2185; J2270; J2310; J2405; J3475; J7050; Q9957; Q9967